=== PATIENT | male | born 1935 | race Caucasian/White ===

== ENCOUNTER → 2018-04-08 08:50 | Outpatient (CLI) | payer MEDICARE, BC, SELFPAY ==
--- NOTE | 2018-04-08 | DI.CT.S_ITS ---
PROCEDURE: CT SINUS SCREEN WO CON INDICATIONS: CHRONIC SINUSITIS TECHNIQUE: Noncontrast 3.0 mm axial images acquired from the frontal sinuses to the mid-sella, with coronal and sagittal reformats. For radiation dose reduction, the following was used: automated exposure control, adjustment of mA and/or kV according to patient size. COMPARISON: [facility], , C-SPINE WITHOUT CONTRAST, 07/10/2016, 20:12. FINDINGS: Image quality: Excellent. Maxillary Sinuses: No bony remodeling or destruction. Sinuses are clear. Within the floor of the right maxillary sinus, developmental bony irregularity can be seen. Ethmoid Air Cells: No bony remodeling or destruction. Moderate mucosal thickening is seen within the white air cells. Sphenoid Sinuses: No bony remodeling or destruction. Sinuses are clear. Frontal Sinuses: No bony remodeling or destruction. Moderate mucosal thickening is seen within the inferior frontal sinuses. Accessory septations can be seen within the frontal sinuses. Ostiomeatal Complexes: Ostiomeatal complexes are patent, yet they are constitutionally narrowed. Mild intraorbital septations can be seen. Miscellaneous: Visualized intra-orbital contents are normal. There is a small left-sided meena bullosa. Mild rightward nasal septal deviation is seen. IMPRESSION: Moderate mucosal thickening is seen within the inferior frontal sinuses and within the ethmoid air cells, which is consistent with the given history of chronic sinusitis. Narrowed ostiomeatal complexes, which remain patent. Mild left meena bullosa, with mild rightward nasal septal deviation. Dictated by: Ariel Perez M.D. on 04/08/2018 at 9:09 Approved by: Ariel Perez M.D. on 04/08/2018 at 9:13
== END ==
PROVIDERS: Family Provider Internal Medicine; PCP Internal Medicine; Visit Provider Internal Medicine
DX: J32.9 Chronic sinusitis, unspecified (principal); J34.2 Deviated nasal septum; J34.3 Hypertrophy of nasal turbinates
CPT/HCPCS: 70486

== ENCOUNTER → 2018-08-29 07:56 | Outpatient (CLI) | payer MEDICARE, BC, SELFPAY ==
[2018-08-29 08:32] LABS: Add Manual Diff / Slide Review NO; Basophils Percent Auto 1.2 % (0-2); Hematocrit 45.7 % (41-53); Hemoglobin 15.2 g/dL (13.5-17.5); Mean Corpuscular HGB Conc 33.3 % (30-36); Mean Corpuscular Hemoglobin 31.2 PG (26-34); Mean Corpuscular Volume 93.5 fL (80-100); Monocytes Percent Auto 6.8 % (3-14); Neutrophils Absolute Auto 5200 /uL (3000-5900); Platelet Count 279 X10^3/uL (150-400); Red Blood Cell Count 4.89 X10^6/uL (4.5-5.9); Red Cell Distribution Width 13.2 % (11.6-14.8); White Blood Cell Count 9.1 X10^3/uL (4.5-11.0)
[2018-08-29 08:52] LABS: Alanine Aminotransferase 30 IU/L (21-72); Albumin 4.4 g/dL (3.5-5.0); Albumin Globulin Ratio 1.8 (1.0-2.8); Alkaline Phosphatase 86 U/L (38-126); Aspartate Aminotransferase 21 IU/L (17-59); Bilirubin Total 0.9 mg/dL (0.2-1.3); Blood Urea Nitrogen 20 mg/dL (9-20); Calcium 9.2 mg/dL (8.4-10.2); Carbon Dioxide 29 mmol/L (22-32); Chloride 103 mmol/L (98-107); Cholesterol 148 mg/dL (140-199); Estimated Glomerular Filt Rate > 60.0 mL/min (>60); Globulin 2.5 g/dL (1.7-4.1); Glucose 101 mg/dL (80-110); HDL Cholesterol 63 mg/dL (40-60); HEMOLYSIS 22 (0-50); LDL Cholesterol Calculated 70 mg/dL (<100); Potassium 4.3 mmol/L (3.4-5.1); Sodium 144 mmol/L (137-145); Total Protein 6.9 g/dL (6.3-8.2); Triglycerides 75 mg/dL (35-150)
== END ==
PROVIDERS: Family Provider Internal Medicine; PCP Internal Medicine; Visit Provider Urology
DX: R97.20 Elevated prostate specific antigen [PSA] (principal); E78.2 Mixed hyperlipidemia; I10 Essential (primary) hypertension
CPT/HCPCS: 36415; 80053; 80061; 84153; 85025

== ENCOUNTER → 2018-09-26 09:34 | Outpatient (CLI) | payer MEDICARE, BC, SELFPAY ==
--- NOTE | 2018-09-26 11:05 | DIET.PN ---
met for initial nutrition consultation Pt reports about a year ago he collapsed while in [place]. Saw a lot of specialists; eventually determined the cause was jet lag from lack of adequate food and fluid. Also experienced a decrease in mental acuity during this time. Since then started working hard to eat better, exercise more and lose weight. Has lost 20# in 8 months, but has now been stuck for about 2 months. Wants to lose another 10#. Feels he lost muscle and now having difficulty gaining back. Exercise: walks/hikes 4-10mi daily wearing a 20# pack. Typical Diet: Three meals daily w/trimmer buffing wheel snack when can't sleep. Breakfast- 1 PO egg w/1/2 slice toast (dry), 2 cups coffee w/Coffeemate creamers and 1Tbsp sugar each Or, 1 egg omelet w/peppers and cheese; Lunch: Homemade soup- turkey noodle, chicken veg, split pea ~12oz; 1/2 slice bread Dinner: 4oz Hamburger, with bun, sometimes veg, 12 oz skim milk Or, vegetables w/melted Raclette cheese, 12 oz skim milk 4pm daily- Happy hour: 8oz red wine 1AM (wakes r/t needing to urinate and can't get back to sleep)- snack: banana bread or whatever around NOTE: Bread is homemade and big slices DX: Obesity Ht: 67 Weight Hx: 8mo ago- 214 BMI: 33 Today 194# BMI 30 Weight Goal: 180# Age: 83yo Assessment: This is a spry 85yo; determined to get back in good condition with goal of hiking 450mi trek in [place] w/friend. Has made very good changes in diet and exercise w/resulting wt loss, increase in mental acuity and improved energy (for my age). Is borderline obese at this wt and having difficulty continuing progress. Diet is very modest in portions; includes a variety of food groups; fairly well balanced considering low energy needs for age. Diet does have some empty calorie foods that could be trimmed and possibly more starchy foods (fresh bread) than an 85yo needs. Concerned that diet is not adequate in protein - current recs for elderly are 30g of protein 3 times/daily (spread through day) to avoid muscle loss/gain muscle. Intervention: Brainstormed ways to trim current diet of cals, while increasing protein. Plan: Less starchy foods, more protein DC sugar in coffee - drink black or substitute w/stevia Decrease Happy hour wine to every other day Try: Breakfast- 2 egg omelet w/vegs, no bread Lunch - More soup w/more meat, no bread or same serving soup + cottage cheese, no bread Dinner - More meals w/Meat (beef, poutry, fish) and non-starchy vegs Have mid-morning snack planned and available to help make better choice or try alternates for relaxing No f/u planned a this time
== END ==
PROVIDERS: PCP Internal Medicine; Visit Provider Internal Medicine
DX: E66.9 Obesity, unspecified (principal)
CPT/HCPCS: 97802

== ENCOUNTER → 2018-12-24 09:44 | Outpatient (CLI) | payer MEDICARE, BC, SELFPAY ==
[2018-12-24 09:54] LABS: Bacteria Urine None Seen; RBC Urine None Seen (0-5/HPF); WBC Urine None Seen (0-5/HPF)
[2018-12-24 10:43] LABS: Appearance Urine UA CLEAR; Bilirubin Urine UA NEGATIVE (NEGATIVE); Color Urine UA YELLOW; Glucose Urine UA NEGATIVE (Negative); Ketones Urine UA NEGATIVE (NEGATIVE); Leukocyte Esterase Urine UA NEGATIVE (NEGATIVE); Nitrite Urine UA NEGATIVE (Negative); Occult Blood Urine UA TRACE-INTACT (Negative); Protein Urine UA NEGATIVE (Negative); Specific Gravity Urine UA 1.015 (1.000-1.035); Urobilinogen Urine UA 0.2 E.U./dL (0.2)
[2018-12-24 11:35] LABS: Culture Indicated Urine Cult Not Indicated
== END ==
PROVIDERS: PCP Internal Medicine; Visit Provider Urology
DX: R30.0 Dysuria (principal)
CPT/HCPCS: 81001

== ENCOUNTER → 2019-01-03 10:30 | Outpatient (CLI) | payer MEDICARE, BC, SELFPAY ==
--- NOTE | 2019-01-03 | DI.CT.S_ITS ---
PROCEDURE: CT KIDNEY URETER BLADDER (KUB) INDICATIONS: ABDOMINAL PAIN TECHNIQUE: Noncontrast 5 mm thick sections acquired from the diaphragms to the symphysis. 5 mm thick coronal and sagittal reformats were then performed. For radiation dose reduction, the following was used: automated exposure control, adjustment of mA and/or kV according to patient size. COMPARISON: None. FINDINGS: Image quality: Excellent. Lung bases: Lung bases are clear. Heart size is normal. Urinary system: Both kidneys are normal in size. No kidney stones. No hydronephrosis or perinephric fat stranding. Both ureters appear non-dilated throughout their expected courses. Bladder wall thickness is normal; no calcified bladder stones. Other solid organs: Liver is normal in size. Gallbladder appears normal. Pancreas is normal in contours. Spleen is normal in size. No adrenal nodules. Peritoneum and bowel: Unenhanced bowel loops demonstrate normal wall thickness and caliber. No free fluid or air. Nodes and vessels: No retroperitoneal or mesenteric adenopathy by size criteria. Aorta and inferior vena cava are normal in caliber. Abdominal wall: No ventral hernias. Pelvis: No free pelvic fluid. No inguinal hernias or adenopathy. No bladder calculus or mass is found. The prostate is enlarged to a mild to moderate degree. The bladder itself shows no evidence of underlying neoplasm. Bones: No suspicious bony lesions. No vertebral body compression fractures. IMPRESSION: No hydronephrosis or nephrolithiasis is found. No inflammatory processes identified. A source of current abdominal pain is not seen. Note is made of mild concentric bladder wall thickening in this patient with mild to moderate prostatic enlargement, smoothly marginated, without a bladder calculus or mass. Dictated by: Bryce Woo M.D. on 01/03/2019 at 11:10 Approved by: Bryce Woo M.D. on 01/03/2019 at 11:13
== END ==
PROVIDERS: PCP Internal Medicine; Visit Provider Urology
DX: R10.9 Unspecified abdominal pain (principal); N40.0 Benign prostatic hyperplasia without lower urinary tract symptoms
CPT/HCPCS: 74176

== ENCOUNTER → 2019-03-26 08:17 | Outpatient (CLI) | payer MEDICARE, BC, SELFPAY ==
--- NOTE | 2019-03-26 08:18 | DI.RAD.S_ITS ---
PROCEDURE: XR CHEST 2V INDICATIONS: cough TECHNIQUE: 2 views of the chest were acquired. COMPARISON: [facility], , CHEST 2 VIEW, 12/21/2015, 10:48. FINDINGS: Surgical changes and devices: None. Lungs and pleura: Lungs are clear. No pleural effusions or pneumothorax. Mediastinum: Mediastinal contours are normal. Heart size is normal. Bones and chest wall: No suspicious bony abnormalities. Soft tissues appear unremarkable. IMPRESSION: Normal for age, source of current cough symptoms is not seen. Dictated by: Bryce Woo M.D. on 03/26/2019 at 8:42 Approved by: Bryce Woo M.D. on 03/26/2019 at 8:42
== END ==
PROVIDERS: PCP Internal Medicine; Visit Provider Physician Assistant
DX: R05 Cough (principal)
CPT/HCPCS: 71046

== ENCOUNTER → 2019-03-31 14:00 | Outpatient (CLI) | payer MEDICARE, BC, SELFPAY ==
--- NOTE | 2019-03-31 14:01 | DI.RAD.S_ITS ---
PROCEDURE: XR CHEST 2V INDICATIONS: cough persists after antibiotic TECHNIQUE: 2 views of the chest were acquired. COMPARISON: [facility], CR, XR CHEST 2V, 03/26/2019, 8:22. FINDINGS: Surgical changes and devices: None. Lungs and pleura: No acute consolidation. Scattered subsegmental atelectasis and/or scarring. No pleural effusions or pneumothorax. Mediastinum: Mediastinal contours are normal. Heart size is normal. Bones and chest wall: No suspicious bony abnormalities. Soft tissues appear unremarkable. IMPRESSION: No acute disease. Scattered scarring/atelectasis as before Dictated by: Navarro Talamantes M.D. on 03/31/2019 at 17:33 Approved by: Navarro Talamantes M.D. on 03/31/2019 at 17:34
== END ==
PROVIDERS: PCP Internal Medicine; Visit Provider Nurse Practitioner
DX: R05 Cough (principal)
CPT/HCPCS: 71046

== ENCOUNTER → 2019-04-10 10:35 | Outpatient (CLI) | payer MEDICARE, BC, SELFPAY | PROVIDERS: PCP Internal Medicine; Visit Provider Nurse Practitioner | DX: R05 Cough (principal); R06.2 Wheezing | CPT/HCPCS: 87070; 87186; 87205 ==

== ENCOUNTER → 2019-04-29 15:04 | Outpatient (CLI) | payer MEDICARE, BC, SELFPAY ==
[2019-04-29 15:37] LABS: BUN Creatinine Ratio 26.4 (6-22); Blood Urea Nitrogen 29 mg/dL (9-20); Calcium 9.4 mg/dL (8.4-10.2); Carbon Dioxide 29 mmol/L (22-32); Chloride 105 mmol/L (98-107); Estimated Glomerular Filt Rate > 60.0 mL/min (>60); Glucose 92 mg/dL (80-110); HEMOLYSIS < 15 (0-50); Potassium 4.2 mmol/L (3.4-5.1); Sodium 141 mmol/L (137-145)
[2019-04-29 15:42] LABS: Hematocrit 43.9 % (41-53); Hemoglobin 14.5 g/dL (13.5-17.5); Platelet Count 307 X10^3/uL (150-400); Red Blood Cell Count 4.67 X10^6/uL (4.5-5.9); Red Cell Distribution Width 13.8 % (11.6-14.8); White Blood Cell Count 8.2 X10^3/uL (4.5-11.0)
[2019-04-29 15:46] LABS: D Dimer < 200 ng/mL (<230)
[2019-04-29 16:34] LABS: Neutrophils Absolute Manual 4100 /uL (3000-5900); Total Cells Counted 100
[2019-04-29 16:35] LABS: RBC Morphology Normal Morphology
== END ==
PROVIDERS: PCP Internal Medicine; Visit Provider Nurse Practitioner
DX: R06.09 Other forms of dyspnea (principal); R07.9 Chest pain, unspecified; R06.00 Dyspnea, unspecified; R06.89 Other abnormalities of breathing; I10 Essential (primary) hypertension
CPT/HCPCS: 36415; 80048; 85025; 85379

== ENCOUNTER → 2019-05-06 06:44 | Outpatient (CLI) | payer MEDICARE, BC, SELFPAY ==
--- NOTE | 2019-05-06 06:45 | DI.ECHO.S_ITS ---
[facility] +---------+ : : [address] : [place] : : : : [id number] : : : : Phone: [phone]+ Echocardiogram Report + + :Name: ISSAC MATUTE Study Date: 05/06/2019 Height: 67 in : :[facility] Exam Location: [facility] Weight: 205 lb : : Gender: Male BSA: 2.0 m2 : :: 1935 Age: 84 yrs BP: 142/80 mmHg: :Reason For Study: CARTAGENA/ Chest Pain/ Weight Gain : : Performed By: Mary Page : :Referring: IVORY NOLEN : + + Interpretation Summary The left ventricle is normal in size. The left ventricle is hyperdynamic. The ejection fraction is estimated to be 70-75%. The echo findings are not consistent with significant dynamic left ventricular intracavitary or LV outflow tract obstruction. The right ventricle is normal in size and function. The aortic valve is mildly calcified. There is mildly reduced leaflet mobility. The peak aortic velocity is 2.2 m/sec. The aortic valve mean gradient is 10.4 mmHg. The peak aortic velocity on the previous exam was 1.8 m/sec. There is mild aortic stenosis. There is mild aortic regurgitation. Compared to the prior echo study, there has been a decrease in the severity of aortic regurgitation. The aortic root is mildly dilated. The ascending aorta is mildly enlarged. Procedure: A two-dimensional transthoracic echocardiogram with color flow and Doppler was performed. The study quality was technically adequate. Comparison is made with the echocardiogram of 09/28/2017. The patient was in normal sinus rhythm during the exam. Left Ventricle: Left ventricular wall thickness is mildly increased. The left ventricle is normal in size. Proximal septal thickening is noted. There is no thrombus. A false chord is noted (normal variant). The ejection fraction is estimated to be 70-75%. The left ventricle is hyperdynamic. There are no focal wall motion abnormalities. Diastolic parameters suggest a relaxation abnormality of the left ventricle, consistent with probable normal filling pressures. Right Ventricle: The right ventricle is normal in size and function. Atria: The left atrium is mildly dilated. The left atrium has mildly decreased in size since the prior echo exam. Right atrial size is normal. There is no Doppler evidence for an interatrial shunt. Mitral Valve: There is mild mitral annular calcification. There is trace mitral regurgitation. Aortic Valve: The aortic valve is trileaflet. The aortic valve is mildly calcified. There is mildly reduced leaflet mobility. The peak aortic velocity is 2.2 m/sec. The peak aortic velocity on the previous exam was 1.8 m/sec. The aortic valve mean gradient is 10.4 mmHg. The calculated aortic valve area is 2.2 cm2. There is mild aortic stenosis. There is mild aortic regurgitation. There is an eccentric jet of aortic insufficiency directed against the anterior mitral leaflet. Compared to the prior echo study, there has been a decrease in the severity of aortic regurgitation. Tricuspid Valve: The tricuspid valve is normal in structure and function. There is a trace or physiologic amount of tricuspid regurgitation. Pulmonary artery pressures cannot be estimated because of the lack of a measurable TR jet velocity. Pulmonic Valve: The pulmonic valve is not well seen, but is grossly normal. There is trace pulmonic regurgitation. Great Vessels: The aortic root is mildly dilated. The ascending aorta is mildly enlarged. The aortic arch could not be visualized. There has been no significant change since the previous study. The pulmonary artery is normal size. The IVC is of normal diameter and collapses greater than 50% with a sniff. This suggests a low right atrial pressure of 3 mm Hg. Pericardium/ Pleura There is no pericardial effusion. There is no pleural effusion. MMode/2D Measurements & Calculations LVIDd: 4.5 cm LVOT diam: 2.1 cm LVIDs: 2.5 cm Ao root diam: 4.2 cm FS: 44.8 % asc Aorta Diam: 3.8 cm EPSS: 0.28 cm IVSd: 1.2 cm LVPWd: 1.1 cm LV bridges. diameter/BSA (cm/m^2): 2.2 LV sys. diameter/BSA (cm/m^2): 1.2 LA A2 area: 24.1 cm2 RA long axis: 6.4 cm LA A4 area: 27.7 cm2 RA area: 23.5 cm2 LA length (vol): 7.2 cm RA vol: 73.4 ml LA vol: 78.7 ml RA : 35.9 ml/m2 LA vol index: 38.5 ml/m2 IVC diam: 1.9 cm RVD1 (basal): 4.2 cm RVD2 (mid): 2.6 cm TAPSE: 2.7 cm Doppler Measurements & Calculations Ao V2 max: 220.7 cm/sec LVOT Max Dean: 118.5 cm/sec Ao V2 mean: 152.7 cm/sec LV V1 max P.6 mmHg Ao max P.5 mmHg LV V1 VTI: 27.0 cm Ao mean P.4 mmHg AIXA(I,D): 2.2 cm2 Ao V2 VTI: 43.6 cm AIXA(V,D): 1.9 cm2 sev ratio: 0.62 AIXA indexed to BSA (cm^2/m^2): 1.1 AI P1/2t: 526.5 msec AI dec slope: 221.8 cm/sec2 MV E max dean: 60.8 cm/sec TR max dean: 233.3 cm/sec MV A max dean: 101.7 cm/sec TR max P.8 mmHg MV E/A: 0.60 PA V2 max: 88.8 cm/sec Med Peak E' Dean: 5.3 cm/sec PA V2 mean: 64.8 cm/sec E/E' med: 11.6 PA mean P.8 mmHg Lat Peak E' Dean: 6.4 cm/sec PA Accel Time: 0.10 sec E/E' lat: 9.5 E/e' average: 10.5 MV dec time: 0.22 sec MV P1/2t: 65.0 msec MV P1/2t max dean: 61.0 cm/sec SV(LVOT): 95.6 ml MVA(P1/2t): 3.4 cm2 Reading Physician:AM
== END ==
PROVIDERS: PCP Internal Medicine; Visit Provider Nurse Practitioner
DX: I35.2 Nonrheumatic aortic (valve) stenosis with insufficiency (principal); I77.89 Other specified disorders of arteries and arterioles; R06.09 Other forms of dyspnea; R07.9 Chest pain, unspecified; R63.5 Abnormal weight gain
CPT/HCPCS: 93306

== ENCOUNTER → 2019-06-26 15:07 | Outpatient (CLI) | payer MEDICARE, BC, SELFPAY ==
--- NOTE | 2019-06-26 | DI.MRI.S_ITS ---
PROCEDURE: MR KNEE RT WO CON INDICATIONS: Medial right knee pain TECHNIQUE: Noncontrast sagittal PD fast spin echo and T2 fast spin echo with fat saturation, sagittal 3-D FLASH with fat saturation; coronal T1 spin echo and PD fast spin echo with fat saturation, and axial PD fast spin echo with fat saturation through the knee. COMPARISON: None. FINDINGS: Image quality: Diagnostic. Bones and joint: There is no acute fracture or dislocation. No suspicious osseous lesions are evident. There is a small to moderate-sized knee joint effusion with an associated very large Silva's cyst. Moderate edema about the proximal and distal margins of the Silva's cyst are evident. Thinning of the hyaline articular cartilage is noted within all 3 compartments of the knee. Scattered small to moderate sized irregular full-thickness cartilaginous defects are best appreciated within the lateral and patellofemoral compartments. No definite large defects are appreciated. Cruciate ligaments: The anterior and posterior cruciate ligaments are intact. Menisci: There is complex tearing of the medial and lateral menisci. An irregular oblique tear involving the femoral articular surface is identified throughout the body and anterior horn of the lateral meniscus. There may be a small distal flap that extends into the adjacent lateral bladder. Grade 2 signal through the posterior horn of the lateral meniscus is present. There is a complex tear at the junction of the body and posterior horn of the medial meniscus with a small to moderate-sized meniscal flap extending into the adjacent medial gutter. Associated small parameniscal cysts are evident. Low-grade partial-thickness tearing of the posterior root of the medial meniscus appears to be present. Medial structures: The medial collateral ligament is intact. However, thickening of this ligament with overlying soft tissue edema is noted. There is prominent edema about the medial aspect of the knee. There may be a small medial patellar plica. The semimembranosus tendon insertion is intact. The imaged portions of the pes anserinus tendons are unremarkable. No significant fluid is contained within the pes anserinus bursa. Lateral structures: The popliteal tendon is moderately thickened and edematous.. The lateral collateral ligament proper (fibular collateral ligament) and the proximal tibiofibular ligaments are intact. Mild increased signal involving the femoral attachment of the lateral collateral ligament is present. The distal aspect of the biceps femoris tendon and the iliotibial band are intact. Anterior structures: The quadriceps and patellar tendons are intact. There is no significant edema in the infrapatellar fat pad. Other: Extensive subcutaneous edema about the knee is present. IMPRESSION: 1. Complex tearing of the medial and lateral menisci with small displaced meniscal flaps. 2. 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 3. Scar versus sprains of the medial and lateral collateral ligaments. No full-thickness tears. 4. Moderate proximal popliteal tendinopathy. 5. Small to moderate-sized knee joint effusion with an associated prominent Silva's cyst, which may be leaking. Dictated by: Delta Palomares M.D. on 06/27/2019 at 9:50 Approved by: Delta Palomares M.D. on 06/27/2019 at 9:57
== END ==
PROVIDERS: Family Provider Internal Medicine; PCP Internal Medicine; Visit Provider Orthopaedic Surgery
DX: S83.281A Other tear of lateral meniscus, current injury, right knee, initial encounter (principal); S83.241A Other tear of medial meniscus, current injury, right knee, initial encounter; M94.261 Chondromalacia, right knee; M71.21 Synovial cyst of popliteal space [Baker], right knee
CPT/HCPCS: 73721

== ENCOUNTER → 2019-09-02 08:01 | Outpatient (CLI) | payer MEDICARE, BC, SELFPAY ==
[2019-09-02 08:57] LABS: Add Manual Diff / Slide Review NO; Basophils Absolute Auto 0 /uL (0-100); Basophils Percent Auto 0.5 % (0-2); Eosinophils Absolute Auto 300 /uL (0-450); Eosinophils Percent Auto 3.8 % (2-4); Hematocrit 44.6 % (41-53); Hemoglobin 14.9 g/dL (13.5-17.5); Lymphocytes Absolute Auto 2800 /uL (1100-4500); Lymphocytes Percent Auto 32.5 % (25-40); Mean Corpuscular HGB Conc 33.3 % (30-36); Mean Corpuscular Hemoglobin 31.5 PG (26-34); Mean Corpuscular Volume 94.6 fL (80-100); Monocytes Absolute Auto 700 /uL (0-900); Monocytes Percent Auto 7.8 % (3-14); Neutrophils Absolute Auto 4800 /uL (1500-7000); Neutrophils Percent Auto 55.4 % (50-75); Platelet Count 300 X10^3/uL (150-400); Red Blood Cell Count 4.72 X10^6/uL (4.5-5.9); Red Cell Distribution Width 13.4 % (11.6-14.8); White Blood Cell Count 8.7 X10^3/uL (4.5-11.0)
[2019-09-02 09:10] LABS: Alanine Aminotransferase 22 IU/L (<50); Albumin 4.3 g/dL (3.5-5.0); Albumin Globulin Ratio 1.7 (1.0-2.8); Alkaline Phosphatase 86 U/L (38-126); Aspartate Aminotransferase 22 IU/L (17-59); BUN Creatinine Ratio 24.4 (6-22); Blood Urea Nitrogen 22 mg/dL (9-20); Calcium 9.9 mg/dL (8.4-10.2); Carbon Dioxide 28 mmol/L (22-32); Chloride 105 mmol/L (98-107); Cholesterol 207 mg/dL (140-199); Estimated Glomerular Filt Rate > 60.0 mL/min (>60); Globulin 2.5 g/dL (1.7-4.1); Glucose 113 mg/dL (80-110); HDL Cholesterol 72 mg/dL (40-60); HEMOLYSIS < 15 (0-50); LDL Cholesterol Calculated 112 mg/dL (<100); Potassium 4.6 mmol/L (3.4-5.1); Sodium 141 mmol/L (137-145); Total Protein 6.8 g/dL (6.3-8.2); Triglycerides 115 mg/dL (35-150)
[2019-09-02 09:16] LABS: C-Reactive Protein Quant < 0.5 mg/dL (<1.0)
[2019-09-02 09:41] LABS: Erythrocyte Sedimentation Rate 1 MM/HR (0-15)
== END ==
PROVIDERS: PCP Internal Medicine; Visit Provider Internal Medicine
DX: E78.2 Mixed hyperlipidemia (principal); I10 Essential (primary) hypertension; J44.9 Chronic obstructive pulmonary disease, unspecified
CPT/HCPCS: 36415; 80053; 80061; 85025; 85651; 86140

== ENCOUNTER → 2019-09-27 08:07 | Outpatient (CLI) | payer MEDICARE, BC, SELFPAY ==
[2019-09-27 08:19] LABS: RBC Urine None Seen (0-5/HPF)
[2019-09-27 09:26] LABS: Appearance Urine UA CLEAR; Bilirubin Urine UA NEGATIVE (NEGATIVE); Color Urine UA YELLOW; Glucose Urine UA NEGATIVE (Negative); Ketones Urine UA NEGATIVE (NEGATIVE); Leukocyte Esterase Urine UA TRACE (NEGATIVE); Nitrite Urine UA NEGATIVE (Negative); Occult Blood Urine UA NEGATIVE (Negative); Protein Urine UA TRACE (Negative); Urobilinogen Urine UA 0.2 E.U./dL (0.2)
[2019-09-27 09:32] LABS: Hemoglobin A1C% w Est Avg Glu 5.5 % (4.0-6.0)
[2019-09-27 09:35] LABS: Transferrin 244 mg/dL (206-381)
[2019-09-27 09:53] LABS: Bacteria Urine Occasional (0-1); Culture Indicated Urine Specimen Cultured; Hyaline Casts Urine 0-1/LPF; Mucus Urine 1+ (Negative); WBC Urine 10-30/HPF (0-5/HPF)
== END ==
PROVIDERS: PCP Internal Medicine; Visit Provider Orthopaedic Surgery
DX: Z01.818 Encounter for other preprocedural examination (principal); R73.9 Hyperglycemia, unspecified; N39.0 Urinary tract infection, site not specified; D64.9 Anemia, unspecified
CPT/HCPCS: 81001; 83036; 84466; 87086; 93005

== ENCOUNTER → 2019-11-18 10:08 | Outpatient (CLI) | payer MEDICARE, BC, SELFPAY ==
[2019-11-18 10:40] LABS: Add Manual Diff / Slide Review NO; Basophils Absolute Auto 100 /uL (0-100); Basophils Percent Auto 0.8 % (0-2); Eosinophils Absolute Auto 300 /uL (0-450); Eosinophils Percent Auto 3.6 % (2-4); Hematocrit 48.1 % (41-53); Hemoglobin 15.9 g/dL (13.5-17.5); Lymphocytes Absolute Auto 3300 /uL (1100-4500); Lymphocytes Percent Auto 35.6 % (25-40); Mean Corpuscular HGB Conc 33.1 % (30-36); Mean Corpuscular Hemoglobin 31.8 PG (26-34); Monocytes Absolute Auto 700 /uL (0-900); Neutrophils Absolute Auto 4800 /uL (1500-7000); Platelet Count 86 X10^3/uL (150-400); Red Blood Cell Count 5.01 X10^6/uL (4.5-5.9); Red Cell Distribution Width 13.3 % (11.6-14.8); White Blood Cell Count 9.2 X10^3/uL (4.5-11.0)
== END ==
PROVIDERS: PCP Internal Medicine; Visit Provider Orthopaedic Surgery
DX: Z01.812 Encounter for preprocedural laboratory examination (principal)
CPT/HCPCS: 36415; 85025

== ENCOUNTER → 2019-12-01 11:08 | Outpatient (CLI) | payer MEDICARE, BC, SELFPAY ==
[2019-12-01 12:02] LABS: Add Manual Diff / Slide Review NO; Basophils Absolute Auto 0 /uL (0-100); Basophils Percent Auto 0.5 % (0-2); Eosinophils Absolute Auto 300 /uL (0-450); Eosinophils Percent Auto 3.3 % (2-4); Hematocrit 43.5 % (41-53); Hemoglobin 14.5 g/dL (13.5-17.5); Lymphocytes Absolute Auto 2600 /uL (1100-4500); Lymphocytes Percent Auto 25.8 % (25-40); Mean Corpuscular HGB Conc 33.4 % (30-36); Mean Corpuscular Hemoglobin 31.6 PG (26-34); Mean Corpuscular Volume 94.6 fL (80-100); Monocytes Absolute Auto 800 /uL (0-900); Monocytes Percent Auto 8.4 % (3-14); Neutrophils Absolute Auto 6100 /uL (1500-7000); Platelet Count 300 X10^3/uL (150-400); Red Blood Cell Count 4.59 X10^6/uL (4.5-5.9); Red Cell Distribution Width 13.3 % (11.6-14.8); White Blood Cell Count 9.9 X10^3/uL (4.5-11.0)
[2019-12-01 12:13] LABS: Alanine Aminotransferase 20 IU/L (<50); Albumin 4.2 g/dL (3.5-5.0); Albumin Globulin Ratio 1.4 (1.0-2.8); Alkaline Phosphatase 97 U/L (38-126); Aspartate Aminotransferase 22 IU/L (17-59); BUN Creatinine Ratio 22.2 (6-22); Bilirubin Total 0.6 mg/dL (0.2-1.3); Blood Urea Nitrogen 20 mg/dL (9-20); Calcium 9.7 mg/dL (8.4-10.2); Carbon Dioxide 30 mmol/L (22-32); Chloride 103 mmol/L (98-107); Estimated Glomerular Filt Rate > 60.0 mL/min (>60); Glucose 103 mg/dL (80-110); HEMOLYSIS < 15 (0-50); Potassium 4.2 mmol/L (3.4-5.1); Sodium 140 mmol/L (137-145); Total Protein 7.2 g/dL (6.3-8.2)
[2019-12-01 13:34] LABS: Free T4, Direct Thyroxine 0.99 ng/dL (0.78-2.19); Thyroid Stimulating Hormone 1.18 uIU/mL (0.47-4.68)
== END ==
PROVIDERS: PCP Internal Medicine; Referring Provider Internal Medicine; Visit Provider Internal Medicine
DX: D69.6 Thrombocytopenia, unspecified (principal); I10 Essential (primary) hypertension; M17.11 Unilateral primary osteoarthritis, right knee
CPT/HCPCS: 36415; 80053; 84439; 84443; 85025

== ENCOUNTER 2019-12-08 08:27 | Day surgery (SDC) | payer MEDICARE, BC, SELFPAY ==
[2019-12-01 08:58] VITALS: BMI 33.3
[2019-12-08] VITALS (13 sets, daily range): BP systolic 125–169; BP diastolic 61–86; PULSE 50–69; RESP 15–18; TEMP 35.7–36.8; O2SAT 94–97; BMI 33.0
--- NOTE | 2019-12-08 06:00 | DI.RAD.S_ITS ---
PROCEDURE: XR KNEE RT 1TO2V INDICATIONS: post op TECHNIQUE: 2 view(s) of the knee acquired. COMPARISON: [facility]ed [facility], MR, MR KNEE RT WO CON, 06/26/2019, 15:19. [facility], CR, XR KNEE ARTHRITIC SERIES RT, 05/22/2019, 10:31. FINDINGS: Bones: Patient is status post knee joint arthroplasty. Hardware components are in expected positions. Visualized bony structures are intact. Soft tissues: Overlying postoperative changes are noted. IMPRESSION: Right knee arthroplasty. Dictated by: Elsa Wise M.D. on 12/08/2019 at 17:06 Approved by: Elsa Wise M.D. on 12/08/2019 at 17:06
[2019-12-08] MEDS: PREGABALIN 75 MG CAPSULE PO (09:20)
[2019-12-08] MEDS: ACETAMINOPHEN 325 MG TABLET 975 MG PO (09:21)
[2019-12-08] MEDS: LACTATED RINGERS 1,000 ML 42 ML IV (10:06)
--- NOTE | 2019-12-08 10:06 | PM.PREOP ---
Pre-operative Note Interval Note History & Physical reviewed/Exam performed by Physician: Yes Changes to H&P: No
--- NOTE | 2019-12-08 10:19 | PM.OP.1 ---
Operative Date/Time/Diagnoses Date of procedure: 12/08/19 Time of procedure: 12:10 Pre-op diagnosis: Right knee osteoarthritis Post-op diagnosis: same Procedure & Clinicians Procedure: Right total knee replacement Same procedure as scheduled: Yes Indications: The patient has had progressively worsening right knee pain with radiographic changes consistent with arthritis. Non-operative management has failed and the patient has requested total knee replacement. The risks, benefits and alternatives to surgery were discussed with the patient prior to proceeding. Risks discussed included, but were not limited to, failure to relieve pain, stiffness, infection, nerve damage, deep venous thrombosis, pulmonary embolism, stroke, coma, heart attack, permanent paralysis and , as well as the potential need for eventual revision of the prosthetic. Surgeon: Evelio Hollingsworth Procedural Nurse: Ciera Layne Click Yes if Unassisted: No Anesthesia Type: General, Spinal and Local Operative Notes Findings: Moderately severe tricompartmental osteoarthritis with large Silva's cyst decompression during surgery. Closure Type: primary Specimen(s): none sent Prosthetic devices, grafts, tissues, transplants, or devices: Implants used in this procedure were manufactured by the [employer] and included the BCS II Journey total knee replacement with a size 5 cobalt chromium right femur, a size 5 right non porous tibial base plate, a 9 mm cross-linked polyethylene insert and a 35 mm oval Connie II patellar component. Applied: implant(s) Estimated Blood Loss (mL): 50 Blood products transfused: none Tourniquet time (min): 48 Procedure in detail: The patient was seen in the pre-operative area, where the patient identified the right knee as the operative site and this was marked with my initials. The patient received pre-operative antibiotics, and was taken to the operating room and placed on the operative table in the supine position. After satisfactory anesthesia, a mathematics academic chair out was performed. The right leg was encircled with a tourniquet about the proximal thigh, and the leg was prepared from the toes to the tourniquet with ChloroPrep in the usual fashion and draped through sterile drapes. The leg was elevated and exsanguinated with Eschmark bandage and the tourniquet inflated to 250 mmHg pressure. The knee was approached through an approximately 18 cm incision centered over the patella and carried into the knee through a medial parapatellar arthrotomy. The anterior osteophytes and soft tissues were removed. The rotational landmarks of Greg's line and the transepicondylar axis were marked on the femur with electrocautery, and intramedullary guide holes for the femur and tibia were created. The distal femoral cut was made in 6 degrees of valgus using the intramedullary guide at the primary cut setting. The proximal tibial cut was then made using the intramedullary guide, taking 9 mm of bone off the less involved side. The extension gap was checked and the rotation of the femoral component confirmed with the gap balancing system. The anterior, posterior and chamfer cuts were then made. The posterior osteophytes and soft tissues were then removed. The posterior capsule was injected with part of a mixture of 60 ml 0.25% Marcaine mixed with 20 ml Exparel and 4 mg of morphine for post-operative pain control. The remainder of this mixture was injected into the capsule and subcutaneous tissues during cement curing. The tibia was prepared with the rotation set by an extra medullary guide. Trial tibial and femoral components were then placed and the intercondylar notch cut through the femoral trial. Range of motion was 0-135 degrees, with good stability throughout the range. The patella was then cut to accommodate the patellar prosthetic. There was no need for a lateral release. The trials were then removed, and the femoral hole plugged with a bone plug. The bone was prepared with pulsatile lavage, and dried with a sponge. Cement was applied and the final prosthetics placed. Excess cement was removed during and after cement curing. After confirming there was no extruded cement posteriorly, the final tibial insert was placed. The knee was copiously irrigated and the tourniquet deflated. Hemostasis was obtained. The capsule was closed with interrupted # 2 polyester suture. The subcutaneous layer was closed with 3-0 Vicryl, and the skin with a running 3-0 V-Lock suture and SteriStrips. An Aquacel Ag dressing was applied and the patient was taken to recovery having tolerated the procedure well. Complications: none Post-operative Condition: stable Disposition: PACU Plan for aftercare: The patient will be maintained on a standard total knee replacement protocol with weight bearing as tolerated. The patient will receive aspirin and sequential compression devices for DVT prophylaxis. The patient will be discharged home when safe for the home environment.
[2019-12-08] MEDS: CEFAZOLIN 2 GM/100 ML FROZ.PIGGY IV (11:01)
[2019-12-08] MEDS: TRANEXAMIC ACID 1,000 MG VIAL 1000 MG INJ ×2 (11:08→12:02)
--- NOTE | 2019-12-08 11:17 | SUR.OPER ---
Supine on padded OR bed. Pillow under head, arms secured on padded armboards <90 degree abduction. Safety belt across torso. Non-operative leg secured with tape over blanket over lower leg. Operative leg secured in DeMayo/Romulo positioner. Foam padded brace at thigh of operative leg.
[2019-12-08] MEDS: BUPIVACAINE LIPOSOME 266 MG/20 ML VIAL INJ (11:28)
[2019-12-08] MEDS: BUPIVACAINE 0.25% W/ EPI 30 ML VIAL 60 ML INJ (11:28)
[2019-12-08] MEDS: MORPHINE 4 MG/ML INJ INJ (11:29)
[2019-12-08] MEDS: LACTATED RINGERS 1,000 ML 125 ML IV (13:57)
--- NOTE | 2019-12-08 14:40 | PC.NURSE ---
Patient to room 1345, alert, oriented, denies pain, shortness of breath and nausea. Patient wiggling toes, PPP. dressing and emmett wrap to right knee CDI. Sats on RA 90% placed on 1L sats 95%. Patient oriented to room and call light, bed alarm on.
[2019-12-08] MEDS: ACETAMINOPHEN 325 MG TABLET 650 MG PO ×2 (15:59→20:28)
--- NOTE | 2019-12-08 16:31 | PT.IIE ---
Current Diagnoses Unilateral primary osteoarthritis, right knee (12/08/19) Surgery Performed Operation Date: 12/08/19 10:45 Actual Procedures p Total Knee Arthroplasty(Right) - Evelio Hollingsworth MD Surgical History (Last Updated 12/01/19 @ 09:06 by Yaneth Stoner, RN) Hx of arthroscopy of right knee (Acute) Hx of repair of right rotator cuff (Acute) Inguinal hernia (Inactive ~12/2009) S/P TURP (Inactive ~02/14/19) Status post appendectomy (Resolved) Medical History (Last Updated 12/01/19 @ 09:31 by Yaneth Stoner RN) Atrial fibrillation (Resolved) Back pain of thoracolumbar region (Chronic 01/08/14) Benign prostatic hyperplasia with lower urinary tract symptoms (Chronic 01/11/15) 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) Cardiac arrhythmia (Chronic) Chronic obstructive pulmonary disease (Chronic 01/16/18) Elevated prostate specific antigen (PSA) (Chronic) Essential hypertension (Chronic) Hearing loss (Chronic ~1989) Mixed hyperlipidemia (Chronic) 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 Mobility and Gait Pt was independent for all functional mobility without use of AD. He walked 1.5 miles daily for exercise. Activities of Daily Living and IADL's Independent, including driving . Social History Household Members spouse Living Arrangements House Number of Floors (Floors) One Floor Number of Stairs To Enter/Railing? Completely level floor plan, wheelchair accessible. Home Environment Standard Height Toilet,Tub/ Shower Home Equipment Front Wheel Walker,Raised Toilet Seat w/Armrests,Grab Bars In Shower Employment Status Retired Additional Social History Comment Pt lives with his , Neyda, who is available and able to assist as needed. M2 PT-IP Current Condition Start: 12/08/19 14:20 Freq: NEEDED Status: Active Protocol: Document 12/08/19 16:06 AW (Rec: 12/08/19 16:30 AW [id number]) Physical Therapy Current Condition Current Condition Evaluation Date 12/08/19 Treatment Diagnosis R TKA, impaired mobility Onset Date 12/08/19 Weight Bearing Status Weight Bearing Status Weight Bear as Tolerated M3 PT-IP Subjective Start: 12/08/19 14:20 Freq: NEEDED Status: Active Protocol: Document 12/08/19 16:06 AW (Rec: 12/08/19 16:30 AW [id number]) Subjective Physical Therapy Visit Type Type Initial Evaluation Visit Start Time 15:29 Visit Stop Time 15:55 Total Visit Minutes 26 Notes Pt's present throughout evaluation Number of EMBOSSING CALENDER OPERATOR Visits 0 Physical Therapy Visit Comments Patient Comments Pt is feeling no pain, willing to participate with PT Patient Goals To discharge home with his 's help Therapy Pain Assessment Pain When Pain Assessed During Mobility Pain Present Pain Present Denied Pain M4 PT-IP Mobility and Gait Start: 12/08/19 14:20 Freq: NEEDED Status: Active Protocol: Document 12/08/19 16:06 AW (Rec: 12/08/19 16:30 AW [id number]) PT-Bed Mobility Assessment Supine to Sit Supine to Sit Contact Guard Assistance Scooting Scooting to Edge of Bed Standby Assistance PT-Transfer Assessment Sit to and From Stand Sit to and from Stand Minimal Assistance,1 Person Assistance,Use of Upper Extremities Equipment Transfer Assistive Device Gait Belt,Front Wheeled Walker Orthotic/Prosthetic Devices or Brace: No Transfers Transfer Destination Chair Transfer Technique Stand Step Pivot Transfer Ability Level of Assist Minimal Assistance,1 Person Assistance,Use of Upper Extremities Comments Mobility Comments Pt was sitting up in the bed upon PT arrival. He had motor control of B LE, able to straight-leg raise and perform bed exercises though he stated he did not have much feeling in his legs. He was able to complete supine to sit with HOB elevated 30-degrees with CGA to support the operative leg in descent. As he moved toward EOB, he voided urine without being aware. Called nursing to change bedding. Pt then stood with FWW and min A x 1 and took several marching steps in place with heavy reliance on the FWW. He step pivot transferred to the chair min A x1 as he continued to report lack of sensation. Before activity: BP: 125/44 HR 61 After activity: BP 167/61 HR 71 Gait Assessment Gait Gait Assistance Required: Minimum Assistance,1 Person Assist Distance (Feet) 2 Able to Maintain Weight Bearing Status Yes During Gait Assistive Devices Assistive Device Gait Belt,Front Wheeled Walker Orthotic/Prosthetic Devices or Brace: No Gait Deviations General Gait Pattern Antalgic,Decreased Stride Length,Decreased Feet Clearance,Flexed Trunk,Step-to Gait Factors Limiting Gait Function Factors Limiting Gait Function Decreased Sensation,Decreased Strength,Poor Balance Comments Gait Comments See mobility comments Stair Climbing Assessment Comments Stair Climbing Comments Not assessed. No stairs at home. PT-Balance Assessment Sitting Balance and Reactions Static Sitting Balance Ability Good Dynamic Sitting Balance Ability Good Standing Balance and Reactions Static Standing Balance Ability Good Dynamic Standing Balance Ability Fair Device Used FWW M5 PT-IP Objective Assessments Start: 12/08/19 14:20 Freq: NEEDED Status: Active Protocol: Document 12/08/19 16:06 AW (Rec: 12/08/19 16:30 AW [id number]) Orientation Orientation/Cognition Level of Alertness Alert Orientation Name,Day of Week,Place, Situation Language Function Ability No Deficits Noted Safety Awareness Understands Safety Issues Memory Description No Deficits Noted Gross Range of Motion Upper Extremity ROM Assessment Within Functional Limits Lower Extremity ROM Assessment Within Functional Limits Strength Lower Extremity Strength Assessment Right Impaired Comments Strength Comments LLE grossly 4+/5 Sensation Assessment Sensation Gross Sensation Right LE Impaired,Left LE Impaired Light Touch Impaired Sensation Description Numbness Comments Sensation Comments Pt reports continued numbness B LE Muscle Tone Muscle Tone WNL Yes M6 PT-IP Treatment Start: 12/08/19 14:20 Freq: NEEDED Status: Active Protocol: Document 12/08/19 16:06 AW (Rec: 12/08/19 16:30 AW [id number]) Physical Therapy Treatment Exercises Exercises Ankle Pumps,Gluteal Sets, Passive Knee Extension Hang, Seated Knee Flexion/Extension Education Education Provided Precautions,Weight Bearing Status,Post-Op Packet,Safety Other Treatments Other Treatment Performed Provided education on role of PT, plan of care, weightbearing status, and safe use of FWW. M7 PT-IP Assessment and Plan Start: 12/08/19 14:20 Freq: NEEDED Status: Active Protocol: Document 12/08/19 16:06 AW (Rec: 12/08/19 16:30 AW [id number]) PT Summary Assessment and Plan Potential Rehabilitation Potential Good Status of Condition at Evaluation Evolving Summary Impairments ROM,Strength,Balance,Sensation ,Bed Mobility,Transfers,Gait, Activity Tolerance Assessment Summary Adrian is an 84yo man seen for PT evaluation on POD0 following R TKA. At baseline, he is fully independent without limit to ambulation distance. At time of evaluation, pt stated he did not have full sensation back to his legs - distal more affected than proximal. He required CGA to min assist for all mobility. Ambulation trial was not undertaken due to dull sensation. Pt will require at least one more session of acute PT in order to review bed mobility, post-op exercises, and to assess gait with FWW. PT anticipates he will achieve the goals of this plan of care and be safe to discharge home with spouse support and outpatient PT once medically cleared. Goals Bed Mobility Goal Independent Transfer Goal Independent,Front Wheeled Walker Gait Goal Independent,Front Wheel Walker Gait Distance 200 feet Days to Meet Goals 3 Frequency of Treatment Frequency Of Treatment Twice a Day Treatment Plan Physical Therapy Treatment Plan Bed Mobility Training,Transfer Training,Gait Training, Therapeutic Exercise,Balance Retraining,Post Op Education, Discharge Planning,Hot or Cold Pack,Neuromuscular Re-ed, Coordination Retraining,Manual Therapy Other Recommendations and Next Treatment assess gait, review ther ex, Focus assess need for caregiver training Recommendations To Nursing Amount of Assist Needed 1 Person Assist Discharge Recommendations PT Discharge Recommendations Home with Assistance, Outpatient PT Transportation Needs at Discharge Private Vehicle
[2019-12-08] MEDS: IBUPROFEN 400 MG TABLET PO ×2 (17:24→20:28)
[2019-12-08] MEDS: ASPIRIN EC 81 MG TABLET PO (20:29)
[2019-12-08] MEDS: DOXAZOSIN 4 MG TABLET 8 MG PO (20:29)
[2019-12-08] MEDS: SIMVASTATIN 40 MG TABLET PO (20:29)
[2019-12-08] MEDS: FINASTERIDE 5 MG TABLET PO (20:29)
[2019-12-08] MEDS: DOCUSATE 100 MG CAPSULE PO (20:29)
--- NOTE | 2019-12-08 22:43 | PC.NURSE ---
Patient is A/Ox4. Minimal pain, treated with scheduled tylenol and ibuprofen. Able to ambulate with walker and 1 p. assist to bathroom. Wheezing noted on exertion, patient says that is his baseline. Home CPAP is in the room, patient wishes to sleep in the chair and says he will call when he wants to put the CPAP on for the night.
[2019-12-09] MEDS: IBUPROFEN 400 MG TABLET PO ×3 (00:33→08:27)
[2019-12-09 05:36] LABS: Hematocrit 39.7 % (41-53); Hemoglobin 13.1 g/dL (13.5-17.5)
--- NOTE | 2019-12-09 07:31 | PM.DS.1 ---
History of Present Illness History of Present Illness Date Patient Seen: 12/09/19 Time Patient Seen: 07:31 Chief complaint: [id number] Right Total Kneee Arthroplasty Narrative: The history and physical are contained in the chart previously completed note. Please refer to that note for this information. Discharge Providers Provider Date of admission: 12/08/19 08:27 Discharge Date: 12/09/19 Primary care physician: Ulices Guardado MD Consults: 12/08/19 13:35 Consult to Discharge Planning Routine Comment: Consult to Physical Therapy Evaluate & Treat Comment: Physician Instructions: postop TKA protocol Discharge provider: Evelio Hollingsworth MD Summary Hospital Course Discharge Diagnosis: 1. Right knee osteoarthritis 2. Post hemorrhagic anemia Hospital Course: The patient was admitted to the hospital and taken directly to the operating room on December 08, 2019 for a right total knee replacement. He tolerated the procedure well. On postoperative day 1 pain control was reasonable and he was ready for discharge home. Status at Discharge Cognitive/behavioral status at discharge: oriented Functional status at discharge: uses cane/walker Overall status at discharge: patient is progressing back to baseline Time Spent with Patient Time spent: Less than 30 minutes Exam Vital Signs (past 8 hours): - 12/08/19 23:46 Temperature 97.8 F Pulse Rate 53 L Respiratory Rate 18 Blood Pressure 132/82 Pulse Oximetry 94 Oxygen Delivery Method Nasal Cannula Oxygen Flow Rate 0 Narrative Exam Narrative: Right knee wound is dressed with no drainage on the bandage. Calf is soft. Light touch and motion are intact in the right lower extremity. Objective Labs Result Diagrams: 12/09/19 05:08 Labs: Laboratory Results - last 24 hr 12/09/19 05:08 Hgb 13.1 L Hct 39.7 L Discharge Plan Discharge Plan Patient Disposition: Home Discharge orders & Medications Prescriptions: New acetaminophen 325 mg Tablet 650 mg PO TID 30 Days Qty: 180 RF: 0 aspirin 81 mg Tablet,Delayed Release (Dr/Ec) 81 mg PO BID 42 Days Qty: 84 RF: 0 oxycodone 5 mg Tablet 5 mg PO Q4H PRN (Reason: Pain, Moderate (4-6)) Qty: 40 RF: 0 Continued simvastatin 40 mg tablet 40 mg PO QDAY Qty: 90 RF: 3 doxazosin 8 mg tablet 8 mg PO DAILY Qty: 90 RF: 0 finasteride 5 mg tablet 5 mg PO DAILY Qty: 90 RF: 0 Follow up/Referrals: Ulices Guardado MD [Primary Care Provider] - Evelio Hollingsworth MD [Physician] - 2 Weeks Discharge Health Status Multidrug resistant organism: No MDRO Diet/Activity/Treatments Diet: Diet as Tolerated and Regular Activity: You may bear weight as tolerated on your right leg. Cold/Heat Therapy: Apply ice to the right knee for 15 minutes every hour as needed for pain control. Skin/Wound/Dressing Care Report to your healthcare provider any signs of infection, such as:: chills, fever, night sweats, increased pain, unusual drainage and unusual redness Dressing: You may remove the Stuart wrap 3 days after surgery and shower normally. Leave the deeper dressing in place until your follow-up. If the central strip of the deeper dressing becomes saturated with either water or blood, please call the office to have it evaluated. Visit Report/Discharge Packet Instructions: DI for Knee Replacement, How to Prevent Falls, DI for Prescription Opioid Use, Stool Softeners, Oxycodone Stand Alone Forms: Surgery Discharge Discharge Data Primary Care Provider: Ulices Guardado Quality VTE Deep Vein Thrombosis/Pulmonary Embolism Present on Admission: No
[2019-12-09 07:45] VITALS: BP 120/58; PULSE 59; RESP 16; TEMP 36.6; O2SAT 95
[2019-12-09] MEDS: ASPIRIN EC 81 MG TABLET PO (08:25)
[2019-12-09] MEDS: ACETAMINOPHEN 325 MG TABLET 650 MG PO (08:26)
[2019-12-09] MEDS: DOCUSATE 100 MG CAPSULE PO (08:26)
--- NOTE | 2019-12-09 09:06 | PT.IPTN ---
Current Diagnoses Unilateral primary osteoarthritis, right knee (12/08/19) Surgery Performed Operation Date: 12/08/19 10:45 Actual Procedures p Total Knee Arthroplasty(Right) - Evelio Hollingsworth MD Physical Therapy Treatment Note M2 PT-IP Current Condition Start: 12/08/19 14:20 Freq: NEEDED Status: Discharge Protocol: Document 12/08/19 16:06 AW (Rec: 12/08/19 16:30 AW [id number]) Physical Therapy Current Condition Current Condition Evaluation Date 12/08/19 Treatment Diagnosis R TKA, impaired mobility Onset Date 12/08/19 Weight Bearing Status Weight Bearing Status Weight Bear as Tolerated M3 PT-IP Subjective Start: 12/08/19 14:20 Freq: NEEDED Status: Discharge Protocol: Document 12/09/19 09:06 CLB (Rec: 12/09/19 10:36 CLB [id number]) Subjective Physical Therapy Visit Type Type Treatment Note Visit Start Time 09:06 Visit Stop Time 09:35 Total Visit Minutes 29 Number of VIDEO CLERK Visits 1 Physical Therapy Visit Comments Patient Comments Pt agreeable to do therapy. Patient Goals To discharge home with his 's help Therapy Pain Assessment Pain When Pain Assessed During Mobility Pain Present Pain Present Pain Reported Location Knee Intensity 2 Scale Used Numeric (1 - 10) Pain Management Techniques Modification of Treatment,Re- positioning,Timing of Activity with Medications M4 PT-IP Mobility and Gait Start: 12/08/19 14:20 Freq: NEEDED Status: Discharge Protocol: Document 12/09/19 09:06 CLB (Rec: 12/09/19 10:36 CLB [id number]) PT-Transfer Assessment Sit to and From Stand Sit to and from Stand Contact Guard Assistance,1 Person Assistance,Use of Upper Extremities Equipment Transfer Assistive Device Gait Belt,Front Wheeled Walker Orthotic/Prosthetic Devices or Brace: No Transfers Transfer Destination Chair Transfer Technique Stand Step Pivot Transfer Ability Level of Assist Contact Guard Assistance,1 Person Assistance,Use of Upper Extremities Comments Mobility Comments Pt in chair upon arrival. Pt stood CGA from chair and ambulated in moise ~250ft with CGA to start then able to ambulate SBA with good walker management and step-thru gait pattern putting equal amounts of wt on bilateral LE's with no increase in pain. Pt is steady and safe with gait. Pt performed seated ther ex. Pt stated he will sleep in his recliner and refused bed mobility training. present for CG training. Discussed WB status, stratagies for getting in and out of bed with hooking left foot under right leg or using a cane to assist leg out of bed. Also discussed safest way to get in and out of care. Left pt with call light and all other needs within reach, present. Informed RN of pt progress. Gait Assessment Gait Gait Assistance Required: Standby Assistance,Contact Guard Assist,1 Person Assist Distance (Feet) 250 Able to Maintain Weight Bearing Status Yes During Gait Assistive Devices Assistive Device Gait Belt,Front Wheeled Walker Gait Deviations General Gait Pattern Antalgic,Decreased Stride Length,Decreased Feet Clearance,Flexed Trunk,Step-to Gait Factors Limiting Gait Function Factors Limiting Gait Function Decreased Sensation,Decreased Strength,Poor Balance Comments Gait Comments See mobility comments Stair Climbing Assessment Comments Stair Climbing Comments Not assessed. No stairs at home. PT-Balance Assessment Sitting Balance and Reactions Static Sitting Balance Ability Good Dynamic Sitting Balance Ability Good Standing Balance and Reactions Static Standing Balance Ability Good Dynamic Standing Balance Ability Fair Device Used FWW M5 PT-IP Objective Assessments Start: 12/08/19 14:20 Freq: NEEDED Status: Discharge Protocol: Document 12/08/19 16:06 AW (Rec: 12/08/19 16:30 AW [id number]) Orientation Orientation/Cognition Level of Alertness Alert Orientation Name,Day of Week,Place, Situation Language Function Ability No Deficits Noted Safety Awareness Understands Safety Issues Memory Description No Deficits Noted Gross Range of Motion Upper Extremity ROM Assessment Within Functional Limits Lower Extremity ROM Assessment Within Functional Limits Strength Lower Extremity Strength Assessment Right Impaired Comments Strength Comments LLE grossly 4+/5 Sensation Assessment Sensation Gross Sensation Right LE Impaired,Left LE Impaired Light Touch Impaired Sensation Description Numbness Comments Sensation Comments Pt reports continued numbness B LE Muscle Tone Muscle Tone WNL Yes M6 PT-IP Treatment Start: 12/08/19 14:20 Freq: NEEDED Status: Discharge Protocol: Document 12/09/19 09:06 CLB (Rec: 12/09/19 10:36 CLB [id number]) Physical Therapy Treatment Exercises Exercises Ankle Pumps,Quad Sets,Heel Slides,Short Arc Quads,Passive Knee Extension Hang,Seated Knee Flexion/Extension Education Education Provided Precautions,Weight Bearing Status,Post-Op Packet,Safety M7 PT-IP Assessment and Plan Start: 12/08/19 14:20 Freq: NEEDED Status: Discharge Protocol: Document 12/09/19 09:06 CLB (Rec: 12/09/19 10:36 CLB [id number]) PT Summary Assessment and Plan Potential Rehabilitation Potential Good Status of Condition at Evaluation Evolving Summary Impairments ROM,Strength,Balance,Sensation ,Bed Mobility,Transfers,Gait, Activity Tolerance Assessment Summary Pt required SBA-CGA for all mobility and ambulated with good safety awareness, steady gait and walker management during gait. Pt has OP PT scheduled on 12/16/2019. Pt able to d/c home with assist when medically stable. Goals Bed Mobility Goal Independent Transfer Goal Independent,Front Wheeled Walker Gait Goal Independent,Front Wheel Walker Gait Distance 200 feet Days to Meet Goals 3 Frequency of Treatment Frequency Of Treatment Twice a Day Treatment Plan Physical Therapy Treatment Plan Bed Mobility Training,Transfer Training,Gait Training, Therapeutic Exercise,Balance Retraining,Post Op Education, Discharge Planning,Hot or Cold Pack,Neuromuscular Re-ed, Coordination Retraining,Manual Therapy Recommendations To Nursing Amount of Assist Needed 1 Person Assist Discharge Recommendations PT Discharge Recommendations Home with Assistance, Outpatient PT Transportation Needs at Discharge Private Vehicle
--- NOTE | 2019-12-09 10:12 | PC.NURSE ---
Day shift: Pt off unit at this time (1010). Taken in WC by RN lisseth Leong. Paperwork signed and all questions answered. Pt is [employer]. Pt has all personal belongings and has MD scripts already. VITO wrap is CDI. Pt's spouse is driving them home.
--- NOTE | 2019-12-09 12:27 | CM.DANOTE ---
DCP: Case receive, EMR reviewed and met with patient. Introduced self and role. Was able to meet with patient to obtain information regarding baseline activity and health information. DCP assessment completed with information currently available. Patient is an 84 year old male who admitted yesterday morning to the care of the orthopedic team. PCP: Dr. Guardado. Payer: confirmed: Medicare/[employer] [facility]. Patient came to the hospital for a surgical procedure. He had a right total knee arthroplasty. Patient has history of osteoarthritis of the right knee. Met with patient. He was sitting up in his chair in his room. He is pleasant, and alert and oriented. He resides here in [place] with his spouse, Eliza. Patient had been independent. He uses no DME supplies, drives, and walks a mile a day. P: Patient has discharge orders. Plan is for home with outpatient P.T. already set up, but will be working with P.T. Dotty Hand RN/Thermal Technician
== END 2019-12-09 10:17 | disposition home or self-care (01) ==
LOC: AC 12-09 07:31 → OR 12-09 15:36
PROVIDERS: PCP Internal Medicine; Referring Provider Orthopaedic Surgery; Visit Provider Orthopaedic Surgery
PROC: 0SRC0JZ Replacement of Right Knee Joint with Synthetic Substitute, Open Approach (ICD-10-PCS; CPT 27447; principal; 2019-12-08 10:45)
DX: M17.11 Unilateral primary osteoarthritis, right knee (principal); M71.21 Synovial cyst of popliteal space [Baker], right knee
CPT/HCPCS: 27447; 36415; 73560; 85014; 85018; 97110; 97116; 97161; C1776; C9290; J0690; J2250; J2270; J2274; J2704

== ENCOUNTER → 2019-12-16 09:55 | Outpatient (CLI) | payer MEDICARE, BC, SELFPAY ==
[2019-12-08 13:52] VITALS: BMI 33.0
--- NOTE | 2019-12-16 | DI.US.S_ITS ---
PROCEDURE: US PERIPH VENOUS LOW EXTREM RT INDICATIONS: PAIN AND SWELLING POST SURGERY TECHNIQUE: Real-time imaging, as well as color and pulse Doppler interrogation, were performed of the lower extremity deep veins from the inguinal ligament to the popliteal fossa. COMPARISON: None. FINDINGS: The common femoral, femoral and popliteal veins are normally compressible, and free of intraluminal thrombus. Color and pulse Doppler demonstrate normal phasic intraluminal flow. There is normal augmentation response to distal compression maneuver. IMPRESSION: No deep venous thrombosis. Dictated by: Elsa Wise M.D. on 12/16/2019 at 11:14 Approved by: Elsa Wise M.D. on 12/16/2019 at 11:14
== END ==
PROVIDERS: PCP Internal Medicine; Referring Provider Internal Medicine; Visit Provider Orthopaedic Surgery
DX: M79.604 Pain in right leg (principal); M79.89 Other specified soft tissue disorders
CPT/HCPCS: 93971

== ENCOUNTER → 2020-01-12 09:54 | Outpatient (CLI) | payer MEDICARE, BC, SELFPAY ==
[2019-12-08 13:52] VITALS: BMI 33.0
[2020-01-12 10:29] LABS: Add Manual Diff / Slide Review NO; Basophils Absolute Auto 0 /uL (0-100); Basophils Percent Auto 0.5 % (0-2); Eosinophils Absolute Auto 400 /uL (0-450); Eosinophils Percent Auto 3.9 % (2-4); Hematocrit 34.5 % (41-53); Hemoglobin 11.5 g/dL (13.5-17.5); Lymphocytes Absolute Auto 2500 /uL (1100-4500); Lymphocytes Percent Auto 24.3 % (25-40); Mean Corpuscular HGB Conc 33.3 % (30-36); Mean Corpuscular Hemoglobin 31.1 PG (26-34); Mean Corpuscular Volume 93.5 fL (80-100); Monocytes Absolute Auto 900 /uL (0-900); Monocytes Percent Auto 8.4 % (3-14); Neutrophils Absolute Auto 6500 /uL (1500-7000); Neutrophils Percent Auto 62.9 % (50-75); Platelet Count 345 X10^3/uL (150-400); Red Blood Cell Count 3.69 X10^6/uL (4.5-5.9); Red Cell Distribution Width 13.3 % (11.6-14.8); White Blood Cell Count 10.4 X10^3/uL (4.5-11.0)
[2020-01-12 10:33] LABS: BUN Creatinine Ratio 23.6 (6-22); Blood Urea Nitrogen 21 mg/dL (9-20); Calcium 9.7 mg/dL (8.4-10.2); Carbon Dioxide 32 mmol/L (22-32); Chloride 105 mmol/L (98-107); D Dimer 819 ng/mL (<230); Estimated Glomerular Filt Rate > 60.0 mL/min (>60); Glucose 105 mg/dL (80-110); HEMOLYSIS < 15 (0-50); Potassium 4.5 mmol/L (3.4-5.1); Sodium 139 mmol/L (137-145)
[2020-01-12 10:42] LABS: NT-proBNP (BNP-Adult 18+) 463 pg/mL (<450)
== END ==
PROVIDERS: PCP Internal Medicine; Referring Provider Internal Medicine; Visit Provider Internal Medicine
DX: R06.00 Dyspnea, unspecified (principal)
CPT/HCPCS: 36415; 80048; 83880; 85025; 85379

== ENCOUNTER → 2020-01-12 10:15 | Outpatient (CLI) | payer MEDICARE, BC, SELFPAY ==
[2019-12-08 13:52] VITALS: BMI 33.0
--- NOTE | 2020-01-12 10:17 | DI.RAD.S_ITS ---
PROCEDURE: XR CHEST 2V INDICATIONS: dsypnea TECHNIQUE: 2 views of the chest were acquired. COMPARISON: [facility], CR, XR CHEST 2V, 03/31/2019, 14:10. FINDINGS: Surgical changes and devices: None. Lungs and pleura: There is increased pulmonary vasularity. No pleural effusions or pneumothorax. Mediastinum: Mediastinal contours are normal. Heart size is enlarged. Bones and chest wall: No suspicious bony abnormalities. Soft tissues appear unremarkable. IMPRESSION: Increased vascularity consistent with edema. Dictated by: Elsa Wise M.D. on 01/12/2020 at 12:34 Approved by: Elsa Wise M.D. on 01/12/2020 at 12:39
== END ==
PROVIDERS: PCP Internal Medicine; Referring Provider Internal Medicine; Visit Provider Internal Medicine
DX: R06.00 Dyspnea, unspecified (principal)
CPT/HCPCS: 36415; 71046; 80048; 83880; 85025; 85379

== ENCOUNTER → 2020-01-12 13:34 | Outpatient (CLI) | payer MEDICARE, BC, SELFPAY ==
[2019-12-08 13:52] VITALS: BMI 33.0
--- NOTE | 2020-01-12 14:15 | DI.CT.S_ITS ---
PROCEDURE: CT ANGIO CHEST INDICATIONS: dyspnea TECHNIQUE: After the administration of intravenous contrast, 2 mm thick sections acquired from the pulmonary apices to the posterior costophrenic angles. 3-dimensional maximum intensity projection (MIP) coronal and sagittal reformats were then acquired through the thorax. For radiation dose reduction, the following was used: automated exposure control, adjustment of mA and/or kV according to patient size. COMPARISON: [facility], CR, XR CHEST 2V, 01/12/2020, 10:19. FINDINGS: Image quality: Excellent. Pulmonary arteries: Pulmonary arteries demonstrate no intraluminal filling defects to suggest central pulmonary embolism. There is enlargement of the pulmonary arteries, with the main pulmonary artery measuring up to 3.7 cm, suggestive of pulmonary arterial hypertension. Lungs and pleura: There is a small right pleural effusion and mild dependent atelectasis bilaterally. There is mild septal thickening in the lung bases with a few indistinct ground glass opacities. There is also mild bronchial wall thickening in the lung bases. The findings are compatible with mild pulmonary edema. The trachea and central airways are patent. Mediastinum: Heart size is normal, without pericardial effusion. Thoracic aorta is normal in caliber and enhancement. There are a few scattered mildly enlarged mediastinal and right hilar lymph nodes. These include an aortopulmonary window node measuring approximately 1.3 cm in short axis. A software sales representative right hilar node measures approximately 1.0 cm in short axis. Esophagus is normal in caliber, with a small hiatal hernia. Bones and chest wall: No suspicious bony lesions. Ribs and thoracic spine appear intact throughout. No axillary or supraclavicular adenopathy. Abdomen: Visualized upper abdominal solid organs appear normal in the early arterial phase of enhancement. IMPRESSION: 1. No evidence of central pulmonary embolism. Enlargement of the pulmonary arteries is demonstrated suggestive of pulmonary arterial hypertension. 2. Small right pleural effusion. 3. Mild pulmonary edema. 4. Mildly enlarged mediastinal and right hilar lymph nodes are nonspecific and may be reactive. Dictated by: Marcos Reyes M.D. on 01/12/2020 at 14:08 Approved by: Marcos Reyes M.D. on 01/12/2020 at 14:19
== END ==
PROVIDERS: PCP Internal Medicine; Referring Provider Internal Medicine; Visit Provider Student in an Organized Health Care Education/Training Program
DX: R06.00 Dyspnea, unspecified (principal); I77.89 Other specified disorders of arteries and arterioles; I28.9 Disease of pulmonary vessels, unspecified; J90 Pleural effusion, not elsewhere classified; J81.1 Chronic pulmonary edema; R59.0 Localized enlarged lymph nodes
CPT/HCPCS: 36415; 71046; 71275; 80048; 83880; 85025; 85379; Q9967

== ENCOUNTER → 2020-01-26 12:00 | Outpatient (CLI) | payer MEDICARE, BC, SELFPAY ==
[2019-12-08 13:52] VITALS: BMI 33.0
[2020-01-26 12:47] LABS: BUN Creatinine Ratio 25.5 (6-22); Blood Urea Nitrogen 24 mg/dL (9-20); Calcium 9.9 mg/dL (8.4-10.2); Carbon Dioxide 30 mmol/L (22-32); Chloride 104 mmol/L (98-107); Estimated Glomerular Filt Rate > 60.0 mL/min (>60); Glucose 105 mg/dL (80-110); HEMOLYSIS < 15 (0-50); Potassium 4.7 mmol/L (3.4-5.1); Sodium 139 mmol/L (137-145)
== END ==
PROVIDERS: PCP Internal Medicine; Referring Provider Internal Medicine; Visit Provider Internal Medicine
DX: I10 Essential (primary) hypertension (principal); I50.9 Heart failure, unspecified
CPT/HCPCS: 36415; 80048

== ENCOUNTER → 2020-03-05 11:44 | Outpatient (CLI) | payer MEDICARE, BC, SELFPAY ==
[2019-12-08 13:52] VITALS: BMI 33.0
[2020-03-05 12:18] LABS: Add Manual Diff / Slide Review NO; Basophils Absolute Auto 100 /uL (0-100); Basophils Percent Auto 0.6 % (0-2); Eosinophils Absolute Auto 300 /uL (0-450); Eosinophils Percent Auto 2.7 % (2-4); Hematocrit 38.1 % (41-53); Hemoglobin 12.8 g/dL (13.5-17.5); Lymphocytes Absolute Auto 3300 /uL (1100-4500); Lymphocytes Percent Auto 31.2 % (25-40); Mean Corpuscular HGB Conc 33.7 % (30-36); Mean Corpuscular Hemoglobin 30.8 PG (26-34); Mean Corpuscular Volume 91.5 fL (80-100); Monocytes Absolute Auto 700 /uL (0-900); Neutrophils Absolute Auto 6100 /uL (1500-7000); Neutrophils Percent Auto 58.5 % (50-75); Platelet Count 444 X10^3/uL (150-400); Red Blood Cell Count 4.16 X10^6/uL (4.5-5.9); Red Cell Distribution Width 13.4 % (11.6-14.8); White Blood Cell Count 10.5 X10^3/uL (4.5-11.0)
[2020-03-05 12:44] LABS: Erythrocyte Sedimentation Rate 42 MM/HR (0-15)
[2020-03-05 13:14] LABS: HEMOLYSIS < 15 (0-50); Iron 76 ug/dL (49-181)
[2020-03-05 13:26] LABS: Percent Iron Saturation 26 % (20-50); Total Iron Binding Capacity 291 ug/dL (261-462); Transferrin 255 mg/dL (206-381)
[2020-03-05 13:29] LABS: Alanine Aminotransferase 17 IU/L (<50); Albumin 4.3 g/dL (3.5-5.0); Albumin Globulin Ratio 1.3 (1.0-2.8); Alkaline Phosphatase 109 U/L (38-126); Aspartate Aminotransferase 19 IU/L (17-59); BUN Creatinine Ratio 26.9 (6-22); Bilirubin Total 0.5 mg/dL (0.2-1.3); Blood Urea Nitrogen 28 mg/dL (9-20); C-Reactive Protein Quant 1.4 mg/dL (<1.0); Calcium 9.9 mg/dL (8.4-10.2); Carbon Dioxide 30 mmol/L (22-32); Chloride 102 mmol/L (98-107); Estimated Glomerular Filt Rate > 60.0 mL/min (>60); Globulin 3.4 g/dL (1.7-4.1); Glucose 100 mg/dL (80-110); HEMOLYSIS < 15 (0-50); Potassium 4.6 mmol/L (3.4-5.1); Sodium 139 mmol/L (137-145); Total Protein 7.7 g/dL (6.3-8.2)
== END ==
PROVIDERS: PCP Internal Medicine; Referring Provider Internal Medicine; Visit Provider Internal Medicine
DX: D64.9 Anemia, unspecified (principal); E78.2 Mixed hyperlipidemia; I10 Essential (primary) hypertension; J44.9 Chronic obstructive pulmonary disease, unspecified; M17.11 Unilateral primary osteoarthritis, right knee
CPT/HCPCS: 36415; 80053; 83540; 83550; 85025; 85651; 86140

== ENCOUNTER → 2020-04-09 11:42 | Outpatient (CLI) | payer MEDICARE, BC, SELFPAY ==
[2019-12-08 13:52] VITALS: BMI 33.0
[2020-04-09 13:09] LABS: Blood Urea Nitrogen 37 mg/dL (9-20); Calcium 9.8 mg/dL (8.4-10.2); Carbon Dioxide 30 mmol/L (22-32); Chloride 100 mmol/L (98-107); Estimated Glomerular Filt Rate > 60.0 mL/min (>60); Glucose 107 mg/dL (80-110); HEMOLYSIS < 15 (0-50); Magnesium 2.2 mg/dL (1.6-2.3); Potassium 4.8 mmol/L (3.4-5.1); Sodium 137 mmol/L (137-145)
== END ==
PROVIDERS: PCP Internal Medicine; Referring Provider Internal Medicine; Visit Provider Internal Medicine
DX: I10 Essential (primary) hypertension (principal)
CPT/HCPCS: 36415; 80048; 83735

== ENCOUNTER → 2020-05-17 10:32 | Outpatient (CLI) | payer MEDICARE, BC, SELFPAY ==
[2019-12-08 13:52] VITALS: BMI 33.0
[2020-05-17 11:12] LABS: Add Manual Diff / Slide Review NO; Basophils Absolute Auto 100 /uL (0-100); Basophils Percent Auto 0.6 % (0-2); Eosinophils Absolute Auto 200 /uL (0-450); Eosinophils Percent Auto 2.6 % (2-4); Hematocrit 40.4 % (41-53); Hemoglobin 13.1 g/dL (13.5-17.5); Lymphocytes Absolute Auto 2700 /uL (1100-4500); Lymphocytes Percent Auto 28.2 % (25-40); Mean Corpuscular HGB Conc 32.4 % (30-36); Mean Corpuscular Hemoglobin 30.2 PG (26-34); Mean Corpuscular Volume 93.1 fL (80-100); Monocytes Absolute Auto 700 /uL (0-900); Monocytes Percent Auto 7.9 % (3-14); Neutrophils Absolute Auto 5800 /uL (1500-7000); Neutrophils Percent Auto 60.7 % (50-75); Platelet Count 331 X10^3/uL (150-400); Red Blood Cell Count 4.34 X10^6/uL (4.5-5.9); White Blood Cell Count 9.5 X10^3/uL (4.5-11.0)
[2020-05-17 11:27] LABS: Erythrocyte Sedimentation Rate 8 MM/HR (0-15)
[2020-05-17 11:39] LABS: C-Reactive Protein Quant < 0.5 mg/dL (<1.0)
== END ==
PROVIDERS: PCP Internal Medicine; Referring Provider Orthopaedic Surgery; Visit Provider Orthopaedic Surgery
DX: T84.53XS Infection and inflammatory reaction due to internal right knee prosthesis, sequela (principal)
CPT/HCPCS: 36415; 85025; 85651; 86140

== ENCOUNTER → 2020-08-09 07:48 | Outpatient (CLI) | payer MEDICARE, BC, SELFPAY ==
[2019-12-08 13:52] VITALS: BMI 33.0
[2020-08-09 08:38] LABS: Add Manual Diff / Slide Review NO; Basophils Absolute Auto 100 /uL (0-100); Basophils Percent Auto 0.6 % (0-2); Eosinophils Absolute Auto 300 /uL (0-450); Eosinophils Percent Auto 3.9 % (2-4); Hematocrit 39.3 % (41-53); Hemoglobin 13.1 g/dL (13.5-17.5); Lymphocytes Absolute Auto 3000 /uL (1100-4500); Lymphocytes Percent Auto 34.6 % (25-40); Mean Corpuscular HGB Conc 33.3 % (30-36); Mean Corpuscular Hemoglobin 31.7 PG (26-34); Mean Corpuscular Volume 95.2 fL (80-100); Monocytes Absolute Auto 700 /uL (0-900); Monocytes Percent Auto 7.5 % (3-14); Neutrophils Absolute Auto 4700 /uL (1500-7000); Neutrophils Percent Auto 53.4 % (50-75); Platelet Count 328 X10^3/uL (150-400); Red Blood Cell Count 4.13 X10^6/uL (4.5-5.9); White Blood Cell Count 8.8 X10^3/uL (4.5-11.0)
[2020-08-09 08:57] LABS: Erythrocyte Sedimentation Rate 6 MM/HR (0-15)
[2020-08-09 08:59] LABS: Alanine Aminotransferase 24 IU/L (<50); Albumin Globulin Ratio 1.4 (1.0-2.8); Alkaline Phosphatase 94 U/L (38-126); Aspartate Aminotransferase 23 IU/L (17-59); BUN Creatinine Ratio 29.3 (6-22); Bilirubin Total 0.7 mg/dL (0.2-1.3); Blood Urea Nitrogen 34 mg/dL (9-20); Calcium 9.7 mg/dL (8.4-10.2); Carbon Dioxide 34 mmol/L (22-32); Chloride 103 mmol/L (98-107); Cholesterol 174 mg/dL (140-199); Estimated Glomerular Filt Rate 59.8 mL/min (>60); Globulin 2.9 g/dL (1.7-4.1); Glucose 110 mg/dL (80-110); HDL Cholesterol 57 mg/dL (40-60); HEMOLYSIS < 15 (0-50); LDL Cholesterol Calculated 88 mg/dL (<100); Potassium 4.3 mmol/L (3.4-5.1); Sodium 140 mmol/L (137-145); Total Protein 6.9 g/dL (6.3-8.2); Triglycerides 145 mg/dL (35-150)
[2020-08-09 09:05] LABS: C-Reactive Protein Quant < 0.5 mg/dL (<1.0)
== END ==
PROVIDERS: PCP Internal Medicine; Referring Provider Internal Medicine; Visit Provider Internal Medicine
DX: E78.2 Mixed hyperlipidemia (principal); I10 Essential (primary) hypertension; M17.11 Unilateral primary osteoarthritis, right knee
CPT/HCPCS: 36415; 80053; 80061; 85025; 85651; 86140

== ENCOUNTER → 2020-08-10 12:19 | Outpatient (CLI) | payer MEDICARE, BC, SELFPAY ==
[2019-12-08 13:52] VITALS: BMI 33.0
--- NOTE | 2020-08-10 | DI.CT.S_ITS ---
PROCEDURE: CT LE RT WO CON INDICATIONS: Pain in right knee TECHNIQUE: Noncontrast 1-1.5 mm axial sections acquired from the mid-patella to the proximal tibia, with coronal and sagittal reformats. COMPARISON: None. FINDINGS: Image quality: Diagnostic. Beam hardening artifacts are noted. Bones: Patient is status post right total knee arthroplasty. Right knee alignment is anatomic. There is no acute fracture or dislocation. No evidence of hardware loosening or failure. No significant malrotation of the prosthesis is noted. There is no suspicious intraosseous lesion. Soft tissues: Small to moderate joint effusion is seen. No gross calcified intra-articular loose body is identified. Thickened distal quadriceps tendon is seen suggestive of tendinosis/partial-thickness tear. Patellar tendon is intact. Medial and lateral collateral ligaments are grossly intact. No gross muscle abnormality is seen. IMPRESSION: 1. Patient is status post right total knee arthroplasty with anatomic right knee alignment. No fracture or dislocation. No evidence of hardware loosening or failure. 2. Small to moderate amount of joint fluid, no calcified intra-articular loose body. 3. Thickened distal quadriceps tendon near its insertion of proximal patella, which may indicate tendinosis and low-grade partial-thickness tear. Clinical correlation is recommended. Patellar tendon is intact. Dictated by: Abdifatah Shell M.D. on 08/10/2020 at 13:50 Approved by: Abdifatah Shell M.D. on 08/10/2020 at 14:10
== END ==
PROVIDERS: PCP Internal Medicine; Referring Provider Orthopaedic Surgery; Visit Provider Orthopaedic Surgery
DX: M25.561 Pain in right knee (principal); Z96.651 Presence of right artificial knee joint
CPT/HCPCS: 73700

== ENCOUNTER → 2021-02-11 12:06 | Outpatient (CLI) | payer MEDICARE, BC, SELFPAY ==
[2019-12-08 13:52] VITALS: BMI 33.0
[2021-02-11 13:24] LABS: Alanine Aminotransferase 23 IU/L (<50); Albumin 4.1 g/dL (3.5-5.0); Albumin Globulin Ratio 1.4 (1.0-2.8); Alkaline Phosphatase 103 U/L (38-126); Aspartate Aminotransferase 23 IU/L (17-59); BUN Creatinine Ratio 21.4 (6-22); Bilirubin Total 0.5 mg/dL (0.2-1.3); Blood Urea Nitrogen 25 mg/dL (9-20); Calcium 9.8 mg/dL (8.4-10.2); Carbon Dioxide 33 mmol/L (22-32); Chloride 102 mmol/L (98-107); Estimated Glomerular Filt Rate 59.2 mL/min (>60); Glucose 99 mg/dL (80-110); HEMOLYSIS < 15 (0-50); Potassium 4.9 mmol/L (3.4-5.1); Sodium 139 mmol/L (137-145); Total Protein 7.1 g/dL (6.3-8.2)
[2021-02-11 13:53] LABS: TSH w/ Reflex to FT4 0.58 uIU/mL (0.47-4.68)
== END ==
PROVIDERS: PCP Internal Medicine; Referring Provider Internal Medicine; Visit Provider Internal Medicine
DX: G89.29 Other chronic pain (principal); I10 Essential (primary) hypertension; M25.561 Pain in right knee; R60.9 Edema, unspecified; R63.5 Abnormal weight gain
CPT/HCPCS: 36415; 80053; 84443

== ENCOUNTER → 2021-02-24 09:30 | Outpatient (CLI) | payer MEDICARE, BC, SELFPAY ==
[2019-12-08 13:52] VITALS: BMI 33.0
[2021-02-24 10:16] LABS: COVID19 -Nasal RAPID Negative (Negative)
== END ==
PROVIDERS: PCP Internal Medicine; Referring Provider Internal Medicine; Visit Provider Internal Medicine
DX: Z20.822 Contact with and (suspected) exposure to COVID-19 (principal)
CPT/HCPCS: 87635; C9803

== ENCOUNTER → 2021-02-25 08:41 | Outpatient (CLI) | payer MEDICARE, BC, SELFPAY ==
[2019-12-08 13:52] VITALS: BMI 33.0
--- NOTE | 2021-03-02 09:01 | P.PFT.S_ITS ---
Pulmonary Function Test Referral & Results Date Patient Seen: 02/25/21 Requesting provider: Ulices Guardado Indication: COPD Results: The spirometry demonstrates an FVC of 1.53 L which is 46% of predicted. The FEV1 was measured at 1.02 L which is 45% of predicted. The FEV1/FVC ratio was 67 which is 95% of predicted. Following the administration of bronchodilator there was no appreciable change. Lung volumes show an SVC of 2.05 L which is 53% of predicted. The diffusing capacity was measured at 20.84 which is 73% of predicted. The maximum voluntary ventilation was reduced Interpretation: This study demonstrates moderately severe obstructive lung disease without evidence of benefit following bronchodilator. There is also probable mild to m oderate restrictive lung disease based on reduction SVC. There is a minimal reduction in diffusing capacity as well, suggesting disease at the capillary alveolar level Compared to PFTs performed in January 2018, there has been reduction FEV1 from a previous value of 1.47 L to current value of 1.02 L. There is also been a slight reduction in SVC as well as diffusing capacity Correlation suggest
== END ==
PROVIDERS: PCP Internal Medicine; Referring Provider Internal Medicine; Visit Provider Internal Medicine
DX: J44.9 Chronic obstructive pulmonary disease, unspecified (principal); Z87.891 Personal history of nicotine dependence
CPT/HCPCS: 94060; 94726; 94729

== ENCOUNTER → 2021-11-07 08:16 | Outpatient (CLI) | payer MEDICARE, BC, SELFPAY ==
[2021-08-23 09:51] VITALS: BMI 33.0
[2021-11-07 09:35] LABS: Add Manual Diff / Slide Review NO; Basophils Absolute Auto 0 /uL (0-100); Basophils Percent Auto 0.4 % (0-2); Eosinophils Absolute Auto 200 /uL (0-450); Eosinophils Percent Auto 2.5 % (2-4); Hematocrit 39.7 % (41-53); Hemoglobin 13.2 g/dL (13.5-17.5); Lymphocytes Absolute Auto 2100 /uL (1100-4500); Lymphocytes Percent Auto 26.9 % (25-40); Mean Corpuscular HGB Conc 33.2 % (30-36); Mean Corpuscular Hemoglobin 31.3 PG (26-34); Mean Corpuscular Volume 94.2 fL (80-100); Monocytes Absolute Auto 500 /uL (0-900); Monocytes Percent Auto 7.1 % (3-14); Neutrophils Absolute Auto 4800 /uL (1500-7000); Neutrophils Percent Auto 63.1 % (50-75); Platelet Count 306 X10^3/uL (150-400); Red Blood Cell Count 4.22 X10^6/uL (4.5-5.9); Red Cell Distribution Width 13.4 % (11.6-14.8); White Blood Cell Count 7.7 X10^3/uL (4.5-11.0)
[2021-11-07 10:11] LABS: Alanine Aminotransferase 21 IU/L (<50); Albumin 3.9 g/dL (3.5-5.0); Albumin Globulin Ratio 1.6 (1.0-2.8); Alkaline Phosphatase 78 U/L (38-126); Aspartate Aminotransferase 21 IU/L (17-59); BUN Creatinine Ratio 21.4 (6-22); Bilirubin Total 0.7 mg/dL (0.2-1.3); Blood Urea Nitrogen 24 mg/dL (9-20); Calcium 9.8 mg/dL (8.4-10.2); Carbon Dioxide 32 mmol/L (22-32); Chloride 104 mmol/L (98-107); Cholesterol 187 mg/dL (140-199); Estimated Glomerular Filt Rate > 60.0 mL/min (>60); Globulin 2.5 g/dL (1.7-4.1); Glucose 117 mg/dL (80-110); HDL Cholesterol 62 mg/dL (40-60); HEMOLYSIS < 15 (0-50); LDL Cholesterol Calculated 92 mg/dL (<100); Potassium 4.8 mmol/L (3.4-5.1); Sodium 140 mmol/L (137-145); Total Protein 6.4 g/dL (6.3-8.2); Triglycerides 164 mg/dL (35-150)
== END ==
PROVIDERS: Family Medicine; PCP Internal Medicine; Referring Provider Internal Medicine; Visit Provider Internal Medicine
DX: D64.9 Anemia, unspecified (principal); I10 Essential (primary) hypertension; E78.2 Mixed hyperlipidemia; N40.1 Benign prostatic hyperplasia with lower urinary tract symptoms
CPT/HCPCS: 36415; 80053; 80061; 85025

== ENCOUNTER 2021-12-03 09:07 | Emergency (ER) | payer MEDICARE, BC, SELFPAY ==
[2021-08-23 09:51] VITALS: BMI 33.0
[2021-12-03] VITALS (22 sets, daily range): BP systolic 127–171; BP diastolic 58–74; PULSE 72–102; RESP 15–31; TEMP 36.6–36.7; O2SAT 88–96; BMI 37.5
--- NOTE | 2021-12-03 09:22 | DI.RAD.S_ITS ---
PROCEDURE: XR CHEST 1V INDICATIONS: Dyspnea TECHNIQUE: One view of the chest was acquired. COMPARISON: [facility], CT, CT ANGIO CHEST, 01/12/2020, 13:38. [facility], CR, XR CHEST 2V, 03/31/2019, 14:10. [facility], CR, XR CHEST 2V, 03/26/2019, 8:22. [facility], CR, XR CHEST 2V, 01/12/2020, 10:19. FINDINGS: Surgical changes and devices: None. Lungs and pleura: An incomplete inspiratory result is noted, causing a crowded appearance to the lung markings. No focal infiltrates are seen. No pneumothorax or significant pleural effusions are seen. Mediastinum: The cardiac contours are within normal limits. The aorta demonstrates calcification and tortuosity. Bones and chest wall: No suspicious bony lesions. Age-appropriate bony degenerative changes are seen. Overlying soft tissues appear unremarkable. IMPRESSION: Limited portable chest examination, without a significant cardiopulmonary abnormality identified. Dictated by: Ariel Perez M.D. on 12/03/2021 at 8:51 Approved by: Ariel Perez M.D. on 12/03/2021 at 8:53
[2021-12-03 09:38] LABS: Add Manual Diff / Slide Review NO; Basophils Absolute Auto 100 /uL (0-100); Basophils Percent Auto 0.7 % (0-2); Eosinophils Absolute Auto 300 /uL (0-450); Eosinophils Percent Auto 3.6 % (2-4); Hematocrit 38.6 % (41-53); Hemoglobin 13.1 g/dL (13.5-17.5); Lymphocytes Absolute Auto 2200 /uL (1100-4500); Lymphocytes Percent Auto 27.4 % (25-40); Mean Corpuscular Hemoglobin 31.6 PG (26-34); Monocytes Absolute Auto 800 /uL (0-900); Monocytes Percent Auto 10.5 % (3-14); Neutrophils Absolute Auto 4600 /uL (1500-7000); Neutrophils Percent Auto 57.8 % (50-75); Platelet Count 275 X10^3/uL (150-400); Red Blood Cell Count 4.15 X10^6/uL (4.5-5.9); Red Cell Distribution Width 13.2 % (11.6-14.8); White Blood Cell Count 7.9 X10^3/uL (4.5-11.0)
[2021-12-03 09:52] LABS: Lactate (Lactic Acid) 2.2 mmol/L (0.7-2.1)
[2021-12-03 09:54] LABS: Alanine Aminotransferase 20 IU/L (<50); Albumin Globulin Ratio 1.4 (1.0-2.8); Alkaline Phosphatase 71 U/L (38-126); Aspartate Aminotransferase 24 IU/L (17-59); BUN Creatinine Ratio 20.4 (6-22); Bilirubin Total 0.6 mg/dL (0.2-1.3); Blood Urea Nitrogen 23 mg/dL (9-20); Calcium 9.2 mg/dL (8.4-10.2); Carbon Dioxide 34 mmol/L (22-32); Chloride 101 mmol/L (98-107); Estimated Glomerular Filt Rate > 60.0 mL/min (>60); Globulin 2.8 g/dL (1.7-4.1); Glucose 152 mg/dL (80-110); HEMOLYSIS 25 (0-50); Potassium 4.3 mmol/L (3.4-5.1); Sodium 138 mmol/L (137-145); Total Protein 6.8 g/dL (6.3-8.2)
[2021-12-03 09:58] LABS: D Dimer 426 ng/mL (<230)
[2021-12-03 10:01] LABS: COVID19 -Nasal RAPID Negative (Negative)
[2021-12-03 10:02] LABS: NT-proBNP (BNP-Adult 18+) 196 pg/mL (<450)
--- NOTE | 2021-12-03 10:05 | ED.SOB ---
HPI - SOB/Dyspnea General Chief Complaint: Shortness of Breath/Dyspnea Stated Complaint: SOB, came from walk in clinic Time Seen by Provider: 12/03/21 09:16 Source: patient Mode of arrival: Wheelchair Limitations: no limitations History of Present Illness HPI Narrative: The patient presents with dyspnea, onset 2 days ago. He initially had a low-grade fever. He has a mild cough. He denies headache, sore throat, or changes in taste or smell. He has a history of COPD. Records indicate a history of peripheral edema, furosemide has been prescribed in the past. He does not have a diagnosis of CHF. Echo in 2019 revealed normal LV function with an EF of 70-75%. He has chest pain only with cough. He has no history of [place]. he has bilateral peripheral edema, he said this is chronic. There may have been increased left leg edema lately. He has longstanding edema to the right leg. He has previously undergone right TKA, about 2 years ago. He has had persistent edema in the right leg since then. More recently he has undergone a right lower extremity tibial band release, about 2 months ago. He has a persistent lump on the right lateral knee. There is edema to the right leg, no warmth or erythema. He has no calf tenderness. He has no hemoptysis. Related Data Home Medications Medication Instructions Recorded Confirmed acetaminophen 500 mg capsule 500 mg PO Q6H PRN 05/06/21 12/03/21 diclofenac sodium 1 % topical gel 2 g TOPICAL QID 05/06/21 12/03/21 Previous Rx's Medication Instructions Recorded simvastatin 40 mg tablet 40 mg PO QDAY #90 tab 03/23/21 lisinopril 20 mg tablet 20 mg PO DAILY #90 tab 04/27/21 doxazosin 8 mg tablet 8 mg PO DAILY #90 tab 05/06/21 finasteride 5 mg tablet 5 mg PO DAILY #90 tab 05/06/21 potassium chloride 8 mEq 8 meq PO DAILY #90 tab 06/16/21 tablet,extended release furosemide 20 mg tablet 40 mg PO DAILY #180 tab 11/14/21 prednisone 20 mg tablet 60 mg PO DAILY 5 Days tab 12/03/21 Allergies Allergy/AdvReac Type Severity Reaction Status Date / Time formaldehyde [FORMALDEHYDE] Allergy Severe Rash Verified 12/03/21 09:18 Gadolinium-Containing Allergy Severe HEART Verified 02/05/22 09:18 Contrast Medi STOPPED [GADOLINIUM-CONTAINING CONTRAST MEDI] Sulfa (Sulfonamide Allergy Mild Rash Verified 12/03/21 09:18 Antibiotics) [SULFA (SULFONAMIDE ANTIBIOTICS)] terbinafine [TERBINAFINE] Allergy Mild Pt unsure Verified 12/03/21 09:18 reaction Influenza Virus Vaccines AdvReac Intermediate whole body Verified 12/03/21 09:18 [INFLUENZA VIRUS VACCINES] rash 2016 QUANTERNUM Allergy Severe Rash Uncoded 12/03/21 08:43 Review of Systems Constitutional Constitutional: Denies body ache(s), Denies chills, Denies fatigue, Reports fever(s), Denies headache(s) and Denies poor appetite Eyes Eyes: Denies change in vision ENT Ears, Nose, Mouth, and Throat: Denies vertigo, Denies dizziness and Denies headache(s) Cardiovascular Cardiovascular: Denies chest pain, Denies diaphoresis, Denies syncope, Denies rapid heart rate, Reports pedal edema and Reports dyspnea Respiratory Respiratory: Reports cough, Denies pain on inspiration, Denies pain with cough and Reports dyspnea Gastrointestinal Gastrointestinal: Denies abdominal pain, Denies constipation and Denies nausea Genitourinary Comments: No urinary complaints Musculoskeletal Musculoskeletal: Denies arthralgias, Denies back pain, Denies myalgias and Denies myalgias Integumentary/Breasts Skin/Breast: Denies lesions and Denies rash Neurologic Neurologic: Denies vertigo, Denies dizziness, Denies syncope and Denies headache(s) Psychiatric Psychiatric: Reports anxiety Endocrine Endocrine: Denies fatigue Hematologic/Lymphatic On Anticoagulants: No Patient History Medical History Atrial fibrillation Back pain of thoracolumbar region (01/08/14) Benign prostatic hyperplasia with lower urinary tract symptoms (01/11/15) 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) Cardiac arrhythmia Chronic obstructive pulmonary disease (01/16/18) Chronic pain of right knee Elevated prostate specific antigen (PSA) Essential hypertension Hearing loss (~1989) Mixed hyperlipidemia 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 Mother No problems noted. 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: over 6 months ago leisure activities: art, fishing and other Smoking Status: Former smoker Tobacco: How many years used: 2 Smokeless tobacco user: other quit status: quit date established second hand exposure: Yes alcohol intake: current substance use type: does not use Smoking Status: Former smoker alcohol intake frequency: holidays/special occasions only Substance Use Type: does not use Exam Initial Vital Signs Initial Vital Signs: Vital Signs Temperature 98.1 F 12/03/21 09:11 Pulse Rate 87 12/03/21 09:11 Respiratory Rate 29 H 12/03/21 09:11 Blood Pressure 165/69 H 12/03/21 09:11 Pulse Oximetry 94 12/03/21 09:11 Const General: cooperative and acute distress (With dyspnea) HENNY Head: normocephalic and atraumatic Mouth: oral mucosae normal Throat: posterior oropharynx normal Eyes Conjunctivae: conjunctivae normal Sclera: sclerae normal Pupils: PERRL EOM: EOM intact bilaterally Neck Neck: No lymphadenopathy and No JVD Chest Chest: normal inspection of the chest Resp Other: Bibasilar rales. Decreased breath sounds throughout. Minimal wheezes. Cardio Rate: regular rate Rhythm: regular rhythm Heart Sounds: S1 normal, S2 normal, no click, no murmurs and no rubs GI Inspection: normal to inspection Palpation: soft, No mass and No tender Auscultation: normal bowel sounds Back/Spine/Pelvis Back: normal to inspection, No back tenderness and No CVA tenderness Skin General: no rashes or lesions noted Neuro General: patient alert, patient awake, patient oriented x3 and no focal motor deficits Sensory Exam: no sensory deficits noted Extrem Other: The right knee region is bandage due to postop management. There is palpable does to the right lateral knee, that is nontender. Bilateral calf edema, negative Homans sign. Dorsalis pedis pulses are normal. Psych Mental Status: mental status grossly normal Course Course Course Narrative: The patient was given Lasix upon arrival. Labs do not indicate sickness to CHF. Evaluation include consideration for acute coronary syndrome, CHF, pneumonia, COVID-19, and PE. He was managed for COPD exacerbation with reassuring clinical results. Although his urine output with the Lasix, his seems to be the neb treatments and IV steroids that obviously improved his dyspnea. He will be discharged home on prednisone along with his current medicines. Orders Ordered: ED Orders 12/03/21 09:10 COVID19 -Nasal swab/Pre-Proc Stat 12/03/21 09:14 EKG-12 Lead Stat Measure peak expiratory flow ONCE RT Consult Eval and Treat Now 12/03/21 09:22 Chest [XR chest 1V] Stat 12/03/21 09:30 BNP [NT-proBNP (BNP-Adult 18+)] Stat Complete Blood Count AUTO DIFF Stat Comprehensive Metabolic Panel Stat D Dimer Stat Lactate (Lactic Acid) Stat 12/03/21 10:07 CT angio chest PE protocol Stat 12/03/21 11:40 Blood Culture Stat 12/03/21 12:09 US periph venous low extrem rt Stat Discontinued Medications Albuterol (Albuterol 2.5 Mg/3 Ml Neb (Adult)) 2.5 mg INH NOW ONE Stop: 12/03/21 12:11 Last Admin: 12/03/21 12:44 Dose: 2.5 mg Documented by: EBONI Albuterol/Ipratropium (Albuterol/Ipratropium 3 Ml Ampul) 3 ml INH NOW ONE Stop: 12/03/21 10:57 Last Admin: 12/03/21 11:01 Dose: 3 ml Documented by: EBONI Furosemide (Furosemide 40 Mg/4 Ml Vial) 40 mg IV NOW ONE Stop: 12/03/21 10:05 Last Admin: 12/03/21 10:20 Dose: 40 mg Documented by: HOLLIS Methylprednisolone (Methylprednisolone 125 Mg/2 Ml Vial) 125 mg IV NOW ONE Stop: 12/03/21 12:10 Last Admin: 12/03/21 12:16 Dose: 125 mg Documented by: HOLLIS Vital Signs Vital signs: Vital Signs - 8 hr 12/03/21 09:11 12/03/21 09:14 12/03/21 09:15 Temperature 98.1 F Pulse Rate 87 90 Respiratory Rate 29 H 22 Blood Pressure 165/69 H 165/69 H Pulse Oximetry 94 96 95 12/03/21 09:30 12/03/21 09:32 12/03/21 10:00 Temperature Pulse Rate 81 80 78 Respiratory Rate 22 27 H 31 H Blood Pressure 130/64 Pulse Oximetry 93 92 92 12/03/21 10:30 12/03/21 10:33 12/03/21 11:00 Temperature Pulse Rate 102 H 89 74 Respiratory Rate 27 H 31 H 28 H Blood Pressure 171/74 H 171/74 H Pulse Oximetry 93 95 90 L 12/03/21 11:01 12/03/21 11:02 12/03/21 11:30 Temperature Pulse Rate 75 72 76 Respiratory Rate 27 H 20 22 Blood Pressure 127/62 130/58 L Pulse Oximetry 91 92 88 L 12/03/21 12:00 12/03/21 12:12 12/03/21 12:30 Temperature Pulse Rate 76 76 Respiratory Rate 15 25 H Blood Pressure 142/65 H Pulse Oximetry 92 93 12/03/21 12:31 12/03/21 12:44 12/03/21 13:00 Temperature 97.9 F Pulse Rate 79 80 80 Respiratory Rate 24 20 26 H Blood Pressure 132/72 Pulse Oximetry 93 95 94 12/03/21 13:01 12/03/21 13:30 12/03/21 13:31 Temperature Pulse Rate 83 79 83 Respiratory Rate 28 H 17 18 Blood Pressure 147/62 H 143/63 H Pulse Oximetry 94 94 94 MDM - SOB/Dyspnea Lab Data Result diagrams: 12/03/21 09:30 12/03/21 09:30 Labs: Lab Results 12/03/21 12/03/21 12/03/21 Range/Units 09:10 09:30 09:30 WBC 7.9 (4.5-11.0) X10^3/uL RBC 4.15 L (4.5-5.9) X10^6/uL Hgb 13.1 L (13.5-17.5) g/dL Hct 38.6 L (41-53) % MCV 93.0 (80-100) fL MCH 31.6 (26-34) PG MCHC 34.0 (30-36) % RDW 13.2 (11.6-14.8) % Plt Count 275 (150-400) X10^3/uL Neut % (Auto) 57.8 (50-75) % Lymph % (Auto) 27.4 (25-40) % Mccreary % (Auto) 10.5 (3-14) % Eos % (Auto) 3.6 (2-4) % Baso % (Auto) 0.7 (0-2) % Neut # (Auto) 4600 (7865-3841) /uL Lymph # (Auto) 2200 (0461-3771) /uL Mccreary # (Auto) 800 (0-900) /uL Eos # (Auto) 300 (0-450) /uL Baso # (Auto) 100 (0-100) /uL D-Dimer (<230) ng/mL Sodium 138 (137-145) mmol/L Potassium 4.3 (3.4-5.1) mmol/L Chloride 101 (98-107) mmol/L Carbon Dioxide 34 H (22-32) mmol/L BUN 23 H (9-20) mg/dL Creatinine 1.13 (0.66-1.25) mg/dL Estimated GFR > 60.0 (>60) mL/min BUN/Creatinine Ratio 20.4 (6-22) Glucose 152 H (80-110) mg/dL Lactate (0.7-2.1) mmol/L Calcium 9.2 (8.4-10.2) mg/dL Total Bilirubin 0.6 (0.2-1.3) mg/dL AST 24 (17-59) IU/L ALT 20 (<50) IU/L Alkaline Phosphatase 71 (38-126) U/L NT-Pro-B Natriuret Pep (<450) pg/mL Total Protein 6.8 (6.3-8.2) g/dL Albumin 4.0 (3.5-5.0) g/dL Globulin 2.8 (1.7-4.1) g/dL Albumin/Globulin Ratio 1.4 (1.0-2.8) SARS-CoV-2 (PCR) Negative (Negative) 12/03/21 12/03/21 12/03/21 Range/Units 09:30 09:30 09:30 WBC (4.5-11.0) X10^3/uL RBC (4.5-5.9) X10^6/uL Hgb (13.5-17.5) g/dL Hct (41-53) % MCV (80-100) fL MCH (26-34) PG MCHC (30-36) % RDW (11.6-14.8) % Plt Count (150-400) X10^3/uL Neut % (Auto) (50-75) % Lymph % (Auto) (25-40) % Mccreary % (Auto) (3-14) % Eos % (Auto) (2-4) % Baso % (Auto) (0-2) % Neut # (Auto) (6721-8688) /uL Lymph # (Auto) (2769-9134) /uL Mccreary # (Auto) (0-900) /uL Eos # (Auto) (0-450) /uL Baso # (Auto) (0-100) /uL D-Dimer 426 H (<230) ng/mL Sodium (137-145) mmol/L Potassium (3.4-5.1) mmol/L Chloride (98-107) mmol/L Carbon Dioxide (22-32) mmol/L BUN (9-20) mg/dL Creatinine (0.66-1.25) mg/dL Estimated GFR (>60) mL/min BUN/Creatinine Ratio (6-22) Glucose (80-110) mg/dL Lactate 2.2 H (0.7-2.1) mmol/L Calcium (8.4-10.2) mg/dL Total Bilirubin (0.2-1.3) mg/dL AST (17-59) IU/L ALT (<50) IU/L Alkaline Phosphatase (38-126) U/L NT-Pro-B Natriuret Pep 196 (<450) pg/mL Total Protein (6.3-8.2) g/dL Albumin (3.5-5.0) g/dL Globulin (1.7-4.1) g/dL Albumin/Globulin Ratio (1.0-2.8) SARS-CoV-2 (PCR) (Negative) 12/03/21 Range/Units 11:40 WBC (4.5-11.0) X10^3/uL RBC (4.5-5.9) X10^6/uL Hgb (13.5-17.5) g/dL Hct (41-53) % MCV (80-100) fL MCH (26-34) PG MCHC (30-36) % RDW (11.6-14.8) % Plt Count (150-400) X10^3/uL Neut % (Auto) (50-75) % Lymph % (Auto) (25-40) % Mccreary % (Auto) (3-14) % Eos % (Auto) (2-4) % Baso % (Auto) (0-2) % Neut # (Auto) (3950-2658) /uL Lymph # (Auto) (4624-5498) /uL Mccreary # (Auto) (0-900) /uL Eos # (Auto) (0-450) /uL Baso # (Auto) (0-100) /uL D-Dimer (<230) ng/mL Sodium (137-145) mmol/L Potassium (3.4-5.1) mmol/L Chloride (98-107) mmol/L Carbon Dioxide (22-32) mmol/L BUN (9-20) mg/dL Creatinine (0.66-1.25) mg/dL Estimated GFR (>60) mL/min BUN/Creatinine Ratio (6-22) Glucose (80-110) mg/dL Lactate 1.6 (0.7-2.1) mmol/L Calcium (8.4-10.2) mg/dL Total Bilirubin (0.2-1.3) mg/dL AST (17-59) IU/L ALT (<50) IU/L Alkaline Phosphatase (38-126) U/L NT-Pro-B Natriuret Pep (<450) pg/mL Total Protein (6.3-8.2) g/dL Albumin (3.5-5.0) g/dL Globulin (1.7-4.1) g/dL Albumin/Globulin Ratio (1.0-2.8) SARS-CoV-2 (PCR) (Negative) Urine Dip Bedside Urine Glucose Negative Bedside Urine Bilirubin - Negative Bedside Urine Ketone - Negative Urine Specific [place] 1.015 Bedside Urine Occult Blood - Negative Bedside Urine pH 6 Bedside Urine Protein - Negative Bedside Urine Urobilinogen - Negative Bedside Urine Nitrite - Negative Bedside Urine Leukocytes - Negative Esterase Imaging Data Chest x-ray: Radiologist's Impression: Suboptimal study. No acute cardiopulmonary disease. CTA chest: Radiologist's Impression: [address] [address] [address] Scan Report Signed Patient: Elan Lakhani MR#: [id number] : 1935 Acct:[id number] Age/Sex: 86 / M Date of Service: 12/03/21 Loc: ED Accession Number: [id number] ?? Procedure: CT angio chest PE protocol Ordering Provider: Connor Will MD PROCEDURE:? CT ANGIO CHEST PE PROTOCOL ? INDICATIONS:? Dyspnea.? Recent right leg surgery. ? TECHNIQUE:? After the administration of intravenous contrast, 2 mm thick sections acquired from the pulmonary apices to the posterior costophrenic angles.? 3-dimensional maximum intensity projection (MIP) coronal and sagittal reformats were then acquired through the thorax.? For radiation dose reduction, the following was used:? automated exposure control, adjustment of mA and/or kV according to patient size.? ? COMPARISON:? Located Within [facility], CT, CT KIDNEY URETER BLADDER (KUB), 01/03/2019, 10:29.? Located [facility], CR, XR CHEST 1V, 12/03/2021, 9:39.? Located Within [facility], CT, CT ANGIO CHEST, 01/12/2020, 13:38. ? FINDINGS:? Image quality:? This examination is limited by involuntary motion artifact.? ? Pulmonary arteries:? The pulmonary arteries are mildly enlarged, as before.? No filling defects are seen to suggest pulmonary embolism. ? Lungs and pleura:? Lungs are clear.? No pleural effusions or pneumothorax.? Central and peripheral airways are patent.? ? Mediastinum:? Heart size is normal, without pericardial effusion.? There are borderline prominent mediastinal lymph nodes, which are improved compared to the prior.? Thoracic aorta is normal in caliber and enhancement. Atherosclerotic calcification is noted.? There is mild coronary artery calcification.? Esophagus is normal in caliber.? There is a small hiatal hernia.? ? Bones and chest wall:? No suspicious bony lesions.? At least moderate thoracic spine degenerative change can be seen.? Accentuated thoracic kyphosis is seen. ? Ribs and thoracic spine appear intact throughout.? Thyroid gland demonstrates no significant abnormality.? No axillary or supraclavicular adenopathy.? ? Abdomen:? Generalized prominence can be seen of the adrenal glands, yet without focal adrenal nodules.? This is similar to 2019. ? The visualized portions of the upper abdominal structures are otherwise unremarkable for imaging technique. ? ? ? IMPRESSION:? ? Negative for pulmonary embolism. ? The pulmonary arteries are again noted to be enlarged.? Please correlate with pulmonary artery hypertension. ? Borderline prominent mediastinal lymph nodes are seen, which are improved compared to the prior. ? ? Incidental note is made of: Atherosclerotic calcification, including coronary artery calcification At least moderate thoracic spine degenerative change Small hiatal hernia Generalized prominence of the adrenal glands, without focal adrenal nodules. ? ? Dictated by: Ariel Perez M.D. on 12/03/2021 at 9:36? ?? ECG Data Attestation: I personally reviewed and interpreted this ECG as follows: (Normal sinus rhythm rate 76 beats per minute. Normal intervals. Occasional PVCs. No acute ST T wave changes.) Discharge Plan Departure Patient Disposition: Home Clinical Impression: Acute exacerbation of chronic obstructive pulmonary disease (COPD) Instructions: Chronic Obstructive Pulmonary Disease Activity Restrictions/Additional Instructions: Continue current medications. Prednisone 60 mg daily for 5 days. Follow-up with Dr. Guardado in about 1 week. Return here difficulty breathing increases. Prescriptions: New prednisone 20 mg tablet 60 mg PO DAILY 5 Days 0RF No Action simvastatin 40 mg tablet 40 mg PO QDAY Qty: 90 3RF lisinopril 20 mg tablet 20 mg PO DAILY Qty: 90 3RF potassium chloride 8 mEq tablet extended release 8 meq PO DAILY Qty: 90 3RF furosemide 20 mg tablet 40 mg PO DAILY Qty: 180 3RF Label Comments: 1-2 TABS ONCE DAILY acetaminophen 500 mg capsule 500 mg PO Q6H PRN0RF diclofenac sodium 1 % gel 2 g topical QID 0RF Rx Instructions: apply to single elbow, wrist or hand; for hand includes palm/fingers/back of hand doxazosin 8 mg tablet 8 mg PO DAILY Qty: 90 3RF finasteride 5 mg tablet 5 mg PO DAILY Qty: 90 3RF Referrals: Ulices Guardado MD [Primary Care Provider] -
--- NOTE | 2021-12-03 10:07 | DI.CT.S_ITS ---
PROCEDURE: CT ANGIO CHEST PE PROTOCOL INDICATIONS: Dyspnea. Recent right leg surgery. TECHNIQUE: After the administration of intravenous contrast, 2 mm thick sections acquired from the pulmonary apices to the posterior costophrenic angles. 3-dimensional maximum intensity projection (MIP) coronal and sagittal reformats were then acquired through the thorax. For radiation dose reduction, the following was used: automated exposure control, adjustment of mA and/or kV according to patient size. COMPARISON: Located Within [facility], CT, CT KIDNEY URETER BLADDER (KUB), 01/03/2019, 10:29. Located Within [facility], CR, XR CHEST 1V, 12/03/2021, 9:39. Located Within [facility], CT, CT ANGIO CHEST, 01/12/2020, 13:38. FINDINGS: Image quality: This examination is limited by involuntary motion artifact. Pulmonary arteries: The pulmonary arteries are mildly enlarged, as before. No filling defects are seen to suggest pulmonary embolism. Lungs and pleura: Lungs are clear. No pleural effusions or pneumothorax. Central and peripheral airways are patent. Mediastinum: Heart size is normal, without pericardial effusion. There are borderline prominent mediastinal lymph nodes, which are improved compared to the prior. Thoracic aorta is normal in caliber and enhancement. Atherosclerotic calcification is noted. There is mild coronary artery calcification. Esophagus is normal in caliber. There is a small hiatal hernia. Bones and chest wall: No suspicious bony lesions. At least moderate thoracic spine degenerative change can be seen. Accentuated thoracic kyphosis is seen. Ribs and thoracic spine appear intact throughout. Thyroid gland demonstrates no significant abnormality. No axillary or supraclavicular adenopathy. Abdomen: Generalized prominence can be seen of the adrenal glands, yet without focal adrenal nodules. This is similar to 2019. The visualized portions of the upper abdominal structures are otherwise unremarkable for imaging technique. IMPRESSION: Negative for pulmonary embolism. The pulmonary arteries are again noted to be enlarged. Please correlate with pulmonary artery hypertension. Borderline prominent mediastinal lymph nodes are seen, which are improved compared to the prior. Incidental note is made of: Atherosclerotic calcification, including coronary artery calcification At least moderate thoracic spine degenerative change Small hiatal hernia Generalized prominence of the adrenal glands, without focal adrenal nodules. Dictated by: Ariel Perez M.D. on 12/03/2021 at 9:36 Approved by: Ariel Perez M.D. on 12/03/2021 at 9:41
[2021-12-03] MEDS: FUROSEMIDE 40 MG/4 ML VIAL IV (10:20)
[2021-12-03] MEDS: ALBUTEROL/IPRATROPIUM 3 ML AMPUL INH (11:01)
--- NOTE | 2021-12-03 11:06 | RT ---
pt alma rosa neb tx well, sob with exersion and pt on room air. Pt states has Hx copd but takes no inhalers or neb txs at home
[2021-12-03 11:34] LABS: Reflexed Lactate in 2 Hours Y
[2021-12-03 12:11] LABS: Lactate 2HR (Lactic Acid Rflx) 1.6 mmol/L (0.7-2.1)
[2021-12-03] MEDS: methylPREDNISolone 125 MG/2 ML VIAL IV (12:16)
[2021-12-03] MEDS: ALBUTEROL 2.5 MG/3 ML NEB (ADULT) INH (12:44)
--- NOTE | 2021-12-03 12:46 | RT ---
Pt alma rosa neb tx well, on room air and no distress noted. Neb tx given by Air.
--- NOTE | 2021-12-03 14:58 | PC.NURSE ---
Pt d/c 91% on MD SARAY aware. Pt states he is not on O2 at home.
== END 2021-12-03 14:55 | disposition home or self-care (01) ==
PROVIDERS: Emergency Provider Emergency Medicine; PCP Internal Medicine
DX: J44.1 Chronic obstructive pulmonary disease with (acute) exacerbation (principal); Z87.891 Personal history of nicotine dependence; Z20.822 Contact with and (suspected) exposure to COVID-19
CPT/HCPCS: 36415; 71045; 71275; 80053; 81003; 83605; 83880; 85025; 85379; 87040; 87635; 93005; 93010; 94640; 96374; 96375; 99284; 99285; C9803; J1940; J2930; J7613; Q9967

== ENCOUNTER → 2022-01-02 07:44 | Outpatient (CLI) | payer MEDICARE, BC, SELFPAY ==
[2021-08-23 09:51] VITALS: BMI 33.0
--- NOTE | 2022-01-02 07:45 | DI.ECHO.S_ITS ---
[facility]---------+ [facility] +---------+ : : [address] : : : : [id number] : : : : Phone: [phone]+ Echocardiogram Report + + :Name: ISSAC MATUTE Study Date: 01/02/2022 Height: 67 in : :[facility] ReadingLocation: Weight: 232 lb : : Gender: Male BSA: 2.2 m2 : :: 1935 Age: 86 yrs BP: 158/80 mmHg: :Reason For Study: DYSPNEA, PULMONARY HYPERTENSION : :Ordering Physician: ALCIDES VEGA : :R Performed By: Maggy Fuentes : :Referring: SILVIA MCGRATH R : + + Interpretation Summary 1) Normal left ventricular thickness, size, wall motion, and systolic function (EF 60-65%). 2) Normal right ventricular size and function. 3) Aortic valve is sclerotic with mild regurgitation. Very minimal stenosis present (valve area 2.2cm2, mean gradient 9.6mm Hg). 4) Pulmonary artery pressures cannot be estimated because of the lack of a measurable TR jet velocity but the IVC suggests a CVP of around 3 mmHg. 5) The aortic root is borderline dilated at 4.1mc. 6) Compared to the Echo done 05/06/2019, no significant change. Procedure: A two-dimensional transthoracic echocardiogram with color flow and Doppler was performed. The study quality was technically adequate. Comparison is made with the echocardiogram of 05/06/2019. The patient was in sinus rhythm with heart rates between 64-68 bpm during the exam. Left Ventricle: The left ventricle is normal in size and wall thickness. The ejection fraction is estimated to be 60-65%. Left ventricular systolic function appears normal without focal wall motion abnormalities. Diastolic parameters suggest a relaxation abnormality of the left ventricle, consistent with probable normal filling pressures. Right Ventricle: The right ventricle is normal in size and function. Atria: The left atrial size is normal. Right atrial size is normal. There is no Doppler evidence for an interatrial shunt. Mitral Valve: The mitral valve leaflets appear borderline thickened, but open well. There is mild mitral annular calcification. There is trace mitral regurgitation. Aortic Valve: The aortic valve is mildly calcified. There is mild aortic valve sclerosis. The peak aortic velocity is 2.18 m/sec. The aortic valve mean gradient is 9.6 mmHg. There is mild aortic regurgitation. Tricuspid Valve: The tricuspid valve is normal in structure and function. There is trace tricuspid regurgitation. Pulmonary artery pressures cannot be estimated because of the lack of a measurable TR jet velocity but the IVC suggests a CVP of around 3 mmHg. Pulmonic Valve: The pulmonic valve leaflets are thin and pliable; valve motion is normal. There is trace pulmonic regurgitation. Great Vessels: The aortic root is borderline dilated. The ascending aorta is at the upper limits of normal in size. The IVC is of normal diameter and collapses greater than 50% with a sniff. This suggests a low right atrial pressure of 3 mm Hg. Pericardium/ Pleura There is no pericardial effusion. There is no pleural effusion. MMode/2D Measurements & Calculations LVIDd: 5.4 cm LVOT diam: 2.1 cm LVIDs: 3.1 cm Ao root diam: 4.1 cm FS: 43.6 % asc Aorta Diam: 3.7 cm LVPWd: 0.85 cm LV bridges. diameter/BSA (cm/m^2): 2.5 LV sys. diameter/BSA (cm/m^2): 1.4 LA A2 area: 21.5 cm2 RA long axis: 6.3 cm LA A4 area: 19.8 cm2 RA area: 22.0 cm2 LA length (vol): 6.4 cm RA vol: 64.8 ml LA vol: 56.0 ml RA : 30.1 ml/m2 LA vol index: 26.0 ml/m2 IVC diam: 2.0 cm RVD1 (basal): 3.4 cm TAPSE: 2.4 cm Doppler Measurements & Calculations Ao V2 max: 218.2 cm/sec LVOT Max Dean: 136.4 cm/sec Ao V2 mean: 140.0 cm/sec LV V1 max P.4 mmHg Ao max P.3 mmHg LV V1 VTI: 26.6 cm Ao mean P.6 mmHg AIXA(I,D): 2.2 cm2 Ao V2 VTI: 41.3 cm AIXA(V,D): 2.2 cm2 sev ratio: 0.64 AIXA indexed to BSA (cm^2/m^2): 1.0 MV E max dean: 78.0 cm/sec PA V2 max: 127.8 cm/sec MV A max dean: 89.1 cm/sec PA V2 mean: 87.1 cm/sec MV E/A: 0.88 PA mean P.3 mmHg Med Peak E' Dean: 6.6 cm/sec PA pr(Accel): 37.9 mmHg E/E' med: 11.9 Lat Peak E' Dean: 8.0 cm/sec E/E' lat: 9.7 E/e' average: 10.8 MV dec time: 0.26 sec SV(LVOT): 92.6 ml Reading Physician:05:09 PM
== END ==
PROVIDERS: PCP Internal Medicine; Referring Provider Internal Medicine; Visit Provider Internal Medicine
DX: I35.1 Nonrheumatic aortic (valve) insufficiency (principal); I27.20 Pulmonary hypertension, unspecified; R06.00 Dyspnea, unspecified
CPT/HCPCS: 93306

== ENCOUNTER → 2022-04-03 14:51 | Outpatient (CLI) | payer MEDICARE, BC, SELFPAY ==
[2021-08-23 09:51] VITALS: BMI 33.0
--- NOTE | 2022-04-03 15:09 | DIET.CONS ---
Dietary Consultation Note Assessment: 86y M attending RD visit with spouse for help with recent weight gain. Pt is +45# in 2.5y since knee surgery which has led to reduced mobility and energy expenditure. Prior to this, pt was training for long distance hiking, down to 190# at that time and felt great. Usual Day: wakes 6-7am, does not feel rested drinks two cups coffee c teaspoon sugar and non-dairy creamer each B (7:30am): 1/2 bagel c cream cheese or 2 slices banana bread, sometimes poached eggs c grits often naps or sits and reads L (noon): bowl soup, slice bread, glass water (pea soup, turkey noodle, lentil) 8oz red wine at 4pm D (5pm): steak and mixed veggies, fettucine pasta c tomato and olive oil, salmon c corn on cob goes to bed 11pm wakes 1230am- looks in fridge- whatever is available- saltines c pb, peanuts, slice bread c jam, cheese 2:30am wakes again then again snacking at night, waking 3-4x and eating each time Pt with sleep apnea, wears cpap machine intermittently, endorses increased sleep quality and quantity c machine use. Pt napping frequently during day secondary to reduced sleep at night cycling back to poor sleep at night. Ht: 67 Wt: 238# BMI: 37.0 UBW: 190-200# RD Impression: Pt weight gain began after knee surgery when mobility was decreased and pain increased. Pt started waking at night, started pairing waking with getting something to eat so pt eating 300-1200kcals over nighttime hours over 3-4 occasions, every night, whether hungry or not. Pts daytime eating routine appropriate for age and body. To lose weight, pt needs to cut night time eating off or limit to one calorie controlled serving per night of something with protein and fiber. Nutrition Diagnosis: abnormal weight gain r/t excessive night time snacking aeb pt +45# in 2.5y starting after knee surgery, pt reports waking 3-4x/night and eats high kcals snacks each time, BMI 37 c knee pain that would benefit from weight reduction. Interventions: 1. Provided behavior change counseling and motivational interviewing to assess habit of waking 3-4x/night to snack. Provided behavior change worksheet by Shaheen Cooper. Pt will try variety of alternate activities in place of eating to see what will work to stop night snacking. If pt to eat snack at night will be 1/4c peanuts or pistachios either in shell. 2. Discussed importance of cpap compliance for better sleep quality and quantity. Pt would benefit from better sleep hygiene to reduce night time waking and physically getting out of bed. 3. Encouraged pt to use exercise bands/hand weights/hand bicycle to increase physical output to support weight stability and weight loss. 4. Educated pt and spouse on [employer] as resource for healthy weight loss meal plans c recipes. Ultimately step one is stop night eating. EER: 1500kcals (to lose 1-2#/w), 100g PRO, 25g Fiber Monitoring/Evaluations: Pt will call to schedule f/u in 6w if not seeing improvement in nighttime snacking and weight. Electronically Signed by: Samira Husain 04/03/22 15:09 Clinical Dietitian [address] [id number]
[2022-04-03 15:36] VITALS: BMI 37.3
== END ==
PROVIDERS: PCP Internal Medicine; Referring Provider Internal Medicine; Visit Provider Internal Medicine
DX: R63.5 Abnormal weight gain (principal); M25.569 Pain in unspecified knee; G47.30 Sleep apnea, unspecified; Z71.3 Dietary counseling and surveillance; Z68.37 Body mass index [BMI] 37.0-37.9, adult
CPT/HCPCS: 97802

== ENCOUNTER → 2022-06-13 10:30 | Outpatient (CLI) | payer MEDICARE, BC, SELFPAY ==
[2021-08-23 09:51] VITALS: BMI 33.0
[2022-06-13 12:37] LABS: Hemoglobin A1C% w Est Avg Glu 6.1 % (4.0-6.0)
[2022-06-13 12:47] LABS: Alanine Aminotransferase 23 IU/L (<50); Albumin 4.1 g/dL (3.5-5.0); Albumin Globulin Ratio 1.6 (1.0-2.8); Alkaline Phosphatase 92 U/L (38-126); Aspartate Aminotransferase 21 IU/L (17-59); BUN Creatinine Ratio 24.3 (6-22); Bilirubin Total 0.6 mg/dL (0.2-1.3); Blood Urea Nitrogen 27 mg/dL (9-20); Calcium 9.4 mg/dL (8.4-10.2); Carbon Dioxide 33 mmol/L (22-32); Chloride 102 mmol/L (98-107); Estimated Glomerular Filt Rate > 60 mL/min (>60); Globulin 2.5 g/dL (1.7-4.1); Glucose 101 mg/dL (80-110); HEMOLYSIS < 15 (0-50); Potassium 5.3 mmol/L (3.4-5.1); Sodium 139 mmol/L (137-145); Total Protein 6.6 g/dL (6.3-8.2)
== END ==
PROVIDERS: PCP Internal Medicine; Referring Provider Internal Medicine; Visit Provider Internal Medicine
DX: R73.9 Hyperglycemia, unspecified (principal); E78.2 Mixed hyperlipidemia; I10 Essential (primary) hypertension
CPT/HCPCS: 36415; 80053; 83036

== ENCOUNTER → 2022-09-11 10:29 | Outpatient (CLI) | payer MEDICARE, BC, SELFPAY ==
[2021-08-23 09:51] VITALS: BMI 33.0
--- NOTE | 2022-09-11 10:31 | DI.CT.S_ITS ---
PROCEDURE: CT KNEE RIGHT WITHOUT CON INDICATIONS: Pain in right knee TECHNIQUE: Noncontrast 1-1.5 mm axial sections acquired from the mid-patella to the proximal tibia, with coronal and sagittal reformats. COMPARISON: None. FINDINGS: Image quality: Excellent. Bones: Patient is status post right total knee arthroplasty. Right knee alignment is anatomic. No acute fracture or dislocation. No evidence of hardware loosening or failure. No suspicious intraosseous lesion. Soft tissues: There is moderate amount of suprapatellar joint effusion. No calcified intra-articular loose bodies. Lobulated cystic structure is noted in lateral right knee soft tissue superficial to the distal vastus lateralis muscle and tendon and measures up to 3.6 x 4.7 x 6.3 cm in size. No abnormal soft tissue calcifications. No full-thickness tendon rupture. Cruciate ligaments are not well seen due to significant beam hardening artifacts. IMPRESSION: 1. Prior right total knee arthroplasty with anatomic right knee alignment. No fracture or dislocation. No evidence of hardware loosening or failure. No suspicious bony lesions. 2. Moderate joint effusion, no calcified loose bodies. 3.6 x 4.7 x 6.3 cm cystic structure in subcutaneous soft tissue along lateral aspect of right knee superficial to the vastus lateralis tendon and may represent a ganglion cyst in this area suggest clinical correlation. No abnormal soft tissue calcifications. No gross full-thickness tendon rupture. Dictated by: Abdifatah Shell M.D. on 09/11/2022 at 12:47 Approved by: Abdifatah Shell M.D. on 09/11/2022 at 13:01
== END ==
PROVIDERS: PCP Internal Medicine; Referring Provider Student in an Organized Health Care Education/Training Program; Visit Provider Student in an Organized Health Care Education/Training Program
DX: M25.461 Effusion, right knee (principal); M25.561 Pain in right knee; G89.29 Other chronic pain; Z96.651 Presence of right artificial knee joint
CPT/HCPCS: 73700

== ENCOUNTER → 2022-11-30 11:22 | Outpatient (CLI) | payer MEDICARE, BC, SELFPAY ==
[2021-08-23 09:51] VITALS: BMI 33.0
--- NOTE | 2022-11-30 11:24 | DI.RAD.S_ITS ---
PROCEDURE: XR CHEST 2V INDICATIONS: dyspnea TECHNIQUE: 2 views of the chest were acquired. COMPARISON: [facility], CT, CT ANGIO CHEST PE PROTOCOL, 12/03/2021, 10:15. [facility], CR, XR CHEST 1V, 12/03/2021, 9:39. FINDINGS: Surgical changes and devices: None. Lungs and pleura: Mild prominence of the central pulmonary vasculature is seen. No focal consolidation. No pleural effusions or pneumothorax. Mediastinum: Mediastinal contours are normal. Heart size is mildly enlarged and stable. Bones and chest wall: No suspicious bony abnormalities. Soft tissues appear unremarkable. IMPRESSION: Mild prominence of the central pulmonary vasculature. No focal consolidation. Stable mild cardiomegaly. Approved by: Andres Murrieta M.D. on 11/30/2022 at 12:52
[2022-11-30 13:45] LABS: Add Manual Diff / Slide Review NO; Basophils Absolute Auto 0 /uL (0-100); Basophils Percent Auto 0.5 % (0-2); Eosinophils Absolute Auto 100 /uL (0-450); Eosinophils Percent Auto 2.9 % (2-4); Hematocrit 39.2 % (41-53); Hemoglobin 13.1 g/dL (13.5-17.5); Lymphocytes Absolute Auto 1300 /uL (1100-4500); Lymphocytes Percent Auto 27.7 % (25-40); Mean Corpuscular HGB Conc 33.3 % (30-36); Mean Corpuscular Hemoglobin 31.1 PG (26-34); Mean Corpuscular Volume 93.5 fL (80-100); Monocytes Absolute Auto 400 /uL (0-900); Monocytes Percent Auto 7.7 % (3-14); Neutrophils Absolute Auto 2900 /uL (1500-7000); Neutrophils Percent Auto 61.2 % (50-75); Platelet Count 291 X10^3/uL (150-400); Red Blood Cell Count 4.19 X10^6/uL (4.5-5.9); Red Cell Distribution Width 13.5 % (11.6-14.8); White Blood Cell Count 4.8 X10^3/uL (4.5-11.0)
[2022-11-30 14:31] LABS: BUN Creatinine Ratio 20.5 (6-22); Blood Urea Nitrogen 24 mg/dL (9-20); Carbon Dioxide 32 mmol/L (22-32); Chloride 101 mmol/L (98-107); Estimated Glomerular Filt Rate > 60 mL/min (>60); Glucose 97 mg/dL (80-110); HEMOLYSIS < 15 (0-50); Sodium 141 mmol/L (137-145)
[2022-11-30 14:35] LABS: NT-proBNP (BNP-Adult 18+) 147 pg/mL (<450)
== END ==
PROVIDERS: PCP Internal Medicine; Referring Provider Internal Medicine; Visit Provider Internal Medicine
DX: I50.9 Heart failure, unspecified (principal); R06.00 Dyspnea, unspecified; I11.0 Hypertensive heart disease with heart failure; J44.9 Chronic obstructive pulmonary disease, unspecified; R60.9 Edema, unspecified
CPT/HCPCS: 36415; 71046; 80048; 83880; 85025

== ENCOUNTER → 2023-03-06 11:02 | Outpatient (CLI) | payer MEDICARE, BC, SELFPAY ==
[2021-08-23 09:51] VITALS: BMI 33.0
[2023-03-06 13:34] LABS: Alanine Aminotransferase 21 IU/L (<50); Albumin 3.8 g/dL (3.5-5.0); Albumin Globulin Ratio 1.5 (1.0-2.8); Alkaline Phosphatase 104 U/L (38-126); Aspartate Aminotransferase 21 IU/L (17-59); Bilirubin Total 0.5 mg/dL (0.2-1.3); Blood Urea Nitrogen 30 mg/dL (9-20); Calcium 9.2 mg/dL (8.4-10.2); Carbon Dioxide 33 mmol/L (22-32); Chloride 98 mmol/L (98-107); Estimated Glomerular Filt Rate > 60 mL/min (>60); Globulin 2.6 g/dL (1.7-4.1); Glucose 105 mg/dL (80-110); HEMOLYSIS < 15 (0-50); Potassium 4.8 mmol/L (3.4-5.1); Sodium 138 mmol/L (137-145); Total Protein 6.4 g/dL (6.3-8.2)
[2023-03-06 13:40] LABS: NT-proBNP (BNP-Adult 18+) 212 pg/mL (<450)
== END ==
PROVIDERS: PCP Internal Medicine; Referring Provider Internal Medicine; Visit Provider Internal Medicine
DX: R60.9 Edema, unspecified (principal); E78.2 Mixed hyperlipidemia; I10 Essential (primary) hypertension
CPT/HCPCS: 36415; 80053; 83880

== ENCOUNTER 2023-03-23 17:32 | Emergency (ER) | payer MEDICARE, BC, SELFPAY ==
[2021-08-23 09:51] VITALS: BMI 33.0
[2023-03-23] VITALS (11 sets, daily range): BP systolic 120–145; BP diastolic 57–72; PULSE 63–79; RESP 17–27; TEMP 36.5; O2SAT 91–95; BMI 37.3
--- NOTE | 2023-03-23 17:46 | DI.US.S_ITS ---
PROCEDURE: [facility] VENOUS LOW EXTREM RT INDICATIONS: PAIN SWELLING POST OP TECHNIQUE: Real-time imaging, as well as color and pulse Doppler interrogation, were performed of the lower extremity deep veins from the inguinal ligament to the popliteal fossa. COMPARISON: [facility], , [facility] VENOUS LOW EXTREM RT, 12/16/2019, 10:09. FINDINGS: The common femoral, femoral and popliteal veins are normally compressible, and free of intraluminal thrombus. Color and pulse Doppler demonstrate normal phasic intraluminal flow. There is normal augmentation response to distal compression maneuver. Note is made of an enlarged right groin lymph node measuring 2.2 x 1.1 x 1.7 cm. This study is limited by body habitus and lower extremity soft tissue swelling. IMPRESSION: Negative for deep venous thrombosis. Dictated by: Ariel Perez M.D. on 03/23/2023 at 17:57 Approved by: Ariel Perez M.D. on 03/23/2023 at 17:58
--- NOTE | 2023-03-23 17:46 | DI.RAD.S_ITS ---
PROCEDURE: XR KNEE RT 3V INDICATIONS: recent knee surgery, pain and swelling TECHNIQUE: 3 views of the knee were acquired. COMPARISON: [facility], CR, XR KNEE 1 OR 2 VIEWS RIGHT, 03/13/2023, 10:48. [facility], CR, XR KNEE RT 1TO2V, 12/08/2019, 12:50. FINDINGS: Bones: Postsurgical changes from right knee arthroplasty. Portions of the arthroplasty hardware incompletely imaged. Where visualized, hardware appears intact and no acute fracture is identified. Soft tissues: No definite joint effusion. IMPRESSION: No definite acute fracture identified. The most superior and inferior portions of the knee arthroplasty hardware are incompletely imaged. Dedicated radiographs of the femur and tibia/fibula could be obtained if clinically indicated. If symptoms persist, follow-up radiographs and/or CT may be helpful for further evaluation. Dictated by: Andres Coleman M.D. on 03/23/2023 at 18:55 Approved by: Andres Coleman M.D. on 03/23/2023 at 18:58
[2023-03-23] MEDS: ALBUTEROL/IPRATROPIUM 3 ML AMPUL INH (17:47)
[2023-03-23] MEDS: methylPREDNISolone 125 MG/2 ML VIAL IV (17:54)
[2023-03-23 17:58] LABS: INR 1.2 (0.9-1.3); Prothrombin Time 13.9 SECONDS (10.1-12.7)
[2023-03-23 18:01] LABS: Add Manual Diff / Slide Review NO; Basophils Absolute Auto 100 /uL (0-100); Basophils Percent Auto 0.6 % (0-2); Eosinophils Absolute Auto 500 /uL (0-450); Eosinophils Percent Auto 4.4 % (2-4); Hematocrit 30.8 % (41-53); Hemoglobin 10.2 g/dL (13.5-17.5); Lymphocytes Absolute Auto 4300 /uL (1100-4500); Lymphocytes Percent Auto 36.5 % (25-40); Mean Corpuscular Hemoglobin 30.6 PG (26-34); Mean Corpuscular Volume 92.9 fL (80-100); Monocytes Absolute Auto 700 /uL (0-900); Monocytes Percent Auto 5.5 % (3-14); Neutrophils Absolute Auto 6300 /uL (1500-7000); Red Blood Cell Count 3.32 X10^6/uL (4.5-5.9); White Blood Cell Count 11.8 X10^3/uL (4.5-11.0)
[2023-03-23 18:07] LABS: Lactate (Lactic Acid) 1.2 mmol/L (0.7-2.1)
[2023-03-23 18:09] LABS: Alanine Aminotransferase 18 IU/L (<50); Albumin Globulin Ratio 1.4 (1.0-2.8); Alkaline Phosphatase 104 U/L (38-126); Aspartate Aminotransferase 19 IU/L (17-59); BUN Creatinine Ratio 28.2 (6-22); Bilirubin Total 0.3 mg/dL (0.2-1.3); Blood Urea Nitrogen 29 mg/dL (9-20); Calcium 9.1 mg/dL (8.4-10.2); Carbon Dioxide 31 mmol/L (22-32); Chloride 101 mmol/L (98-107); Estimated Glomerular Filt Rate > 60 mL/min (>60); Globulin 2.9 g/dL (1.7-4.1); Glucose 123 mg/dL (80-110); HEMOLYSIS < 15 (0-50); Lipase 23 U/L (23-300); Magnesium 2.3 mg/dL (1.6-2.3); Potassium 4.6 mmol/L (3.4-5.1); Sodium 138 mmol/L (137-145); Total Protein 6.9 g/dL (6.3-8.2)
[2023-03-23 18:17] LABS: NT-proBNP (BNP-Adult 18+) 137 pg/mL (<450)
[2023-03-23 18:18] LABS: Platelet Estimate Increased on smear; RBC Morphology Normal Morphology
--- NOTE | 2023-03-23 19:26 | ED_ITS ---
HPI - General Adult General Chief complaint: Shortness of Breath/Dyspnea Stated complaint: Knee surgery, Poss blood clot Time Seen by Provider: 03/23/23 17:40 Source: patient Mode of arrival: Wheelchair History of Present Illness HPI narrative: 87-year-old male. History of COPD. Was sent in the emergency department for evaluation by his orthopedic surgeon for potentially having a blood clot in his right lower extremity. Sometime in the past 6-8 weeks he did a right total knee arthroplasty. He is had swelling in his right leg and knee since then. He is on anticoagulation. He states he has seen his orthopedic surgeon for this. He did have what sounds like a arthrocentesis of his right knee. His states that they were called and told that the samples that were taken did not show any signs of an infection. He also recently completed a course of antibiotics secondary to some redness that he was having when the anterior portion of his right shi and there was a concern for cellulitis. He continues to have swelling so he was instructed to come to the emergency department for evaluation of potential blood clot. Related Data Home Medications Medication Instructions Recorded Confirmed acetaminophen 500 mg capsule 500 mg PO Q6H PRN 05/06/21 03/06/23 apixaban 5 mg tablet (Eliquis) 5 mg PO BID 03/06/23 03/06/23 metoprolol succinate 25 mg 25 mg PO DAILY 03/06/23 03/06/23 tablet,extended release 24 hr Previous Rx's Medication Instructions Recorded furosemide 20 mg tablet 40 mg PO DAILY #180 tabs 11/14/21 simvastatin 40 mg tablet 40 mg PO QDAY #90 tabs 04/20/22 lisinopril 20 mg tablet 20 mg PO DAILY #90 tabs 04/26/22 doxazosin 8 mg tablet 8 mg PO DAILY #90 tabs 05/02/22 finasteride 5 mg tablet 5 mg PO DAILY #90 tabs 05/02/22 potassium chloride 8 mEq 8 meq PO DAILY #90 tabs 06/12/22 tablet,extended release Disabled Parking #1 ea 02/20/23 albuterol sulfate 90 mcg/actuation 2 puff inhalation Q4-6H PRN 03/08/23 aerosol inhaler shortness of breath or wheezing #8.5 grams ipratropium 0.5 mg-albuterol 3 mg 3 ml inhalation QID #180 mL 03/08/23 (2.5 mg base)/3 mL nebulization soln Allergies Allergy/AdvReac Type Severity Reaction Status Date / Time formaldehyde [FORMALDEHYDE] Allergy Severe Rash Verified 03/23/23 17:41 Gadolinium-Containing Allergy Severe HEART Verified 03/23/23 17:41 Contrast Medi STOPPED [GADOLINIUM-CONTAINING CONTRAST MEDI] Sulfa (Sulfonamide Allergy Mild Rash Verified 03/23/23 17:41 Antibiotics) [SULFA (SULFONAMIDE ANTIBIOTICS)] terbinafine [TERBINAFINE] Allergy Mild Pt unsure Verified 03/23/23 17:41 reaction Influenza Virus Vaccines AdvReac Intermediate whole body Verified 03/23/23 17:41 [INFLUENZA VIRUS VACCINES] rash 2016 QUANTERNUM Allergy Severe Rash Uncoded 03/06/23 10:22 Review of Systems Constitutional Constitutional: Reports system reviewed and no additional complaints, except as documented Cardiovascular Cardiovascular: Reports system reviewed and no additional complaints, except as documented Respiratory Respiratory: Reports system reviewed and no additional complaints, except as documented Gastrointestinal Gastrointestinal: Reports system reviewed and no additional complaints, except as documented Musculoskeletal Musculoskeletal: Reports system reviewed and no additional complaints, except as documented Integumentary/Breasts Skin/Breast: Reports system reviewed and no additional complaints, except as documented Hematologic/Lymphatic On Anticoagulants: Yes Patient History Medical History Back pain of thoracolumbar region (01/08/14) Benign prostatic hyperplasia with lower urinary tract symptoms (01/11/15) 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) Chronic obstructive pulmonary disease (01/16/18) Chronic pain of right knee Elevated prostate specific antigen (PSA) Essential hypertension Hearing loss (~1989) Mixed hyperlipidemia 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 Mother No problems noted. 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: over 6 months ago leisure activities: art, fishing and other Smoking Status: Former smoker Tobacco: How many years used: 2 Smokeless tobacco user: other quit status: quit date established second hand exposure: Yes alcohol intake: current substance use type: does not use Smoking Status: Former smoker alcohol intake frequency: holidays/special occasions only Substance Use Type: does not use Exam Initial Vital Signs Initial Vital Signs: Vital Signs Temperature 97.7 F 03/23/23 17:33 Pulse Rate 79 03/23/23 17:33 Respiratory Rate 24 03/23/23 17:33 Blood Pressure 145/72 H 03/23/23 17:33 Pulse Oximetry 93 03/23/23 17:33 Oxygen Delivery Method Room Air 03/23/23 17:33 HENMT Head: normal to inspection and normocephalic Resp Effort & Inspection: normal respiratory effort Cardio Rate: regular rate Skin Other: Patient does have redness anterior portion of his right shi that is consistent with venous stasis changes. Extrem Other: Patient does significant swelling to his right knee and right lower extremity. Is able to flex and extend the knee but is somewhat limited secondary to the swelling. Course Orders Ordered: ED Orders 03/23/23 17:45 Complete Blood Count AUTO DIFF Stat Comprehensive Metabolic Panel Stat Lactate (Lactic Acid) Stat Lipase Stat Magnesium Stat NT-proBNP (BNP-Adult 18+) Stat Prothrombin Time INR Stat 03/23/23 17:46 US periph venous low extrem rt Stat XR knee RT 3V Stat 03/23/23 18:13 RT Consult Eval and Treat NOW Discontinued Medications Albuterol/Ipratropium (Albuterol/Ipratropium 3 Ml Ampul) 3 ml INH NOW ONE Stop: 03/23/23 17:47 Last Admin: 03/23/23 17:47 Dose: 3 ml Documented By: OTONIEL Methylprednisolone (Methylprednisolone 125 Mg/2 Ml Vial) 125 mg IV NOW ONE Stop: 03/23/23 17:47 Last Admin: 03/23/23 17:54 Dose: 125 mg Documented By: RB Vital Signs Vital signs: Vital Signs - 8 hr 03/23/23 18:30 03/23/23 18:31 03/23/23 18:31 Pulse Rate 73 71 Respiratory Rate 26 H Blood Pressure 140/59 L Pulse Oximetry 95 94 03/23/23 18:45 03/23/23 19:00 03/23/23 19:00 Pulse Rate 66 63 Respiratory Rate 17 19 Blood Pressure 120/57 L Pulse Oximetry 91 92 Medical Decision Making Lab Data Lab results reviewed: Yes I reviewed the patient's lab results. 03/23/23 17:45 03/23/23 17:45 Labs: Lab Results 03/23/23 03/23/23 03/23/23 Range/Units 17:45 17:45 17:45 WBC 11.8 H (4.5-11.0) X10^3/uL RBC 3.32 L (4.5-5.9) X10^6/uL Hgb 10.2 L (13.5-17.5) g/dL Hct 30.8 L (41-53) % MCV 92.9 (80-100) fL MCH 30.6 (26-34) PG MCHC 33.0 (30-36) % RDW 14.0 (11.6-14.8) % Plt Count TNP Neut % (Auto) 53.0 (50-75) % Lymph % (Auto) 36.5 (25-40) % [place] % (Auto) 5.5 (3-14) % Eos % (Auto) 4.4 H (2-4) % Baso % (Auto) 0.6 (0-2) % Neut # (Auto) 6300 (1728-9636) /uL Lymph # (Auto) 4300 (0757-1581) /uL [place] # (Auto) 700 (0-900) /uL Eos # (Auto) 500 H (0-450) /uL Baso # (Auto) 100 (0-100) /uL Platelet Estimate Increased on smear RBC Morphology Normal morphology PT 13.9 H (10.1-12.7) SECONDS INR 1.2 (0.9-1.3) Sodium 138 (137-145) mmol/L Potassium 4.6 (3.4-5.1) mmol/L Chloride 101 (98-107) mmol/L Carbon Dioxide 31 (22-32) mmol/L BUN 29 H (9-20) mg/dL Creatinine 1.03 (0.66-1.25) mg/dL Estimated GFR > 60 (>60) mL/min BUN/Creatinine Ratio 28.2 H (6-22) Glucose 123 H (80-110) mg/dL Lactate (0.7-2.1) mmol/L Calcium 9.1 (8.4-10.2) mg/dL Magnesium 2.3 (1.6-2.3) mg/dL Total Bilirubin 0.3 (0.2-1.3) mg/dL AST 19 (17-59) IU/L ALT 18 (<50) IU/L Alkaline Phosphatase 104 (38-126) U/L NT-Pro-B Natriuret Pep 137 (<450) pg/mL Total Protein 6.9 (6.3-8.2) g/dL Albumin 4.0 (3.5-5.0) g/dL Globulin 2.9 (1.7-4.1) g/dL Albumin/Globulin Ratio 1.4 (1.0-2.8) Lipase 23 (23-300) U/L // Range/Units 17:45 WBC (4.5-11.0) X10^3/uL RBC (4.5-5.9) X10^6/uL Hgb (13.5-17.5) g/dL Hct (41-53) % MCV (80-100) fL MCH (26-34) PG MCHC (30-36) % RDW (11.6-14.8) % Plt Count Neut % (Auto) (50-75) % Lymph % (Auto) (25-40) % [place] % (Auto) (3-14) % Eos % (Auto) (2-4) % Baso % (Auto) (0-2) % Neut # (Auto) (8305-6567) /uL Lymph # (Auto) (9202-1447) /uL [place] # (Auto) (0-900) /uL Eos # (Auto) (0-450) /uL Baso # (Auto) (0-100) /uL Platelet Estimate RBC Morphology PT (10.1-12.7) SECONDS INR (0.9-1.3) Sodium (137-145) mmol/L Potassium (3.4-5.1) mmol/L Chloride (98-107) mmol/L Carbon Dioxide (22-32) mmol/L BUN (9-20) mg/dL Creatinine (0.66-1.25) mg/dL Estimated GFR (>60) mL/min BUN/Creatinine Ratio (6-22) Glucose (80-110) mg/dL Lactate 1.2 (0.7-2.1) mmol/L Calcium (8.4-10.2) mg/dL Magnesium (1.6-2.3) mg/dL Total Bilirubin (0.2-1.3) mg/dL AST (17-59) IU/L ALT (<50) IU/L Alkaline Phosphatase (38-126) U/L NT-Pro-B Natriuret Pep (<450) pg/mL Total Protein (6.3-8.2) g/dL Albumin (3.5-5.0) g/dL Globulin (1.7-4.1) g/dL Albumin/Globulin Ratio (1.0-2.8) Lipase (23-300) U/L Point of Care Testing Glucose POC 120 Point of care testing: Point of Care Testing Glucose POC 120 Imaging Data Extremity x-ray #1: Radiologist's Impression: PROCEDURE:? XR KNEE RT 3V ? INDICATIONS:? recent knee surgery, pain and swelling ? TECHNIQUE:? 3 views of the knee were acquired.? ? COMPARISON:? [facility], CR, XR KNEE 1 OR 2 VIEWS RIGHT, 03/13/2023, 10:48.? [facility], CR, XR KNEE RT 1TO2V, 12/08/2019, 12:50. ? FINDINGS:? ? Bones:? Postsurgical changes from right knee arthroplasty.? Portions of the arthroplasty hardware incompletely imaged.? Where visualized, hardware appears intact and no acute fracture is identified. ? Soft tissues:? No definite joint effusion.? ? ? IMPRESSION:? No definite acute fracture identified.? The most superior and inferior portions of the knee arthroplasty hardware are incompletely imaged.? Dedicated radiographs of the femur and tibia/fibula could be obtained if clinically indicated.? If symptoms persist, follow-up radiographs and/or CT may be helpful for further evaluation. US - DVT: Radiologist's Impression: PROCEDURE:? US PERIPH VENOUS LOW EXTREM RT ? INDICATIONS:? PAIN SWELLING POST OP ? TECHNIQUE:? Real-time imaging, as well as color and pulse Doppler interrogation, were performed of the lower extremity deep veins from the inguinal ligament to the popliteal fossa.? ? COMPARISON:? [facility], , PERIPH VENOUS LOW EXTREM RT, 12/16/2019, 10:09. ? FINDINGS:? The common femoral, femoral and popliteal veins are normally compressible, and free of intraluminal thrombus.? Color and pulse Doppler demonstrate normal phasic intraluminal flow.? There is normal augmentation response to distal compression maneuver. ? ? Note is made of an enlarged right groin lymph node measuring 2.2 x 1.1 x 1.7 cm. ? This study is limited by body habitus and lower extremity soft tissue swelling.? ? ? IMPRESSION:? ? Negative for deep venous thrombosis. [facility] Narrative Medical decision making narrative: He is at his baseline respiratory status. The effusion and swelling was right lower extremity is not new and it is negative for DVT. The redness in the anterior portion of the shi is consistent with venous stasis changes. Low suspicion for cellulitis. Will discharge patient home with return precautions. Discharge Plan Departure Patient Disposition: Home Clinical Impression: Edema of right lower extremity Instructions: DI for Peripheral Edema-Unilateral Activity Restrictions/Additional Instructions: Recommend that you continue to take all of your medications as directed. Keep all of your scheduled medical appointments. Return to the emergency department for new or worsening symptoms. Prescriptions: No Action furosemide 20 mg tablet 40 mg PO DAILY Qty: 180 3RF Hold Instructions: Home Medication placed on hold at Doctor's office Patient Comments: 1-2 TABS ONCE DAILY simvastatin 40 mg tablet 40 mg PO QDAY Qty: 90 3RF lisinopril 20 mg tablet 20 mg PO DAILY Qty: 90 3RF potassium chloride 8 mEq tablet extended release 8 meq PO DAILY Qty: 90 3RF Hold Instructions: Home Medication placed on hold at Doctor's office albuterol sulfate 90 mcg/actuation HFA aerosol inhaler 2 puff inhalation Q4-6H PRN (Reason: shortness of breath or wheezing) Qty: 8.5 3RF ipratropium-albuterol 0.5 mg-3 mg(2.5 mg base)/3 mL solution for nebulization 3 ml inhalation QID Qty: 180 3RF (DME) Disabled Parking See Rx Instructions .ROUTE .MEDSUPPLY Qty: 1 0RF Rx Instructions: Patient qualifies for disabled parking as per the attached form. Eliquis 5 mg tablet 5 mg PO BID metoprolol succinate 25 mg tablet extended release 24 hr 25 mg PO DAILY Patient Comments: take 1 tablet by mouth daily acetaminophen 500 mg capsule 500 mg PO Q6H PRN doxazosin 8 mg tablet 8 mg PO DAILY Qty: 90 3RF finasteride 5 mg tablet 5 mg PO DAILY Qty: 90 3RF Referrals: Ulices Guardado MD [Primary Care Provider] - Stand Alone Forms: Patient Portal/API
== END 2023-03-23 19:38 | disposition home or self-care (01) ==
PROVIDERS: Emergency Medicine; Emergency Provider Emergency Medicine; PCP Internal Medicine
DX: R60.0 Localized edema (principal); I10 Essential (primary) hypertension; Z96.651 Presence of right artificial knee joint; Z87.891 Personal history of nicotine dependence
CPT/HCPCS: 36415; 73562; 80053; 83605; 83690; 83735; 83880; 85025; 85610; 93005; 93010; 93971; 94640; 96374; 99284; J2930

== ENCOUNTER → 2023-04-26 14:45 | Outpatient (CLI) | payer MEDICARE, BC, SELFPAY ==
[2021-08-23 09:51] VITALS: BMI 33.0
--- NOTE | 2023-04-26 14:47 | DI.RAD.S_ITS ---
PROCEDURE: XR CHEST 2V INDICATIONS: cough TECHNIQUE: 2 views of the chest were acquired. COMPARISON: [facility], CR, XR CHEST 1 VIEW, 02/03/2023, 15:55. [facility], CR, XR CHEST 2V, 11/30/2022, 11:32. FINDINGS: Surgical changes and devices: None. Lungs and pleura: Mild left lower lobe scars. No focal consolidation. No pleural effusions or pneumothorax. Mediastinum: Mediastinal contours are normal. Heart size is normal. Bones and chest wall: No suspicious bony abnormalities. Soft tissues appear unremarkable. IMPRESSION: No acute cardiopulmonary disease. Dictated by: Zeke Alonso M.D. on 04/26/2023 at 16:10 Approved by: Zeke Alonso M.D. on 04/26/2023 at 16:12
== END ==
PROVIDERS: PCP Internal Medicine; Referring Provider Internal Medicine; Visit Provider Internal Medicine
DX: R05.9 Cough, unspecified (principal)
CPT/HCPCS: 71046

== ENCOUNTER → 2023-06-07 11:23 | Outpatient (CLI) | payer MEDICARE, BC, SELFPAY ==
[2021-08-23 09:51] VITALS: BMI 33.0
[2023-06-07 13:41] LABS: BUN Creatinine Ratio 30.3 (6-22); Blood Urea Nitrogen 37 mg/dL (9-20); Calcium 8.9 mg/dL (8.4-10.2); Carbon Dioxide 33 mmol/L (22-32); Chloride 98 mmol/L (98-107); Estimated Glomerular Filt Rate 57 mL/min (>60); Glucose 91 mg/dL (80-110); HEMOLYSIS < 15 (0-50); Magnesium 2.3 mg/dL (1.6-2.3); Potassium 4.3 mmol/L (3.4-5.1); Sodium 137 mmol/L (137-145)
== END ==
PROVIDERS: PCP Internal Medicine; Referring Provider Internal Medicine; Visit Provider Internal Medicine
DX: I10 Essential (primary) hypertension (principal); E78.2 Mixed hyperlipidemia; R60.9 Edema, unspecified
CPT/HCPCS: 36415; 80048; 83735

== ENCOUNTER 2023-06-13 14:14 | Emergency (ER) | payer MEDICARE, BC, SELFPAY ==
[2021-08-23 09:51] VITALS: BMI 33.0
[2023-06-13 14:22] VITALS: BP 131/62; PULSE 78; RESP 16; TEMP 36.6; O2SAT 93; BMI 38.7
--- NOTE | 2023-06-13 14:50 | DI.US.S_ITS ---
PROCEDURE: US PERIP VENOUS LOW EXTREM RT INDICATIONS: rule out dvt TECHNIQUE: Real-time imaging, as well as color and pulse Doppler interrogation, were performed of the lower extremity deep veins from the inguinal ligament to the popliteal fossa, with documentation of the visualized calf veins. COMPARISON: [facility], , [facility] VENOUS LOW EXTREM RT, 03/23/2023, 18:12. FINDINGS: The common femoral, femoral, popliteal, and the visualized calf veins are normally compressible, and free of intraluminal thrombus. Color and pulse Doppler demonstrate normal phasic intraluminal flow. There is normal augmentation response to distal compression maneuver. An enlarged right groin lymph node can be seen that measures 3.4 x 1.7 x 2.9 cm IMPRESSION: No findings of lower extremity deep venous thrombosis. There is an enlarged right groin lymph node seen. Dictated by: Ariel Perez M.D. on 06/13/2023 at 14:19 Approved by: Ariel Perez M.D. on 06/13/2023 at 14:19
[2023-06-13 17:55] VITALS: BP 147/65; PULSE 65; O2SAT 92
[2023-06-13 19:37] VITALS: BP 130/63; PULSE 65; RESP 16; TEMP 36.7; O2SAT 94
--- NOTE | 2023-06-13 19:49 | ED.EXTPRO ---
HPI - Extremity Problem General Chief complaint: Extremity Problem,Nontraumatic Stated complaint: knee replacement t-6mo, poss infection/pain Time Seen by Provider: 06/13/23 18:08 Source: patient Mode of arrival: Ambulatory Limitations: no limitations History of Present Illness HPI Narrative: Patient is an 88-year-old male. 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 He is had redness to the front of his right leg since that time. He has been seen by his primary doctor. He is currently on antibiotics. He states the redness is not worse. He is here because he is having pain on the outside of his right leg. It has been going on since last evening. He states that it comes on lasts a few seconds and then goes away. There has been no change in redness over the area. Swelling of his leg. Related Data Home Medications Medication Instructions Recorded Confirmed acetaminophen 500 mg capsule 500 mg PO Q6H PRN 05/06/21 06/07/23 triamcinolone acetonide 0.1 % 1 applic topical BID 05/10/23 06/07/23 topical ointment Previous Rx's Medication Instructions Recorded Disabled Parking #1 ea 02/20/23 albuterol sulfate 90 mcg/actuation 2 puff inhalation Q4-6H PRN 03/08/23 aerosol inhaler shortness of breath or wheezing #8.5 grams metoprolol succinate 25 mg 25 mg PO DAILY #90 tabs 03/29/23 tablet,extended release 24 hr furosemide 20 mg tablet 40 mg PO DAILY #180 tabs 04/09/23 simvastatin 40 mg tablet 40 mg PO QDAY #90 tabs 04/19/23 albuterol sulfate 2.5 mg/3 mL 2.5 mg (3 mL) inhalation Q2H PRN 04/26/23 (0.083 %) solution for nebulization shortness of breath or wheezing #180 mL prednisone 20 mg tablet See Rx Instructions PO DAILY #90 04/26/23 tabs doxazosin 8 mg tablet 8 mg PO DAILY #90 tabs 05/24/23 finasteride 5 mg tablet See Rx Instructions .Route 05/24/23 .COMPLEX #30 tabs potassium chloride 8 mEq 8 meq PO DAILY #90 tabs 05/31/23 tablet,extended release doxycycline hyclate 100 mg capsule 100 mg PO BID 10 days #20 caps 06/07/23 cyclobenzaprine 10 mg tablet 10 mg PO TID PRN muscle spasm #10 06/13/23 tabs Allergies Allergy/AdvReac Type Severity Reaction Status Date / Time formaldehyde [FORMALDEHYDE] Allergy Severe Rash Verified 06/13/23 14:22 Gadolinium-Containing Allergy Severe HEART Verified 06/13/23 14:22 Contrast Medi STOPPED [GADOLINIUM-CONTAINING CONTRAST MEDI] Sulfa (Sulfonamide Allergy Mild Rash Verified 06/13/23 14:22 Antibiotics) [SULFA (SULFONAMIDE ANTIBIOTICS)] terbinafine [TERBINAFINE] Allergy Mild Pt unsure Verified 06/13/23 14:22 reaction Influenza Virus Vaccines AdvReac Intermediate whole body Verified 06/13/23 14:22 [INFLUENZA VIRUS VACCINES] rash 2016 QUANTERNUM Allergy Severe Rash Uncoded 06/07/23 10:34 Review of Systems Constitutional Constitutional: Reports system reviewed and no additional complaints, except as documented Musculoskeletal Musculoskeletal: Reports system reviewed and no additional complaints, except as documented Integumentary/Breasts Skin/Breast: Reports system reviewed and no additional complaints, except as documented Neurologic Neurologic: Reports system reviewed and no additional complaints, except as documented Patient History Medical History Back pain of thoracolumbar region (01/08/14) Benign prostatic hyperplasia with lower urinary tract symptoms (01/11/15) 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) Chronic obstructive pulmonary disease (01/16/18) Chronic pain of right knee Elevated prostate specific antigen (PSA) Essential hypertension Hearing loss (~1989) Mixed hyperlipidemia 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 Mother No problems noted. 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 travel history: over 6 months ago leisure activities: art, fishing and other Smoking Status: Former smoker Tobacco: How many years used: 2 Smokeless tobacco user: other quit status: quit date established second hand exposure: Yes alcohol intake: current substance use type: does not use Smoking Status: Former smoker alcohol intake frequency: 0-2 drinks per day Substance Use Type: does not use Exam Initial Vital Signs Initial Vital Signs: Vital Signs Temperature 97.9 F 06/13/23 14:22 Pulse Rate 78 06/13/23 14:22 Respiratory Rate 16 06/13/23 14:22 Blood Pressure 131/62 06/13/23 14:22 Pulse Oximetry 93 06/13/23 14:22 Oxygen Delivery Method Room Air 06/13/23 14:22 Skin Other: [place] with erythema that is not warm without blisters in an irregular pattern mostly located on the anterior aspect of the right shi. Neuro Sensory Exam: no sensory deficits noted Extrem Other: Patient has tenderness to palpation on the anterior lateral aspect of the right lower extremity. It is somewhat tender to palpation although does seem to come and go on its own. Course Orders Ordered: ED Orders 06/13/23 14:50 [facility] venous low extrem rt Stat Vital Signs Vital signs: Vital Signs - 8 hr 06/13/23 17:55 06/13/23 19:37 Temperature 98.0 F Pulse Rate 65 65 Respiratory Rate 16 Blood Pressure 147/65 H 130/63 Pulse Oximetry 92 94 Oxygen Delivery Method Room Air Room Air MDM - Extremity (Nontraumatic) Imaging Data US - DVT: Radiologist's Impression: PROCEDURE:? US PERIP VENOUS LOW EXTREM RT ? INDICATIONS:? rule out dvt ? TECHNIQUE:? Real-time imaging, as well as color and pulse Doppler interrogation, were performed of the lower extremity deep veins from the inguinal ligament to the popliteal fossa, with documentation of the visualized calf veins.? ? COMPARISON:? [facility], PERIP VENOUS LOW EXTREM RT, 03/23/2023, 18:12. ? FINDINGS:? The common femoral, femoral, popliteal, and the visualized calf veins are normally compressible, and free of intraluminal thrombus.? Color and pulse Doppler demonstrate normal phasic intraluminal flow.? There is normal augmentation response to distal compression maneuver.? ? An enlarged right groin lymph node can be seen that measures 3.4 x 1.7 x 2.9 cm ? IMPRESSION:? No findings of lower extremity deep venous thrombosis. ? There is an enlarged right groin lymph node seen.? MDM Narrative Medical decision making narrative: His ultrasound today does not show any signs of DVT. He is redness in his right lower extremity but it has been there for the past 6 months. This is more consistent with a dermatitis rather than a cellulitis. Despite this he is on antibiotics that are prescribed by his primary doctor. He has a very focal area of tenderness that comes and goes on the right anterior lateral aspect of his leg that does not seem to be associated with this redness. Unsure the exact etiology although muscle spasms could potentially be the cause this given the location. Will provide him a prescription of Flexeril. We had a long discussion about how this potentially could make him somewhat drowsy and so needs to be careful with this. He expressed understanding of this. No further workup required in the emergency department. Patient is safe for discharge home and follow-up with primary provider. Discharge Plan Departure Patient Disposition: Home Clinical Impression: Leg pain, right Instructions: DI for Leg Pain Activity Restrictions/Additional Instructions: The ultrasound today did not show any signs of a blood clot. We are going to try some muscle relaxers. Remember these medications can make you drowsy. Contact your primary doctor for a follow-up. Prescriptions: New cyclobenzaprine 10 mg tablet 10 mg PO TID PRN (Reason: muscle spasm) Qty: 10 0RF No Action albuterol sulfate 90 mcg/actuation HFA aerosol inhaler 2 puff inhalation Q4-6H PRN (Reason: shortness of breath or wheezing) Qty: 8.5 3RF furosemide 20 mg tablet 40 mg PO DAILY Qty: 180 3RF Hold Instructions: Home Medication placed on hold at Doctor's office Patient Comments: 1-2 TABS ONCE DAILY simvastatin 40 mg tablet 40 mg PO QDAY Qty: 90 3RF doxazosin 8 mg tablet 8 mg PO DAILY Qty: 90 3RF finasteride 5 mg tablet See Rx Instructions .ROUTE .COMPLEX Qty: 30 0RF Dose Instruction: take 1 tablet by mouth once daily Rx Instructions: take 1 tablet by mouth once daily potassium chloride 8 mEq tablet extended release 8 meq PO DAILY Qty: 90 3RF Hold Instructions: Home Medication placed on hold at Doctor's office doxycycline hyclate 100 mg capsule 100 mg PO BID 10 Days Qty: 20 0RF (DME) Disabled Parking See Rx Instructions .ROUTE .MEDSUPPLY Qty: 1 0RF Rx Instructions: Patient qualifies for disabled parking as per the attached form. metoprolol succinate 25 mg tablet extended release 24 hr 25 mg PO DAILY Qty: 90 3RF triamcinolone acetonide 0.1 % ointment 1 applic topical BID Patient Comments: MIX 50/50 WITH MUPIROCIN AND APPLY THIN LAYER TWICE A DAY TO AFFE... (REFER TO PRESCRIPTION NOTES). Rx Instructions: For 2 weeks. prednisone 20 mg tablet See Rx Instructions PO DAILY Qty: 90 0RF Rx Instructions: take 3 daily for one week, then 2 daily or as directed by physician albuterol sulfate 2.5 mg /3 mL (0.083 %) solution for nebulization 2.5 mg inhalation Q2H PRN (Reason: shortness of breath or wheezing) Qty: 180 3RF acetaminophen 500 mg capsule 500 mg PO Q6H PRN Referrals: Ulices Guardado MD [Primary Care Provider] - Stand Alone Forms: Patient Portal/API
== END 2023-06-13 20:00 | disposition home or self-care (01) ==
PROVIDERS: Emergency Provider Emergency Medicine; PCP Internal Medicine
DX: M79.604 Pain in right leg (principal)
CPT/HCPCS: 93971; 99281; 99283

== ENCOUNTER → 2023-07-17 12:48 | Outpatient (CLI) | payer MEDICARE, BC, SELFPAY ==
[2021-08-23 09:51] VITALS: BMI 33.0
== END ==
PROVIDERS: PCP Internal Medicine; Visit Provider Surgery
DX: L08.9 Local infection of the skin and subcutaneous tissue, unspecified (principal); I87.2 Venous insufficiency (chronic) (peripheral); L97.919 Non-pressure chronic ulcer of unspecified part of right lower leg with unspecified severity; I89.0 Lymphedema, not elsewhere classified; L53.9 Erythematous condition, unspecified; I10 Essential (primary) hypertension; J44.9 Chronic obstructive pulmonary disease, unspecified; E66.9 Obesity, unspecified; Z68.38 Body mass index [BMI] 38.0-38.9, adult
CPT/HCPCS: 36415; 85025; 85651; 86140; 87070; 87075; 87077; 87147; 87186; 87205; 99204; 99214

== ENCOUNTER → 2023-07-17 14:32 | Outpatient (CLI) | payer MEDICARE, BC, SELFPAY ==
[2021-08-23 09:51] VITALS: BMI 33.0
[2023-07-17 14:58] LABS: Add Manual Diff / Slide Review NO; Basophils Absolute Auto 100 /uL (0-100); Basophils Percent Auto 0.6 % (0-2); Eosinophils Absolute Auto 300 /uL (0-450); Eosinophils Percent Auto 3.3 % (2-4); Hematocrit 37.7 % (41-53); Hemoglobin 12.3 g/dL (13.5-17.5); Lymphocytes Absolute Auto 2200 /uL (1100-4500); Lymphocytes Percent Auto 23.9 % (25-40); Mean Corpuscular HGB Conc 32.5 % (30-36); Mean Corpuscular Hemoglobin 29.9 PG (26-34); Mean Corpuscular Volume 92.2 fL (80-100); Monocytes Absolute Auto 700 /uL (0-900); Monocytes Percent Auto 7.5 % (3-14); Neutrophils Absolute Auto 6100 /uL (1500-7000); Neutrophils Percent Auto 64.7 % (50-75); Platelet Count 352 X10^3/uL (150-400); Red Blood Cell Count 4.09 X10^6/uL (4.5-5.9); Red Cell Distribution Width 14.2 % (11.6-14.8); White Blood Cell Count 9.4 X10^3/uL (4.5-11.0)
[2023-07-17 15:12] LABS: C-Reactive Protein Quant 2.9 mg/dL (<1.0)
[2023-07-17 15:15] LABS: Erythrocyte Sedimentation Rate 29 MM/HR (0-15)
== END ==
PROVIDERS: PCP Internal Medicine; Referring Provider Surgery; Visit Provider Surgery
DX: L08.9 Local infection of the skin and subcutaneous tissue, unspecified (principal)
CPT/HCPCS: 36415; 85025; 85651; 86140

== ENCOUNTER → 2023-07-23 14:28 | Outpatient (CLI) | payer MEDICARE, BC, SELFPAY ==
[2021-08-23 09:51] VITALS: BMI 33.0
--- NOTE | 2023-07-23 14:30 | DI.US.S_ITS ---
PROCEDURE: US ARTERIAL DUPLEX LE RT INDICATIONS: OPEN FOOT WOUND TECHNIQUE: Color and pulse Doppler interrogation was performed of the right lower extremity arterial system, with image documentation. COMPARISON: None. FINDINGS: Common femoral artery: 81 cm/sec, with triphasic flow. Deep femoral artery: 46 cm/sec, with triphasic flow. Proximal superficial femoral artery: 84 cm/sec, with triphasic flow. Mid superficial femoral artery: 86 cm/sec, with triphasic flow. Distal superficial femoral artery: 56 cm/sec, with triphasic flow. Popliteal artery: 60 cm/sec, with triphasic flow. Posterior tibial artery: 66 cm/sec, with triphasic flow. Anterior tibial artery/dorsalis pedis: 55 cm/sec, with triphasic flow. Obrien-scale imaging description: Mild diffuse plaque IMPRESSION: No evidence of arterial insufficiency to the right lower extremity. Dictated by: Watson Good M.D. on 07/23/2023 at 16:15 Approved by: Watson Good M.D. on 07/23/2023 at 16:15
== END ==
PROVIDERS: PCP Internal Medicine; Referring Provider Surgery; Visit Provider Surgery
DX: I87.2 Venous insufficiency (chronic) (peripheral) (principal); L97.919 Non-pressure chronic ulcer of unspecified part of right lower leg with unspecified severity
CPT/HCPCS: 93926

== ENCOUNTER → 2023-07-24 10:39 | Outpatient (CLI) | payer MEDICARE, BC, SELFPAY ==
[2021-08-23 09:51] VITALS: BMI 33.0
== END ==
PROVIDERS: PCP Internal Medicine; Visit Provider Surgery
DX: I89.0 Lymphedema, not elsewhere classified (principal); L97.811 Non-pressure chronic ulcer of other part of right lower leg limited to breakdown of skin; L03.115 Cellulitis of right lower limb; B95.7 Other staphylococcus as the cause of diseases classified elsewhere; I10 Essential (primary) hypertension; J44.9 Chronic obstructive pulmonary disease, unspecified; E66.9 Obesity, unspecified; Z68.38 Body mass index [BMI] 38.0-38.9, adult; Z86.718 Personal history of other venous thrombosis and embolism
CPT/HCPCS: 99213

== ENCOUNTER → 2023-07-31 09:45 | Outpatient (CLI) | payer MEDICARE, BC, SELFPAY ==
[2021-08-23 09:51] VITALS: BMI 33.0
== END ==
PROVIDERS: PCP Internal Medicine; Visit Provider Surgery
DX: I89.0 Lymphedema, not elsewhere classified (principal); L97.811 Non-pressure chronic ulcer of other part of right lower leg limited to breakdown of skin; R60.0 Localized edema; I10 Essential (primary) hypertension
CPT/HCPCS: 29581; 99213

== ENCOUNTER → 2023-08-03 08:36 | Outpatient (CLI) | payer MEDICARE, BC, SELFPAY ==
[2021-08-23 09:51] VITALS: BMI 33.0
== END ==
PROVIDERS: PCP Internal Medicine; Visit Provider Surgery
DX: I89.0 Lymphedema, not elsewhere classified (principal); L97.811 Non-pressure chronic ulcer of other part of right lower leg limited to breakdown of skin; R60.0 Localized edema; L53.9 Erythematous condition, unspecified
CPT/HCPCS: 29581

== ENCOUNTER → 2023-08-07 10:45 | Outpatient (CLI) | payer MEDICARE, BC, SELFPAY ==
[2021-08-23 09:51] VITALS: BMI 33.0
== END ==
PROVIDERS: PCP Internal Medicine; Visit Provider Surgery
DX: I89.0 Lymphedema, not elsewhere classified (principal); R60.0 Localized edema; L53.9 Erythematous condition, unspecified
CPT/HCPCS: 29581; 99213

== ENCOUNTER → 2023-08-14 09:26 | Outpatient (CLI) | payer MEDICARE, BC, SELFPAY ==
[2021-08-23 09:51] VITALS: BMI 33.0
== END ==
PROVIDERS: PCP Internal Medicine; Visit Provider Surgery
DX: I89.0 Lymphedema, not elsewhere classified (principal)
CPT/HCPCS: 99212; 99213

== ENCOUNTER → 2023-08-19 12:00 | Outpatient (CLI) | payer MEDICARE, BC, SELFPAY ==
[2021-08-23 09:51] VITALS: BMI 33.0
--- NOTE | 2023-08-19 12:02 | DI.RAD.S_ITS ---
PROCEDURE: XR CHEST 2V INDICATIONS: Cough TECHNIQUE: 2 views of the chest were acquired. COMPARISON: [facility], CR, XR CHEST 2V, 04/26/2023, 14:55. FINDINGS: Surgical changes and devices: None. Lungs and pleura: Mild increased pulmonary vascularity. Mediastinum: Mediastinal contours are normal. Heart size is mildly prominent. Bones and chest wall: No suspicious bony abnormalities. Soft tissues appear unremarkable. IMPRESSION: Mild increased vascularity suggestive of edema. Dictated by: Elsa Wise M.D. on 08/19/2023 at 12:48 Approved by: Elsa Wise M.D. on 08/19/2023 at 12:48
== END ==
PROVIDERS: Family Provider Internal Medicine; PCP Internal Medicine; Referring Provider Nurse Practitioner Family; Visit Provider Nurse Practitioner Family
DX: R05.9 Cough, unspecified (principal)
CPT/HCPCS: 71046

== ENCOUNTER → 2023-08-31 11:23 | Outpatient (CLI) | payer MEDICARE, BC, SELFPAY ==
[2021-08-23 09:51] VITALS: BMI 33.0
[2023-08-31 12:23] LABS: Alanine Aminotransferase 19 IU/L (<50); Albumin Globulin Ratio 1.5 (1.0-2.8); Alkaline Phosphatase 120 U/L (38-126); Aspartate Aminotransferase 21 IU/L (17-59); BUN Creatinine Ratio 25.7 (6-22); Bilirubin Total 0.5 mg/dL (0.2-1.3); Blood Urea Nitrogen 27 mg/dL (9-20); Calcium 9.6 mg/dL (8.4-10.2); Carbon Dioxide 37 mmol/L (22-32); Chloride 96 mmol/L (98-107); Estimated Glomerular Filt Rate > 60 mL/min (>60); Globulin 2.6 g/dL (1.7-4.1); Glucose 103 mg/dL (80-110); HEMOLYSIS < 15 (0-50); Magnesium 2.1 mg/dL (1.6-2.3); Sodium 138 mmol/L (137-145); Total Protein 6.6 g/dL (6.3-8.2)
[2023-08-31 12:30] LABS: NT-proBNP (BNP-Adult 18+) 72 pg/mL (<450)
== END ==
PROVIDERS: Family Provider Internal Medicine; PCP Internal Medicine; Referring Provider Internal Medicine; Visit Provider Internal Medicine
DX: I50.9 Heart failure, unspecified (principal); I87.2 Venous insufficiency (chronic) (peripheral)
CPT/HCPCS: 36415; 80053; 83735; 83880

== ENCOUNTER → 2023-10-10 13:13 | Outpatient (CLI) | payer MEDICARE, BC, SELFPAY ==
[2021-08-23 09:51] VITALS: BMI 33.0
== END ==
PROVIDERS: Family Provider Internal Medicine; PCP Internal Medicine; Referring Provider Internal Medicine; Visit Provider Internal Medicine
DX: J44.9 Chronic obstructive pulmonary disease, unspecified (principal); Z87.891 Personal history of nicotine dependence
CPT/HCPCS: 94060; 94726; 94729

== ENCOUNTER 2023-10-16 09:27 | Emergency (ER) | payer MEDICARE, BC, SELFPAY ==
[2021-08-23 09:51] VITALS: BMI 33.0
[2023-10-16] VITALS (13 sets, daily range): BP systolic 125–149; BP diastolic 61–77; PULSE 73–80; RESP 18–32; TEMP 36.5; O2SAT 87–97; BMI 38.3
--- NOTE | 2023-10-16 09:35 | DI.RAD.S_ITS ---
PROCEDURE: XR CHEST 1V INDICATIONS: Shortness of breath TECHNIQUE: One view of the chest was acquired. COMPARISON: [facility], CR, XR CHEST 2V, 08/19/2023, 12:03. [facility], CR, XR CHEST 2V, 04/26/2023, 14:55. FINDINGS: Surgical changes and devices: None. Lungs and pleura: Lungs are clear. No pleural effusions or pneumothorax. Mediastinum: Mediastinal contours appear normal. Heart size is normal. Bones and chest wall: No suspicious bony lesions. Overlying soft tissues appear unremarkable. IMPRESSION: No acute cardiopulmonary abnormality is seen. Dictated by: Freddy Bonilla M.D. on 10/16/2023 at 9:59 Approved by: Freddy Bonilla M.D. on 10/16/2023 at 9:59
--- NOTE | 2023-10-16 09:42 | ED.GENADULT ---
HPI - General Adult General Chief complaint: Shortness of Breath/Dyspnea Stated complaint: copd, sob Time Seen by Provider: 10/16/23 09:32 Source: patient and family Mode of arrival: Ambulatory History of Present Illness HPI narrative: Patient is an 88-year-old male. History of COPD. Has an albuterol inhaler and nebulizer at home. Also has lower extremity edema that is chronic. Has had worsening lung function over the past several weeks/months. Had pulmonary function tests recently but they do not know the results of these. Has a follow-up with pulmonology next month and with his primary doctor next month. Proximally 1 week ago he finished a prolonged taper of steroids. At the beginning of that taper he was on antibiotics and has since finished those. About the time that he tapered off the steroids he started to become short of breath again. No chest pain. No worsening lower extremity swelling. No cough. No fevers. He has been doing his inhalers and nebulizers at home with minimal improvement. Related Data Home Medications Medication Instructions Recorded Confirmed acetaminophen 500 mg capsule 500 mg PO Q6H PRN 05/06/21 09/14/23 Previous Rx's Medication Instructions Recorded Disabled Parking #1 ea 02/20/23 metoprolol succinate 25 mg 25 mg PO DAILY #90 tabs 03/29/23 tablet,extended release 24 hr simvastatin 40 mg tablet 40 mg PO QDAY #90 tabs 04/19/23 albuterol sulfate 2.5 mg/3 mL 2.5 mg (3 mL) inhalation Q2H PRN 04/26/23 (0.083 %) solution for nebulization shortness of breath or wheezing #180 mL doxazosin 8 mg tablet 8 mg PO DAILY #90 tabs 05/24/23 potassium chloride 8 mEq 8 meq PO DAILY #90 tabs 05/31/23 tablet,extended release torsemide 40 mg tablet 40 mg PO DAILY #180 tabs 07/06/23 finasteride 5 mg tablet See Rx Instructions .Route 07/11/23 .COMPLEX #30 tabs prednisone 20 mg tablet See Rx Instructions PO DAILY #90 08/31/23 tabs albuterol sulfate 90 mcg/actuation 2 puff inhalation Q4-6H PRN 09/18/23 aerosol inhaler shortness of breath or wheezing #17 grams Allergies Allergy/AdvReac Type Severity Reaction Status Date / Time formaldehyde [FORMALDEHYDE] Allergy Severe Rash Verified 10/16/23 09:37 Gadolinium-Containing Allergy Severe HEART Verified 10/16/23 09:37 Contrast Medi STOPPED [GADOLINIUM-CONTAINING CONTRAST MEDI] Sulfa (Sulfonamide Allergy Mild Rash Verified 10/16/23 09:37 Antibiotics) [SULFA (SULFONAMIDE ANTIBIOTICS)] terbinafine [TERBINAFINE] Allergy Mild Pt unsure Verified 10/16/23 09:37 reaction Influenza Virus Vaccines AdvReac Intermediate whole body Verified 10/16/23 09:37 [INFLUENZA VIRUS VACCINES] rash 2016 QUANTERNUM Allergy Severe Rash Uncoded 09/14/23 11:16 Review of Systems Constitutional Constitutional: Reports system reviewed and no additional complaints, except as documented Cardiovascular Cardiovascular: Reports system reviewed and no additional complaints, except as documented Respiratory Respiratory: Reports system reviewed and no additional complaints, except as documented Integumentary/Breasts Skin/Breast: Reports system reviewed and no additional complaints, except as documented Neurologic Neurologic: Reports system reviewed and no additional complaints, except as documented Hematologic/Lymphatic On Anticoagulants: No Patient History Medical History Venous stasis dermatitis Paroxysmal atrial fibrillation (~2011) Chronic pain of right knee Peripheral edema Sinus bradycardia Squamous acanthoma of face (~10/2019) Skin cancer Tinnitus (~1989) Hearing loss (~1989) Chronic obstructive pulmonary disease (01/16/18) 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 Mother No problems noted. 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: over 6 months ago leisure activities: art, fishing and other Smoking Status: Former smoker Tobacco: How many years used: 2 Smokeless tobacco user: other quit status: quit date established second hand exposure: Yes alcohol intake: current substance use type: does not use Smoking Status: Former smoker alcohol intake frequency: 0-2 drinks per day Substance Use Type: does not use Exam Initial Vital Signs Initial Vital Signs: Vital Signs Temperature 97.7 F 10/16/23 09:30 Pulse Rate 74 10/16/23 09:30 Respiratory Rate 32 H 10/16/23 09:30 Blood Pressure 131/77 10/16/23 09:30 Pulse Oximetry 95 10/16/23 09:30 Oxygen Delivery Method Room Air 10/16/23 09:30 Const General: cooperative HENMT Head: normal to inspection and normocephalic Resp Effort & Inspection: labored and tachypneic Auscultation: diminished lung sounds, rhonchi and wheezes Cardio Rate: regular rate Rhythm: regular rhythm GI Inspection: normal to inspection Skin General: no rashes or lesions noted Extrem General: edema Course Orders Ordered: ED Orders 10/16/23 09:35 XR chest 1V Stat EKG-12 Lead Stat RT Consult Eval and Treat Now 10/16/23 09:43 Respiratory Panel (Film Array) Stat 10/16/23 10:10 Complete Blood Count AUTO DIFF Stat Comprehensive Metabolic Panel Stat Lactate (Lactic Acid) Stat Lipase Stat Magnesium Stat NT-proBNP (BNP-Adult 18+) Stat Procalcitonin Stat Troponin & CK Cardiac Panel Stat Discontinued Medications Albuterol (Albuterol 2.5 Mg/3 Ml Neb (Adult)) 2.5 mg INH NOW ONE Stop: 10/16/23 11:38 Last Admin: 10/16/23 11:39 Dose: 2.5 mg Documented By: NETTIE Albuterol/Ipratropium (Albuterol/Ipratropium 3 Ml Ampul) 3 ml INH Q20M JANY Stop: 10/16/23 10:26 Last Admin: 10/16/23 10:21 Dose: 3 ml Documented By: Admin: 10/16/23 10:03 Dose: 3 ml Documented By: Admin: 10/16/23 09:50 Dose: 3 ml Documented By: OTONIEL Albuterol/Ipratropium (Albuterol/Ipratropium 3 Ml Ampul) 3 ml INH NOW ONE Stop: 10/16/23 11:35 Methylprednisolone (Methylprednisolone 125 Mg/2 Ml Vial) 125 mg IV NOW ONE Stop: 10/16/23 09:41 Last Admin: 10/16/23 10:34 Dose: 125 mg Documented By: YEHUDA Vital Signs Vital signs: Vital Signs - 8 hr 10/16/23 09:30 10/16/23 09:50 10/16/23 09:56 Temperature 97.7 F Pulse Rate 74 77 Respiratory Rate 32 H 24 Blood Pressure 131/77 131/77 Pulse Oximetry 95 97 Oxygen Delivery Method Room Air Room Air Oxygen Flow Rate 0 Fraction of Inspired Oxygen 10/16/23 09:56 10/16/23 10:00 10/16/23 10:00 Temperature Pulse Rate 74 76 Respiratory Rate 24 30 H Blood Pressure 149/73 H Pulse Oximetry 94 93 Oxygen Delivery Method Oxygen Flow Rate Fraction of Inspired Oxygen 10/16/23 10:04 10/16/23 10:21 10/16/23 10:30 Temperature Pulse Rate 74 74 Respiratory Rate 26 H Blood Pressure 140/63 Pulse Oximetry 97 94 Oxygen Delivery Method Room Air Room Air Oxygen Flow Rate 0 0 Fraction of Inspired Oxygen 21 21 10/16/23 10:30 10/16/23 11:00 10/16/23 11:00 Temperature Pulse Rate 74 74 Respiratory Rate 21 22 Blood Pressure 137/63 Pulse Oximetry 92 92 Oxygen Delivery Method Oxygen Flow Rate Fraction of Inspired Oxygen 10/16/23 11:30 10/16/23 11:30 10/16/23 11:40 Temperature Pulse Rate 73 76 Respiratory Rate 21 20 Blood Pressure 136/63 Pulse Oximetry 92 91 Oxygen Delivery Method Room Air Oxygen Flow Rate 0 Fraction of Inspired Oxygen 10/16/23 12:00 10/16/23 12:00 Temperature Pulse Rate 78 Respiratory Rate 18 Blood Pressure 125/61 Pulse Oximetry 92 Oxygen Delivery Method Oxygen Flow Rate Fraction of Inspired Oxygen Medical Decision Making Lab Data Lab results reviewed: Yes I reviewed the patient's lab results. 10/16/23 10:10 10/16/23 10:10 Labs: Lab Results 10/16/23 10/16/23 Range/Units 09:43 10:10 WBC 10.2 (4.5-11.0) X10^3/uL RBC 4.28 L (4.5-5.9) X10^6/uL Hgb 13.1 L (13.5-17.5) g/dL Hct 39.8 L (41-53) % MCV 93.1 (80-100) fL MCH 30.6 (26-34) PG MCHC 32.9 (30-36) % RDW 14.6 (11.6-14.8) % Plt Count 306 (150-400) X10^3/uL Neut % (Auto) 60.0 (50-75) % Lymph % (Auto) 28.2 (25-40) % [place] % (Auto) 7.3 (3-14) % Eos % (Auto) 3.6 (2-4) % Baso % (Auto) 0.9 (0-2) % Neut # (Auto) 6100 (6305-3004) /uL Lymph # (Auto) 2900 (3633-7858) /uL [place] # (Auto) 700 (0-900) /uL Eos # (Auto) 400 (0-450) /uL Baso # (Auto) 100 (0-100) /uL Sodium 137 (137-145) mmol/L Potassium 3.9 (3.4-5.1) mmol/L Chloride 94 L (98-107) mmol/L Carbon Dioxide 37 H (22-32) mmol/L BUN 24 H (9-20) mg/dL Creatinine 1.21 (0.66-1.25) mg/dL Estimated GFR 58 L (>60) mL/min BUN/Creatinine Ratio 19.8 (6-22) Glucose 108 (80-110) mg/dL Lactate 1.8 (0.7-2.1) mmol/L Calcium 9.5 (8.4-10.2) mg/dL Magnesium 2.1 (1.6-2.3) mg/dL Total Bilirubin 0.7 (0.2-1.3) mg/dL AST 21 (17-59) IU/L ALT 22 (<50) IU/L Alkaline Phosphatase 76 (38-126) U/L Total Creatine Kinase 104 (55-170) U/L Troponin I 0.019 (0.01-0.034) ng/mL NT-Pro-B Natriuret Pep 59 (<450) pg/mL Total Protein 7.0 (6.3-8.2) g/dL Albumin 4.0 (3.5-5.0) g/dL Globulin 3.0 (1.7-4.1) g/dL Albumin/Globulin Ratio 1.3 (1.0-2.8) Lipase 75 (23-300) U/L Procalcitonin 0.08 (<0.5) ng/mL Chlamy pneumoniae PCR Not detected (Not Detect) Adenovirus (PCR) Not detected (Not Detect) B.parapertussis DNA PCR Not detected (Not Detecte) Coronavirus OC43 (PCR) Not detected (Not Detect) Coronavirus HKU1 (PCR) Not detected (Not Detect) Coronavirus 229E (PCR) Not detected (Not Detect) SARS-CoV-2 (PCR) Not detected (Not Detecte) Coronavirus NL63 (PCR) Not detected (Not Detect) Human Metapneumovir PCR Not detected (Not Detect) Influenza Type A (PCR) Not detected (Not Detect) Influenza Type B (PCR) Not detected (Not Detect) M. pneumoniae (PCR) Not detected (Not Detect) Parainfluenza 1 (PCR) Not detected (Not Detect) Parainfluenza 2 (PCR) Not detected (Not Detect) Parainfluenza 3 (PCR) Not detected (Not Detect) Parainfluenza 4 (PCR) Not detected (Not Detect) RSV (PCR) Not detected (Not Detect) Entero/Rhino (PCR) Not detected (Not Detect) Imaging Data Chest x-ray: Radiologist's Impression: PROCEDURE: XR CHEST 1V INDICATIONS: Shortness of breath TECHNIQUE: One view of the chest was acquired. COMPARISON: [facility], , XR CHEST 2V, 08/19/2023, 12:03. [facility], , XR CHEST 2V, 04/26/2023, 14:55. FINDINGS: Surgical changes and devices: None. Lungs and pleura: Lungs are clear. No pleural effusions or pneumothorax. Mediastinum: Mediastinal contours appear normal. Heart size is normal. Bones and chest wall: No suspicious bony lesions. Overlying soft tissues appear unremarkable. IMPRESSION: No acute cardiopulmonary abnormality is seen. ECG Data Attestation: I personally reviewed and interpreted this ECG as follows: Interpretation: Sinus rhythm Ventricular rate is 73 Normal axis Normal QRS Normal QTC No ST T wave changes MDM Narrative Medical decision making narrative: After nebulizer treatments and steroids here in the emergency department patient states he feels much better. He has had some oxygen saturations dropped down into the upper 80s but I suspect that this is not uncommon for him. I did review medical records which show that his pulmonary function tests done approximately 1 week ago is much worse than prior. He did have good response to bronchodilators. He has albuterol nebulizer and an inhaler at home but he does not use these on a regular basis. The plan for him will be is to schedule an albuterol nebulizer at least twice a day and potentially 3 times a day and then as needed after that. It also seems that after he stopped the prednisone 1 week ago is when his symptoms started to worsen again. He has a follow-up with pulmonology on the 01 of November which is approximately 2 weeks from now. Will put him back on prednisone once a day 20 mg until he sees the freelance makeup artist. He has all the medications that he needs for this. Will discharge patient home with return precautions. He was comfortable going home. He expressed understanding and agreement. Discharge Plan Departure Patient Disposition: Home Clinical Impression: COPD (chronic obstructive pulmonary disease) Instructions: Chronic Obstructive Pulmonary Disease Activity Restrictions/Additional Instructions: Recommend that you start taking the prednisone at 20 mg a day until you follow-up with a freelance makeup artist. I also recommend that you schedule the albuterol nebulizer twice a day and potentially 3 times a day like we discussed. If your symptoms worsen despite this please return to the emergency department for new symptoms. Prescriptions: No Action simvastatin 40 mg tablet 40 mg PO QDAY Qty: 90 3RF doxazosin 8 mg tablet 8 mg PO DAILY Qty: 90 3RF potassium chloride 8 mEq tablet extended release 8 meq PO DAILY Qty: 90 3RF Hold Instructions: Home Medication placed on hold at Doctor's office finasteride 5 mg tablet See Rx Instructions .ROUTE .COMPLEX Qty: 30 11RF Dose Instruction: take 1 tablet by mouth once daily Rx Instructions: take 1 tablet by mouth once daily albuterol sulfate 90 mcg/actuation HFA aerosol inhaler 2 puff inhalation Q4-6H PRN (Reason: shortness of breath or wheezing) Qty: 17 3RF torsemide 40 mg tablet 40 mg PO DAILY Qty: 180 2RF (DME) Disabled Parking See Rx Instructions .ROUTE .MEDSUPPLY Qty: 1 0RF Rx Instructions: Patient qualifies for disabled parking as per the attached form. metoprolol succinate 25 mg tablet extended release 24 hr 25 mg PO DAILY Qty: 90 3RF albuterol sulfate 2.5 mg /3 mL (0.083 %) solution for nebulization 2.5 mg inhalation Q2H PRN (Reason: shortness of breath or wheezing) Qty: 180 3RF prednisone 20 mg tablet See Rx Instructions PO DAILY Qty: 90 0RF Rx Instructions: take 2 tabs daily for 10 days, then 1 1/2 tabs daily for 7 days, then 1 tab daily for 7 days, then 1/2 tab daily for 7 days, then 1/2 tab every other day for 8 days, then stop acetaminophen 500 mg capsule 500 mg PO Q6H PRN Referrals: Ulices Guardado MD [Primary Care Provider] - Stand Alone Forms: Patient Portal/API
[2023-10-16] MEDS: ALBUTEROL/IPRATROPIUM 3 ML AMPUL INH ×3 (09:50→10:21)
--- NOTE | 2023-10-16 10:28 | RT ---
RT administered 3 duonebs per provider order to pt. The pt tolerated well. Noted improved aeration and improvement in WOB and dyspnea. No adverse effects. RN aware.
[2023-10-16 10:29] LABS: Add Manual Diff / Slide Review NO; Basophils Absolute Auto 100 /uL (0-100); Basophils Percent Auto 0.9 % (0-2); Eosinophils Absolute Auto 400 /uL (0-450); Eosinophils Percent Auto 3.6 % (2-4); Hematocrit 39.8 % (41-53); Hemoglobin 13.1 g/dL (13.5-17.5); Lymphocytes Absolute Auto 2900 /uL (1100-4500); Lymphocytes Percent Auto 28.2 % (25-40); Mean Corpuscular HGB Conc 32.9 % (30-36); Mean Corpuscular Hemoglobin 30.6 PG (26-34); Mean Corpuscular Volume 93.1 fL (80-100); Monocytes Absolute Auto 700 /uL (0-900); Monocytes Percent Auto 7.3 % (3-14); Neutrophils Absolute Auto 6100 /uL (1500-7000); Platelet Count 306 X10^3/uL (150-400); Red Blood Cell Count 4.28 X10^6/uL (4.5-5.9); Red Cell Distribution Width 14.6 % (11.6-14.8); White Blood Cell Count 10.2 X10^3/uL (4.5-11.0)
[2023-10-16] MEDS: methylPREDNISolone 125 MG/2 ML VIAL IV (10:34)
[2023-10-16 10:35] LABS: Alanine Aminotransferase 22 IU/L (<50); Albumin Globulin Ratio 1.3 (1.0-2.8); Alkaline Phosphatase 76 U/L (38-126); Aspartate Aminotransferase 21 IU/L (17-59); BUN Creatinine Ratio 19.8 (6-22); Bilirubin Total 0.7 mg/dL (0.2-1.3); Blood Urea Nitrogen 24 mg/dL (9-20); Calcium 9.5 mg/dL (8.4-10.2); Carbon Dioxide 37 mmol/L (22-32); Chloride 94 mmol/L (98-107); Creatine Kinase 104 U/L (55-170); Estimated Glomerular Filt Rate 58 mL/min (>60); Glucose 108 mg/dL (80-110); HEMOLYSIS < 15 (0-50); Lactate (Lactic Acid) 1.8 mmol/L (0.7-2.1); Lipase 75 U/L (23-300); Magnesium 2.1 mg/dL (1.6-2.3); Potassium 3.9 mmol/L (3.4-5.1); Sodium 137 mmol/L (137-145)
[2023-10-16 10:41] LABS: Adenovirus Not Detected (Not Detect); B. parapertussis Not Detected (Not Detecte); Bordetella pertussis Not Detected (Not Detect); Chlamydophila pneumoniae Not Detected (Not Detect); Coronavirus 229E Not Detected (Not Detect); Coronavirus HKU1 Not Detected (Not Detect); Coronavirus NL 63 Not Detected (Not Detect); Coronavirus OC43 Not Detected (Not Detect); Human Metapneumovirus Not Detected (Not Detect); Human Rhinovirus/Enterovirus Not Detected (Not Detect); Influenza A Not Detected (Not Detect); Influenza B Not Detected (Not Detect); Mycoplasma pneumoniae Not Detected (Not Detect); Parainfluenza Virus 1 Not Detected (Not Detect); Parainfluenza Virus 2 Not Detected (Not Detect); Parainfluenza Virus 3 Not Detected (Not Detect); Parainfluenza Virus 4 Not Detected (Not Detect); Respiratory Syncytial Virus Not Detected (Not Detect); SARS- CoV-2 Not Detected (Not Detecte)
[2023-10-16 10:47] LABS: NT-proBNP (BNP-Adult 18+) 59 pg/mL (<450); Troponin I 0.019 ng/mL (0.01-0.034)
[2023-10-16 10:51] LABS: Procalcitonin 0.08 ng/mL (<0.5)
[2023-10-16] MEDS: ALBUTEROL 2.5 MG/3 ML NEB (ADULT) INH (11:39)
== END 2023-10-16 13:32 | disposition home or self-care (01) ==
PROVIDERS: Emergency Provider Emergency Medicine; Family Provider Internal Medicine; PCP Internal Medicine
DX: J44.9 Chronic obstructive pulmonary disease, unspecified (principal); R07.9 Chest pain, unspecified; Z79.899 Other long term (current) drug therapy
CPT/HCPCS: 36415; 71045; 80053; 82550; 83605; 83690; 83735; 83880; 84145; 84484; 85025; 87633; 93005; 93010; 94640; 96374; 99284; J2930; J7613

== ENCOUNTER 2023-12-08 02:46 | Emergency (ER) | payer MEDICARE, BC, SELFPAY ==
[2021-08-23 09:51] VITALS: BMI 33.0
[2023-12-08] VITALS (9 sets, daily range): BP systolic 120–148; BP diastolic 59–73; PULSE 71–75; RESP 21–32; TEMP 36.4–36.7; O2SAT 89–96; BMI 39.4
--- NOTE | 2023-12-08 02:59 | DI.RAD.S_ITS ---
PROCEDURE: XR CHEST 1V INDICATIONS: SOB TECHNIQUE: One view of the chest was acquired. COMPARISON: [facility], CR, XR CHEST 1V, 11/25/2023, 13:40. [facility], CR, XR CHEST 1V, 10/16/2023, 9:48. FINDINGS: Surgical changes and devices: None. Lungs and pleura: Mild bronchial wall thickening and perihilar streaky opacities.. No pleural effusions or pneumothorax. Mediastinum: Mediastinal contours appear normal. Heart size is mildly enlarged. Bones and chest wall: No suspicious bony lesions. Overlying soft tissues appear unremarkable. IMPRESSION: Mild cardiomegaly. Mild bronchial wall thickening and perihilar streaky opacities either pneumonic or cardiogenic. No pleural effusion or focal pulmonary consolidation. Findings are concordant with preliminary interpretation provided by [facility]. Dictated by: Michael Izaguirre M.D. on 12/08/2023 at 7:40 Approved by: Michael Izaguirre M.D. on 12/08/2023 at 7:41
--- NOTE | 2023-12-08 03:10 | ED_ITS ---
HPI - General Adult General Chief complaint: Shortness of Breath/Dyspnea Stated complaint: Difficulty breathing Time Seen by Provider: 12/08/23 02:57 Source: patient and family Mode of arrival: Ambulatory Limitations: no limitations History of Present Illness HPI narrative: Patient is an 80-year-old male. History of CHF and COPD. Also has a history of paroxysmal atrial fibrillation. I evaluated him here in the emergency department approximately 2 weeks ago. Was subsequently discharged home. Since that time has followed up with his measurement superintendent. Was placed on a 5 day course of steroids and also antibiotics. He was completed that course. He is doing DuoNebs 3 times a day with albuterol in between as needed. He states that several hours prior to arrival here in the emergency department he had a fairly sudden onset of shortness of breath. No chest pain. No palpitations. He does have swelling in his lower extremities but this is not new. He is redness to his right lower leg but this is not new as well. He does report a productive cough over the past couple days. No fevers. He states he does not necessarily feel like he is fluid overloaded but does feel like he is wheezing. Related Data Home Medications Medication Instructions Recorded Confirmed acetaminophen 500 mg capsule 500 mg PO Q6H PRN 05/06/21 11/29/23 Previous Rx's Medication Instructions Recorded Disabled Parking #1 ea 02/20/23 metoprolol succinate 25 mg 25 mg PO DAILY #90 tabs 03/29/23 tablet,extended release 24 hr simvastatin 40 mg tablet 40 mg PO QDAY #90 tabs 04/19/23 albuterol sulfate 2.5 mg/3 mL 2.5 mg (3 mL) inhalation Q2H PRN 04/26/23 (0.083 %) solution for nebulization shortness of breath or wheezing #180 mL doxazosin 8 mg tablet 8 mg PO DAILY #90 tabs 05/24/23 potassium chloride 8 mEq 8 meq PO DAILY #90 tabs 05/31/23 tablet,extended release torsemide 40 mg tablet 40 mg PO DAILY #180 tabs 07/06/23 finasteride 5 mg tablet See Rx Instructions .Route 07/11/23 .COMPLEX #30 tabs albuterol sulfate 90 mcg/actuation 2 puff inhalation Q4-6H PRN 09/18/23 aerosol inhaler shortness of breath or wheezing #17 grams ipratropium 0.5 mg-albuterol 3 mg 3 ml inhalation BID #180 mL 11/01/23 (2.5 mg base)/3 mL nebulization soln prednisone 5 mg tablet 5 mg PO DIRECTED #30 tabs 11/01/23 tiotropium 2.5 mcg-olodaterol 2.5 2 puff inhalation DAILY #4 grams 11/01/23 mcg/actuation mist for inhalation (Stiolto Respimat) Bilateral compression garmets #1 ea 11/08/23 prednisone 20 mg tablet 40 mg (2 x 20 mg) PO DAILY 5 days 11/29/23 #10 tabs torsemide 20 mg tablet 80 mg (4 x 20 mg) PO DAILY #30 tabs 11/30/23 Allergies Allergy/AdvReac Type Severity Reaction Status Date / Time formaldehyde [FORMALDEHYDE] Allergy Severe Rash Verified 11/25/23 13:33 Gadolinium-Containing Allergy Severe HEART Verified 11/25/23 13:33 Contrast Medi STOPPED [GADOLINIUM-CONTAINING CONTRAST MEDI] Sulfa (Sulfonamide Allergy Mild Rash Verified 11/25/23 13:33 Antibiotics) [SULFA (SULFONAMIDE ANTIBIOTICS)] terbinafine [TERBINAFINE] Allergy Mild Pt unsure Verified 11/25/23 13:33 reaction Influenza Virus Vaccines AdvReac Intermediate whole body Verified 11/25/23 13:33 [INFLUENZA VIRUS VACCINES] rash 2016 QUANTERNUM Allergy Severe Rash Uncoded 11/01/23 12:53 Review of Systems Review of Systems ROS Unobtainable: All systems reviewed & are unremarkable except as noted in HPI and below Patient History Medical History Venous stasis dermatitis Paroxysmal atrial fibrillation (~2011) Chronic pain of right knee Peripheral edema Sinus bradycardia Squamous acanthoma of face (~10/2019) Skin cancer Tinnitus (~1989) Hearing loss (~1989) Chronic obstructive pulmonary disease (01/16/18) 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 Mother No problems noted. 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: over 6 months ago leisure activities: art, fishing and other Smoking Status: Former smoker Tobacco: How many years used: 2 Smokeless tobacco user: other quit status: quit date established second hand exposure: Yes alcohol intake: current substance use type: does not use Smoking Status: Former smoker alcohol intake frequency: 0-2 drinks per day Substance Use Type: does not use Exam Initial Vital Signs Initial Vital Signs: Vital Signs Temperature 97.6 F 12/08/23 02:50 Pulse Rate 72 12/08/23 02:50 Respiratory Rate 32 H 12/08/23 02:50 Blood Pressure 147/73 H 12/08/23 02:50 Pulse Oximetry 92 12/08/23 02:50 Oxygen Delivery Method Room Air 12/08/23 02:50 HENMT Head: normal to inspection and normocephalic Resp Effort & Inspection: no cough, not labored, no respiratory distress and tachypneic Auscultation: diminished lung sounds and wheezes Cardio Rate: regular rate Rhythm: regular rhythm GI Inspection: non-distended Skin Other: Redness to the right leg but is not warm. Extrem General: edema Course Orders Ordered: ED Orders 12/08/23 02:59 XR chest 1V Stat EKG-12 Lead Stat RT Consult Eval and Treat Now 12/08/23 04:13 Complete Blood Count AUTO DIFF Stat Comprehensive Metabolic Panel Stat Lipase Stat NT-proBNP (BNP-Adult 18+) Stat Troponin & CK Cardiac Panel Stat Discontinued Medications Albuterol (Albuterol 2.5 Mg/3 Ml Neb (Adult)) 2.5 mg INH NOW ONE Stop: 12/08/23 03:11 Last Admin: 12/08/23 03:17 Dose: 2.5 mg Documented By: OTONIEL Albuterol (Albuterol 2.5 Mg/3 Ml Neb (Adult)) 2.5 mg INH NOW ONE Stop: 12/08/23 04:25 Last Admin: 12/08/23 04:39 Dose: 2.5 mg Documented By: OTONIEL Vital Signs Vital signs: Vital Signs - 8 hr 12/08/23 02:50 12/08/23 03:17 12/08/23 04:39 Temperature 97.6 F Pulse Rate 72 74 73 Respiratory Rate 32 H 30 H 26 H Blood Pressure 147/73 H Pulse Oximetry 92 96 91 Oxygen Delivery Method Room Air Room Air Room Air Oxygen Flow Rate 0 0 Fraction of Inspired Oxygen 21 21 Medical Decision Making Medical Records Medical records reviewed: Yes I reviewed the patient's medical records. Lab Data Lab results reviewed: Yes I reviewed the patient's lab results. 12/08/23 04:13 12/08/23 04:13 Labs: Lab Results 12/08/23 Range/Units 04:13 WBC 10.9 (4.5-11.0) X10^3/uL RBC 4.25 L (4.5-5.9) X10^6/uL Hgb 13.4 L (13.5-17.5) g/dL Hct 40.2 L (41-53) % MCV 94.7 (80-100) fL MCH 31.6 (26-34) PG MCHC 33.4 (30-36) % RDW 14.2 (11.6-14.8) % Plt Count 317 (150-400) X10^3/uL Neut % (Auto) 57.2 (50-75) % Lymph % (Auto) 30.1 (25-40) % [place] % (Auto) 6.2 (3-14) % Eos % (Auto) 5.3 H (2-4) % Baso % (Auto) 1.2 (0-2) % Neut # (Auto) 6200 (1459-0898) /uL Lymph # (Auto) 3300 (5894-4752) /uL [place] # (Auto) 700 (0-900) /uL Eos # (Auto) 600 H (0-450) /uL Baso # (Auto) 100 (0-100) /uL Sodium 138 (137-145) mmol/L Potassium 3.4 (3.4-5.1) mmol/L Chloride 96 L (98-107) mmol/L Carbon Dioxide 36 H (22-32) mmol/L BUN 34 H (9-20) mg/dL Creatinine 1.18 (0.66-1.25) mg/dL Estimated GFR 59 L (>60) mL/min BUN/Creatinine Ratio 28.8 H (6-22) Glucose 121 H (80-110) mg/dL Calcium 9.1 (8.4-10.2) mg/dL Total Bilirubin 0.7 (0.2-1.3) mg/dL AST 23 (17-59) IU/L ALT 25 (<50) IU/L Alkaline Phosphatase 72 (38-126) U/L Total Creatine Kinase 95 (55-170) U/L Troponin I 0.014 (0.01-0.034) ng/mL NT-Pro-B Natriuret Pep 48 (<450) pg/mL Total Protein 6.5 (6.3-8.2) g/dL Albumin 3.8 (3.5-5.0) g/dL Globulin 2.7 (1.7-4.1) g/dL Albumin/Globulin Ratio 1.4 (1.0-2.8) Lipase 23 (23-300) U/L Imaging Data Chest x-ray: Radiologist's Impression: Mild cardiomegaly. Mild bronchial wall thickening and perihilar streaky opacities either pneumonic or cardiogenic. No airspace disease or pleural effusions ECG Data Attestation: I personally reviewed and interpreted this ECG as follows: Interpretation: Sinus rhythm Ventricular rate is 73 Normal axis Normal QRS Normal QTC No ST T wave changes MDM Narrative Medical decision making narrative: Patient does have lower extremity swelling but this is baseline for him. He was redness to his right lower extremity but this is also baseline that he states has been there for years. After 2 nebulizer treatments patient states that his breathing has returned to normal. Patient is not clinically fluid overloaded. His BNP is unremarkable. Minimal if any pulmonary edema. No indication to change any of his diuretics. No indication for antibiotics. He just recently completed a course of azithromycin and steroids for COPD exacerbation provided by his measurement superintendent. Given the resolution of his presenting symptoms with 2 nebulizers will discharge patient home. No indication for admission to the hospital. He was given return precautions. Both he and his expressed understanding and agreement with plan. Discharge Plan Departure Patient Disposition: Home Clinical Impression: Chronic obstructive pulmonary disease Instructions: Chronic Obstructive Pulmonary Disease Activity Restrictions/Additional Instructions: I am glad that you were feeling better. There is no indication based on your workup here today to change any of the medications that you are currently taking. It appears that she just needed a couple extra doses of your nebulizer. Contact your primary doctor and your measurement superintendent for a follow-up. Return to the emergency department for new symptoms. Prescriptions: No Action simvastatin 40 mg tablet 40 mg PO QDAY Qty: 90 3RF doxazosin 8 mg tablet 8 mg PO DAILY Qty: 90 3RF potassium chloride 8 mEq tablet extended release 8 meq PO DAILY Qty: 90 3RF Hold Instructions: Home Medication placed on hold at Doctor's office finasteride 5 mg tablet See Rx Instructions .ROUTE .COMPLEX Qty: 30 11RF Dose Instruction: take 1 tablet by mouth once daily Rx Instructions: take 1 tablet by mouth once daily albuterol sulfate 90 mcg/actuation HFA aerosol inhaler 2 puff inhalation Q4-6H PRN (Reason: shortness of breath or wheezing) Qty: 17 3RF (DME) Bilateral compression garmets See Rx Instructions .Route .MEDSUPPLY Qty: 1 0RF Rx Instructions: As directed torsemide 20 mg tablet 80 mg PO DAILY Qty: 30 0RF Rx Instructions: For 3 days take 4 tabs every morning in place of prior prescription, then resume your usual prescription torsemide 40 mg tablet 40 mg PO DAILY Qty: 180 2RF (DME) Disabled Parking See Rx Instructions .ROUTE .MEDSUPPLY Qty: 1 0RF Rx Instructions: Patient qualifies for disabled parking as per the attached form. metoprolol succinate 25 mg tablet extended release 24 hr 25 mg PO DAILY Qty: 90 3RF albuterol sulfate 2.5 mg /3 mL (0.083 %) solution for nebulization 2.5 mg inhalation Q2H PRN (Reason: shortness of breath or wheezing) Qty: 180 3RF Stiolto Respimat 2.5-2.5 mcg/actuation mist 2 puff inhalation DAILY Qty: 4 5RF ipratropium-albuterol 0.5 mg-3 mg(2.5 mg base)/3 mL solution for nebulization 3 ml inhalation BID Qty: 180 5RF prednisone 5 mg tablet 5 mg PO DIRECTED Qty: 30 0RF Rx Instructions: Take 3 tabs daily x5 days, then 2 tabs daily x5 days then 1 tab daily x5 days prednisone 20 mg tablet 40 mg PO DAILY 5 Days Qty: 10 1RF acetaminophen 500 mg capsule 500 mg PO Q6H PRN Referrals: Ulices Guardado MD [Primary Care Provider] - Stand Alone Forms: Patient Portal/API
[2023-12-08] MEDS: ALBUTEROL 2.5 MG/3 ML NEB (ADULT) INH ×2 (03:17→04:39)
[2023-12-08 04:21] LABS: Add Manual Diff / Slide Review NO; Basophils Absolute Auto 100 /uL (0-100); Basophils Percent Auto 1.2 % (0-2); Eosinophils Absolute Auto 600 /uL (0-450); Eosinophils Percent Auto 5.3 % (2-4); Hematocrit 40.2 % (41-53); Hemoglobin 13.4 g/dL (13.5-17.5); Lymphocytes Absolute Auto 3300 /uL (1100-4500); Lymphocytes Percent Auto 30.1 % (25-40); Mean Corpuscular HGB Conc 33.4 % (30-36); Mean Corpuscular Hemoglobin 31.6 PG (26-34); Mean Corpuscular Volume 94.7 fL (80-100); Monocytes Absolute Auto 700 /uL (0-900); Monocytes Percent Auto 6.2 % (3-14); Neutrophils Absolute Auto 6200 /uL (1500-7000); Neutrophils Percent Auto 57.2 % (50-75); Platelet Count 317 X10^3/uL (150-400); Red Blood Cell Count 4.25 X10^6/uL (4.5-5.9); Red Cell Distribution Width 14.2 % (11.6-14.8); White Blood Cell Count 10.9 X10^3/uL (4.5-11.0)
[2023-12-08 04:34] LABS: Creatine Kinase 95 U/L (55-170)
[2023-12-08 04:36] LABS: Alanine Aminotransferase 25 IU/L (<50); Albumin 3.8 g/dL (3.5-5.0); Albumin Globulin Ratio 1.4 (1.0-2.8); Alkaline Phosphatase 72 U/L (38-126); Aspartate Aminotransferase 23 IU/L (17-59); BUN Creatinine Ratio 28.8 (6-22); Bilirubin Total 0.7 mg/dL (0.2-1.3); Blood Urea Nitrogen 34 mg/dL (9-20); Calcium 9.1 mg/dL (8.4-10.2); Carbon Dioxide 36 mmol/L (22-32); Chloride 96 mmol/L (98-107); Estimated Glomerular Filt Rate 59 mL/min (>60); Globulin 2.7 g/dL (1.7-4.1); Glucose 121 mg/dL (80-110); HEMOLYSIS 15 (0-50); Lipase 23 U/L (23-300); Potassium 3.4 mmol/L (3.4-5.1); Sodium 138 mmol/L (137-145); Total Protein 6.5 g/dL (6.3-8.2)
[2023-12-08 04:47] LABS: NT-proBNP (BNP-Adult 18+) 48 pg/mL (<450); Troponin I 0.014 ng/mL (0.01-0.034)
--- NOTE | 2023-12-08 04:49 | RT ---
Noting improved breath sounds bilaterally post treament, also noting decreased RR and WOB. Pt tolerated well.
== END 2023-12-08 06:00 | disposition home or self-care (01) ==
PROVIDERS: Emergency Provider Emergency Medicine; Family Provider Internal Medicine; PCP Internal Medicine
DX: J44.1 Chronic obstructive pulmonary disease with (acute) exacerbation (principal)
CPT/HCPCS: 36415; 71045; 80053; 82550; 83690; 83880; 84484; 85025; 93005; 93010; 99283; 99284; J7613

== ENCOUNTER 2023-12-10 10:30 | Outpatient (RCR) | payer MEDICARE, BC, SELFPAY ==
[2021-08-23 09:51] VITALS: BMI 33.0
--- NOTE | 2023-09-03 10:12 | PT.OIE ---
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) Obstructive sleep apnea syndrome Paroxysmal atrial fibrillation (~2011) Peripheral edema Sinus bradycardia Skin cancer Squamous acanthoma of face (~10/2019) Tinnitus (~1989) Venous stasis dermatitis Past Surgical History (Last Reviewed 08/31/22 @ 16:20 by Ulices Guardado MD) Hx of arthroscopy of right knee Hx of repair of right rotator cuff Inguinal hernia (~12/2009) S/P TURP (~02/14/19) Status post appendectomy Visit Care Team Role Provider Type Ulices Guardado MD Family Provider Physician Primary Care Provider Specialty: Internal Medicine Address: [address] [place] [address], [address], [address] Email: [email or web address] John Paul Thomas MD Attending Provider Physician Referring Provider Specialty: Wound Care Address: [address] [place] [address], [facility] Email: [email or web address] Physical Therapy Initial Evaluation PT-OP-A Visit Information Start: 08/30/23 16:43 Freq: Status: Active Protocol: Document 09/03/23 07:57 [facility] (Rec: 09/03/23 09:27 [facility] [id number]) Out-Patient Physical Therapy Visit Information Visit Information Visit Type Initial Evaluation Visit Start Time 08:00 Visit Stop Time 09:25 Total Visit Minutes 85 Visit Number 1 Evaluation Information Evaluation Date 09/03/23 PT-OP-B Current Condition Start: 08/30/23 16:43 Freq: Status: Active Protocol: Document 09/03/23 07:57 [facility] (Rec: 09/03/23 09:27 [facility] [id number]) Current Condition History of Current Condition Onset Date 2018 Current Complaints right LE swelling History of Current Condition 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 Got open wound right shi-, went to wound care, was on 2 rounds of antibiotics. Was hoping to be able to use a cane, but uses 4WW due to unsteadiness, a couple falls weight of leg affects gait. Wearing Tubigrip on left and Circ aid compression wrap and sock on right. Reports still enough swelling that it affects how he walks and I don't know what to do about it. Also reports right foot swelling. On Prednisone due to bronchitis. Has COPD. Had bloodwork done. PMH: a-fib. Patient reports he sits and reads most of the day at the table, legs down. Difficulty walking due to the swelling. Has to wear diabetic shoes due to the swelling. Future Testing and Treatments Planned Returns to Dr. Guardado 08/14/23 Treatment Goals Patient/Caregiver Goals Decrease edema and be able to self-manage Current Functional Impairments (Reported) Functional Limitations- ADL's takes more time, 4ww Personal Factors Other Personal Factors That May Effect low activity level. Therapy/Recovery PT-OP-C Subjective Start: 08/30/23 16:43 Freq: Status: Active Protocol: Document 09/03/23 07:57 [facility] (Rec: 09/03/23 09:27 [facility] [id number]) Patient Questionnaires Lymphedema Life Impact Score Lymphedema Score 62 OP-PT Pain Assessment Pain Assessment Grid Paper Pain Assessment Grid Completed Yes Location Knee Intensity 0 PT-OP-G Mobility & Gait Start: 08/30/23 16:43 Freq: Status: Active Protocol: Document 09/03/23 07:57 [facility] (Rec: 09/06/23 10:07 [facility] [id number]) OP Gait Assessment Gait Gait Assistance Required: Independent Distance (Feet) 50 Assistive Devices Assistive Device 4 Wheeled Walker Gait Deviations General Gait Pattern Decreased Stride Length, Decreased Feet Clearance,Wide Based Gait Factors Limiting Gait Function Factors Limiting Gait Function Decreased Strength,Limited Range of Motion Comments Gait Comments swelling right LE PT-OP-J Posture/Palpation/Skin Start: 08/30/23 16:43 Freq: Status: Active Protocol: Document 09/03/23 07:57 [facility] (Rec: 09/06/23 10:07 [facility] [id number]) Palpation Assessment Location right LE Palpation Location tissue fibrosis, inc warmth, no redness Palpation Findings Edema,Soft Tissue Tightness PT-OP-K Range of Motion Start: 08/30/23 16:43 Freq: Status: Active Protocol: Document 09/03/23 07:57 [facility] (Rec: 09/06/23 10:07 [facility] [id number]) Hip Goniometric Range of Motion Hip trudi Hip ROM WFL Yes Knee Goniometric Range of Motion Knee Right Flexion Active (degrees) 99 Extension Active (degrees) 7 Left Knee ROM WFL Yes Knee ROM Limitations Knee ROM Limitations Soft Tissue Tightness,Swelling Ankle and Foot Goniometric Range of Motion Ankle and Foot Right Dorsiflexion with Knee Flexed 0 Dorsiflexion with Knee Extended 5 Left Ankle/Foot ROM WFL Yes Ankle and Foot ROM Limitations ROM Limitations Soft Tissue Tightness,Swelling PT-OP-M Strength Start: 08/30/23 16:43 Freq: Status: Active Protocol: Document 09/03/23 07:57 [facility] (Rec: 09/06/23 10:07 [facility] [id number]) Hip Strength Hip Manual Muscle Testing Right Flexion (L2) 4- Good- Extension (S1) 3+ Fair+ Abduction 3+ Fair+ External Rotation 3+ Fair+ Internal Rotation 4- Good- L Flexion (L2) 4 Good Extension (S1) 4- Good- Abduction 4- Good- External Rotation 4- Good- Internal Rotation 4 Good Knee Strength Knee Manual Muscle Testing Right Flexion (S2) 4 Good Extension (L3) 4 Good Left Flexion (S2) 4+ Good+ Extension (L3) 4+ Good+ Ankle/Foot Strength Ankle and Foot Manual Muscle Testing Right Dorsiflexion (L4) 4 Good Plantarflexion (S1) 4 Good Left Dorsiflexion (L4) 4+ Good+ Plantarflexion (S1) 4+ Good+ PT-OP-N Lymphedema Start: 09/03/23 07:56 Freq: Status: Active Protocol: Document 09/03/23 07:57 [facility] (Rec: 09/03/23 09:27 [facility] [id number]) Lymphedema Measurements Lower Extremity Circumference Measurements Right Affected MT Heads 26.5 cm Mid-foot 28 cm Medial Malleolus 33.5 cm 10 cm From Medial Malleolus 37.5 cm 20 cm From Medial Malleolus 46.4 cm 30 cm From Medial Malleolus 47 cm 40 cm From Medial Malleolus 46.9 cm 50 cm From Medial Malleolus 53 cm 60 cm From Medial Malleolus 62.3 cm Knee Joint 46.9 cm Left Affected MT Heads 27.8 cm Mid-foot 27.4 cm Medial Malleolus 32.8 cm 10 cm From Medial Malleolus 34.5 cm 20 cm From Medial Malleolus 42.3 cm 30 cm From Medial Malleolus 42.2 cm 40 cm From Medial Malleolus 42 cm 50 cm From Medial Malleolus 49 cm 60 cm From Medial Malleolus 55.8 cm 70 cm From Medial Malleolus 63 cm Knee Joint 42 cm PT-OP-Q Treatments Start: 08/30/23 16:43 Freq: Status: Active Protocol: Document 09/03/23 07:57 [facility] (Rec: 09/06/23 10:07 [facility] [id number]) Self-Care/Home Management Treatment Education Other Education see lymphedema treatment Lymphedema Treatment Manual Lymphatic Drainage Location for trudi LE's Comments initiated Lymphedema Wrapping Materials Assisted patient in donning his sock and compression alternative right LE ankle to knee, Tubigrip on left. Advised he will need better compression on left as well Other discussed benefit, need for larger shoe if will do in PT, come prepared next session Compression Garment Assessment Compression Garment Assessment Details good fit compressioin wrap right ankle to knee; shown options for foot, knee, and upper leg as needed. Will need compression for left LE as well. Will discuss further Patient Education Lymphedema Pathology educated using websphere portal architect Lymphedema Prevention educated Lymphedema Precautions educated Compression Garments discussed as above Self Manual Lymphatic Drainage issued handout and initiated instruction Sequential Lymphedema Exercises instructed and issued handout, encouraged increased activity level. PT-OP-T Assessment and Plan Start: 08/30/23 16:43 Freq: Status: Active Protocol: Document 09/03/23 07:57 [facility] (Rec: 09/03/23 09:27 [facility] [id number]) Physical Therapy Assessment Rehab Potential Rehabilitation Potential Good Evaluation Complexity Number of Personal Factors/Comorbidities 3 or More Number of Body Systems Impaired 3 Clinical Presentation at Evaluation Evolving Impairments Impairments Activity Tolerance,Edema,Gait Goals Three Impairment gait dysfunction Impairment requires the use of a 4WW for gait due to weight of leg and for safety Short Term Goal (STG) Patient will be able to safely ambulate in his home with the use of a cane STG Duration 10/17/23 Prison Goal (LTG) Patient will be able to safely ambulate in the community with the use of a cane LTG Duration 12/04/23 Two Impairment activity tolerance Impairment Lymphedema life impact scale 62% Short Term Goal (STG) Decrease Lymphedema life impact scale to no more than 50% as measure of improved activity tolerance, function, and quality of life STG Duration 10/17/23 Business Employment Specialist Goal (LTG) Decrease Lymphedema life impact scale to no more than 35% as measure of improved activity tolerance, function, and quality of life LTG Duration 12/04/23 One Impairment lymphedema trudi LE's Short Term Goal (STG) Patient will be instructed in all aspects of lymphedema self -care to include skin care, self-massage, self-bandaging/ compression, elevation, and lymphedema exercises. STG Duration 10/17/23 Business Employment Specialist Goal (LTG) Decrease patient?s lymphedema to a stable level (no increase or decrease greater than 1 cm over the course of 1 week), patient to be independent with all aspects of self care for lymphedema, and will obtain appropriate compression garment(s) for lymphedema management in the home and possibly a pneumatic compression pump. LTG Duration 12/04/23 Assessment Summary Assessment Patient presents to PT with lymphedema trudi LE's right greater than left, initial onset 2018 s/p TKA and has had 2 procedures right knee since then and recently was seen in wound care due to wound on shi. His lymphedema has worsened and he has developed in the right as well. Complicating his lymphedema is low activity level due to COPD, doesn't tolerate sleeping in bed and tends to sit with his LE's dependent. PT was initiated with evaluation, patient and initial education in all aspets of lymphedema care and they were issued written information. Patient currently wearing Circ-Aid compression alternative on right lower leg, Tetragrip on left but has ordered second Circ-Aid for left LE. His is supportive and demonstrated good understaning of manual lymphatic drainage. She assists patient with ADL 's. Patient will benefit from PT for lymphedema mangement to include skin care, elevation, manual lymphatic drainage, compression, and lymphedema exercises. POC was discussed and patient and were in agreement. Physical Therapy Plan Frequency and Duration Frequency of Treatment 20 visits Duration of treatment (weeks) 12 Plan of Care Start Date 09/03/23 Plan of Care End Date 12/04/22 Therapeutic Interventions Therapeutic Interventions Gait Training,Home Exercise Program,Lymphedema Management, Manual Therapy,Patient/ Caregiver Education,Self-Care/ Home Management,Soft Tissue Mobilization,Therapeutic Activities,Therapeutic Exercises Modalities Vasopneumatic Devices Next Visit Focus/Plan Next Note Type Treatment Note Next Visit Plan ASsess response to last session and self care. Provide MLD and compression bandaging with patient/ education.
--- NOTE | 2023-09-03 10:13 | PT.OPPOC ---
Physical, Occupational & Speech Therapy At [facility] Current Diagnoses Lymphedema, not elsewhere classified (09/03/23) Difficulty in walking, not elsewhere classified (09/03/23) Other malaise (09/03/23) Visit Care Team Role Provider Type Ulices Guardado MD Family Provider Physician Primary Care Provider Specialty: Internal Medicine Address: [address] [place] [address], [address], [address] Email: [email or web address] John Paul Thomas MD Attending Provider Physician Referring Provider Specialty: Wound Care Address: [address] [place] [address], [id number] Email: [email or web address] Plan Of Care PT-OP-T Assessment and Plan Start: 08/30/23 16:43 Freq: Status: Active Protocol: Document 09/03/23 07:57 SAK (Rec: 09/03/23 09:27 SAK [id number]) Physical Therapy Assessment Rehab Potential Rehabilitation Potential Good Evaluation Complexity Number of Personal Factors/Comorbidities 3 or More Number of Body Systems Impaired 3 Clinical Presentation at Evaluation Evolving Impairments Impairments Activity Tolerance,Edema,Gait Goals Three Impairment gait dysfunction Impairment requires the use of a 4WW for gait due to weight of leg and for safety Short Term Goal (STG) Patient will be able to safely ambulate in his home with the use of a cane STG Duration 10/17/23 Concrete Bucket Unloader Goal (LTG) Patient will be able to safely ambulate in the community with the use of a cane LTG Duration 12/04/23 Two Impairment activity tolerance Impairment Lymphedema life impact scale 62% Short Term Goal (STG) Decrease Lymphedema life impact scale to no more than 50% as measure of improved activity tolerance, function, and quality of life STG Duration 10/17/23 Jail Goal (LTG) Decrease Lymphedema life impact scale to no more than 35% as measure of improved activity tolerance, function, and quality of life LTG Duration 12/04/23 One Impairment lymphedema trudi LE's Short Term Goal (STG) Patient will be instructed in all aspects of lymphedema self -care to include skin care, self-massage, self-bandaging/ compression, elevation, and lymphedema exercises. STG Duration 10/17/23 Concrete Bucket Unloader Goal (LTG) Decrease patient?s lymphedema to a stable level (no increase or decrease greater than 1 cm over the course of 1 week), patient to be independent with all aspects of self care for lymphedema, and will obtain appropriate compression garment(s) for lymphedema management in the home and possibly a pneumatic compression pump. 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 His lymphedema has worsened and he has developed in the right as well. Complicating his lymphedema is low activity level due to COPD, doesn't tolerate sleeping in bed and tends to sit with his LE's dependent. PT was initiated with evaluation, patient and initial education in all aspets of lymphedema care and they were issued written information. Patient currently wearing Circ-Aid compression alternative on right lower leg, Tetragrip on left but has ordered second Circ-Aid for left LE. His is supportive and demonstrated good understaning of manual lymphatic drainage. She assists patient with ADL 's. Patient will benefit from PT for lymphedema mangement to include skin care, elevation, manual lymphatic drainage, compression, and lymphedema exercises. POC was discussed and patient and were in agreement. Physical Therapy Plan Frequency and Duration Frequency of Treatment 20 visits Duration of treatment (weeks) 12 Plan of Care Start Date 09/03/23 Plan of Care End Date 12/04/22 Therapeutic Interventions Therapeutic Interventions Gait Training,Home Exercise Program,Lymphedema Management, Manual Therapy,Patient/ Caregiver Education,Self-Care/ Home Management,Soft Tissue Mobilization,Therapeutic Activities,Therapeutic Exercises Modalities Vasopneumatic Devices Next Visit Focus/Plan Next Note Type Treatment Note Next Visit Plan ASsess response to last session and self care. Provide MLD and compression bandaging with patient/ education. Plan of Care Dates Plan of Care Start Date 09/03/23 Plan of Care End Date 12/04/22 Electronically Signed by: Malaika Alvarado, PT 09/06/23 1013 If you are in agreement with this Plan of Care, please return a signed and dated copy. I have reviewed this Plan of Care and certify that the skilled therapy services above are required to meet the patient?s needs. Physician Signature Date Printed Name and Credentials Clinical Instructor Signature Printed Name and Credentials
--- NOTE | 2023-09-10 15:08 | PT.OTN ---
Current Diagnoses Lymphedema, not elsewhere classified (09/10/23) Difficulty in walking, not elsewhere classified (09/10/23) Other malaise (09/10/23) Physical Therapy Treatment Note PT-OP-A Visit Information Start: 08/30/23 16:43 Freq: Status: Active Protocol: Document 09/10/23 07:55 SAK (Rec: 09/10/23 08:08 [facility] [id number]) Out-Patient Physical Therapy Visit Information Visit Information Visit Type Treatment Note Visit Start Time 08:00 Visit Stop Time 09:25 Total Visit Minutes 55 Visit Number 2 Evaluation Information Evaluation Date 09/03/23 PT-OP-B Current Condition Start: 08/30/23 16:43 Freq: Status: Active Protocol: Document 09/10/23 07:55 SAK (Rec: 09/10/23 08:08 [facility] [id number]) Current Condition History of Current Condition Onset Date 2018 Current Complaints right LE swelling History of Current Condition 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 Got open wound right shi-, went to wound care, was on 2 rounds of antibiotics. Was hoping to be able to use a cane, but uses 4WW due to unsteadiness, a couple falls weight of leg affects gait. Wearing Tubigrip on left and Circ aid compression wrap and sock on right. Reports still enough swelling that it affects how he walks and I don't know what to do about it. Also reports right foot swelling. On Prednisone due to bronchitis. Has COPD. Had bloodwork done. PMH: a-fib. Patient reports he sits and reads most of the day at the table, legs down. Difficulty walking due to the swelling. Has to wear diabetic shoes due to the swelling. Future Testing and Treatments Planned Returns to Dr. Guardado 08/14/23 Treatment Goals Patient/Caregiver Goals Decrease edema and be able to self-manage PT-OP-C Subjective Start: 08/30/23 16:43 Freq: Status: Active Protocol: Document 09/10/23 07:55 SAK (Rec: 09/10/23 08:46 SAK [id number]) OP-PT Subjective Patient Comments Patient Comments no new c/o, doing ex, elevation, massage, skin care, wearing compression alternative, received second one. REceptive to trial bandaging today. PT-OP-G Mobility & Gait Start: 08/30/23 16:43 Freq: Status: Active Protocol: Document 09/03/23 07:57 [facility] (Rec: 09/06/23 10:07 [facility] [id number]) OP Gait Assessment Gait Gait Assistance Required: Independent Distance (Feet) 50 Assistive Devices Assistive Device 4 Wheeled Walker Gait Deviations General Gait Pattern Decreased Stride Length, Decreased Feet Clearance,Wide Based Gait Factors Limiting Gait Function Factors Limiting Gait Function Decreased Strength,Limited Range of Motion Comments Gait Comments swelling right LE PT-OP-J Posture/Palpation/Skin Start: 08/30/23 16:43 Freq: Status: Active Protocol: Document 09/03/23 07:57 LYNN (Rec: 09/06/23 10:07 [facility] [id number]) Palpation Assessment Location right LE Palpation Location tissue fibrosis, inc warmth, no redness Palpation Findings Edema,Soft Tissue Tightness PT-OP-K Range of Motion Start: 08/30/23 16:43 Freq: Status: Active Protocol: Document 09/03/23 07:57 LYNN (Rec: 09/06/23 10:07 [facility] [id number]) Hip Goniometric Range of Motion Hip trudi Hip ROM WFL Yes Knee Goniometric Range of Motion Knee Right Flexion Active (degrees) 99 Extension Active (degrees) 7 Left Knee ROM WFL Yes Knee ROM Limitations Knee ROM Limitations Soft Tissue Tightness,Swelling Ankle and Foot Goniometric Range of Motion Ankle and Foot Right Dorsiflexion with Knee Flexed 0 Dorsiflexion with Knee Extended 5 Left Ankle/Foot ROM WFL Yes Ankle and Foot ROM Limitations ROM Limitations Soft Tissue Tightness,Swelling PT-OP-M Strength Start: 08/30/23 16:43 Freq: Status: Active Protocol: Document 09/03/23 07:57 [facility] (Rec: 09/06/23 10:07 [facility] [id number]) Hip Strength Hip Manual Muscle Testing Right Flexion (L2) 4- Good- Extension (S1) 3+ Fair+ Abduction 3+ Fair+ External Rotation 3+ Fair+ Internal Rotation 4- Good- L Flexion (L2) 4 Good Extension (S1) 4- Good- Abduction 4- Good- External Rotation 4- Good- Internal Rotation 4 Good Knee Strength Knee Manual Muscle Testing Right Flexion (S2) 4 Good Extension (L3) 4 Good Left Flexion (S2) 4+ Good+ Extension (L3) 4+ Good+ Ankle/Foot Strength Ankle and Foot Manual Muscle Testing Right Dorsiflexion (L4) 4 Good Plantarflexion (S1) 4 Good Left Dorsiflexion (L4) 4+ Good+ Plantarflexion (S1) 4+ Good+ PT-OP-N Lymphedema Start: 09/03/23 07:56 Freq: Status: Active Protocol: Document 09/10/23 07:55 [facility] (Rec: 09/10/23 08:46 [facility] [id number]) Lymphedema Measurements Lower Extremity Circumference Measurements Right Affected MT Heads 25.8 cm Mid-foot 27.1 cm Medial Malleolus 32 cm 10 cm From Medial Malleolus 36.5 cm 20 cm From Medial Malleolus 43 cm 30 cm From Medial Malleolus 43.5 cm 40 cm From Medial Malleolus 46.2 cm 50 cm From Medial Malleolus 52 cm 60 cm From Medial Malleolus 57.7 cm 70 cm From Medial Malleolus 65 cm Knee Joint 48 cm PT-OP-Q Treatments Start: 08/30/23 16:43 Freq: Status: Active Protocol: Document 09/10/23 07:55 [facility] (Rec: 09/10/23 09:27 [facility] [id number]) Lymphedema Treatment Manual Lymphatic Drainage Location trudi LE's Duration 45 Comments Airos 6 sequential lymphatic pump right LE during MLD left LE Lymphedema Wrapping Body Location right LE Materials Tricofix size G, toe wraps, Artiflex (8,8,10 )and Comprilan (6,8,10,10) toes to groin Other instructed Left LE liner sock and Circ- Aid compression alternative ankle to knee Sequential Lymphedema Exercises Location verbal reviw Compression Garment Assessment Compression Garment Assessment Details good fit on left, mild compression in foot and ankle from liner sock. Discussed option of toe cap as well. Patient Education Self Manual Lymphatic Drainage reviewed with Sequential Lymphedema Exercises reviewed Other Other Sequential pneumatic pump to right LE during review of MLD to left Cetaphil lotion applied trudi LE 's PT-OP-T Assessment and Plan Start: 08/30/23 16:43 Freq: Status: Active Protocol: Document 09/10/23 07:55 [facility] (Rec: 09/10/23 08:08 [facility] [id number]) Physical Therapy Assessment Goals Three Impairment gait dysfunction Impairment requires the use of a 4WW for gait due to weight of leg and for safety Short Term Goal (STG) Patient will be able to safely ambulate in his home with the use of a cane STG Duration 10/17/23 Psychiatry Physician Goal (LTG) Patient will be able to safely ambulate in the community with the use of a cane LTG Duration 12/04/23 Two Impairment activity tolerance Impairment Lymphedema life impact scale 62% Short Term Goal (STG) Decrease Lymphedema life impact scale to no more than 50% as measure of improved activity tolerance, function, and quality of life STG Duration 10/17/23 Psychiatry Physician Goal (LTG) Decrease Lymphedema life impact scale to no more than 35% as measure of improved activity tolerance, function, and quality of life LTG Duration 12/04/23 One Impairment lymphedema trudi LE's Short Term Goal (STG) Patient will be instructed in all aspects of lymphedema self -care to include skin care, self-massage, self-bandaging/ compression, elevation, and lymphedema exercises. STG Duration 10/17/23 Half-Way Goal (LTG) Decrease patient?s lymphedema to a stable level (no increase or decrease greater than 1 cm over the course of 1 week), patient to be independent with all aspects of self care for lymphedema, and will obtain appropriate compression garment(s) for lymphedema management in the home and possibly a pneumatic compression pump. LTG Duration 12/04/23 Assessment Summary Assessment Good compliance to self-care with assistance of . Decrease in circumferential measurements noted right LE today, will measure left next session. Trial compression bandaging as above to right LE . demonstrated improved understanding of MLD, patient able to do proximal/trunk massage. Physical Therapy Plan Frequency and Duration Frequency of Treatment 20 visits Duration of treatment (weeks) 12 Plan of Care Start Date 09/03/23 Plan of Care End Date 12/04/22 Therapeutic Interventions Therapeutic Interventions Gait Training,Home Exercise Program,Lymphedema Management, Manual Therapy,Patient/ Caregiver Education,Self-Care/ Home Management,Soft Tissue Mobilization,Therapeutic Activities,Therapeutic Exercises Modalities Vasopneumatic Devices Next Visit Focus/Plan Next Note Type Treatment Note Next Visit Plan Evaluate response to compression bandaging. Continue CDT
--- NOTE | 2023-09-12 10:32 | PT.OTN ---
Current Diagnoses Lymphedema, not elsewhere classified (09/12/23) Difficulty in walking, not elsewhere classified (09/12/23) Other malaise (09/12/23) Physical Therapy Treatment Note PT-OP-A Visit Information Start: 08/30/23 16:43 Freq: Status: Active Protocol: Document 09/12/23 09:01 SAK (Rec: 09/12/23 09:23 SAK [id number]) Out-Patient Physical Therapy Visit Information Visit Information Visit Type Treatment Note Visit Start Time 09:01 Visit Stop Time 10:30 Total Visit Minutes 89 Visit Number 3 Evaluation Information Evaluation Date 09/03/23 PT-OP-B Current Condition Start: 08/30/23 16:43 Freq: Status: Active Protocol: Document 09/12/23 09:01 SAK (Rec: 09/12/23 09:23 SAK [id number]) Current Condition History of Current Condition Onset Date 2018 Current Complaints right LE swelling History of Current Condition 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 Got open wound right shi-, went to wound care, was on 2 rounds of antibiotics. Was hoping to be able to use a cane, but uses 4WW due to unsteadiness, a couple falls weight of leg affects gait. Wearing Tubigrip on left and Circ aid compression wrap and sock on right. Reports still enough swelling that it affects how he walks and I don't know what to do about it. Also reports right foot swelling. On Prednisone due to bronchitis. Has COPD. Had bloodwork done. PMH: a-fib. Patient reports he sits and reads most of the day at the table, legs down. Difficulty walking due to the swelling. Has to wear diabetic shoes due to the swelling. Future Testing and Treatments Planned Returns to Dr. Guardado 08/14/23 Treatment Goals Patient/Caregiver Goals Decrease edema and be able to self-manage PT-OP-C Subjective Start: 08/30/23 16:43 Freq: Status: Active Protocol: Document 09/10/23 07:55 SAK (Rec: 09/10/23 08:46 SAK [id number]) OP-PT Subjective Patient Comments Patient Comments no new c/o, doing ex, elevation, massage, skin care, wearing compression alternative, received second one. REceptive to trial bandaging today. PT-OP-G Mobility & Gait Start: 08/30/23 16:43 Freq: Status: Active Protocol: Document 09/03/23 07:57 [facility] (Rec: 09/06/23 10:07 [facility] [id number]) OP Gait Assessment Gait Gait Assistance Required: Independent Distance (Feet) 50 Assistive Devices Assistive Device 4 Wheeled Walker Gait Deviations General Gait Pattern Decreased Stride Length, Decreased Feet Clearance,Wide Based Gait Factors Limiting Gait Function Factors Limiting Gait Function Decreased Strength,Limited Range of Motion Comments Gait Comments swelling right LE PT-OP-J Posture/Palpation/Skin Start: 08/30/23 16:43 Freq: Status: Active Protocol: Document 09/03/23 07:57 LYNN (Rec: 09/06/23 10:07 [facility] [id number]) Palpation Assessment Location right LE Palpation Location tissue fibrosis, inc warmth, no redness Palpation Findings Edema,Soft Tissue Tightness PT-OP-K Range of Motion Start: 08/30/23 16:43 Freq: Status: Active Protocol: Document 09/03/23 07:57 LYNN (Rec: 09/06/23 10:07 [facility] [id number]) Hip Goniometric Range of Motion Hip trudi Hip ROM WFL Yes Knee Goniometric Range of Motion Knee Right Flexion Active (degrees) 99 Extension Active (degrees) 7 Left Knee ROM WFL Yes Knee ROM Limitations Knee ROM Limitations Soft Tissue Tightness,Swelling Ankle and Foot Goniometric Range of Motion Ankle and Foot Right Dorsiflexion with Knee Flexed 0 Dorsiflexion with Knee Extended 5 Left Ankle/Foot ROM WFL Yes Ankle and Foot ROM Limitations ROM Limitations Soft Tissue Tightness,Swelling PT-OP-M Strength Start: 08/30/23 16:43 Freq: Status: Active Protocol: Document 09/03/23 07:57 [facility] (Rec: 09/06/23 10:07 [facility] [id number]) Hip Strength Hip Manual Muscle Testing Right Flexion (L2) 4- Good- Extension (S1) 3+ Fair+ Abduction 3+ Fair+ External Rotation 3+ Fair+ Internal Rotation 4- Good- L Flexion (L2) 4 Good Extension (S1) 4- Good- Abduction 4- Good- External Rotation 4- Good- Internal Rotation 4 Good Knee Strength Knee Manual Muscle Testing Right Flexion (S2) 4 Good Extension (L3) 4 Good Left Flexion (S2) 4+ Good+ Extension (L3) 4+ Good+ Ankle/Foot Strength Ankle and Foot Manual Muscle Testing Right Dorsiflexion (L4) 4 Good Plantarflexion (S1) 4 Good Left Dorsiflexion (L4) 4+ Good+ Plantarflexion (S1) 4+ Good+ PT-OP-N Lymphedema Start: 09/03/23 07:56 Freq: Status: Active Protocol: Document 09/12/23 09:01 [facility] (Rec: 09/12/23 09:23 [facility] [id number]) Lymphedema Measurements Lower Extremity Circumference Measurements Right Affected MT Heads 25.7 cm Mid-foot 24.8 cm Medial Malleolus 30.2 cm 10 cm From Medial Malleolus 33.5 cm 20 cm From Medial Malleolus 41.7 cm 30 cm From Medial Malleolus 45.6 cm 40 cm From Medial Malleolus 44.7 cm 50 cm From Medial Malleolus 50.4 cm 60 cm From Medial Malleolus 57.9 cm 70 cm From Medial Malleolus 65.8 cm Knee Joint 46.7 cm Left Affected MT Heads 26.4 cm Mid-foot 26.7 cm Medial Malleolus 30.8 cm 10 cm From Medial Malleolus 31 cm 20 cm From Medial Malleolus 39.5 cm 30 cm From Medial Malleolus 41 cm 40 cm From Medial Malleolus 40.8 cm 50 cm From Medial Malleolus 48.5 cm 60 cm From Medial Malleolus 55 cm 70 cm From Medial Malleolus 62 cm Knee Joint 42 cm PT-OP-Q Treatments Start: 08/30/23 16:43 Freq: Status: Active Protocol: Document 09/12/23 09:01 [facility] (Rec: 09/12/23 09:23 [facility] [id number]) Lymphedema Treatment Manual Lymphatic Drainage Location trudi LE's Duration 45 Comments Airos 6 sequential lymphatic pump right LE during MLD left LE Lymphedema Wrapping Body Location right LE Materials Tricofix size G, toe wraps, Artiflex (8,8,10 )and Comprilan (6,8,10,10) toes to groin Other reviewed with Left LE liner sock and Circ- Aid compression alternative ankle to knee Sequential Lymphedema Exercises Location verbal reviw Patient Education Self Manual Lymphatic Drainage reviewed with Sequential Lymphedema Exercises HEP Other Other Sequential pneumatic pump to right LE during review of MLD to left Cetaphil lotion applied trudi LE 's PT-OP-T Assessment and Plan Start: 08/30/23 16:43 Freq: Status: Active Protocol: Document 09/12/23 09:01 LYNN (Rec: 09/12/23 09:23 [facility] [id number]) Physical Therapy Assessment Goals Three Impairment gait dysfunction Impairment requires the use of a 4WW for gait due to weight of leg and for safety Short Term Goal (STG) Patient will be able to safely ambulate in his home with the use of a cane STG Duration 10/17/23 Deputy Treasurer Goal (LTG) Patient will be able to safely ambulate in the community with the use of a cane LTG Duration 12/04/23 Two Impairment activity tolerance Impairment Lymphedema life impact scale 62% Short Term Goal (STG) Decrease Lymphedema life impact scale to no more than 50% as measure of improved activity tolerance, function, and quality of life STG Duration 10/17/23 Deputy Treasurer Goal (LTG) Decrease Lymphedema life impact scale to no more than 35% as measure of improved activity tolerance, function, and quality of life LTG Duration 12/04/23 One Impairment lymphedema trudi LE's Short Term Goal (STG) Patient will be instructed in all aspects of lymphedema self -care to include skin care, self-massage, self-bandaging/ compression, elevation, and lymphedema exercises. STG Duration 10/17/23 Deputy Treasurer Goal (LTG) Decrease patient?s lymphedema to a stable level (no increase or decrease greater than 1 cm over the course of 1 week), patient to be independent with all aspects of self care for lymphedema, and will obtain appropriate compression garment(s) for lymphedema management in the home and possibly a pneumatic compression pump. LTG Duration 12/04/23 Progress Towards Goals Progress Towards Goals Progressing Toward Goals Assessment Summary Assessment Overall good response to compression bandaging though big toe wrap came off and upper thigh component slid down causing a bit of tourniquet just below knee. All measurements decreased in trudi LE's except upper calf just below tourniquet effect. Patient willing to be bandaged again today, though expressing concern she doesn't think she can do. Instructed to leave on only 1 day this time and then put compression wrap on if doesn't feel she can bandage. Physical Therapy Plan Frequency and Duration Frequency of Treatment 20 visits Duration of treatment (weeks) 12 Plan of Care Start Date 09/03/23 Plan of Care End Date 12/04/22 Therapeutic Interventions Therapeutic Interventions Gait Training,Home Exercise Program,Lymphedema Management, Manual Therapy,Patient/ Caregiver Education,Self-Care/ Home Management,Soft Tissue Mobilization,Therapeutic Activities,Therapeutic Exercises Modalities Vasopneumatic Devices Next Visit Focus/Plan Next Note Type Treatment Note
--- NOTE | 2023-09-17 11:55 | PT.OTN ---
Current Diagnoses Lymphedema, not elsewhere classified (09/17/23) Difficulty in walking, not elsewhere classified (09/17/23) Other malaise (09/17/23) Physical Therapy Treatment Note PT-OP-A Visit Information Start: 08/30/23 16:43 Freq: Status: Active Protocol: Document 09/17/23 10:17 SAK (Rec: 09/17/23 10:46 [facility] [id number]) Out-Patient Physical Therapy Visit Information Visit Information Visit Type Treatment Note Visit Start Time 10:20 Visit Stop Time 11:45 Total Visit Minutes 85 Visit Number 4 Evaluation Information Evaluation Date 09/03/23 PT-OP-B Current Condition Start: 08/30/23 16:43 Freq: Status: Active Protocol: Document 09/17/23 10:17 SAK (Rec: 09/17/23 10:46 [facility] [id number]) Current Condition History of Current Condition Onset Date 2018 Current Complaints right LE swelling History of Current Condition 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 Got open wound right shi-, went to wound care, was on 2 rounds of antibiotics. Was hoping to be able to use a cane, but uses 4WW due to unsteadiness, a couple falls weight of leg affects gait. Wearing Tubigrip on left and Circ aid compression wrap and sock on right. Reports still enough swelling that it affects how he walks and I don't know what to do about it. Also reports right foot swelling. On Prednisone due to bronchitis. Has COPD. Had bloodwork done. PMH: a-fib. Patient reports he sits and reads most of the day at the table, legs down. Difficulty walking due to the swelling. Has to wear diabetic shoes due to the swelling. Future Testing and Treatments Planned Returns to Dr. Guardado 08/14/23 Treatment Goals Patient/Caregiver Goals Decrease edema and be able to self-manage PT-OP-C Subjective Start: 08/30/23 16:43 Freq: Status: Active Protocol: Document 09/17/23 10:17 SAK (Rec: 09/17/23 10:46 [facility] [id number]) OP-PT Subjective Patient Comments Patient Comments Saw Dr. Guardado on Sunday, wants to have lung function test. Seeing sliver handler Sasha 4. Denies increased SOB with lymphedema treatment. PT-OP-G Mobility & Gait Start: 08/30/23 16:43 Freq: Status: Active Protocol: Document 09/03/23 07:57 LYNN (Rec: 09/06/23 10:07 [facility] [id number]) OP Gait Assessment Gait Gait Assistance Required: Independent Distance (Feet) 50 Assistive Devices Assistive Device 4 Wheeled Walker Gait Deviations General Gait Pattern Decreased Stride Length, Decreased Feet Clearance,Wide Based Gait Factors Limiting Gait Function Factors Limiting Gait Function Decreased Strength,Limited Range of Motion Comments Gait Comments swelling right LE PT-OP-J Posture/Palpation/Skin Start: 08/30/23 16:43 Freq: Status: Active Protocol: Document 09/03/23 07:57 LYNN (Rec: 09/06/23 10:07 [facility] [id number]) Palpation Assessment Location right LE Palpation Location tissue fibrosis, inc warmth, no redness Palpation Findings Edema,Soft Tissue Tightness PT-OP-K Range of Motion Start: 08/30/23 16:43 Freq: Status: Active Protocol: Document 09/03/23 07:57 LYNN (Rec: 09/06/23 10:07 [facility] [id number]) Hip Goniometric Range of Motion Hip trudi Hip ROM WFL Yes Knee Goniometric Range of Motion Knee Right Flexion Active (degrees) 99 Extension Active (degrees) 7 Left Knee ROM WFL Yes Knee ROM Limitations Knee ROM Limitations Soft Tissue Tightness,Swelling Ankle and Foot Goniometric Range of Motion Ankle and Foot Right Dorsiflexion with Knee Flexed 0 Dorsiflexion with Knee Extended 5 Left Ankle/Foot ROM WFL Yes Ankle and Foot ROM Limitations ROM Limitations Soft Tissue Tightness,Swelling PT-OP-M Strength Start: 08/30/23 16:43 Freq: Status: Active Protocol: Document 09/03/23 07:57 LYNN (Rec: 09/06/23 10:07 [facility] [id number]) Hip Strength Hip Manual Muscle Testing Right Flexion (L2) 4- Good- Extension (S1) 3+ Fair+ Abduction 3+ Fair+ External Rotation 3+ Fair+ Internal Rotation 4- Good- L Flexion (L2) 4 Good Extension (S1) 4- Good- Abduction 4- Good- External Rotation 4- Good- Internal Rotation 4 Good Knee Strength Knee Manual Muscle Testing Right Flexion (S2) 4 Good Extension (L3) 4 Good Left Flexion (S2) 4+ Good+ Extension (L3) 4+ Good+ Ankle/Foot Strength Ankle and Foot Manual Muscle Testing Right Dorsiflexion (L4) 4 Good Plantarflexion (S1) 4 Good Left Dorsiflexion (L4) 4+ Good+ Plantarflexion (S1) 4+ Good+ PT-OP-N Lymphedema Start: 09/03/23 07:56 Freq: Status: Active Protocol: Document 09/17/23 10:17 [facility] (Rec: 09/17/23 10:46 [facility] [id number]) Lymphedema Measurements Lower Extremity Circumference Measurements Right Affected MT Heads 26.6 cm Mid-foot 26.6 cm Medial Malleolus 30 cm 10 cm From Medial Malleolus 32.9 cm 20 cm From Medial Malleolus 40.4 cm 30 cm From Medial Malleolus 44.7 cm 40 cm From Medial Malleolus 43.9 cm 50 cm From Medial Malleolus 51.2 cm 60 cm From Medial Malleolus 53.5 cm 70 cm From Medial Malleolus 64.1 cm Knee Joint 48.9 cm Left Affected MT Heads 26.4 cm Mid-foot 25.6 cm Medial Malleolus 28.4 cm 10 cm From Medial Malleolus 29.2 cm 20 cm From Medial Malleolus 37.3 cm 30 cm From Medial Malleolus 42.3 cm 40 cm From Medial Malleolus 40.6 cm 50 cm From Medial Malleolus 47.7 cm 60 cm From Medial Malleolus 54.3 cm 70 cm From Medial Malleolus 61 cm Knee Joint 4 cm PT-OP-Q Treatments Start: 08/30/23 16:43 Freq: Status: Active Protocol: Document 09/17/23 10:17 [facility] (Rec: 09/17/23 10:46 [facility] [id number]) Lymphedema Treatment Manual Lymphatic Drainage Location trudi LE's Duration 45 Comments Airos 6 sequential lymphatic pump right LE during MLD left LE Lymphedema Wrapping Body Location right LE Materials Tricofix size G, no toe wraps (per patient request) , Artiflex (8,8,10 )and Comprilan (6,8,10,10) toes to groin Other reviewed with Left LE liner sock and Circ- Aid compression alternative ankle to knee Sequential Lymphedema Exercises Location verbal reviw Compression Garment Assessment Compression Garment Assessment Details shown options for foot and toe compression PT-OP-T Assessment and Plan Start: 08/30/23 16:43 Freq: Status: Active Protocol: Document 09/17/23 10:17 LYNN (Rec: 09/17/23 10:46 [facility] [id number]) Physical Therapy Assessment Goals Three Impairment gait dysfunction Impairment requires the use of a 4WW for gait due to weight of leg and for safety Short Term Goal (STG) Patient will be able to safely ambulate in his home with the use of a cane STG Duration 10/17/23 Chemical Recovery Operator Goal (LTG) Patient will be able to safely ambulate in the community with the use of a cane LTG Duration 12/04/23 Two Impairment activity tolerance Impairment Lymphedema life impact scale 62% Short Term Goal (STG) Decrease Lymphedema life impact scale to no more than 50% as measure of improved activity tolerance, function, and quality of life STG Duration 10/17/23 Chemical Recovery Operator Goal (LTG) Decrease Lymphedema life impact scale to no more than 35% as measure of improved activity tolerance, function, and quality of life LTG Duration 12/04/23 One Impairment lymphedema trudi LE's Short Term Goal (STG) Patient will be instructed in all aspects of lymphedema self -care to include skin care, self-massage, self-bandaging/ compression, elevation, and lymphedema exercises. STG Duration 10/17/23 Group Home Goal (LTG) Decrease patient?s lymphedema to a stable level (no increase or decrease greater than 1 cm over the course of 1 week), patient to be independent with all aspects of self care for lymphedema, and will obtain appropriate compression garment(s) for lymphedema management in the home and possibly a pneumatic compression pump. LTG Duration 12/04/23 Progress Towards Goals Progress Towards Goals Progressing Toward Goals Assessment Summary Assessment Decrease in circumferential measurements, appears to be good follow-through with self care in the home. Wearing compression alternatives ankle to knee when not bandaged but feel he needs compression wraps for his feet and toe caps for the toes trudi. Patient and to consider, though financially challenging . Physical Therapy Plan Frequency and Duration Frequency of Treatment 20 visits Duration of treatment (weeks) 12 Plan of Care Start Date 09/03/23 Plan of Care End Date 12/04/22 Therapeutic Interventions Therapeutic Interventions Gait Training,Home Exercise Program,Lymphedema Management, Manual Therapy,Patient/ Caregiver Education,Self-Care/ Home Management,Soft Tissue Mobilization,Therapeutic Activities,Therapeutic Exercises Modalities Vasopneumatic Devices Next Visit Focus/Plan Next Note Type Treatment Note Next Visit Plan Circumferential measurements, Continue CDT. Consider requesting sequential pneumatiac pump for home use.
--- NOTE | 2023-09-24 14:29 | PT.OTN ---
Current Diagnoses Lymphedema, not elsewhere classified (09/24/23) Difficulty in walking, not elsewhere classified (09/24/23) Other malaise (09/24/23) Physical Therapy Treatment Note PT-OP-A Visit Information Start: 08/30/23 16:43 Freq: Status: Active Protocol: Document 09/24/23 12:59 SAK (Rec: 09/24/23 13:38 [facility] [id number]) Out-Patient Physical Therapy Visit Information Visit Information Visit Type Treatment Note Visit Start Time 12:59 Total Visit Minutes 85 Visit Number 5 Evaluation Information Evaluation Date 09/03/23 PT-OP-B Current Condition Start: 08/30/23 16:43 Freq: Status: Active Protocol: Document 09/24/23 12:59 SAK (Rec: 09/24/23 13:38 [facility] [id number]) Current Condition History of Current Condition Onset Date 2018 Current Complaints right LE swelling History of Current Condition 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 Got open wound right shi-, went to wound care, was on 2 rounds of antibiotics. Was hoping to be able to use a cane, but uses 4WW due to unsteadiness, a couple falls weight of leg affects gait. Wearing Tubigrip on left and Circ aid compression wrap and sock on right. Reports still enough swelling that it affects how he walks and I don't know what to do about it. Also reports right foot swelling. On Prednisone due to bronchitis. Has COPD. Had bloodwork done. PMH: a-fib. Patient reports he sits and reads most of the day at the table, legs down. Difficulty walking due to the swelling. Has to wear diabetic shoes due to the swelling. Future Testing and Treatments Planned Returns to Dr. Guardado 08/14/23 Treatment Goals Patient/Caregiver Goals Decrease edema and be able to self-manage PT-OP-C Subjective Start: 08/30/23 16:43 Freq: Status: Active Protocol: Document 09/17/23 10:17 SAK (Rec: 09/17/23 10:46 [facility] [id number]) OP-PT Subjective Patient Comments Patient Comments Saw Dr. Guardado on Sunday, wants to have lung function test. Seeing fabrication and layout craftsman November 01. Denies increased SOB with lymphedema treatment. PT-OP-G Mobility & Gait Start: 08/30/23 16:43 Freq: Status: Active Protocol: Document 09/03/23 07:57 LYNN (Rec: 09/06/23 10:07 [facility] [id number]) OP Gait Assessment Gait Gait Assistance Required: Independent Distance (Feet) 50 Assistive Devices Assistive Device 4 Wheeled Walker Gait Deviations General Gait Pattern Decreased Stride Length, Decreased Feet Clearance,Wide Based Gait Factors Limiting Gait Function Factors Limiting Gait Function Decreased Strength,Limited Range of Motion Comments Gait Comments swelling right LE PT-OP-J Posture/Palpation/Skin Start: 08/30/23 16:43 Freq: Status: Active Protocol: Document 09/03/23 07:57 LYNN (Rec: 09/06/23 10:07 [facility] [id number]) Palpation Assessment Location right LE Palpation Location tissue fibrosis, inc warmth, no redness Palpation Findings Edema,Soft Tissue Tightness PT-OP-K Range of Motion Start: 08/30/23 16:43 Freq: Status: Active Protocol: Document 09/03/23 07:57 LYNN (Rec: 09/06/23 10:07 [facility] [id number]) Hip Goniometric Range of Motion Hip trudi Hip ROM WFL Yes Knee Goniometric Range of Motion Knee Right Flexion Active (degrees) 99 Extension Active (degrees) 7 Left Knee ROM WFL Yes Knee ROM Limitations Knee ROM Limitations Soft Tissue Tightness,Swelling Ankle and Foot Goniometric Range of Motion Ankle and Foot Right Dorsiflexion with Knee Flexed 0 Dorsiflexion with Knee Extended 5 Left Ankle/Foot ROM WFL Yes Ankle and Foot ROM Limitations ROM Limitations Soft Tissue Tightness,Swelling PT-OP-M Strength Start: 08/30/23 16:43 Freq: Status: Active Protocol: Document 09/03/23 07:57 LYNN (Rec: 09/06/23 10:07 [facility] [id number]) Hip Strength Hip Manual Muscle Testing Right Flexion (L2) 4- Good- Extension (S1) 3+ Fair+ Abduction 3+ Fair+ External Rotation 3+ Fair+ Internal Rotation 4- Good- L Flexion (L2) 4 Good Extension (S1) 4- Good- Abduction 4- Good- External Rotation 4- Good- Internal Rotation 4 Good Knee Strength Knee Manual Muscle Testing Right Flexion (S2) 4 Good Extension (L3) 4 Good Left Flexion (S2) 4+ Good+ Extension (L3) 4+ Good+ Ankle/Foot Strength Ankle and Foot Manual Muscle Testing Right Dorsiflexion (L4) 4 Good Plantarflexion (S1) 4 Good Left Dorsiflexion (L4) 4+ Good+ Plantarflexion (S1) 4+ Good+ PT-OP-N Lymphedema Start: 09/03/23 07:56 Freq: Status: Active Protocol: Document 09/24/23 12:59 [facility] (Rec: 09/24/23 13:38 [facility] [id number]) Lymphedema Measurements Lower Extremity Circumference Measurements Right Affected MT Heads 26 cm Mid-foot 26.2 cm Medial Malleolus 30.6 cm 10 cm From Medial Malleolus 31.4 cm 20 cm From Medial Malleolus 38.2 cm 30 cm From Medial Malleolus 41.8 cm 40 cm From Medial Malleolus 44.7 cm 50 cm From Medial Malleolus 49.8 cm 60 cm From Medial Malleolus 53.8 cm 70 cm From Medial Malleolus 60.9 cm Knee Joint 49.8 cm Left Affected MT Heads 24.6 cm Mid-foot 25.3 cm Medial Malleolus 29 cm 10 cm From Medial Malleolus 27.9 cm 20 cm From Medial Malleolus 37.4 cm 30 cm From Medial Malleolus 39.5 cm 40 cm From Medial Malleolus 42.8 cm 50 cm From Medial Malleolus 47.9 cm 60 cm From Medial Malleolus 54.8 cm 70 cm From Medial Malleolus 61.3 cm Knee Joint 42.8 cm PT-OP-Q Treatments Start: 08/30/23 16:43 Freq: Status: Active Protocol: Document 09/24/23 12:59 [facility] (Rec: 09/24/23 14:28 [facility] [id number]) Lymphedema Treatment Manual Lymphatic Drainage Location trudi LE's Duration 45 Comments Airos 6 sequential lymphatic pump right LE during MLD left LE Lymphedema Wrapping Body Location right LE Materials liner sock, circ-aid compression alternative ankle to knee Other reviewed with Left LE liner sock and Circ- Aid compression alternative ankle to knee Sequential Lymphedema Exercises Location HEP Compression Garment Assessment Compression Garment Assessment Details given HO with options for foot and toe compression Patient Education Other call with any questions PT-OP-T Assessment and Plan Start: 08/30/23 16:43 Freq: Status: Active Protocol: Document 09/24/23 12:59 [facility] (Rec: 09/24/23 13:38 [facility] [id number]) Physical Therapy Assessment Goals Three Impairment gait dysfunction Impairment requires the use of a 4WW for gait due to weight of leg and for safety Short Term Goal (STG) Patient will be able to safely ambulate in his home with the use of a cane STG Duration 10/17/23 [facility] Goal (LTG) Patient will be able to safely ambulate in the community with the use of a cane LTG Duration 12/04/23 Two Impairment activity tolerance Impairment Lymphedema life impact scale 62% Short Term Goal (STG) Decrease Lymphedema life impact scale to no more than 50% as measure of improved activity tolerance, function, and quality of life STG Duration 10/17/23 [facility] Goal (LTG) Decrease Lymphedema life impact scale to no more than 35% as measure of improved activity tolerance, function, and quality of life LTG Duration 12/04/23 One Impairment lymphedema trudi LE's Short Term Goal (STG) Patient will be instructed in all aspects of lymphedema self -care to include skin care, self-massage, self-bandaging/ compression, elevation, and lymphedema exercises. STG Duration 10/17/23 Jail Officer Goal (LTG) Decrease patient?s lymphedema to a stable level (no increase or decrease greater than 1 cm over the course of 1 week), patient to be independent with all aspects of self care for lymphedema, and will obtain appropriate compression garment(s) for lymphedema management in the home and possibly a pneumatic compression pump. LTG Duration 12/04/23 Progress Towards Goals Progress Towards Goals Progressing Toward Goals Assessment Summary Assessment Continues to improve, good compliance with home management of lymphedema with assistance of . Discussed benefit of wearing compression on feet; given options to consider. Patient does not want a pneumatic pump at this time for use at home. Requests no bandaging due to discomfort. Physical Therapy Plan Frequency and Duration Frequency of Treatment 20 visits Duration of treatment (weeks) 12 Plan of Care Start Date 09/03/23 Plan of Care End Date 12/04/22 Therapeutic Interventions Therapeutic Interventions Gait Training,Home Exercise Program,Lymphedema Management, Manual Therapy,Patient/ Caregiver Education,Self-Care/ Home Management,Soft Tissue Mobilization,Therapeutic Activities,Therapeutic Exercises Modalities Vasopneumatic Devices Next Visit Focus/Plan Next Note Type Treatment Note Next Visit Plan Circumferential measurements, make decision regarding best compression garments, request prescription from physician.
--- NOTE | 2023-10-31 16:05 | PT.OTN ---
Current Diagnoses Lymphedema, not elsewhere classified (10/31/23) Difficulty in walking, not elsewhere classified (10/31/23) Other malaise (10/31/23) Physical Therapy Treatment Note PT-OP-A Visit Information Start: 08/30/23 16:43 Freq: Status: Active Protocol: Document 10/31/23 13:00 SAK (Rec: 10/31/23 13:54 [facility] [id number]) Out-Patient Physical Therapy Visit Information Visit Information Visit Type Treatment Note Visit Start Time 13:01 Visit Stop Time 14:27 Total Visit Minutes 86 Visit Number 6 Evaluation Information Evaluation Date 09/03/23 Precautions Precautions COPD PT-OP-B Current Condition Start: 08/30/23 16:43 Freq: Status: Active Protocol: Document 10/31/23 13:00 SAK (Rec: 10/31/23 13:54 [facility] [id number]) Current Condition History of Current Condition Onset Date 2018 Current Complaints right LE swelling History of Current Condition 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 Got open wound right shi-, went to wound care, was on 2 rounds of antibiotics. Was hoping to be able to use a cane, but uses 4WW due to unsteadiness, a couple falls weight of leg affects gait. Wearing Tubigrip on left and Circ aid compression wrap and sock on right. Reports still enough swelling that it affects how he walks and I don't know what to do about it. Also reports right foot swelling. On Prednisone due to bronchitis. Has COPD. Had bloodwork done. PMH: a-fib. Patient reports he sits and reads most of the day at the table, legs down. Difficulty walking due to the swelling. Has to wear diabetic shoes due to the swelling. Future Testing and Treatments Planned Returns to Dr. Guardado 08/14/23 Treatment Goals Patient/Caregiver Goals Decrease edema and be able to self-manage PT-OP-C Subjective Start: 08/30/23 16:43 Freq: Status: Active Protocol: Document 10/31/23 13:00 SAK (Rec: 10/31/23 13:54 [facility] [id number]) OP-PT Subjective Patient Comments Patient Comments Doing lymphatic massage at home with assist. Wearing compression wrap on both legs ankle to knee, hasn' t looked at options for compression of feet further after information given by PT last session. Noticed a pocket of swelling right lateral thigh recently (3 weeks). In ER 2x for COPD since last seen in PT. Negative chest x-ray, put on Prednisone. Changed schedule of nebulizer. Negative for cardiac issues. PT-OP-G Mobility & Gait Start: 08/30/23 16:43 Freq: Status: Active Protocol: Document 09/03/23 07:57 [facility] (Rec: 09/06/23 10:07 [facility] [id number]) OP Gait Assessment Gait Gait Assistance Required: Independent Distance (Feet) 50 Assistive Devices Assistive Device 4 Wheeled Walker Gait Deviations General Gait Pattern Decreased Stride Length, Decreased Feet Clearance,Wide Based Gait Factors Limiting Gait Function Factors Limiting Gait Function Decreased Strength,Limited Range of Motion Comments Gait Comments swelling right LE PT-OP-J Posture/Palpation/Skin Start: 08/30/23 16:43 Freq: Status: Active Protocol: Document 09/03/23 07:57 LYNN (Rec: 09/06/23 10:07 [facility] [id number]) Palpation Assessment Location right LE Palpation Location tissue fibrosis, inc warmth, no redness Palpation Findings Edema,Soft Tissue Tightness PT-OP-K Range of Motion Start: 08/30/23 16:43 Freq: Status: Active Protocol: Document 09/03/23 07:57 LYNN (Rec: 09/06/23 10:07 [facility] [id number]) Hip Goniometric Range of Motion Hip trudi Hip ROM WFL Yes Knee Goniometric Range of Motion Knee Right Flexion Active (degrees) 99 Extension Active (degrees) 7 Left Knee ROM WFL Yes Knee ROM Limitations Knee ROM Limitations Soft Tissue Tightness,Swelling Ankle and Foot Goniometric Range of Motion Ankle and Foot Right Dorsiflexion with Knee Flexed 0 Dorsiflexion with Knee Extended 5 Left Ankle/Foot ROM WFL Yes Ankle and Foot ROM Limitations ROM Limitations Soft Tissue Tightness,Swelling PT-OP-M Strength Start: 08/30/23 16:43 Freq: Status: Active Protocol: Document 09/03/23 07:57 SAK (Rec: 09/06/23 10:07 [facility] [id number]) Hip Strength Hip Manual Muscle Testing Right Flexion (L2) 4- Good- Extension (S1) 3+ Fair+ Abduction 3+ Fair+ External Rotation 3+ Fair+ Internal Rotation 4- Good- L Flexion (L2) 4 Good Extension (S1) 4- Good- Abduction 4- Good- External Rotation 4- Good- Internal Rotation 4 Good Knee Strength Knee Manual Muscle Testing Right Flexion (S2) 4 Good Extension (L3) 4 Good Left Flexion (S2) 4+ Good+ Extension (L3) 4+ Good+ Ankle/Foot Strength Ankle and Foot Manual Muscle Testing Right Dorsiflexion (L4) 4 Good Plantarflexion (S1) 4 Good Left Dorsiflexion (L4) 4+ Good+ Plantarflexion (S1) 4+ Good+ PT-OP-N Lymphedema Start: 09/03/23 07:56 Freq: Status: Active Protocol: Document 10/31/23 13:00 [facility] (Rec: 10/31/23 13:54 [facility] [id number]) Lymphedema Measurements Lower Extremity Circumference Measurements Right Affected MT Heads 25.5 cm Mid-foot 25.5 cm Medial Malleolus 30.7 cm 10 cm From Medial Malleolus 34 cm 20 cm From Medial Malleolus 40.8 cm 30 cm From Medial Malleolus 43.4 cm 40 cm From Medial Malleolus 45.9 cm 50 cm From Medial Malleolus 49.3 cm 60 cm From Medial Malleolus 55.4 cm 70 cm From Medial Malleolus 63.4 cm Knee Joint 52.6 cm Left Affected MT Heads 26.9 cm Mid-foot 25.7 cm Medial Malleolus 29.8 cm 10 cm From Medial Malleolus 31.5 cm 20 cm From Medial Malleolus 38 cm 30 cm From Medial Malleolus 42.1 cm 40 cm From Medial Malleolus 39 cm 50 cm From Medial Malleolus 47.2 cm 60 cm From Medial Malleolus 54 cm 70 cm From Medial Malleolus 60.8 cm Knee Joint 41.8 cm PT-OP-Q Treatments Start: 08/30/23 16:43 Freq: Status: Active Protocol: Document 10/31/23 13:00 [facility] (Rec: 10/31/23 16:02 [facility] [id number]) Lymphedema Treatment Manual Lymphatic Drainage Location trudi LE's Duration 45 Comments Airos 6 sequential lymphatic pump right LE during MLD left LE Lymphedema Wrapping Body Location trudi LE's Materials liner sock, circ-aid compression alternative ankle to knee Other reviewed with Left LE liner sock and Circ- Aid compression alternative ankle to knee Sequential Lymphedema Exercises Location trudi LE's Comments ROM ex supine Compression Garment Assessment Compression Garment Assessment Details reviewed and stressed importance of wearing compression daily as well as benefits of using night garments due to patient sleeping in his chair without overnight compression Patient Education Sequential Lymphedema Exercises importance of compliance, increased activity Other Other Instructed to call [employer] for consult regarding compression garments . PT to request order to be sent by Dr. Guardado. PT-OP-T Assessment and Plan Start: 08/30/23 16:43 Freq: Status: Active Protocol: Document 10/31/23 13:00 [facility] (Rec: 10/31/23 13:54 [facility] [id number]) Physical Therapy Assessment Goals Three Impairment gait dysfunction Impairment requires the use of a 4WW for gait due to weight of leg and for safety Short Term Goal (STG) Patient will be able to safely ambulate in his home with the use of a cane 10/31/23: continues to use walker due to feeling unsteady wearing orthopedic shoes. STG Duration 10/17/23 Halfway Goal (LTG) Patient will be able to safely ambulate in the community with the use of a cane LTG Duration 12/04/23 Two Impairment activity tolerance Impairment Lymphedema life impact scale 62% Short Term Goal (STG) Decrease Lymphedema life impact scale to no more than 50% as measure of improved activity tolerance, function, and quality of life 10/31/23: goal progress, dec to 54% STG Duration 10/17/23 Health Care Marketing Manager Goal (LTG) Decrease Lymphedema life impact scale to no more than 35% as measure of improved activity tolerance, function, and quality of life LTG Duration 12/04/23 One Impairment lymphedema trudi LE's Short Term Goal (STG) Patient will be instructed in all aspects of lymphedema self -care to include skin care, self-massage, self-bandaging/ compression, elevation, and lymphedema exercises. 10/31/23: goal met STG Duration goal met Halfway Goal (LTG) Decrease patient?s lymphedema to a stable level (no increase or decrease greater than 1 cm over the course of 1 week), patient to be independent with all aspects of self care for lymphedema, and will obtain appropriate compression garment(s) for lymphedema management in the home and possibly a pneumatic compression pump. LTG Duration 12/04/23 Assessment Summary Assessment Patient circumferential measurements mostly increased today, did not put compression on left leg due to feeling it looked good this am. PT emphasized importance of consistent compression. Patient and haven't looked further at compression for foot as recommended by PT; to request order from Dr. Guardado and have recommended consult at [facility] with certified fitter; information given to patient and . Also recommended they try Tubigrip on feet overlapping compression wrap by several inches due to current lack of compression on foot and desire to not bandage. Will benefit from compression wraps on feet and ankles as recommended. PT to request order be sent to [facility]. Physical Therapy Plan Frequency and Duration Frequency of Treatment 20 visits Duration of treatment (weeks) 12 Plan of Care Start Date 09/03/23 Plan of Care End Date 12/04/22 Therapeutic Interventions Therapeutic Interventions Gait Training,Home Exercise Program,Lymphedema Management, Manual Therapy,Patient/ Caregiver Education,Self-Care/ Home Management,Soft Tissue Mobilization,Therapeutic Activities,Therapeutic Exercises Modalities Vasopneumatic Devices Next Visit Focus/Plan Next Note Type Treatment Note Next Visit Plan PT to fax Dr. Guardado to request prescription sent to [facility] for bilateral compression garments daytime and nightime toes to knee including toe caps. Circumferential measurements. Continue CLT.
--- NOTE | 2023-11-07 14:29 | PT.OTN ---
Current Diagnoses Lymphedema, not elsewhere classified (11/07/23) Difficulty in walking, not elsewhere classified (11/07/23) Other malaise (11/07/23) Physical Therapy Treatment Note PT-OP-A Visit Information Start: 08/30/23 16:43 Freq: Status: Active Protocol: Document 11/07/23 12:57 SAK (Rec: 11/07/23 12:58 [facility] [id number]) Out-Patient Physical Therapy Visit Information Visit Information Visit Type Treatment Note Visit Start Time 13:00 Visit Stop Time 14:26 Total Visit Minutes 86 Visit Number 7 Evaluation Information Evaluation Date 09/03/23 Precautions Precautions COPD PT-OP-B Current Condition Start: 08/30/23 16:43 Freq: Status: Active Protocol: Document 11/07/23 12:57 SAK (Rec: 11/07/23 12:58 [facility] [id number]) Current Condition History of Current Condition Onset Date 2018 Current Complaints right LE swelling History of Current Condition 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 Got open wound right shi-, went to wound care, was on 2 rounds of antibiotics. Was hoping to be able to use a cane, but uses 4WW due to unsteadiness, a couple falls weight of leg affects gait. Wearing Tubigrip on left and Circ aid compression wrap and sock on right. Reports still enough swelling that it affects how he walks and I don't know what to do about it. Also reports right foot swelling. On Prednisone due to bronchitis. Has COPD. Had bloodwork done. PMH: a-fib. Patient reports he sits and reads most of the day at the table, legs down. Difficulty walking due to the swelling. Has to wear diabetic shoes due to the swelling. Future Testing and Treatments Planned Returns to Dr. Guardado 08/14/23 Treatment Goals Patient/Caregiver Goals Decrease edema and be able to self-manage PT-OP-C Subjective Start: 08/30/23 16:43 Freq: Status: Active Protocol: Document 11/07/23 12:57 SAK (Rec: 11/07/23 13:01 [facility] [id number]) OP-PT Subjective Patient Comments Patient Comments Went to pulmonary doctor, changed the nebulizer medication, no change in breathing. Sees account executive key accounts end of treatment. Sees Dr. Guardado 11/15/27. Their office reports not receiving a fax. PT-OP-G Mobility & Gait Start: 08/30/23 16:43 Freq: Status: Active Protocol: Document 09/03/23 07:57 SAK (Rec: 09/06/23 10:07 [facility] [id number]) OP Gait Assessment Gait Gait Assistance Required: Independent Distance (Feet) 50 Assistive Devices Assistive Device 4 Wheeled Walker Gait Deviations General Gait Pattern Decreased Stride Length, Decreased Feet Clearance,Wide Based Gait Factors Limiting Gait Function Factors Limiting Gait Function Decreased Strength,Limited Range of Motion Comments Gait Comments swelling right LE PT-OP-J Posture/Palpation/Skin Start: 08/30/23 16:43 Freq: Status: Active Protocol: Document 09/03/23 07:57 [facility] (Rec: 09/06/23 10:07 [facility] [id number]) Palpation Assessment Location right LE Palpation Location tissue fibrosis, inc warmth, no redness Palpation Findings Edema,Soft Tissue Tightness PT-OP-K Range of Motion Start: 08/30/23 16:43 Freq: Status: Active Protocol: Document 09/03/23 07:57 [facility] (Rec: 09/06/23 10:07 [facility] [id number]) Hip Goniometric Range of Motion Hip trudi Hip ROM WFL Yes Knee Goniometric Range of Motion Knee Right Flexion Active (degrees) 99 Extension Active (degrees) 7 Left Knee ROM WFL Yes Knee ROM Limitations Knee ROM Limitations Soft Tissue Tightness,Swelling Ankle and Foot Goniometric Range of Motion Ankle and Foot Right Dorsiflexion with Knee Flexed 0 Dorsiflexion with Knee Extended 5 Left Ankle/Foot ROM WFL Yes Ankle and Foot ROM Limitations ROM Limitations Soft Tissue Tightness,Swelling PT-OP-M Strength Start: 08/30/23 16:43 Freq: Status: Active Protocol: Document 09/03/23 07:57 [facility] (Rec: 09/06/23 10:07 [facility] [id number]) Hip Strength Hip Manual Muscle Testing Right Flexion (L2) 4- Good- Extension (S1) 3+ Fair+ Abduction 3+ Fair+ External Rotation 3+ Fair+ Internal Rotation 4- Good- L Flexion (L2) 4 Good Extension (S1) 4- Good- Abduction 4- Good- External Rotation 4- Good- Internal Rotation 4 Good Knee Strength Knee Manual Muscle Testing Right Flexion (S2) 4 Good Extension (L3) 4 Good Left Flexion (S2) 4+ Good+ Extension (L3) 4+ Good+ Ankle/Foot Strength Ankle and Foot Manual Muscle Testing Right Dorsiflexion (L4) 4 Good Plantarflexion (S1) 4 Good Left Dorsiflexion (L4) 4+ Good+ Plantarflexion (S1) 4+ Good+ PT-OP-N Lymphedema Start: 09/03/23 07:56 Freq: Status: Active Protocol: Document 11/07/23 12:57 [facility] (Rec: 11/07/23 13:01 [facility] [id number]) Lymphedema Measurements Lower Extremity Circumference Measurements Right Affected MT Heads 26.3 cm Mid-foot 26.1 cm Medial Malleolus 30.3 cm 10 cm From Medial Malleolus 32.3 cm 20 cm From Medial Malleolus 38.7 cm 30 cm From Medial Malleolus 42.9 cm 40 cm From Medial Malleolus 45.8 cm 50 cm From Medial Malleolus 50.5 cm 60 cm From Medial Malleolus 54.3 cm 70 cm From Medial Malleolus 62 cm Knee Joint 48.5 cm Left Affected MT Heads 24.2 cm Mid-foot 25.2 cm Medial Malleolus 29.1 cm 10 cm From Medial Malleolus 28.8 cm 20 cm From Medial Malleolus 36.6 cm 30 cm From Medial Malleolus 40.2 cm 40 cm From Medial Malleolus 41.2 cm 50 cm From Medial Malleolus 47.4 cm 60 cm From Medial Malleolus 54.7 cm 70 cm From Medial Malleolus 61.8 cm Knee Joint 42.1 cm Comments Lymphedema Comments Decreased measurements distally, some inc left proximally. PT-OP-Q Treatments Start: 08/30/23 16:43 Freq: Status: Active Protocol: Document 11/07/23 12:57 [facility] (Rec: 11/07/23 13:01 [facility] [id number]) Lymphedema Treatment Manual Lymphatic Drainage Location trudi LE's Duration 45 Comments Airos 6 sequential lymphatic pump right LE during MLD left LE Lymphedema Wrapping Body Location trudi LE's Materials liner sock, circ-aid Circ Aid compression alternative ankle to knee, size F Tubigrip toes to lower calf Sequential Lymphedema Exercises Location trudi LE's Comments ROM ex supine reviewed Other Other Continue stress importance inc activity level; large reason for improved circumferential measurements PT-OP-T Assessment and Plan Start: 08/30/23 16:43 Freq: Status: Active Protocol: Document 11/07/23 12:57 LYNN (Rec: 11/07/23 12:58 [facility] [id number]) Physical Therapy Assessment Goals Three Impairment gait dysfunction Impairment requires the use of a 4WW for gait due to weight of leg and for safety Short Term Goal (STG) Patient will be able to safely ambulate in his home with the use of a cane 10/31/23: continues to use walker due to feeling unsteady wearing orthopedic shoes. STG Duration 10/17/23 Software Development Manager Goal (LTG) Patient will be able to safely ambulate in the community with the use of a cane LTG Duration 12/04/23 Two Impairment activity tolerance Impairment Lymphedema life impact scale 62% Short Term Goal (STG) Decrease Lymphedema life impact scale to no more than 50% as measure of improved activity tolerance, function, and quality of life 10/31/23: goal progress, dec to 54% STG Duration 10/17/23 Senior Living Goal (LTG) Decrease Lymphedema life impact scale to no more than 35% as measure of improved activity tolerance, function, and quality of life LTG Duration 12/04/23 One Impairment lymphedema trudi LE's Short Term Goal (STG) Patient will be instructed in all aspects of lymphedema self -care to include skin care, self-massage, self-bandaging/ compression, elevation, and lymphedema exercises. 10/31/23: goal met STG Duration goal met Senior Living Goal (LTG) Decrease patient?s lymphedema to a stable level (no increase or decrease greater than 1 cm over the course of 1 week), patient to be independent with all aspects of self care for lymphedema, and will obtain appropriate compression garment(s) for lymphedema management in the home and possibly a pneumatic compression pump. LTG Duration 12/04/23 Assessment Summary Assessment Improved circumferential measurements trudi lower legs and feet/ankles. Inc measurements proximal left. Added Tubigrip toes to lower calf; previously instructed , she tried on right side. Physical Therapy Plan Frequency and Duration Frequency of Treatment 20 visits Duration of treatment (weeks) 12 Plan of Care Start Date 09/03/23 Plan of Care End Date 12/04/22 Therapeutic Interventions Therapeutic Interventions Gait Training,Home Exercise Program,Lymphedema Management, Manual Therapy,Patient/ Caregiver Education,Self-Care/ Home Management,Soft Tissue Mobilization,Therapeutic Activities,Therapeutic Exercises Modalities Vasopneumatic Devices Next Visit Focus/Plan Next Note Type Treatment Note Next Visit Plan Continue CLT. Help patient obtain approprate compression garments.
--- NOTE | 2023-11-13 13:42 | PT.OTN ---
Current Diagnoses Lymphedema, not elsewhere classified (11/12/23) Difficulty in walking, not elsewhere classified (11/12/23) Other malaise (11/12/23) Physical Therapy Treatment Note PT-OP-A Visit Information Start: 08/30/23 16:43 Freq: Status: Active Protocol: Document 11/12/23 13:52 [facility] (Rec: 11/12/23 14:20 [facility] [id number]) Out-Patient Physical Therapy Visit Information Visit Information Visit Type Treatment Note Visit Start Time 13:50 Visit Stop Time 15:15 Total Visit Minutes 85 Visit Number 8 Evaluation Information Evaluation Date 09/03/23 Precautions Precautions COPD PT-OP-B Current Condition Start: 08/30/23 16:43 Freq: Status: Active Protocol: Document 11/12/23 13:52 [facility]AK (Rec: 11/12/23 14:20 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 Got open wound right shi-, went to wound care, was on 2 rounds of antibiotics. Was hoping to be able to use a cane, but uses 4WW due to unsteadiness, a couple falls weight of leg affects gait. Wearing Tubigrip on left and Circ aid compression wrap and sock on right. Reports still enough swelling that it affects how he walks and I don't know what to do about it. Also reports right foot swelling. On Prednisone due to bronchitis. Has COPD. Had bloodwork done. PMH: a-fib. Patient reports he sits and reads most of the day at the table, legs down. Difficulty walking due to the swelling. Has to wear diabetic shoes due to the swelling. Future Testing and Treatments Planned Returns to Dr. Guardado 08/14/23 Treatment Goals Patient/Caregiver Goals Decrease edema and be able to self-manage PT-OP-C Subjective Start: 08/30/23 16:43 Freq: Status: Active Protocol: Document 11/12/23 13:52 SAK (Rec: 11/12/23 14:20 [facility] [id number]) OP-PT Subjective Patient Comments Patient Comments Sees Dr. Guardado on . THey still haven't gotten fax, asks PT to re-fax to Dr. Guardado. Continue with bandaging, lymphatic massage, exercise, lotion application with assist of . Patient Reported Progress Improving PT-OP-G Mobility & Gait Start: 08/30/23 16:43 Freq: Status: Active Protocol: Document 09/03/23 07:57 [facility] (Rec: 09/06/23 10:07 [facility] [id number]) OP Gait Assessment Gait Gait Assistance Required: Independent Distance (Feet) 50 Assistive Devices Assistive Device 4 Wheeled Walker Gait Deviations General Gait Pattern Decreased Stride Length, Decreased Feet Clearance,Wide Based Gait Factors Limiting Gait Function Factors Limiting Gait Function Decreased Strength,Limited Range of Motion Comments Gait Comments swelling right LE PT-OP-J Posture/Palpation/Skin Start: 08/30/23 16:43 Freq: Status: Active Protocol: Document 09/03/23 07:57 [facility] (Rec: 09/06/23 10:07 [facility] [id number]) Palpation Assessment Location right LE Palpation Location tissue fibrosis, inc warmth, no redness Palpation Findings Edema,Soft Tissue Tightness PT-OP-K Range of Motion Start: 08/30/23 16:43 Freq: Status: Active Protocol: Document 09/03/23 07:57 [facility] (Rec: 09/06/23 10:07 [facility] [id number]) Hip Goniometric Range of Motion Hip trudi Hip ROM WFL Yes Knee Goniometric Range of Motion Knee Right Flexion Active (degrees) 99 Extension Active (degrees) 7 Left Knee ROM WFL Yes Knee ROM Limitations Knee ROM Limitations Soft Tissue Tightness,Swelling Ankle and Foot Goniometric Range of Motion Ankle and Foot Right Dorsiflexion with Knee Flexed 0 Dorsiflexion with Knee Extended 5 Left Ankle/Foot ROM WFL Yes Ankle and Foot ROM Limitations ROM Limitations Soft Tissue Tightness,Swelling PT-OP-M Strength Start: 08/30/23 16:43 Freq: Status: Active Protocol: Document 09/03/23 07:57 [facility] (Rec: 09/06/23 10:07 [facility] [id number]) Hip Strength Hip Manual Muscle Testing Right Flexion (L2) 4- Good- Extension (S1) 3+ Fair+ Abduction 3+ Fair+ External Rotation 3+ Fair+ Internal Rotation 4- Good- L Flexion (L2) 4 Good Extension (S1) 4- Good- Abduction 4- Good- External Rotation 4- Good- Internal Rotation 4 Good Knee Strength Knee Manual Muscle Testing Right Flexion (S2) 4 Good Extension (L3) 4 Good Left Flexion (S2) 4+ Good+ Extension (L3) 4+ Good+ Ankle/Foot Strength Ankle and Foot Manual Muscle Testing Right Dorsiflexion (L4) 4 Good Plantarflexion (S1) 4 Good Left Dorsiflexion (L4) 4+ Good+ Plantarflexion (S1) 4+ Good+ PT-OP-N Lymphedema Start: 09/03/23 07:56 Freq: Status: Active Protocol: Document 11/12/23 13:52 [facility] (Rec: 11/12/23 14:20 [facility] [id number]) Lymphedema Measurements Lower Extremity Circumference Measurements Right Affected MT Heads 25.8 cm Mid-foot 25.5 cm Medial Malleolus 31 cm 10 cm From Medial Malleolus 32.7 cm 20 cm From Medial Malleolus 39.2 cm 30 cm From Medial Malleolus 44.1 cm 40 cm From Medial Malleolus 45.5 cm 50 cm From Medial Malleolus 50.5 cm 60 cm From Medial Malleolus 54.5 cm 70 cm From Medial Malleolus 61 cm Knee Joint 48.3 cm Left Affected MT Heads 25.8 cm Mid-foot 24.8 cm Medial Malleolus 30.1 cm 10 cm From Medial Malleolus 27.8 cm 20 cm From Medial Malleolus 35.1 cm 30 cm From Medial Malleolus 40.6 cm 40 cm From Medial Malleolus 40.7 cm 50 cm From Medial Malleolus 47.3 cm 60 cm From Medial Malleolus 53.7 cm 70 cm From Medial Malleolus 60 cm Knee Joint 43.2 cm Comments Lymphedema Comments Decreased measurements distally, some inc left proximally. PT-OP-Q Treatments Start: 08/30/23 16:43 Freq: Status: Active Protocol: Document 11/12/23 13:52 [facility] (Rec: 11/12/23 14:20 [facility] [id number]) Lymphedema Treatment Manual Lymphatic Drainage Location trudi LE's Duration 45 Comments Airos 6 sequential lymphatic pump right LE during MLD left LE Lymphedema Wrapping Body Location trudi LE's Materials liner sock, circ-aid Circ Aid compression alternative ankle to knee, size F Tubigrip toes to lower calf Sequential Lymphedema Exercises Location trudi LE's Comments ROM ex supine reviewed Compression Garment Assessment Compression Garment Assessment Details Advised patient and feel their next garment will likely be a long and feel he needs compression on knees as well. REcommend day and nighttime garments. PT-OP-T Assessment and Plan Start: 08/30/23 16:43 Freq: Status: Active Protocol: Document 11/12/23 13:52 [facility] (Rec: 11/12/23 14:20 [facility] [id number]) Physical Therapy Assessment Goals Three Impairment gait dysfunction Impairment requires the use of a 4WW for gait due to weight of leg and for safety Short Term Goal (STG) Patient will be able to safely ambulate in his home with the use of a cane 10/31/23: continues to use walker due to feeling unsteady wearing orthopedic shoes. STG Duration 10/17/23 Residential Goal (LTG) Patient will be able to safely ambulate in the community with the use of a cane LTG Duration 12/04/23 Two Impairment activity tolerance Impairment Lymphedema life impact scale 62% Short Term Goal (STG) Decrease Lymphedema life impact scale to no more than 50% as measure of improved activity tolerance, function, and quality of life 10/31/23: goal progress, dec to 54% STG Duration 10/17/23 Residential Goal (LTG) Decrease Lymphedema life impact scale to no more than 35% as measure of improved activity tolerance, function, and quality of life LTG Duration 12/04/23 One Impairment lymphedema trudi LE's Short Term Goal (STG) Patient will be instructed in all aspects of lymphedema self -care to include skin care, self-massage, self-bandaging/ compression, elevation, and lymphedema exercises. 10/31/23: goal met STG Duration goal met Residential Goal (LTG) Decrease patient?s lymphedema to a stable level (no increase or decrease greater than 1 cm over the course of 1 week), patient to be independent with all aspects of self care for lymphedema, and will obtain appropriate compression garment(s) for lymphedema management in the home and possibly a pneumatic compression pump. LTG Duration 12/04/23 Assessment Summary Assessment Further improvement noted in most measurements trudi LEs. Redness persists right LE, since TKA. Patient and compliant to self-care for lymphedema. Consulting with Dr. Guardado on , will ask for prescription for compression garments and PT refaxed recommendations today. Physical Therapy Plan Frequency and Duration Frequency of Treatment 20 visits Duration of treatment (weeks) 12 Plan of Care Start Date 09/03/23 Plan of Care End Date 12/04/22 Therapeutic Interventions Therapeutic Interventions Gait Training,Home Exercise Program,Lymphedema Management, Manual Therapy,Patient/ Caregiver Education,Self-Care/ Home Management,Soft Tissue Mobilization,Therapeutic Activities,Therapeutic Exercises Modalities Vasopneumatic Devices Next Visit Focus/Plan Next Note Type Treatment Note Next Visit Plan Continue CLT. Help patient obtain approprate compression garments.
--- NOTE | 2023-11-21 10:02 | PT.OTN ---
Current Diagnoses Lymphedema, not elsewhere classified (11/21/23) Difficulty in walking, not elsewhere classified (11/21/23) Other malaise (11/21/23) Physical Therapy Treatment Note PT-OP-A Visit Information Start: 08/30/23 16:43 Freq: Status: Active Protocol: Document 11/21/23 09:15 [facility]AK (Rec: 11/21/23 09:41 [facility] [id number]) Out-Patient Physical Therapy Visit Information Visit Information Visit Type Treatment Note Visit Start Time 13:50 Visit Stop Time 15:15 Visit Number 8 Evaluation Information Evaluation Date 09/03/23 Precautions Precautions COPD PT-OP-B Current Condition Start: 08/30/23 16:43 Freq: Status: Active Protocol: Document 11/21/23 09:15 SAK (Rec: 11/21/23 09:41 [facility] [id number]) Current Condition History of Current Condition Onset Date 2018 Current Complaints right LE swelling History of Current Condition 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 Got open wound right shi-, went to wound care, was on 2 rounds of antibiotics. Was hoping to be able to use a cane, but uses 4WW due to unsteadiness, a couple falls weight of leg affects gait. Wearing Tubigrip on left and Circ aid compression wrap and sock on right. Reports still enough swelling that it affects how he walks and I don't know what to do about it. Also reports right foot swelling. On Prednisone due to bronchitis. Has COPD. Had bloodwork done. PMH: a-fib. Patient reports he sits and reads most of the day at the table, legs down. Difficulty walking due to the swelling. Has to wear diabetic shoes due to the swelling. Future Testing and Treatments Planned Returns to Dr. Guardado 08/14/23 Treatment Goals Patient/Caregiver Goals Decrease edema and be able to self-manage PT-OP-C Subjective Start: 08/30/23 16:43 Freq: Status: Active Protocol: Document 11/21/23 09:15 [facility]AK (Rec: 11/21/23 09:41 [facility]AK [id number]) OP-PT Subjective Patient Comments Patient Comments Had to cancel with Dr. Guardado due to weather. Doesn't see nbow for 1 month. 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 Past week right LE has been more swollen, no infection. PT-OP-G Mobility & Gait Start: 08/30/23 16:43 Freq: Status: Active Protocol: Document 09/03/23 07:57 [facility] (Rec: 09/06/23 10:07 [facility] [id number]) OP Gait Assessment Gait Gait Assistance Required: Independent Distance (Feet) 50 Assistive Devices Assistive Device 4 Wheeled Walker Gait Deviations General Gait Pattern Decreased Stride Length, Decreased Feet Clearance,Wide Based Gait Factors Limiting Gait Function Factors Limiting Gait Function Decreased Strength,Limited Range of Motion Comments Gait Comments swelling right LE PT-OP-J Posture/Palpation/Skin Start: 08/30/23 16:43 Freq: Status: Active Protocol: Document 09/03/23 07:57 [facility] (Rec: 09/06/23 10:07 [facility] [id number]) Palpation Assessment Location right LE Palpation Location tissue fibrosis, inc warmth, no redness Palpation Findings Edema,Soft Tissue Tightness PT-OP-K Range of Motion Start: 08/30/23 16:43 Freq: Status: Active Protocol: Document 09/03/23 07:57 [facility] (Rec: 09/06/23 10:07 [facility] [id number]) Hip Goniometric Range of Motion Hip trudi Hip ROM WFL Yes Knee Goniometric Range of Motion Knee Right Flexion Active (degrees) 99 Extension Active (degrees) 7 Left Knee ROM WFL Yes Knee ROM Limitations Knee ROM Limitations Soft Tissue Tightness,Swelling Ankle and Foot Goniometric Range of Motion Ankle and Foot Right Dorsiflexion with Knee Flexed 0 Dorsiflexion with Knee Extended 5 Left Ankle/Foot ROM WFL Yes Ankle and Foot ROM Limitations ROM Limitations Soft Tissue Tightness,Swelling PT-OP-M Strength Start: 08/30/23 16:43 Freq: Status: Active Protocol: Document 09/03/23 07:57 [facility] (Rec: 09/06/23 10:07 [facility] [id number]) Hip Strength Hip Manual Muscle Testing Right Flexion (L2) 4- Good- Extension (S1) 3+ Fair+ Abduction 3+ Fair+ External Rotation 3+ Fair+ Internal Rotation 4- Good- L Flexion (L2) 4 Good Extension (S1) 4- Good- Abduction 4- Good- External Rotation 4- Good- Internal Rotation 4 Good Knee Strength Knee Manual Muscle Testing Right Flexion (S2) 4 Good Extension (L3) 4 Good Left Flexion (S2) 4+ Good+ Extension (L3) 4+ Good+ Ankle/Foot Strength Ankle and Foot Manual Muscle Testing Right Dorsiflexion (L4) 4 Good Plantarflexion (S1) 4 Good Left Dorsiflexion (L4) 4+ Good+ Plantarflexion (S1) 4+ Good+ PT-OP-N Lymphedema Start: 09/03/23 07:56 Freq: Status: Active Protocol: Document 11/21/23 09:15 [facility] (Rec: 11/21/23 09:41 [facility] [id number]) Lymphedema Measurements Lower Extremity Circumference Measurements Right Affected MT Heads 27 cm Mid-foot 26.2 cm Medial Malleolus 30.7 cm 10 cm From Medial Malleolus 36.8 cm 20 cm From Medial Malleolus 44.6 cm 30 cm From Medial Malleolus 45.3 cm 40 cm From Medial Malleolus 43.4 cm 50 cm From Medial Malleolus 52.5 cm 60 cm From Medial Malleolus 55.3 cm 70 cm From Medial Malleolus 62 cm Knee Joint 48.5 cm Left Affected MT Heads 24.6 cm Mid-foot 25.2 cm Medial Malleolus 29.6 cm 10 cm From Medial Malleolus 30.5 cm 20 cm From Medial Malleolus 38.6 cm 30 cm From Medial Malleolus 41.8 cm 40 cm From Medial Malleolus 40.4 cm 50 cm From Medial Malleolus 48.7 cm 60 cm From Medial Malleolus 54.6 cm 70 cm From Medial Malleolus 61 cm Knee Joint 41.6 cm Comments Lymphedema Comments Right LE measurements increased with inc redness, some inc and some dec left. PT-OP-Q Treatments Start: 08/30/23 16:43 Freq: Status: Active Protocol: Document 11/21/23 09:15 [facility] (Rec: 11/21/23 09:41 [facility] [id number]) Lymphedema Treatment Manual Lymphatic Drainage Location trudi LE's Duration 45 Comments Airos 6 sequential lymphatic pump right LE during MLD left LE Lymphedema Wrapping Body Location trudi LE's Materials liner sock, circ-aid Circ Aid compression alternative ankle to knee, size F Tubigrip toes to lower calf Sequential Lymphedema Exercises Location trudi LE's Comments ROM ex supine reviewed Compression Garment Assessment Compression Garment Assessment Details Advised patient and feel their next garment will likely be a long and feel he needs compression on knees as well. REcommend day and nighttime garments. Patient Education Sequential Lymphedema Exercises importance of compliance, increased activity Other Other Continue stress importance inc activity level; large reason for improved circumferential measurements PT-OP-T Assessment and Plan Start: 08/30/23 16:43 Freq: Status: Active Protocol: Document 11/21/23 09:15 [facility] (Rec: 11/21/23 09:41 [facility] [id number]) Physical Therapy Assessment Goals Three Impairment gait dysfunction Impairment requires the use of a 4WW for gait due to weight of leg and for safety Short Term Goal (STG) Patient will be able to safely ambulate in his home with the use of a cane 10/31/23: continues to use walker due to feeling unsteady wearing orthopedic shoes. STG Duration 10/17/23 [facility] Goal (LTG) Patient will be able to safely ambulate in the community with the use of a cane LTG Duration 12/04/23 Two Impairment activity tolerance Impairment Lymphedema life impact scale 62% Short Term Goal (STG) Decrease Lymphedema life impact scale to no more than 50% as measure of improved activity tolerance, function, and quality of life 10/31/23: goal progress, dec to 54% STG Duration 10/17/23 Educational Sign Language Interpreter Goal (LTG) Decrease Lymphedema life impact scale to no more than 35% as measure of improved activity tolerance, function, and quality of life LTG Duration 12/04/23 One Impairment lymphedema trudi LE's Short Term Goal (STG) Patient will be instructed in all aspects of lymphedema self -care to include skin care, self-massage, self-bandaging/ compression, elevation, and lymphedema exercises. 10/31/23: goal met STG Duration goal met Educational Sign Language Interpreter Goal (LTG) Decrease patient?s lymphedema to a stable level (no increase or decrease greater than 1 cm over the course of 1 week), patient to be independent with all aspects of self care for lymphedema, and will obtain appropriate compression garment(s) for lymphedema management in the home and possibly a pneumatic compression pump. LTG Duration 12/04/23 Assessment Summary Assessment Right lower leg with incresed edema, tenderness. No increased warmth. Temperature 98.4. Consulted with Dr. Martha; he is ordering course of antibiotics in case infection brewing. Decreased compression level on right leg with compression pump and MLD for comfort. Physical Therapy Plan Frequency and Duration Frequency of Treatment 20 visits Duration of treatment (weeks) 12 Plan of Care Start Date 09/03/23 Plan of Care End Date 12/04/22 Therapeutic Interventions Therapeutic Interventions Gait Training,Home Exercise Program,Lymphedema Management, Manual Therapy,Patient/ Caregiver Education,Self-Care/ Home Management,Soft Tissue Mobilization,Therapeutic Activities,Therapeutic Exercises Modalities Vasopneumatic Devices Next Visit Focus/Plan Next Note Type Treatment Note Next Visit Plan Continue CLT. Help patient obtain approprate compression garments. Transition to self care with asstance of .
--- NOTE | 2023-12-10 12:02 | PT.OTN ---
Current Diagnoses Lymphedema, not elsewhere classified (12/10/23) Difficulty in walking, not elsewhere classified (12/10/23) Other malaise (12/10/23) Physical Therapy Treatment Note PT-OP-A Visit Information Start: 08/30/23 16:43 Freq: Status: Active Protocol: Document 12/10/23 10:33 SAK (Rec: 12/10/23 12:02 SAK [id number]) Out-Patient Physical Therapy Visit Information Visit Information Visit Type Treatment Note Visit Start Time 10:34 Visit Stop Time 11:58 Visit Number 10 Evaluation Information Evaluation Date 09/03/23 Precautions Precautions COPD PT-OP-B Current Condition Start: 08/30/23 16:43 Freq: Status: Active Protocol: Document 12/10/23 10:33 SAK (Rec: 12/10/23 12:02 SAK [id number]) Current Condition History of Current Condition Onset Date 2018 Current Complaints right LE swelling History of Current Condition 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 Got open wound right shi-, went to wound care, was on 2 rounds of antibiotics. Was hoping to be able to use a cane, but uses 4WW due to unsteadiness, a couple falls weight of leg affects gait. Wearing Tubigrip on left and Circ aid compression wrap and sock on right. Reports still enough swelling that it affects how he walks and I don't know what to do about it. Also reports right foot swelling. On Prednisone due to bronchitis. Has COPD. Had bloodwork done. PMH: a-fib. Patient reports he sits and reads most of the day at the table, legs down. Difficulty walking due to the swelling. Has to wear diabetic shoes due to the swelling. Future Testing and Treatments Planned Returns to Dr. Guardado 08/14/23 Treatment Goals Patient/Caregiver Goals Decrease edema and be able to self-manage PT-OP-C Subjective Start: 08/30/23 16:43 Freq: Status: Active Protocol: Document 12/10/23 10:33 SAK (Rec: 12/10/23 12:02 SAK [id number]) OP-PT Subjective Patient Comments Patient Comments Patient was in ER again due to SOB, sees bar catcher tooday. Was sitting longer than usual yesterday, ate a lot of salty food, feels swelling might be up a little . PT-OP-G Mobility & Gait Start: 08/30/23 16:43 Freq: Status: Active Protocol: Document 09/03/23 07:57 LYNN (Rec: 09/06/23 10:07 [facility] [id number]) OP Gait Assessment Gait Gait Assistance Required: Independent Distance (Feet) 50 Assistive Devices Assistive Device 4 Wheeled Walker Gait Deviations General Gait Pattern Decreased Stride Length, Decreased Feet Clearance,Wide Based Gait Factors Limiting Gait Function Factors Limiting Gait Function Decreased Strength,Limited Range of Motion Comments Gait Comments swelling right LE PT-OP-J Posture/Palpation/Skin Start: 08/30/23 16:43 Freq: Status: Active Protocol: Document 09/03/23 07:57 LYNN (Rec: 09/06/23 10:07 [facility] [id number]) Palpation Assessment Location right LE Palpation Location tissue fibrosis, inc warmth, no redness Palpation Findings Edema,Soft Tissue Tightness PT-OP-K Range of Motion Start: 08/30/23 16:43 Freq: Status: Active Protocol: Document 09/03/23 07:57 [facility] (Rec: 09/06/23 10:07 [facility] [id number]) Hip Goniometric Range of Motion Hip trudi Hip ROM WFL Yes Knee Goniometric Range of Motion Knee Right Flexion Active (degrees) 99 Extension Active (degrees) 7 Left Knee ROM WFL Yes Knee ROM Limitations Knee ROM Limitations Soft Tissue Tightness,Swelling Ankle and Foot Goniometric Range of Motion Ankle and Foot Right Dorsiflexion with Knee Flexed 0 Dorsiflexion with Knee Extended 5 Left Ankle/Foot ROM WFL Yes Ankle and Foot ROM Limitations ROM Limitations Soft Tissue Tightness,Swelling PT-OP-M Strength Start: 08/30/23 16:43 Freq: Status: Active Protocol: Document 09/03/23 07:57 LYNN (Rec: 09/06/23 10:07 [facility] [id number]) Hip Strength Hip Manual Muscle Testing Right Flexion (L2) 4- Good- Extension (S1) 3+ Fair+ Abduction 3+ Fair+ External Rotation 3+ Fair+ Internal Rotation 4- Good- L Flexion (L2) 4 Good Extension (S1) 4- Good- Abduction 4- Good- External Rotation 4- Good- Internal Rotation 4 Good Knee Strength Knee Manual Muscle Testing Right Flexion (S2) 4 Good Extension (L3) 4 Good Left Flexion (S2) 4+ Good+ Extension (L3) 4+ Good+ Ankle/Foot Strength Ankle and Foot Manual Muscle Testing Right Dorsiflexion (L4) 4 Good Plantarflexion (S1) 4 Good Left Dorsiflexion (L4) 4+ Good+ Plantarflexion (S1) 4+ Good+ PT-OP-N Lymphedema Start: 09/03/23 07:56 Freq: Status: Active Protocol: Document 12/10/23 10:33 [facility] (Rec: 12/10/23 12:02 [facility] [id number]) Lymphedema Measurements Lower Extremity Circumference Measurements Right Affected MT Heads 27 cm Mid-foot 27 cm Medial Malleolus 31.8 cm 10 cm From Medial Malleolus 37.8 cm 20 cm From Medial Malleolus 44.2 cm 30 cm From Medial Malleolus 44.9 cm 40 cm From Medial Malleolus 48 cm 50 cm From Medial Malleolus 57 cm 60 cm From Medial Malleolus 55.3 cm 70 cm From Medial Malleolus 57.9 cm Knee Joint 48.5 cm Left Affected MT Heads 26.8 cm Mid-foot 26 cm Medial Malleolus 31.4 cm 10 cm From Medial Malleolus 32.8 cm 20 cm From Medial Malleolus 39.3 cm 30 cm From Medial Malleolus 38.3 cm 40 cm From Medial Malleolus 43 cm 50 cm From Medial Malleolus 48.3 cm 60 cm From Medial Malleolus 62.5 cm 70 cm From Medial Malleolus 61.9 cm Knee Joint 42.2 cm PT-OP-Q Treatments Start: 08/30/23 16:43 Freq: Status: Active Protocol: Document 12/10/23 10:33 [facility] (Rec: 12/10/23 12:02 [facility] [id number]) Lymphedema Treatment Manual Lymphatic Drainage Location trudi LE's Duration 45 Lymphedema Wrapping Body Location trudi LE's Materials liner sock, circ-aid Circ Aid compression alternative ankle to knee, size F Tubigrip toes to lower calf Other Did trial donning compression stocking right LE; reports too difficult for her to don, requests continued use of wraps Sequential Lymphedema Exercises Location trudi LE's Comments ROM ex supine reviewed Other Other stressed importance of continued activity, exercise as tolerated for lymphatic flow. PT-OP-T Assessment and Plan Start: 08/30/23 16:43 Freq: Status: Active Protocol: Document 12/10/23 10:33 [facility] (Rec: 12/10/23 12:02 [facility] [id number]) Physical Therapy Assessment Goals Three Impairment gait dysfunction Impairment requires the use of a 4WW for gait due to weight of leg and for safety Short Term Goal (STG) Patient will be able to safely ambulate in his home with the use of a cane 10/31/23: continues to use walker due to feeling unsteady wearing orthopedic shoes. STG Duration 10/17/23 Tour Escort Goal (LTG) Patient will be able to safely ambulate in the community with the use of a cane LTG Duration 12/04/23 Two Impairment activity tolerance Impairment Lymphedema life impact scale 62% Short Term Goal (STG) Decrease Lymphedema life impact scale to no more than 50% as measure of improved activity tolerance, function, and quality of life 10/31/23: goal progress, dec to 54% STG Duration 10/17/23 Fpc Goal (LTG) Decrease Lymphedema life impact scale to no more than 35% as measure of improved activity tolerance, function, and quality of life LTG Duration 12/04/23 One Impairment lymphedema trudi LE's Short Term Goal (STG) Patient will be instructed in all aspects of lymphedema self -care to include skin care, self-massage, self-bandaging/ compression, elevation, and lymphedema exercises. 10/31/23: goal met STG Duration goal met Fpc Goal (LTG) Decrease patient?s lymphedema to a stable level (no increase or decrease greater than 1 cm over the course of 1 week), patient to be independent with all aspects of self care for lymphedema, and will obtain appropriate compression garment(s) for lymphedema management in the home and possibly a pneumatic compression pump. LTG Duration 12/04/23 Assessment Summary Assessment Patient presents today with increase in most circumferential measurements trudi LE's, has been doing more sitting due to difficulty with breathing. SEes bar catcher today. PT treatment modified to seated position on treatment table, gentle MLD and exercise and patient/ education. Due to variability of lymphedema trudi LE's feel patient will continue to benefit most from velcro compression wraps including wraps for feet and knees which he currently doesn 't have. Will need 2 sets so one can be laundered while wearing the other. Donned thigh high compression stocking on patient today but very challenging to don, and patient doesn't feel she can do even with various donning aids, so agree compression wrap alternatives are best option for patient. Due to medical issues at this time we will cancel next PT visit, and see for one more appt once receives compression garments to assure good fit and review self care. Physical Therapy Plan Frequency and Duration Frequency of Treatment 20 visits Duration of treatment (weeks) 12 Plan of Care Start Date 09/03/23 Plan of Care End Date 12/04/22 Therapeutic Interventions Therapeutic Interventions Gait Training,Home Exercise Program,Lymphedema Management, Manual Therapy,Patient/ Caregiver Education,Self-Care/ Home Management,Soft Tissue Mobilization,Therapeutic Activities,Therapeutic Exercises Modalities Vasopneumatic Devices Next Visit Focus/Plan Next Note Type Treatment Note Next Visit Plan Patient on hold until receives new compression wraps; will do follow-up appointment to assess fit and review self- care prior to discharge from PT
--- NOTE | 2023-12-26 17:02 | PT.OPDS ---
Current Diagnoses Lymphedema, not elsewhere classified (12/10/23) Difficulty in walking, not elsewhere classified (12/10/23) Other malaise (12/10/23) Visit Care Team Role Provider Type Ulices Guardado MD Family Provider Physician Primary Care Provider Specialty: Internal Medicine Address: [address] [place] [address], [address], [place], [address] Email: [email or web address] John Paul Thomas MD Attending Provider Physician Referring Provider Specialty: Wound Care Address: [address] [place] [address], [id number] Email: [email or web address] Visit Number Visit Number 10 Discharge Summary PT-OP-B Current Condition Start: 08/30/23 16:43 Freq: Status: Active Protocol: Document 12/10/23 10:33 SAK (Rec: 12/10/23 12:02 SAK [id number]) Current Condition History of Current Condition Onset Date 2018 Current Complaints right LE swelling History of Current Condition 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 Got open wound right shi-, went to wound care, was on 2 rounds of antibiotics. Was hoping to be able to use a cane, but uses 4WW due to unsteadiness, a couple falls weight of leg affects gait. Wearing Tubigrip on left and Circ aid compression wrap and sock on right. Reports still enough swelling that it affects how he walks and I don't know what to do about it. Also reports right foot swelling. On Prednisone due to bronchitis. Has COPD. Had bloodwork done. PMH: a-fib. Patient reports he sits and reads most of the day at the table, legs down. Difficulty walking due to the swelling. Has to wear diabetic shoes due to the swelling. Future Testing and Treatments Planned Returns to Dr. 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 Was sitting longer than usual yesterday, ate a lot of salty food, feels swelling might be up a little . PT-OP-G Mobility & Gait Start: 08/30/23 16:43 Freq: Status: Active Protocol: Document 09/03/23 07:57 SAK (Rec: 09/06/23 10:07 [facility] [id number]) OP Gait Assessment Gait Gait Assistance Required: Independent Distance (Feet) 50 Assistive Devices Assistive Device 4 Wheeled Walker Gait Deviations General Gait Pattern Decreased Stride Length, Decreased Feet Clearance,Wide Based Gait Factors Limiting Gait Function Factors Limiting Gait Function Decreased Strength,Limited Range of Motion Comments Gait Comments swelling right LE PT-OP-J Posture/Palpation/Skin Start: 08/30/23 16:43 Freq: Status: Active Protocol: Document 09/03/23 07:57 SAK (Rec: 09/06/23 10:07 [facility] [id number]) Palpation Assessment Location right LE Palpation Location tissue fibrosis, inc warmth, no redness Palpation Findings Edema,Soft Tissue Tightness PT-OP-K Range of Motion Start: 08/30/23 16:43 Freq: Status: Active Protocol: Document 09/03/23 07:57 SAK (Rec: 09/06/23 10:07 [facility] [id number]) Hip Goniometric Range of Motion Hip trudi Hip ROM WFL Yes Knee Goniometric Range of Motion Knee Right Flexion Active (degrees) 99 Extension Active (degrees) 7 Left Knee ROM WFL Yes Knee ROM Limitations Knee ROM Limitations Soft Tissue Tightness,Swelling Ankle and Foot Goniometric Range of Motion Ankle and Foot Right Dorsiflexion with Knee Flexed 0 Dorsiflexion with Knee Extended 5 Left Ankle/Foot ROM WFL Yes Ankle and Foot ROM Limitations ROM Limitations Soft Tissue Tightness,Swelling PT-OP-M Strength Start: 08/30/23 16:43 Freq: Status: Active Protocol: Document 09/03/23 07:57 SAK (Rec: 09/06/23 10:07 [facility] [id number]) Hip Strength Hip Manual Muscle Testing Right Flexion (L2) 4- Good- Extension (S1) 3+ Fair+ Abduction 3+ Fair+ External Rotation 3+ Fair+ Internal Rotation 4- Good- L Flexion (L2) 4 Good Extension (S1) 4- Good- Abduction 4- Good- External Rotation 4- Good- Internal Rotation 4 Good Knee Strength Knee Manual Muscle Testing Right Flexion (S2) 4 Good Extension (L3) 4 Good Left Flexion (S2) 4+ Good+ Extension (L3) 4+ Good+ Ankle/Foot Strength Ankle and Foot Manual Muscle Testing Right Dorsiflexion (L4) 4 Good Plantarflexion (S1) 4 Good Left Dorsiflexion (L4) 4+ Good+ Plantarflexion (S1) 4+ Good+ PT-OP-N Lymphedema Start: 09/03/23 07:56 Freq: Status: Active Protocol: Document 12/10/23 10:33 LYNN (Rec: 12/10/23 12:02 [facility] [id number]) Lymphedema Measurements Lower Extremity Circumference Measurements Right Affected MT Heads 27 cm Mid-foot 27 cm Medial Malleolus 31.8 cm 10 cm From Medial Malleolus 37.8 cm 20 cm From Medial Malleolus 44.2 cm 30 cm From Medial Malleolus 44.9 cm 40 cm From Medial Malleolus 48 cm 50 cm From Medial Malleolus 57 cm 60 cm From Medial Malleolus 55.3 cm 70 cm From Medial Malleolus 57.9 cm Knee Joint 48.5 cm Left Affected MT Heads 26.8 cm Mid-foot 26 cm Medial Malleolus 31.4 cm 10 cm From Medial Malleolus 32.8 cm 20 cm From Medial Malleolus 39.3 cm 30 cm From Medial Malleolus 38.3 cm 40 cm From Medial Malleolus 43 cm 50 cm From Medial Malleolus 48.3 cm 60 cm From Medial Malleolus 62.5 cm 70 cm From Medial Malleolus 61.9 cm Knee Joint 42.2 cm PT-OP-T Assessment and Plan Start: 08/30/23 16:43 Freq: Status: Active Protocol: Document 12/26/23 17:01 LYNN (Rec: 12/26/23 17:02 [facility] [id number]) Physical Therapy Plan Discharge Physical Therapy Discharge Reasons Change in Medical Status
== END 2023-12-31 10:32 | disposition home or self-care (01) ==
LOC: PHYS 10:30
PROVIDERS: Family Provider Internal Medicine; PCP Internal Medicine; Referring Provider Surgery; Visit Provider Surgery
DX: I89.0 Lymphedema, not elsewhere classified (principal); R26.2 Difficulty in walking, not elsewhere classified; R53.81 Other malaise
CPT/HCPCS: 29581; 97110; 97140; 97162; 97535

== ENCOUNTER → 2023-12-12 10:17 | Outpatient (CLI) | payer MEDICARE, BC, SELFPAY ==
[2023-12-11 12:31] VITALS: BMI 33.0
== END ==
LOC: LAB 10:19
PROVIDERS: Family Provider Internal Medicine; PCP Internal Medicine; Referring Provider Internal Medicine Critical Care Medicine; Visit Provider Internal Medicine Critical Care Medicine
DX: R05.9 Cough, unspecified (principal)
CPT/HCPCS: 87070; 87205

== ENCOUNTER 2023-12-12 20:51 | Inpatient (IN) | payer MEDICARE, BC, SELFPAY ==
[2023-12-11 12:31] VITALS: BMI 33.0
[2023-12-12] VITALS (10 sets, daily range): BP systolic 115–162; BP diastolic 64–74; PULSE 85–132; RESP 15–36; TEMP 36.7; O2SAT 81–96; BMI 39.9
[2023-12-12] MEDS: ALBUTEROL/IPRATROPIUM 3 ML AMPUL 6 ML INH (21:07)
--- NOTE | 2023-12-12 21:19 | ED_ITS ---
HPI - General Adult General Chief complaint: Shortness of Breath/Dyspnea Stated complaint: congestion, difficulth breathing Time Seen by Provider: 12/12/23 21:00 Source: patient and family Mode of arrival: Family Vehicle History of Present Illness HPI narrative: 88-year-old gentleman with a history of COPD, followed by pulmonology, mild aortic regurgitation, hypertension, hyperlipidemia, paroxysmal AFib with no episodes documented in the last 10 years not currently anticoagulated, BPH, depression right knee replacement with chronic erythema and edema of the right calf presents complaining of wheezing and inability to breathe tonight. He has been having increasing difficulties with his COPD management. Currently is using albuterol and ipratropium both MDI and nebulizers at home. This evening became acutely short of breath and requested that he come to the hospital. He was seen on November 11 with a diagnosis of COPD exacerbation and placed on prednisone 5 mg for 5 days. He was seen in the ER on November 25 diagnosed with continued COPD issues prescribed 40 mg of prednisone for 5 days. His states that he was given a Z-Ayan somewhere during that timeframe however I do not find documentation to that effect. Patient was started on oxygen 2 L per concentrate or at home on November 30. They did see a baseball umpire for [employer] a couple of days ago who requested a sputum sample which the brought in earlier this afternoon. Patient states that he has never had a heart attack and has no documented evidence of congestive heart failure. He has not had a fever, he has not complaining of chest pain beyond that created by cough, no nausea, vomiting, diarrhea. No headaches. Related Data Home Medications Medication Instructions Recorded Confirmed acetaminophen 500 mg capsule 500 mg PO Q6H PRN 05/06/21 12/11/23 azithromycin 250 mg tablet 250 mg PO DIRECTED 12/11/23 12/11/23 Previous Rx's Medication Instructions Recorded Disabled Parking #1 ea 02/20/23 metoprolol succinate 25 mg 25 mg PO DAILY #90 tabs 03/29/23 tablet,extended release 24 hr simvastatin 40 mg tablet 40 mg PO QDAY #90 tabs 04/19/23 albuterol sulfate 2.5 mg/3 mL 2.5 mg (3 mL) inhalation Q2H PRN 04/26/23 (0.083 %) solution for nebulization shortness of breath or wheezing #180 mL doxazosin 8 mg tablet 8 mg PO DAILY #90 tabs 05/24/23 potassium chloride 8 mEq 8 meq PO DAILY #90 tabs 05/31/23 tablet,extended release torsemide 40 mg tablet 40 mg PO DAILY #180 tabs 07/06/23 finasteride 5 mg tablet See Rx Instructions .Route 07/11/23 .COMPLEX #30 tabs albuterol sulfate 90 mcg/actuation 2 puff inhalation Q4-6H PRN 09/18/23 aerosol inhaler shortness of breath or wheezing #17 grams ipratropium 0.5 mg-albuterol 3 mg 3 ml inhalation BID #180 mL 11/01/23 (2.5 mg base)/3 mL nebulization soln tiotropium 2.5 mcg-olodaterol 2.5 2 puff inhalation DAILY #4 grams 11/01/23 mcg/actuation mist for inhalation (Stiolto Respimat) Bilateral compression garmets #1 ea 11/08/23 Allergies Allergy/AdvReac Type Severity Reaction Status Date / Time formaldehyde [FORMALDEHYDE] Allergy Severe Rash Verified 12/11/23 11:41 Gadolinium-Containing Allergy Severe HEART Verified 12/11/23 11:41 Contrast Medi STOPPED [GADOLINIUM-CONTAINING CONTRAST MEDI] Sulfa (Sulfonamide Allergy Mild Rash Verified 12/11/23 11:41 Antibiotics) [SULFA (SULFONAMIDE ANTIBIOTICS)] terbinafine [TERBINAFINE] Allergy Mild Pt unsure Verified 12/11/23 11:41 reaction Influenza Virus Vaccines AdvReac Intermediate whole body Verified 12/11/23 11:41 [INFLUENZA VIRUS VACCINES] rash 2016 QUANTERNUM Allergy Severe Rash Uncoded 12/11/23 11:41 Review of Systems Review of Systems Narrative: Pertinent positive and negative findings as per HPI Patient History Medical History Venous stasis dermatitis Paroxysmal atrial fibrillation (~2011) Chronic pain of right knee Peripheral edema Sinus bradycardia Squamous acanthoma of face (~10/2019) Skin cancer Tinnitus (~1989) Hearing loss (~1989) Chronic obstructive pulmonary disease (01/16/18) 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 Mother No problems noted. Social History marital status: number of children: 2 household members: spouse lives independently: Yes caregiver/support person: No housing: house pets and animals: No education level: master's degree occupational status: other Previous occupational history: [employer] travel history: over 6 months ago leisure activities: art, fishing and other Smoking Status: Former smoker Tobacco: How many years used: 2 Smokeless tobacco user: other quit status: quit date established second hand exposure: Yes alcohol intake: current substance use type: does not use Smoking Status: Former smoker alcohol intake frequency: 0-2 drinks per day Alcohol type: wine Substance Use Type: does not use Exam Initial Vital Signs Initial Vital Signs: Vital Signs Temperature 98.0 F 12/12/23 20:54 Respiratory Rate 36 H 12/12/23 20:54 Blood Pressure 162/74 H 12/12/23 20:54 Pulse Oximetry 81 L 12/12/23 20:54 Oxygen Delivery Method Room Air 12/12/23 20:54 General: Chronically ill-appearing gentleman in moderate respiratory distress unable to speak in full sentence with significant anxiety due to significant hypoxia HEENT: Moist mucous membranes, normal sclera with reactive pupils, Neck: No JVD, supple Respiratory: Patient is sitting upright almost tripoding to breathe, diffuse wheeze with very poor air movement. No accessory muscle use. 3-4 word sentences Cardiac: Regular rate and rhythm Cardiac noises are over written by pulmonary noise is in murmurs are not able to be assessed Abdomen: Soft, obese, nontender, no flank pain Skin: No areas of concern for cellulitis. He has multiple areas of actinic keratosis and chronic venous stasis changes of the right lower extremity. The skin coloration in the right lower extremity is unchanged and is not warm to the touch or weeping. Neurologic: Globally weak but Grossly neurologically intact with no obvious asymmetries or abnormalities Extremities: Right greater than left lower extremity edema secondary to right knee replacement with chronic venous stasis changes is noted Psych: Cooperative, appropriate insight and affect Course Orders Ordered: ED Orders 12/12/23 21:12 Complete Blood Count AUTO DIFF Stat Comprehensive Metabolic Panel Stat D Dimer Stat Lactate (Lactic Acid) Stat Lipase Stat Magnesium Stat NT-proBNP (BNP-Adult 18+) Stat Procalcitonin Stat Sputum Culture Stat Troponin I Stat 12/12/23 21:15 EKG-12 Lead Stat 12/12/23 21:18 Urinalysis and Microscopic Stat 12/12/23 21:48 Blood Culture Stat 12/12/23 21:56 Respiratory Panel (Film Array) Stat 12/13/23 00:17 XR chest 1V Stat Albuterol (Albuterol 2.5 Mg/3 Ml Neb (Adult)) 2.5 mg INH [id number] JANY Albuterol (Albuterol 2.5 Mg/3 Ml Neb (Adult)) 2.5 mg INH [id number] PRN PRN Reason: Shortness Of Breath Last Admin: 12/13/23 01:00 Dose: 2.5 mg Documented By: OTONIEL Albuterol/Ipratropium (Albuterol/Ipratropium 3 Ml Ampul) 3 ml INH [id number] JANY Albuterol/Ipratropium (Albuterol/Ipratropium 3 Ml Ampul) 3 ml INH Q1H PRN PRN Reason: Shortness Of Breath Morphine Sulfate (Morphine 2 Mg/Ml Inj) 2 mg IV Q2HR PRN PRN Reason: Pain, Moderate (4-6) Last Admin: 12/13/23 01:08 Dose: 2 mg Documented By: GC Discontinued Medications Albuterol (Albuterol 2.5 Mg/3 Ml Neb (Adult)) 5 mg INH NOW ONE Stop: 12/12/23 21:38 Last Admin: 12/12/23 21:42 Dose: 5 mg Documented By: OTONIEL Albuterol/Ipratropium (Albuterol/Ipratropium 3 Ml Ampul) 6 ml INH NOW ONE Stop: 12/12/23 21:06 Last Admin: 12/12/23 21:07 Dose: 6 ml Documented By: OTONIEL Furosemide 80 mg/ Sodium (Chloride) 58 mls @ 116 mls/hr IV NOW ONE Stop: 12/12/23 22:04 Last Infusion: 12/12/23 22:43 Dose: Infused Documented By: Admin: 12/12/23 22:11 Dose: 116 mls/hr Documented By: TU Ceftriaxone Sodium 2,000 mg/ (Sodium Chloride) 100 mls @ 200 mls/hr IV NOW ONE Stop: 12/13/23 00:40 Last Infusion: 12/13/23 01:20 Dose: Infused Documented By: Admin: 12/13/23 00:50 Dose: 200 mls/hr Documented By: TU Azithromycin 500 mg/ Dextrose 250 mls @ 250 mls/hr IV NOW ONE Stop: 12/13/23 00:40 Last Admin: 12/13/23 01:22 Dose: 250 mls/hr Documented By: ROBERTO Methylprednisolone (Methylprednisolone 125 Mg/2 Ml Vial) 125 mg IV NOW ONE Stop: 12/12/23 21:16 Last Admin: 12/12/23 21:26 Dose: 125 mg Documented By: TU Morphine Sulfate (Morphine 2 Mg/Ml Inj) 2 mg IV NOW ONE Stop: 12/12/23 22:21 Last Admin: 12/12/23 22:22 Dose: 2 mg Documented By: TU Vital Signs Vital signs: Vital Signs - 8 hr 12/12/23 20:54 12/12/23 21:05 12/12/23 21:06 Temperature 98.0 F Pulse Rate 132 H 94 H Respiratory Rate 36 H 35 H 31 H Blood Pressure 162/74 H Pulse Oximetry 81 L 94 94 Oxygen Delivery Method Room Air Nasal Cannula Oxygen Flow Rate Fraction of Inspired Oxygen 12/12/23 21:06 12/12/23 21:07 12/12/23 21:30 Temperature Pulse Rate 93 H 90 Respiratory Rate 32 H 25 H Blood Pressure 162/74 H Pulse Oximetry 95 96 Oxygen Delivery Method Nasal Cannula Oxygen Flow Rate 6 Fraction of Inspired Oxygen 44 12/12/23 21:30 12/12/23 21:42 12/12/23 22:00 Temperature Pulse Rate 90 91 H Respiratory Rate 26 H 31 H Blood Pressure 115/68 Pulse Oximetry 96 95 Oxygen Delivery Method Nasal Cannula Oxygen Flow Rate 6 Fraction of Inspired Oxygen 44 12/12/23 22:00 12/12/23 22:30 12/12/23 22:30 Temperature Pulse Rate 86 Respiratory Rate 25 H Blood Pressure 151/69 H 147/65 H Pulse Oximetry 94 Oxygen Delivery Method Nasal Cannula Oxygen Flow Rate 5 Fraction of Inspired Oxygen 12/12/23 23:00 12/12/23 23:00 12/12/23 23:30 Temperature Pulse Rate 85 85 Respiratory Rate 18 15 Blood Pressure 146/65 H Pulse Oximetry 95 95 Oxygen Delivery Method Nasal Cannula Oxygen Flow Rate 5 Fraction of Inspired Oxygen 12/12/23 23:30 12/13/23 00:00 12/13/23 00:00 Temperature Pulse Rate 87 Respiratory Rate 22 Blood Pressure 146/64 H 143/66 H Pulse Oximetry 96 Oxygen Delivery Method Oxygen Flow Rate Fraction of Inspired Oxygen 12/13/23 00:30 12/13/23 00:30 12/13/23 01:00 Temperature Pulse Rate 87 83 Respiratory Rate 23 20 Blood Pressure 147/67 H Pulse Oximetry 95 94 Oxygen Delivery Method Nasal Cannula Oxygen Flow Rate 6 Fraction of Inspired Oxygen 44 12/13/23 01:00 12/13/23 01:00 Temperature Pulse Rate 84 Respiratory Rate 21 Blood Pressure 141/61 H Pulse Oximetry 94 Oxygen Delivery Method Oxygen Flow Rate Fraction of Inspired Oxygen Medical Decision Making Lab Data 12/12/23 21:12 12/12/23 21:12 Labs: Lab Results 12/12/23 12/12/23 Range/Units 21:12 21:56 WBC 13.7 H (4.5-11.0) X10^3/uL RBC 4.36 L (4.5-5.9) X10^6/uL Hgb 13.5 (13.5-17.5) g/dL Hct 41.2 (41-53) % MCV 94.3 (80-100) fL MCH 31.0 (26-34) PG MCHC 32.8 (30-36) % RDW 13.9 (11.6-14.8) % Plt Count 332 (150-400) X10^3/uL Neut % (Auto) 63.5 (50-75) % Lymph % (Auto) 22.6 L (25-40) % Ogle % (Auto) 7.7 (3-14) % Eos % (Auto) 4.7 H (2-4) % Baso % (Auto) 1.5 (0-2) % Neut # (Auto) 8700 H (8022-0464) /uL Lymph # (Auto) 3100 (3926-8206) /uL Ogle # (Auto) 1100 H (0-900) /uL Eos # (Auto) 600 H (0-450) /uL Baso # (Auto) 200 H (0-100) /uL D-Dimer 705 H (<500) ng/ml Sodium 140 (137-145) mmol/L Potassium 4.1 (3.4-5.1) mmol/L Chloride 96 L (98-107) mmol/L Carbon Dioxide 37 H (22-32) mmol/L BUN 23 H (9-20) mg/dL Creatinine 1.34 H (0.66-1.25) mg/dL Estimated GFR 51 L (>60) mL/min BUN/Creatinine Ratio 17.2 (6-22) Glucose 114 H (80-110) mg/dL Lactate 1.8 (0.7-2.1) mmol/L Calcium 9.4 (8.4-10.2) mg/dL Magnesium 2.1 (1.6-2.3) mg/dL Total Bilirubin 0.7 (0.2-1.3) mg/dL AST 24 (17-59) IU/L ALT 24 (<50) IU/L Alkaline Phosphatase 80 (38-126) U/L Troponin I 0.013 (0.01-0.034) ng/mL NT-Pro-B Natriuret Pep 75 (<450) pg/mL Total Protein 7.1 (6.3-8.2) g/dL Albumin 4.1 (3.5-5.0) g/dL Globulin 3.0 (1.7-4.1) g/dL Albumin/Globulin Ratio 1.4 (1.0-2.8) Lipase 23 (23-300) U/L Procalcitonin 0.09 (<0.5) ng/mL Chlamy pneumoniae PCR Not detected (Not Detect) Adenovirus (PCR) Not detected (Not Detect) B.parapertussis DNA PCR Not detected (Not Detecte) Coronavirus OC43 (PCR) Not detected (Not Detect) Coronavirus HKU1 (PCR) Not detected (Not Detect) Coronavirus 229E (PCR) Not detected (Not Detect) SARS-CoV-2 (PCR) Not detected (Not Detecte) Coronavirus NL63 (PCR) Not detected (Not Detect) Human Metapneumovir PCR Not detected (Not Detect) Influenza Type A (PCR) Not detected (Not Detect) Influenza Type B (PCR) Not detected (Not Detect) M. pneumoniae (PCR) Not detected (Not Detect) Parainfluenza 1 (PCR) Not detected (Not Detect) Parainfluenza 2 (PCR) Not detected (Not Detect) Parainfluenza 3 (PCR) Not detected (Not Detect) Parainfluenza 4 (PCR) Not detected (Not Detect) RSV (PCR) Not detected (Not Detect) Entero/Rhino (PCR) Not detected (Not Detect) MDM Narrative Medical decision making narrative: CC: Worsening dyspnea and hypoxia in the setting of chronic COPD Complicating co-morbidities: COPD, paroxysmal atrial fibrillation, BPH, aortic regurgitation, echocardiogram from 2 years ago questioned pulmonary artery pressures Data collected from: patient, Medical records reviewed: Recent ER visits, cardiology notes, primary care notes are all reviewed. Recent imaging studies back to 2019 are reviewed Differential considered: Acute COPD exacerbation, pulmonary embolism, pulmonary hypertension, acute coronary syndrome, bacterial pneumonia, viral pneumonia, congestive heart failure Exam documented above, pertinent findings include: Diffuse wheeze with poor air movement through all lung wharton Lab Test results independently reviewed as above. Pertinent findings: CBC shows mild leukocytosis at 13.7, no significant anemia Metabolic panel shows slight bump in creatinine from an average of 1-1.3. Other chronic stable changes are appreciated. No liver abnormalities Troponin is undetectable Lipase is reassuring -no pancreatitis ProBNP is not elevated -no congestive heart failure Procalcitonin is not elevated -no acute infection Viral panel has no detected viruses D-dimer is age-appropriate, do not suspect pulmonary embolism Sputum has been obtained Independently reviewed EKG: EKG shows sinus rhythm. Normal intervals, normal axis. PVC is appreciated no acute ischemia Imaging studies independently reviewed: Chest x-ray suggests perhaps consolidation starting in the either right middle lobe or right base. CODE discussion: Discussion with patient and his . They both are very clear on indicating that he is DNR DNI. We went beyond that to discuss end of life management of his chronic lung disease. At this point he is miserable. They were both interested in at least considering a hospice consult and I think that might be nice adjunct with this inpatient stay. Treatments: 2 DuoNebs and 2 albuterol nebulizers. He is given IV Solu-Medrol, 80 mg of Lasix and 2 mg of morphine for air hunger. He is also started on ceftriaxone and azithromycin for the possibility of a developing right-sided pneumonia. Certainly no evidence of sepsis at this time Re-evaluations: After the morphine patient has air hunger and anxiety has dramatically improved. Still has significant wheeze in all lung wharton. On further questioning he and his note that he has been having some pain in the right chest area. That as well as the chest x-ray with subtle findings in the right [place] [address] (which may also be contributed to recent steroids) we will have me start ceftriaxone and azithromycin. We can re-evaluate antibiotics after sputum culture is resulted. Discussion: 88-year-old gentleman with end-stage COPD. Pulmonary hypertension may be a component of this and I believe does need further evaluation with an echocardiogram. In the meantime I am going to recommend hospitalization for an acute COPD exacerbation with continued steroids, nebulized treatments, antibiotics as described above until we have more diagnostic studies available. The patient is so dyspneic that he has not able to lay flat so additional imaging such as a chest CT is not going to be possible at least this evening. It maybe as his symptoms do improve. His D-dimer is age corrected appropriate and my concern for pulmonary embolism is low. I do not see any evidence for anemia. He has not in atrial fibrillation and not showing signs of acute coronary syndrome. His primary care physician is Dr. Guardado, Dr. Goss is on- call this evening we will contact her for admission. Patient and are informed findings plans and are in agreement. Discharge Plan Departure Patient Disposition: Admitted As Inpatient Clinical Impression: Acute exacerbation of chronic obstructive pulmonary disease, Infiltrate of lower lobe of right lung present on imaging study Admit Date/Time: 12/13/23 01:07 Admit Provider: Yamel Winn
[2023-12-12] MEDS: methylPREDNISolone 125 MG/2 ML VIAL IV (21:26)
[2023-12-12 21:28] LABS: Add Manual Diff / Slide Review NO; Basophils Absolute Auto 200 /uL (0-100); Basophils Percent Auto 1.5 % (0-2); Eosinophils Absolute Auto 600 /uL (0-450); Eosinophils Percent Auto 4.7 % (2-4); Hematocrit 41.2 % (41-53); Hemoglobin 13.5 g/dL (13.5-17.5); Lymphocytes Absolute Auto 3100 /uL (1100-4500); Lymphocytes Percent Auto 22.6 % (25-40); Mean Corpuscular HGB Conc 32.8 % (30-36); Mean Corpuscular Volume 94.3 fL (80-100); Monocytes Absolute Auto 1100 /uL (0-900); Monocytes Percent Auto 7.7 % (3-14); Neutrophils Absolute Auto 8700 /uL (1500-7000); Neutrophils Percent Auto 63.5 % (50-75); Platelet Count 332 X10^3/uL (150-400); Red Blood Cell Count 4.36 X10^6/uL (4.5-5.9); Red Cell Distribution Width 13.9 % (11.6-14.8); White Blood Cell Count 13.7 X10^3/uL (4.5-11.0)
[2023-12-12 21:42] LABS: D Dimer 705 ng/ml (<500)
[2023-12-12] MEDS: ALBUTEROL 2.5 MG/3 ML NEB (ADULT) 5 MG INH (21:42)
[2023-12-12 21:47] LABS: Lactate (Lactic Acid) 1.8 mmol/L (0.7-2.1)
[2023-12-12 21:48] LABS: Alanine Aminotransferase 24 IU/L (<50); Albumin 4.1 g/dL (3.5-5.0); Albumin Globulin Ratio 1.4 (1.0-2.8); Alkaline Phosphatase 80 U/L (38-126); Aspartate Aminotransferase 24 IU/L (17-59); BUN Creatinine Ratio 17.2 (6-22); Bilirubin Total 0.7 mg/dL (0.2-1.3); Blood Urea Nitrogen 23 mg/dL (9-20); Calcium 9.4 mg/dL (8.4-10.2); Carbon Dioxide 37 mmol/L (22-32); Chloride 96 mmol/L (98-107); Estimated Glomerular Filt Rate 51 mL/min (>60); Glucose 114 mg/dL (80-110); HEMOLYSIS 18 (0-50); Lipase 23 U/L (23-300); Magnesium 2.1 mg/dL (1.6-2.3); Potassium 4.1 mmol/L (3.4-5.1); Sodium 140 mmol/L (137-145); Total Protein 7.1 g/dL (6.3-8.2)
[2023-12-12 22:00] LABS: NT-proBNP (BNP-Adult 18+) 75 pg/mL (<450); Troponin I 0.013 ng/mL (0.01-0.034)
[2023-12-12 22:04] LABS: Procalcitonin 0.09 ng/mL (<0.5)
[2023-12-12] MEDS: FUROSEMIDE 80 MG in SODIUM CHLORIDE 0.9% 50 ML 116 MG IV (22:11)
[2023-12-12] MEDS: MORPHINE 2 MG/ML INJ IV (22:22)
[2023-12-12 22:52] LABS: Adenovirus Not Detected (Not Detect); B. parapertussis Not Detected (Not Detecte); Bordetella pertussis Not Detected (Not Detect); Chlamydophila pneumoniae Not Detected (Not Detect); Coronavirus 229E Not Detected (Not Detect); Coronavirus HKU1 Not Detected (Not Detect); Coronavirus NL 63 Not Detected (Not Detect); Coronavirus OC43 Not Detected (Not Detect); Human Metapneumovirus Not Detected (Not Detect); Human Rhinovirus/Enterovirus Not Detected (Not Detect); Influenza A Not Detected (Not Detect); Influenza B Not Detected (Not Detect); Mycoplasma pneumoniae Not Detected (Not Detect); Parainfluenza Virus 1 Not Detected (Not Detect); Parainfluenza Virus 2 Not Detected (Not Detect); Parainfluenza Virus 3 Not Detected (Not Detect); Parainfluenza Virus 4 Not Detected (Not Detect); Respiratory Syncytial Virus Not Detected (Not Detect); SARS- CoV-2 Not Detected (Not Detecte)
[2023-12-13] VITALS (62 sets, daily range): BP systolic 115–154; BP diastolic 59–79; PULSE 79–94; RESP 14–50; TEMP 36.1–37; O2SAT 88–99; BMI 39.9
--- NOTE | 2023-12-13 00:17 | DI.RAD.S_ITS ---
PROCEDURE: XR CHEST 1V INDICATIONS: dyspnea TECHNIQUE: One view of the chest was acquired. COMPARISON: [facility], CR, XR CHEST 1V, 12/08/2023, 3:08. FINDINGS: Surgical changes and devices: None. Lungs and pleura: Lungs are clear. No pleural effusions or pneumothorax. Mediastinum: Mediastinal contours appear normal. Heart size is normal. Bones and chest wall: No suspicious bony lesions. Overlying soft tissues appear unremarkable. IMPRESSION: No acute cardiopulmonary abnormality is seen. Dictated by: Alida Quiroz M.D. on 12/13/2023 at 1:08 Approved by: Alida Quiroz M.D. on 12/13/2023 at 1:09
[2023-12-13] MEDS: cefTRIAXone 2,000 MG in SODIUM CHLORIDE 0.9% 100 ML 200 MG IV (00:50)
[2023-12-13] MEDS: ALBUTEROL 2.5 MG/3 ML NEB (ADULT) INH (01:00)
[2023-12-13] MEDS: MORPHINE 2 MG/ML INJ IV ×4 (01:08→12:00)
--- NOTE | 2023-12-13 01:10 | RT ---
Post treatment, liter flow titrated to 4LPM; pt tolerating well; SpO2 sustaining WNLs, will cont. to monitor.
[2023-12-13] MEDS: AZITHROMYCIN 500 MG in DEXTROSE 5% IN WATER 250 ML 250 MG IV (01:22)
[2023-12-13] MEDS: ALBUTEROL/IPRATROPIUM 3 ML AMPUL INH ×8 (02:08→22:26)
--- NOTE | 2023-12-13 02:40 | DI.ECHO.S_ITS ---
[facility] +---------+ [facility] +---------+ : : [address] : [place] : : : : [id number] : : : : Phone: [phone]+ Echocardiogram Report + + :Name: ISSAC MATUTE Study Date: 12/13/2023 Height: 67 in : :[facility] ReadingLocation: Weight: 255 lb : : Gender: Male BSA: 2.2 m2 : :: 1935 Age: 88 yrs BP: 135/76 mmHg: :Reason For Study: ACUTE RESPIRATORY FAILURE : :Ordering Physician: DONNA, : :TAYLOR Performed By: Maggy Fuentes : :Referring: TAYLOR THOMPSON : + + Interpretation Summary 1) Normal left ventricular size, wall motion, and systolic function (EF 65- 70%). 2) Normal right ventricular size and function. 3) No significant valvular abnormalities. 4) Compard to the echo 02/04/2023, no significant change. Procedure: A two-dimensional transthoracic echocardiogram with color flow and Doppler was performed. The study quality was technically adequate. Comparison is made with the echocardiogram of 02/04/2023. The patient was in sinus rhythm with heart rates between 86-91 bpm during the exam. Left Ventricle: The left ventricular cavity is small. There is mild concentric left ventricular hypertrophy. The ejection fraction is estimated to be 65-70%. Left ventricular systolic function is probably normal. Right Ventricle: The right ventricle is normal in size and function. Atria: The left atrial size is normal. Right atrial size is normal. There is no Doppler evidence for an interatrial shunt. Mitral Valve: There is mild mitral annular calcification. The mitral valve is normal in structure and function. There is trace mitral regurgitation. Aortic Valve: The aortic valve is mildly calcified. There is mild aortic valve sclerosis. No aortic regurgitation is present. Tricuspid Valve: The tricuspid valve is normal in structure and function. There is trace tricuspid regurgitation. Pulmonary artery pressures cannot be estimated because of the lack of a measurable TR jet velocity. Pulmonic Valve: The pulmonic valve is not well seen, but is grossly normal. There is no pulmonic valvular regurgitation. Great Vessels: The aortic root is normal size. The ascending aorta could not be visualized. The IVC is of normal diameter and collapses greater than 50% with a sniff. This suggests a low right atrial pressure of 3 mm Hg. Pericardium/ Pleura There is no pericardial effusion. There is an anterior echo-free space consistent with a fat pad. There is no pleural effusion. MMode/2D Measurements & Calculations LVIDd: 3.3 cm LVOT diam: 2.1 cm LVIDs: 2.1 cm Ao root diam: 4.0 cm FS: 36.7 % IVSd: 1.4 cm LVPWd: 1.4 cm LV brigdes. diameter/BSA (cm/m^2): 1.5 LV sys. diameter/BSA (cm/m^2): 0.94 LA A2 area: 17.3 cm2 RA long axis: 5.5 cm LA A4 area: 22.4 cm2 RA area: 13.7 cm2 LA length (vol): 7.2 cm RA vol: 29.2 ml LA vol: 45.6 ml RA : 13.0 ml/m2 LA vol index: 20.4 ml/m2 IVC diam: 1.8 cm RVD1 (basal): 3.1 cm TAPSE: 1.8 cm Doppler Measurements & Calculations Ao V2 max: 190.0 cm/sec LVOT Max Dean: 150.9 cm/sec Ao V2 mean: 141.4 cm/sec LV V1 max P.1 mmHg Ao max P.4 mmHg LV V1 VTI: 31.2 cm Ao mean P.7 mmHg AIXA(I,D): 3.0 cm2 Ao V2 VTI: 36.9 cm AIXA(V,D): 2.8 cm2 sev ratio: 0.85 AIXA indexed to BSA (cm^2/m^2): 1.3 MV E max dean: 61.2 cm/sec MV V2 mean: 78.2 cm/sec MV A max dean: 100.4 cm/sec MV mean P.8 mmHg MV E/A: 0.61 MV V2 VTI: 25.0 cm Med Peak E' Dean: 4.8 cm/sec E/E' med: 12.8 Lat Peak E' Dean: 5.6 cm/sec E/E' lat: 10.9 E/e' average: 11.9 MV dec time: 0.22 sec MVA(VTI): 4.4 cm2 SV(LVOT): 109.6 ml Reading Physician:09:44 AM
--- NOTE | 2023-12-13 07:33 | P.HP_ITS ---
History of Present Illness History of Present Illness Date Patient Seen: 12/13/23 Time Patient Seen: 07:34 Chief complaint: congestion, difficulth breathing Narrative: 88-year-old male well known to me with severe COPD recently started on oxygen replacement therapy by Pulmonary Medicine who presented to the emergency department with increasing shortness of breath. He was seen less than 48 hours prior by Pulmonary Medicine and started on continuous oxygen therapy. He was also continued on his oral steroid inhaler as well as his combo inhaler with ipratropium albuterol Apparently he had increasing shortness of breath presented to the ER where he was found to be modestly hypoxic. He had a mild leukocytosis (although recently on steroid therapy). Had negative chest x-ray lab work unremarkable including procalcitonin. 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 Mother No problems noted. Social History marital status: number of children: 2 household members: spouse lives independently: Yes caregiver/support person: No housing: house pets and animals: No education level: master's degree occupational status: other Previous occupational history: [employer] travel history: over 6 months ago leisure activities: art, fishing and other Smoking Status: Former smoker Tobacco: How many years used: 2 Smokeless tobacco user: other quit status: quit date established second hand exposure: Yes alcohol intake: current substance use type: does not use Meds Home Medications and Allergies Home Medications Medication Instructions Recorded Confirmed Type acetaminophen 500 mg capsule 500 mg PO Q6H PRN 05/06/21 12/11/23 History Disabled Parking #1 ea 02/20/23 12/11/23 Rx metoprolol succinate 25 mg 25 mg PO DAILY #90 tabs 03/29/23 12/11/23 Rx tablet,extended release 24 hr simvastatin 40 mg tablet 40 mg PO QDAY #90 tabs 04/19/23 12/11/23 Rx albuterol sulfate 2.5 mg/3 mL 2.5 mg (3 mL) inhalation Q2H PRN 04/26/23 12/11/23 Rx (0.083 %) solution for nebulization shortness of breath or wheezing #180 mL doxazosin 8 mg tablet 8 mg PO DAILY #90 tabs 05/24/23 12/11/23 Rx potassium chloride 8 mEq 8 meq PO DAILY #90 tabs 05/31/23 12/11/23 Rx tablet,extended release torsemide 40 mg tablet 40 mg PO DAILY #180 tabs 07/06/23 12/11/23 Rx finasteride 5 mg tablet See Rx Instructions .Route 07/11/23 12/11/23 Rx .COMPLEX #30 tabs albuterol sulfate 90 mcg/actuation 2 puff inhalation Q4-6H PRN 09/18/23 12/11/23 Rx aerosol inhaler shortness of breath or wheezing #17 grams ipratropium 0.5 mg-albuterol 3 mg 3 ml inhalation BID #180 mL 11/01/23 12/11/23 Rx (2.5 mg base)/3 mL nebulization soln tiotropium 2.5 mcg-olodaterol 2.5 2 puff inhalation DAILY #4 grams 11/01/23 12/11/23 Rx mcg/actuation mist for inhalation (Stiolto Respimat) Bilateral compression garmets #1 ea 11/08/23 12/11/23 Rx azithromycin 250 mg tablet 250 mg PO DIRECTED 12/11/23 12/11/23 History Allergies Allergy/AdvReac Type Severity Reaction Status Date / Time formaldehyde [FORMALDEHYDE] Allergy Severe Rash Verified 12/11/23 11:41 Gadolinium-Containing Allergy Severe HEART Verified 12/11/23 11:41 Contrast Medi STOPPED [GADOLINIUM-CONTAINING CONTRAST MEDI] Sulfa (Sulfonamide Allergy Mild Rash Verified 12/11/23 11:41 Antibiotics) [SULFA (SULFONAMIDE ANTIBIOTICS)] terbinafine [TERBINAFINE] Allergy Mild Pt unsure Verified 12/11/23 11:41 reaction Influenza Virus Vaccines AdvReac Intermediate whole body Verified 12/11/23 11:41 [INFLUENZA VIRUS VACCINES] rash 2016 QUANTERNUM Allergy Severe Rash Uncoded 12/11/23 11:41 Review of Systems Review of Systems ROS: Yes All systems reviewed with the patient and are negative except as otherwise documented Exam Vital Signs (past 8 hours): - 12/13/23 00:00 12/13/23 00:00 12/13/23 00:30 Temperature Pulse Rate 87 87 Respiratory Rate 22 23 Blood Pressure 143/66 H Pulse Oximetry 96 95 Oxygen Delivery Method Oxygen Flow Rate Fraction of Inspired Oxygen 12/13/23 00:30 12/13/23 01:00 12/13/23 01:00 Temperature Pulse Rate 83 84 Respiratory Rate 20 21 Blood Pressure 147/67 H Pulse Oximetry 94 94 Oxygen Delivery Method Nasal Cannula Oxygen Flow Rate 6 Fraction of Inspired Oxygen 44 12/13/23 01:00 12/13/23 01:30 12/13/23 01:31 Temperature Pulse Rate 89 87 Respiratory Rate 35 H 37 H Blood Pressure 141/61 H Pulse Oximetry 94 94 Oxygen Delivery Method Oxygen Flow Rate Fraction of Inspired Oxygen 12/13/23 01:31 12/13/23 02:00 12/13/23 02:00 Temperature Pulse Rate 86 Respiratory Rate 29 H Blood Pressure 142/72 H 128/73 Pulse Oximetry 94 Oxygen Delivery Method Oxygen Flow Rate Fraction of Inspired Oxygen 12/13/23 02:08 12/13/23 02:37 12/13/23 02:39 Temperature Pulse Rate 90 93 H Respiratory Rate 20 50 H Blood Pressure 140/71 Pulse Oximetry 93 91 Oxygen Delivery Method Nasal Cannula Oxygen Flow Rate 3.5 Fraction of Inspired Oxygen 34 12/13/23 02:39 12/13/23 03:00 12/13/23 03:05 Temperature 98.4 F Pulse Rate 90 89 87 Respiratory Rate 23 21 18 Blood Pressure 134/69 Pulse Oximetry 92 93 93 Oxygen Delivery Method Nasal Cannula Oxygen Flow Rate 2 3 Fraction of Inspired Oxygen 32 12/13/23 03:50 12/13/23 06:09 Temperature Pulse Rate 85 Respiratory Rate 20 Blood Pressure Pulse Oximetry 96 Oxygen Delivery Method Nasal Cannula Nasal Cannula Oxygen Flow Rate 2 Fraction of Inspired Oxygen 28 Fraction of Inspired Oxygen 28 SaO2/FiO2 Ratio 342 Oxygen Delivery Method Nasal Cannula Oxygen Flow Rate 2 Narrative Exam Narrative: Elderly male lying in his hospital bed does not look to be in any acute distress HEENT-unremarkable Lungs-very diminished breath sounds no wheezes no crackles Heart-regular rate and rhythm no murmur Abdomen-minimally obese no organomegaly noted positive bowel tones soft nontender Extremities-2+ chronic appearing edema bilateral lower extremities with minimal pitting Objective Labs 12/12/23 21:12 12/12/23 21:12 Labs: Laboratory Results - last 24 hr 12/12/23 12/12/23 21:12 21:56 WBC 13.7 H RBC 4.36 L Hgb 13.5 Hct 41.2 MCV 94.3 MCH 31.0 MCHC 32.8 RDW 13.9 Plt Count 332 Neut % (Auto) 63.5 Lymph % (Auto) 22.6 L [place] % (Auto) 7.7 Eos % (Auto) 4.7 H Baso % (Auto) 1.5 Neut # (Auto) 8700 H Lymph # (Auto) 3100 [place] # (Auto) 1100 H Eos # (Auto) 600 H Baso # (Auto) 200 H D-Dimer 705 H Sodium 140 Potassium 4.1 Chloride 96 L Carbon Dioxide 37 H BUN 23 H Creatinine 1.34 H Estimated GFR 51 L BUN/Creatinine Ratio 17.2 Glucose 114 H Lactate 1.8 Calcium 9.4 Magnesium 2.1 Total Bilirubin 0.7 AST 24 ALT 24 Alkaline Phosphatase 80 Troponin I 0.013 NT-Pro-B Natriuret Pep 75 Total Protein 7.1 Albumin 4.1 Globulin 3.0 Albumin/Globulin Ratio 1.4 Lipase 23 Procalcitonin 0.09 Chlamy pneumoniae PCR Not detected Adenovirus (PCR) Not detected B.parapertussis DNA PCR Not detected Coronavirus OC43 (PCR) Not detected Coronavirus HKU1 (PCR) Not detected Coronavirus 229E (PCR) Not detected SARS-CoV-2 (PCR) Not detected Coronavirus NL63 (PCR) Not detected Human Metapneumovir PCR Not detected Influenza Type A (PCR) Not detected Influenza Type B (PCR) Not detected M. pneumoniae (PCR) Not detected Parainfluenza 1 (PCR) Not detected Parainfluenza 2 (PCR) Not detected Parainfluenza 3 (PCR) Not detected Parainfluenza 4 (PCR) Not detected RSV (PCR) Not detected Entero/Rhino (PCR) Not detected Assessment & Plan Assessment & Plan narrative: 1. COPD exacerbation with acute on chronic respiratory failure-patient with end-stage COPD that has not really been responsive to oral steroid therapy. Will see if he responds to parental steroids or not. Continue with frequent nebulizers of albuterol and ipratropium. Oxygen therapy carefully to maintain an oxygen saturation of about 90+% (over concerns regarding possible CO2 retention, although this is not been documented in this patient) Apparently does have a distant history of a Pseudomonas pulmonary infection and while there has no evidence of infiltrate on current chest x-ray will go ahead and continue with the IV antibiotics. IV azithromycin makes sense but something aimed at possible Pseudomonas as well will be initiated. Patient has never demonstrated any evidence of a cardiac source of his symptoms he had a normal echo done just about 2 years ago now. Seems reasonable to repeat that at this time, looking for some cardiac component to his ongoing symptoms especially given his lower extremity edema (which is more likely than not secondary to some degree of cor pulmonale based on his end-stage lung disease, if at all cardiac related). 2. Chronic right knee pain with lower extremity edema-patient with chronic right knee pain and stiffness since replacement several years ago. Continue to monitor for now but this is also generate some significant lower extremity edema. Continue to monitor for now, and continue with his oral torsemide 3. Hypertension-continue to monitor numbers while on the steroids especially. Continue with his metoprolol 4. Hyperlipidemia-continue simvastatin 5. BPH with lower urinary tract symptoms-continue patient's finasteride and doxazosin 6. VTE prophylaxis-patient did have a DVT following his knee replacement surgery. Lovenox as well as SCDs are entirely appropriate 7. Code status-per patient he had not want to be resuscitated returned to his previous health state in the event of a sudden cardiac or respiratory arrest in so he is appropriate for him to be a do not resuscitate which has been ordered
[2023-12-13] MEDS: CEFEPIME 1 GM in SODIUM CHLORIDE 0.9% 100 ML IV ×2 (08:35→20:38)
[2023-12-13] MEDS: ENOXAPARIN 40 MG/0.4 ML SYRINGE SUBCUT (08:35)
[2023-12-13] MEDS: methylPREDNISolone 125 MG/2 ML VIAL 60 MG IV ×3 (08:35→20:38)
[2023-12-13] MEDS: METOPROLOL ER 25 MG TABLET PO (08:36)
[2023-12-13] MEDS: FINASTERIDE 5 MG TABLET PO (08:37)
[2023-12-13] MEDS: TORSEMIDE 10 MG TABLET 40 MG PO (08:37)
[2023-12-13] MEDS: POTASSIUM CHLORIDE 10 MEQ TAB PO (08:38)
[2023-12-13] MEDS: DOXAZOSIN 2 MG TABLET 8 MG PO (08:42)
[2023-12-13] MEDS: LORazepam 2 MG/ML INJ 0.5 MG IV ×2 (13:56→20:38)
--- NOTE | 2023-12-13 14:29 | CM.DANOTE ---
Initial DCP Assessment Note Pt is an 88 yo male, resident of [place], arrives with persistent difficulty breathing, SOB, PMH includes severe COPD PCP: Shaheen Arriola Payer: Luis [place] Met w/patient, his Neyda Navarro [phone] (land line), daughter Anu Kang P [phone] cell and son in law Jem Kang P [phone] cell. Patient appears to be struggling this visit, SOB, trying to pee for urine sample and overall frustrated and anxious appearing- RN notified. According to family report, patient had a orthopedic surgery a year ago, January, and since that time has been declining significantly. Spouse provides assist with most ADLs, patient walks with walker and can feed himself. Patient sleeps in a recliner and can self transfer w/walker indp. After patient's surgery a year ago, he had discharged to [facility] and then had [facility] when he went home w/spouse. Spouse reports not needing additional assistance from hired caregivers. Daughter and MYLENE are available occasionally to assist patient physically. Reviewed DCP options; SNF vs home w/HH, in home care. Spouse asks about hospice, says she discussed hospice and DNR status with ER provider. Reviewed the basics of hospice services and spouse/family request referral to [facility] for information visit. Spouse and family state concern that patient does not have a good quality of life currently and seems to be uncomfortable all the time at home. KEY Flores, kindly agreed to fax [facility] this referral. Placed call to Edgar at [facility] to confirm receipt and update that spouse would like her daughter Anu's cell phone to be used as point of contact for info visit (spouse does not have a cell phone) Plan: TBD CM team following clinical course closely and will remain available for coordination of DCP NILTON Tee Discharge Planning/Care Management CM Discharge Assessment Start: 12/13/23 14:27 Freq: Status: Active Protocol: Document 12/13/23 14:27 FELIPE (Rec: 12/13/23 14:29 FELIPE [id number]) Discharge Planning Assessment Assigned Wrecking Mechanic NILTON Dominguez DPOA/Assigned Designee Name Neyda Lakhani, spouse Contact Information [phone] Advance Directives? Yes Advance Directives on File No History Provided By Family Member,Significant Other,Medical Record Prior Living Arrangements House Household Members spouse Type of transporation used prior to Relies on Others admit Independent with ADL's No Is patient alert and oriented? Yes Needs Assistance With Bathing,Grooming,Meal Prep, Managing Medications,Home Chores / Shopping Comment Home w/Hospice Barriers to Discharge No Comment Has supportive at home, family on [facility] Discharge Plan Hospice Transportation Arrangement Spouse Referrals Initiated Other Additional Comment [facility]ice [facility] Whiteboard Updated in Patient Room with Yes name and ext. # of Wrecking Mechanic
[2023-12-13 19:14] LABS: Appearance Urine UA CLEAR; Bilirubin Urine UA NEGATIVE (NEGATIVE); Color Urine UA YELLOW; Glucose Urine UA NEGATIVE (Negative); Ketones Urine UA NEGATIVE (NEGATIVE); Leukocyte Esterase Urine UA NEGATIVE (NEGATIVE); Nitrite Urine UA NEGATIVE (Negative); Occult Blood Urine UA NEGATIVE (Negative); Protein Urine UA NEGATIVE (Negative); Specific Gravity Urine UA 1.015 (1.000-1.035); Urobilinogen Urine UA 0.2 E.U./dL (0.2); pH Urine UA 5.5 (4.5-8.0)
[2023-12-13 19:27] LABS: Bacteria Urine None Seen; Culture Indicated Urine Cult Not Indicated; RBC Urine None Seen (0-5/HPF); Squamous Epithelial Cell Urine None Seen (0-5/HPF); Transitional Epi Cells Urine None Seen (0-5/HPF); Urine Volume 10mL (spun); WBC Urine None Seen (0-5/HPF)
[2023-12-14] VITALS (50 sets, daily range): BP systolic 54–149; BP diastolic 35–82; PULSE 66–93; RESP 17–46; TEMP 36.5–36.9; O2SAT 88–95
[2023-12-14] MEDS: methylPREDNISolone 125 MG/2 ML VIAL 60 MG IV ×4 (02:23→19:48)
[2023-12-14] MEDS: AZITHROMYCIN 500 MG in DEXTROSE 5% IN WATER 250 ML 250 MG IV (02:23)
[2023-12-14] MEDS: LORazepam 2 MG/ML INJ 0.5 MG IV (03:49)
[2023-12-14] MEDS: ALBUTEROL/IPRATROPIUM 3 ML AMPUL INH ×6 (03:49→23:44)
[2023-12-14 05:01] LABS: Add Manual Diff / Slide Review NO; Basophils Absolute Auto 100 /uL (0-100); Basophils Percent Auto 0.6 % (0-2); Eosinophils Absolute Auto 0 /uL (0-450); Hematocrit 38.1 % (41-53); Hemoglobin 12.5 g/dL (13.5-17.5); Lymphocytes Absolute Auto 1600 /uL (1100-4500); Lymphocytes Percent Auto 8.3 % (25-40); Mean Corpuscular HGB Conc 32.7 % (30-36); Mean Corpuscular Hemoglobin 30.8 PG (26-34); Mean Corpuscular Volume 94.1 fL (80-100); Monocytes Absolute Auto 500 /uL (0-900); Monocytes Percent Auto 2.6 % (3-14); Neutrophils Absolute Auto 16700 /uL (1500-7000); Neutrophils Percent Auto 88.5 % (50-75); Platelet Count 343 X10^3/uL (150-400); Red Blood Cell Count 4.05 X10^6/uL (4.5-5.9); Red Cell Distribution Width 13.9 % (11.6-14.8); White Blood Cell Count 18.9 X10^3/uL (4.5-11.0)
[2023-12-14 05:16] LABS: BUN Creatinine Ratio 27.3 (6-22); Blood Urea Nitrogen 35 mg/dL (9-20); Calcium 9.1 mg/dL (8.4-10.2); Carbon Dioxide 34 mmol/L (22-32); Chloride 98 mmol/L (98-107); Estimated Glomerular Filt Rate 54 mL/min (>60); Glucose 173 mg/dL (80-110); HEMOLYSIS < 15 (0-50); Potassium 4.1 mmol/L (3.4-5.1); Sodium 140 mmol/L (137-145)
[2023-12-14] MEDS: MORPHINE 2 MG/ML INJ IV ×3 (06:00→11:02)
--- NOTE | 2023-12-14 07:22 | PM.PN.1 ---
Subjective Subjective Date Patient Seen: 12/14/23 Time Patient Seen: 07:23 Interval history: Patient essentially unchanged. Still intermittently quite anxious about his inability to breathe, despite fact that his vitals including his oxygenation seem to be relatively unchanged during these times. Lorazepam was given with no benefit. Morphine does seem to work quite well to help with his air hunger sensation. Spouse is concerned lorazepam cause more hallucinations than anything else Echocardiogram done yesterday is essentially normal including no evidence of right heart strain to suggest pulmonary emboli or any other alternative diagnosis Did have a discussion with social media sr strategy manager staff regarding possible hospice referral. Spouse would very much like to take patient home but his quality of life has been very poor and clearly he is going downhill and they had that discussion with the ER physician as well Exam Vital Signs (past 8 hours): - 12/14/23 00:00 12/14/23 00:00 12/14/23 00:30 Temperature 97.8 F Pulse Rate 84 80 Respiratory Rate 28 H 39 H Blood Pressure 108/56 L Pulse Oximetry Oxygen Delivery Method Oxygen Flow Rate Fraction of Inspired Oxygen 12/14/23 01:00 12/14/23 01:00 12/14/23 01:30 Temperature Pulse Rate 76 80 Respiratory Rate 18 25 H Blood Pressure 111/59 L Pulse Oximetry Oxygen Delivery Method Oxygen Flow Rate Fraction of Inspired Oxygen 12/14/23 02:00 12/14/23 02:00 12/14/23 02:30 Temperature Pulse Rate 66 81 Respiratory Rate 20 31 H Blood Pressure 131/58 L Pulse Oximetry 91 91 Oxygen Delivery Method Oxygen Flow Rate Fraction of Inspired Oxygen 12/14/23 03:00 12/14/23 03:00 12/14/23 03:30 Temperature Pulse Rate 84 83 Respiratory Rate 41 H 32 H Blood Pressure 138/69 Pulse Oximetry 90 L 93 Oxygen Delivery Method Oxygen Flow Rate Fraction of Inspired Oxygen 12/14/23 04:00 12/14/23 04:00 12/14/23 05:00 Temperature Pulse Rate 86 82 Respiratory Rate 29 H 20 Blood Pressure 127/66 117/69 Pulse Oximetry 90 L 92 Oxygen Delivery Method Oxygen Flow Rate 2 Fraction of Inspired Oxygen 12/14/23 06:14 Temperature Pulse Rate 81 Respiratory Rate 26 H Blood Pressure Pulse Oximetry 88 L Oxygen Delivery Method Nasal Cannula Oxygen Flow Rate 2 Fraction of Inspired Oxygen 28 Fraction of Inspired Oxygen 28 SaO2/FiO2 Ratio 314 Oxygen Delivery Method Nasal Cannula Oxygen Flow Rate 2 Objective Labs 12/14/23 04:20 12/14/23 04:20 Labs: Laboratory Results - last 24 hr 12/13/23 12/14/23 18:00 04:20 WBC 18.9 H RBC 4.05 L Hgb 12.5 L Hct 38.1 L MCV 94.1 MCH 30.8 MCHC 32.7 RDW 13.9 Plt Count 343 Neut % (Auto) 88.5 H D Lymph % (Auto) 8.3 L [place] % (Auto) 2.6 L Eos % (Auto) 0.0 L Baso % (Auto) 0.6 Neut # (Auto) 67174 H Lymph # (Auto) 1600 [place] # (Auto) 500 Eos # (Auto) 0 Baso # (Auto) 100 Sodium 140 Potassium 4.1 Chloride 98 Carbon Dioxide 34 H BUN 35 H Creatinine 1.28 H Estimated GFR 54 L BUN/Creatinine Ratio 27.3 H Glucose 173 H Calcium 9.1 Urine Color Yellow Urine Appearance Clear Urine pH 5.5 Ur Specific [place] 1.015 Urine Protein Negative Urine Glucose (UA) Negative Urine Ketones Negative Urine Occult Blood Negative Urine Nitrate Negative Urine Bilirubin Negative Urine Urobilinogen 0.2 Ur Leukocyte Esterase Negative Urine RBC None seen Urine WBC None seen Ur Squamous Epith Cells None seen Ur Transition Epith Cell None seen Urine Bacteria None seen Ur Culture Indicated? 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 Mother No problems noted. Social History marital status: number of children: 2 household members: spouse lives independently: Yes caregiver/support person: No housing: house pets and animals: No education level: master's degree occupational status: other Previous occupational history: [employer] travel history: over 6 months ago leisure activities: art, fishing and other Smoking Status: Former smoker Tobacco: How many years used: 2 Smokeless tobacco user: other quit status: quit date established second hand exposure: Yes alcohol intake: current substance use type: does not use Assessment & Plan Assessment & Plan narrative: 1. COPD exacerbation-continue with the parental steroids frequent nebulizers limited oxygen replacement therapy etcetera. Also continue with antibiotic therapy for the time being. Sputum done as an outpatient did not grow anything, but that would be unusual if it did frankly. Okay to use morphine for air hunger especially in this probable end-stage situation 2. Hypertension-not an active issue at this time. Last blood pressure extremely good. No change in meds 3. Peripheral edema-continue with the usual dosing of his diuretics (torsemide). Renal function electrolytes okay as of this morning. Overall patient likely to require several days of parental steroids to begin to see any improvement, which is the typical nature severe end-stage COPD. Therefore not overly surprising he has not tremendously better as of this morning. Continue with the above therapies. I think going home with hospice makes sense. I do believe his life expectancy meets criteria and I do believe he has end-stage lung disease and neither Pulmonary Medicine nor myself have really been able to come up with anything more to offer him than he has been receiving already with the possible exception being the parental steroids and antibiotic therapies currently receiving. If he does not improve with this over the next several days then likely discharging home with hospice is the best answer.
[2023-12-14] MEDS: CEFEPIME 1 GM in SODIUM CHLORIDE 0.9% 100 ML IV ×2 (08:45→19:47)
[2023-12-14] MEDS: TORSEMIDE 10 MG TABLET 40 MG PO (08:45)
[2023-12-14] MEDS: FINASTERIDE 5 MG TABLET PO (08:46)
[2023-12-14] MEDS: POTASSIUM CHLORIDE 10 MEQ TAB PO (08:46)
[2023-12-14] MEDS: METOPROLOL ER 25 MG TABLET PO (08:46)
[2023-12-14] MEDS: ENOXAPARIN 40 MG/0.4 ML SYRINGE SUBCUT (08:47)
[2023-12-14] MEDS: DOXAZOSIN 2 MG TABLET 8 MG PO (09:06)
--- NOTE | 2023-12-14 14:06 | CM.DPNOTE ---
DCP Cont [facility] has completed info visit w/spouse and family; family agreeable and patient is now scheduled for Hospice to start services Sunday afternoon between [id number]. Transport TBD, will plan to discuss with patient's family. Plan: Discharge home with family is anticipated Sunday, transport (?) May benefit from BLS with O2 available for comfort CM team following closely for coordination. FELIPE
[2023-12-15] VITALS (39 sets, daily range): BP systolic 137–152; BP diastolic 70–90; PULSE 57–92; RESP 18–22; TEMP 36.6–37; O2SAT 90–100
[2023-12-15] MEDS: AZITHROMYCIN 500 MG in DEXTROSE 5% IN WATER 250 ML 250 MG IV (02:07)
[2023-12-15] MEDS: methylPREDNISolone 125 MG/2 ML VIAL 60 MG IV ×4 (02:08→20:22)
[2023-12-15] MEDS: MORPHINE 2 MG/ML INJ IV ×6 (04:29→16:16)
[2023-12-15] MEDS: ALBUTEROL/IPRATROPIUM 3 ML AMPUL INH ×4 (06:11→19:22)
--- NOTE | 2023-12-15 06:18 | PC.NURSE ---
Patient rested intermittently throughout the night. Anxious and often air-hungry but AOx4, VSS, tolerating 2L NC, afebrile. No tele. BLE +1 edema, venous stasis to RLE. Remained on 2L NC throughout the night, with occasional rescue breathing with nonrebreather for comfort, PRN IV Morphine and PRN duo-neb given for dyspnea. B expiratory wheezes. Tolerating heart healthy diet. Voids per urinal, no BM noted this shift. PIV x2, saline locked, ABX administered per order. Patient reports having no pain. Jem (patients son-in-law) at bedside throughout the night. Around 0545 patient sat on bedside and stood with assistx2, gait belt and walker. Patient shuffled while standing and was able to maintain oxygen saturation while standing. Plan of care on-going.
[2023-12-15] MEDS: POTASSIUM CHLORIDE 10 MEQ TAB PO (08:32)
[2023-12-15] MEDS: FINASTERIDE 5 MG TABLET PO (08:32)
[2023-12-15] MEDS: CEFEPIME 1 GM in SODIUM CHLORIDE 0.9% 100 ML IV ×2 (08:32→20:37)
[2023-12-15] MEDS: METOPROLOL ER 25 MG TABLET PO (08:32)
[2023-12-15] MEDS: ENOXAPARIN 40 MG/0.4 ML SYRINGE SUBCUT (08:33)
[2023-12-15] MEDS: TORSEMIDE 10 MG TABLET 40 MG PO (08:33)
--- NOTE | 2023-12-15 10:30 | PM.PN.1 ---
Subjective Subjective Date Patient Seen: 12/15/23 Time Patient Seen: 11:40 Interval history: Mr. Lakhani is resting in bed with his and daughter at bedside. He remains unchanged from apparent baseline with intermittent anxiousness about difficulty breathing. He does note benefit with morphine for air hunger, though it does make him feel a bit hazy/not clear in his head. Patient and family planning for discharge hospice, scheduled to meet them at home on Sunday afternoon. Exam Vital Signs (past 8 hours): - 12/15/23 02:51 12/15/23 02:51 12/15/23 07:00 Temperature 98.6 F Pulse Rate 69 Blood Pressure 142/74 H Pulse Oximetry 92 Oxygen Delivery Method Nasal Cannula Oxygen Flow Rate 2 Fraction of Inspired Oxygen 28 SaO2/FiO2 Ratio 328 Oxygen Delivery Method Nasal Cannula Oxygen Flow Rate 2 Narrative Exam Narrative: General: Well nourished, mildly distressed/anxious HEENT: Normocephalic, atraumatic, EOMI, moist mucous membranes CV: Regular rate and rhythm, normal S1-S2, no murmur auscultated Resp: Tachypneic with mild increased work breathing, diffuse expiratory wheezing bilaterally Abdomen: Soft nontender, nondistended, bowel sounds present Neuro: A&O x3, moves all extremities Objective Labs 12/14/23 04:20 12/14/23 04:20 [facility] Medical History Venous stasis dermatitis Paroxysmal atrial fibrillation (~2011) Chronic pain of right knee Peripheral edema Sinus bradycardia Squamous acanthoma of face (~10/2019) Skin cancer Tinnitus (~1989) Hearing loss (~1989) Chronic obstructive pulmonary disease (01/16/18) 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 Mother No problems noted. 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: over 6 months ago leisure activities: art, fishing and other Smoking Status: Former smoker Tobacco: How many years used: 2 Smokeless tobacco user: other quit status: quit date established second hand exposure: Yes alcohol intake: current substance use type: does not use Assessment & Plan Assessment and plan (1) Acute exacerbation of chronic obstructive pulmonary disease: Status: Acute (2) Chronic respiratory failure: Qualifiers: Respiratory failure complication: hypoxia Qualified Code(s): J96.11 - Chronic respiratory failure with hypoxia Status: Acute (3) Essential hypertension: Status: Chronic (4) Peripheral edema: Status: Acute (5) Mixed hyperlipidemia: Status: Chronic (6) Benign prostatic hyperplasia with lower urinary tract symptoms: Qualifiers: Lower urinary tract symptom detail: urinary frequency Qualified Code(s): N40.1 - Benign prostatic hyperplasia with lower urinary tract symptoms; R35.0 - Frequency of micturition Status: Chronic Assessment & Plan narrative: 88-year-old male with end-stage COPD, hypertension, peripheral edema admitted for COPD exacerbation. 1) COPD exacerbation, chronic respiratory failure -continue IV steroids, frequent nebs, O2 supplementation, morphine q.1h for air hunger -sputum cx growing staph aureus x2 with sensitivities pending, continue cefepime q.12h and azithromycin q.day 2) Hypertension -metoprolol daily 3) Peripheral edema -torsemide daily 4) hyperlipidemia -simvastatin daily 5) BPH -finasteride and doxazosin daily Dispo: Patient and family planning to discharge home and meet with hospice this Sunday. POLST form reviewed with patient and (HC POA) and completed to have on hand for BLS transport when discharged. Time Spent With Patient Time with patient: 30 to 49 minutes with 50% spent counseling/coordinating care
[2023-12-15] MEDS: DOXAZOSIN 2 MG TABLET 8 MG PO (11:52)
--- NOTE | 2023-12-15 11:53 | CM.DPC ---
Addendum entered by Dotty Hand R.N. 12/15/23 13:06: Met with spouse, Neyda, at bedside, and daughter, who is here from [place]. She will be here until Sunday. Asked Dr. Ku to complete POLST form, there was not one scanned in or on file, since patient is to be discharging home on Sunday. Did discuss with spouse that the most appropriate way of home transportation, may be BLS, since patient is on oxygen, and not ambulatory. She is aware that insurance most likely will not cover transportation. Asked Dr. Ku to sign BLS form. Did have a conversation further with spouse about equipement. He has been sleeping in his recliner, but now understands that a hospital bed will be more comfortable for her . Called Rola back at [facility] and asked if they can also order hospital bed, which she will do. Brought in a Senior Resource book, since daughter is concerned about her mother getting some sleep at night, may need a caregiver for the night. Went over some caregiving agencies in the book, and they can start looking into them. They are aware that [facility] will open between 2:0-3:00 tomorrow. Gave patient's family a copy of the POLST form. Original Note: DCP Cont: Called [facility] and spoke to Rola, asked her about equipment delivery, since shipping supervisor is supposed to open on Sunday between 2:00-3:00, and will need oxygen. Rola indicated that oxygen, nebulizer, has been ordered, she will try for am delivery. Notes indicate that spouse did not want a hospital bed, but can confirm with her. Patient most likely will need BLS transport, as well, will need to discuss with spouse as well. P: DCP to continue to follow. At this time, plan is home with [facility] services to open on Sunday. Will coordinate transport as well. Dotty Hand RN/Presidential Helicopter Crew Chief
[2023-12-15 13:26] LABS: Appearance Urine UA CLEAR; Bilirubin Urine UA NEGATIVE (NEGATIVE); Color Urine UA YELLOW; Glucose Urine UA NEGATIVE (Negative); Ketones Urine UA NEGATIVE (NEGATIVE); Leukocyte Esterase Urine UA NEGATIVE (NEGATIVE); Nitrite Urine UA NEGATIVE (Negative); Occult Blood Urine UA NEGATIVE (Negative); Protein Urine UA NEGATIVE (Negative); Specific Gravity Urine UA 1.015 (1.000-1.035); Urobilinogen Urine UA 0.2 E.U./dL (0.2)
[2023-12-15 13:36] LABS: Bacteria Urine None Seen; Culture Indicated Urine Cult Not Indicated; RBC Urine None Seen (0-5/HPF); Squamous Epithelial Cell Urine None Seen (0-5/HPF); Urine Volume 10mL (spun); WBC Urine 0-1/HPF (0-5/HPF)
[2023-12-15] MEDS: MORPHINE 4 MG/ML INJ IV ×2 (17:08→20:18)
[2023-12-15] MEDS: CALCIUM CARBONATE 500 MG TAB PO ×2 (20:51→20:52)
[2023-12-16] VITALS (29 sets, daily range): BP systolic 132–151; BP diastolic 70–71; PULSE 55–97; RESP 20; TEMP 36.3–36.6; O2SAT 86–97
[2023-12-16] MEDS: ALBUTEROL/IPRATROPIUM 3 ML AMPUL INH ×3 (01:03→12:17)
[2023-12-16] MEDS: AZITHROMYCIN 500 MG in DEXTROSE 5% IN WATER 250 ML 250 MG IV (01:17)
[2023-12-16] MEDS: methylPREDNISolone 125 MG/2 ML VIAL 60 MG IV ×2 (01:17→08:33)
[2023-12-16] MEDS: MORPHINE 4 MG/ML INJ IV ×4 (01:47→11:15)
--- NOTE | 2023-12-16 02:09 | PC.NURSE ---
Addendum entered by Yaneth Chino R.N. 12/16/23 05:56: Patient is alert & oriented, oriented to call light & calls appropriately. Family at the bedside. O2 saturation 95% on 2L NC. IV Morphine given for air hunger & pain. Repositioned patient minimally throughout the night per patient request for comfort, states he will let us know if he would like to be repositioned. Will continue to monitor. Original Note: shift supervisor rn: Patient had complaints of IV site pain during Azithromycin infusion, patient stated he could not tolerate the pain, infusion paused. IV site does not appear to be compromised, no phlebitis or redness noted. IV Morphine given for pain. Patient declined IV insertion at different site for now. Will continue to monitor.
[2023-12-16] MEDS: POTASSIUM CHLORIDE 10 MEQ TAB PO (08:34)
[2023-12-16] MEDS: METOPROLOL ER 25 MG TABLET PO (08:34)
[2023-12-16] MEDS: FINASTERIDE 5 MG TABLET PO (08:34)
[2023-12-16] MEDS: TORSEMIDE 10 MG TABLET 40 MG PO (08:34)
[2023-12-16] MEDS: DOXAZOSIN 2 MG TABLET 8 MG PO (08:34)
--- NOTE | 2023-12-16 10:21 | PM.PN.1 ---
Subjective Subjective Date Patient Seen: 12/16/23 Time Patient Seen: 11:35 Interval history: Mr. Lakhani is resting in bed with his at bedside. He remains stable with intermittent shortness of breath. Was feeling more air hunger but improved after morphine dose increased to 4 mg. IV line is not functional causing pain with medication administration. He does not want any further IV antibiotics and would like IV removed. Sputum culture finalized with MSSA and Serratia species, he is ambivalent about whether or not to continue with oral antibiotic therapy and would like time to think about this. Exam Vital Signs (past 8 hours): - 12/16/23 07:00 12/16/23 08:04 Pulse Rate 66 Respiratory Rate 20 Pulse Oximetry 94 Oxygen Delivery Method Nasal Cannula Nasal Cannula Oxygen Flow Rate 2 Fraction of Inspired Oxygen 28 SaO2/FiO2 Ratio 328 Oxygen Delivery Method Nasal Cannula Oxygen Flow Rate 2 Narrative Exam Narrative: General: Well nourished, mildly distressed/anxious HEENT: NC/AT, EOMI, moist mucous membranes CV: RRR, normal S1-S2, no m/g/r Resp: Tachypneic with mild increased work breathing, diffuse expiratory wheezing bilaterally Abdomen: Soft, NTND, BS+ Neuro: A&O x3, moves all extremities Objective Labs 12/14/23 04:20 12/14/23 04:20 Labs: Laboratory Results - last 24 hr 12/15/23 13:00 Urine Color Yellow Urine Appearance Clear Urine pH 5.0 Ur Specific Manly 1.015 Urine Protein Negative Urine Glucose (UA) Negative Urine Ketones Negative Urine Occult Blood Negative Urine Nitrate Negative Urine Bilirubin Negative Urine Urobilinogen 0.2 Ur Leukocyte Esterase Negative Urine RBC None seen Urine WBC 0-1/hpf Ur Squamous Epith Cells None seen Urine Bacteria None seen Ur Culture Indicated? 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 Mother No problems noted. 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: over 6 months ago leisure activities: art, fishing and other Smoking Status: Former smoker Tobacco: How many years used: 2 Smokeless tobacco user: other quit status: quit date established second hand exposure: Yes alcohol intake: current substance use type: does not use Assessment & Plan Assessment and plan (1) Acute exacerbation of chronic obstructive pulmonary disease: Status: Acute (2) Chronic respiratory failure: Qualifiers: Respiratory failure complication: hypoxia Qualified Code(s): J96.11 - Chronic respiratory failure with hypoxia Status: Acute (3) PALMIRA (acute kidney injury): Status: Acute (4) Leukocytosis: Qualifiers: Leukocytosis type: bandemia Qualified Code(s): D72.825 - Bandemia Status: Acute (5) Essential hypertension: Status: Chronic (6) Peripheral edema: Status: Acute (7) Mixed hyperlipidemia: Status: Chronic (8) Benign prostatic hyperplasia with lower urinary tract symptoms: Qualifiers: Lower urinary tract symptom detail: urinary frequency Qualified Code(s): N40.1 - Benign prostatic hyperplasia with lower urinary tract symptoms; R35.0 - Frequency of micturition Status: Chronic Assessment & Plan narrative: 88-year-old male with end-stage COPD, hypertension, peripheral edema admitted for COPD exacerbation. #COPD exacerbation, chronic respiratory failure We did discuss that is stopping IV medications may put him at risk for developing a pneumonia given positive sputum cultures. However, it is a reasonable option given plan to enter hospice tomorrow. Patient to consider whether he would like to continue with oral antibiotic therapy and advise of his decision. -stopped all IV meds at patient request -frequent nebs, O2 supplementation, morphine 4 mg q.1h for air hunger -12/12 sputum cx with MSSA and serratia marcescens x2 sensitive to 3rd generation cephalosporin or TMP-[id number] if oral treatment desired #PALMIRA Mild, may be due to cefepime nephrotoxicity -potentially offending med dc'd as above #Leukocytosis Likely reactive due to steroid administration. Less concern for pneumonia or systemic infection given negative CXR on admission 12/13. Positive sputum cultures obtained and submitted the day prior. -trend CBC #Hypertension -metoprolol daily #Peripheral edema -torsemide daily #Hyperlipidemia -simvastatin daily #BPH -finasteride and doxazosin daily Diet: Regular DVT ppx: Lovenox Dispo: Home with hospice tomorrow. POLST completed to have on hand for BLS transport. Time Spent With Patient Time with patient: 30 to 49 minutes with 50% spent counseling/coordinating care
[2023-12-16] MEDS: MORPHINE 10 MG/0.5 ML ORAL SYRINGE PO ×3 (13:25→17:33)
--- NOTE | 2023-12-16 14:10 | CM.DPNOTE ---
DCP Note TRANSFER MAN reviewed EMR TRANSFER MAN spoke with Rola at [facility]. Confirmed 2pm open Sunday and equip is scheduled to be delivered in the home tomorrow. TRANSFER MAN entered room and introduced self and role. Pt resting in bed. Accompanied by spouse at bedside. Spouse confirms plan for [facility] to open in the home at 2pm tomorrow. Reports verbal understanding their may be a bill associated with BLS transport. Reports someone will be home tomorrow for BLS. Reports no stairs and no other questions at this time. TRANSFER MAN spoke with Gladis at [facility]. Arranged for 12:30 transport to home tomorrow. Family notified and agreeable to plan. Plan: transport home with [facility] tomorrow at 12:30. Equip to be delivered in the morning. [facility] to open at 2pm in the home. CM team will follow closely. NILTON Rea
[2023-12-16] MEDS: ACETAMINOPHEN 325 MG TABLET PO (17:33)
[2023-12-17] VITALS (13 sets, daily range): BP systolic 138–158; BP diastolic 61–72; PULSE 58–71; TEMP 36.6; O2SAT 92–96
--- NOTE | 2023-12-17 06:22 | PC.NURSE ---
pt has rested well this shift and has not required prn pain medication, nor has he called for prn breathing treatments; his daughter has stayed overnight with him; plan for discharge home on hospice today at 1230
--- NOTE | 2023-12-17 08:23 | P.DS_ITS ---
History of Present Illness History of Present Illness Date Patient Seen: 12/17/23 Time Patient Seen: 08:23 Chief complaint: congestion, difficulth breathing Narrative: 88-year-old male well known to me with severe COPD recently started on oxygen replacement therapy by Pulmonary Medicine who presented to the emergency department with increasing shortness of breath. He was seen less than 48 hours prior by Pulmonary Medicine and started on continuous oxygen therapy. He was also continued on his oral steroid inhaler as well as his combo inhaler with ipratropium albuterol Apparently he had increasing shortness of breath presented to the ER where he was found to be modestly hypoxic. He had a mild leukocytosis (although recently on steroid therapy). Had negative chest x-ray lab work unremarkable including procalcitonin. He was given some IV steroids some nebulizer treatments and admitted to the hospital Discharge Providers Provider Date of admission: 12/13/23 01:07 Discharge Date: 12/17/23 Primary care physician: Ulices Guardado MD Consults: 12/13/23 04:33 Consult to [facility] - Physical Testing Supervisor Routine Comment: Discharge provider: Ulices Guardado MD Summary Hospital Course Discharge Diagnosis: 1. Acute exacerbation of chronic obstructive pulmonary disease 2. Chronic respiratory failure 3. Acute on chronic respiratory failure 4. Pneumonia with Staph aureus and Serratia species 5. Acute kidney injury 6. Chronic congestive heart failure with preserved ejection fraction 7. Chronic lower extremity peripheral edema 8. Chronic venous stasis right lower extremity 9. Hypertension 10. Hyperlipidemia 11. Chronic pain right knee 12. Paroxysmal atrial fibrillation Hospital Course: Patient was admitted as above. He was placed on IV antibiotics appropriate for his history with the Pseudomonas pulmonary infection as well as parental steroids. Outpatient sputum sample did eventually grow staph aureus and Serratia species an antibiotic therapy as initiated in the hospital was appropriate for these organisms Unfortunately patient really did not have any improvement in his sense of breathing. The only thing that made his breathing any better was morphine she made him feel better. Patient is felt to be end-stage COPD and discussion was initiated even in the ER about his wishes for next steps in his care given what appears to be the irreversibility of his lung disease Hospice was consulted readily agreed to admit him to their service. Therefore plans were made for him to discharge home to hospice on the 17 of December At home he will continue on antibiotic therapy to treat his infection which was found he will continue on oxygen replacement therapy, continue on oral steroid therapy as well as frequent nebulizer treatments for his lung disease He will also need to continue on diuretic therapy for his lower extremity edema to keep that at a minimum Morphine will also be prescribed for his sense of air hunger in this hospice setting Exam Vital Signs (past 8 hours): - 12/17/23 00:30 12/17/23 01:00 12/17/23 01:30 Temperature Pulse Rate 67 59 L 61 Blood Pressure Pulse Oximetry 94 95 95 Oxygen Delivery Method Oxygen Flow Rate Fraction of Inspired Oxygen 12/17/23 02:00 12/17/23 02:30 12/17/23 03:00 Temperature Pulse Rate 61 62 58 L Blood Pressure Pulse Oximetry 95 95 95 Oxygen Delivery Method Oxygen Flow Rate Fraction of Inspired Oxygen 12/17/23 03:30 12/17/23 04:00 12/17/23 04:07 Temperature 98 F Pulse Rate 64 67 71 Blood Pressure Pulse Oximetry 95 96 94 Oxygen Delivery Method Oxygen Flow Rate 2 Fraction of Inspired Oxygen 12/17/23 04:07 12/17/23 07:24 Temperature Pulse Rate 71 Blood Pressure 158/72 H Pulse Oximetry 94 Oxygen Delivery Method Nasal Cannula Oxygen Flow Rate 2 Fraction of Inspired Oxygen 28 Fraction of Inspired Oxygen 28 SaO2/FiO2 Ratio 335 Oxygen Delivery Method Nasal Cannula Oxygen Flow Rate 2 Objective Labs 12/14/23 04:20 12/14/23 04:20 [facility] Medical History Venous stasis dermatitis Paroxysmal atrial fibrillation (~2011) Chronic pain of right knee Peripheral edema Sinus bradycardia Squamous acanthoma of face (~10/2019) Skin cancer Tinnitus (~1989) Hearing loss (~1989) Chronic obstructive pulmonary disease (01/16/18) 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 Mother No problems noted. Social History marital status: number of children: 2 household members: spouse lives independently: Yes caregiver/support person: No housing: house pets and animals: No education level: master's degree occupational status: other Previous occupational history: [employer] travel history: over 6 months ago leisure activities: art, fishing and other Smoking Status: Former smoker Tobacco: How many years used: 2 Smokeless tobacco user: other quit status: quit date established second hand exposure: Yes alcohol intake: current substance use type: does not use Discharge Assessment & Plan Assessment and Plan Plan of Treatment: Patient be discharged home on hospice. To treat his COPD I recommend he continue on oxygen replacement therapy, as well as oral steroid therapy, frequent scheduled nebulizers with ipratropium and albuterol as well as as needed albuterol. Does not need his steroid inhaler as long as he has taking an oral steroid and that can be discontinued. In addition he was found to have Serratia and staph growing from sputum. He was started on antibiotic therapy upon admission he should complete a course of antibiotic therapy as an outpatient as well in effort to improve his breathing by eradicating his infection. He should continue on medications for his BPH with lower urinary tract symptoms He can have his lipid lowering therapy discontinued He should continue on diuretic therapy for his lower extremity edema, and there may also be an element of congestive heart failure with preserved ejection fraction present that would benefit from continued diuretic therapy as well. That maybe having an impact on his breathing although that is seems less likely given his lack of improvement in the hospital as above etcetera Discharge Plan Discharge Plan Patient Disposition: Hospice - Home Discharge orders & Medications Prescriptions: New prednisone 20 mg tablet 40 mg PO DAILY Qty: 60 0RF morphine 20 mg/5 mL (4 mg/mL) solution 10 mg PO Q4H PRN (Reason: dyspnea) Qty: 100 0RF cefdinir 300 mg capsule 300 mg PO BID 7 Days Qty: 14 0RF Continued doxazosin 8 mg tablet 8 mg PO DAILY Qty: 90 3RF potassium chloride 8 mEq tablet extended release 8 meq PO DAILY Qty: 90 3RF Hold Instructions: Home Medication placed on hold at Doctor's office finasteride 5 mg tablet See Rx Instructions .ROUTE .COMPLEX Qty: 30 11RF Dose Instruction: take 1 tablet by mouth once daily Rx Instructions: take 1 tablet by mouth once daily albuterol sulfate 90 mcg/actuation HFA aerosol inhaler 2 puff inhalation Q4-6H PRN (Reason: shortness of breath or wheezing) Qty: 17 3RF torsemide 40 mg tablet 40 mg PO DAILY Qty: 180 2RF metoprolol succinate 25 mg tablet extended release 24 hr 25 mg PO DAILY Qty: 90 3RF albuterol sulfate 2.5 mg /3 mL (0.083 %) solution for nebulization 2.5 mg inhalation Q2H PRN (Reason: shortness of breath or wheezing) Qty: 180 3RF Changed ipratropium-albuterol 0.5 mg-3 mg(2.5 mg base)/3 mL solution for nebulization 3 ml inhalation QID Qty: 180 5RF Discontinued simvastatin 40 mg tablet 40 mg PO DAILY Stiolto Respimat 2.5-2.5 mcg/actuation mist 2 puff inhalation DAILY Qty: 4 5RF Follow up/Referrals: Ulices Guardado MD [Primary Care Provider] - Discharge Health Status Multidrug resistant organism: No MDRO Diet/Activity/Treatments Diet: Diet as Tolerated and Low-sodium Oxygen: 2 liters/minute via nasal cannula continuous Visit Report/Discharge Packet Stand Alone Forms: Patient Portal/API Discharge Data Primary Care Provider: Ulices Guardado
[2023-12-17] MEDS: MORPHINE 10 MG/0.5 ML ORAL SYRINGE PO ×3 (09:10→11:25)
[2023-12-17] MEDS: FINASTERIDE 5 MG TABLET PO (09:11)
[2023-12-17] MEDS: TORSEMIDE 10 MG TABLET 40 MG PO (09:11)
[2023-12-17] MEDS: DOXAZOSIN 2 MG TABLET 8 MG PO (09:11)
[2023-12-17] MEDS: METOPROLOL ER 25 MG TABLET PO (09:11)
[2023-12-17] MEDS: POTASSIUM CHLORIDE 10 MEQ TAB PO (09:11)
--- NOTE | 2023-12-17 09:35 | CM.DPNOTE ---
Addendum entered by NILTON Rea 12/17/23 12:30: CHILD DAY CARE PROVIDER entered room and introduced self and role. Pt and family concerned about the bed order being delayed. Family reports plan is to put him in chair until bed and be delivered but worried about transitioning to bed when bed gets there from chair. CHILD DAY CARE PROVIDER updated them that they can call the fire department for a [facility], as long as pt does not go in an ambulance pt is still on Hospice services. Pt and family agreeable with this. Family reports no other needs at this time. CHILD DAY CARE PROVIDER spoke with Rola at [facility]. Rola confirmed above information that a [facility] can be done on Hospice services. BLS here to transport pt home. SL Original Note: DCP Note CHILD DAY CARE PROVIDER reviewed EMR. CHILD DAY CARE PROVIDER updated RN/DIRECTOR OF STRATEGIC INITIATIVES that BLS will be here at 12:30 to p/u pt for home. CHILD DAY CARE PROVIDER placed transport forms/POLST in chart. CHILD DAY CARE PROVIDER faxed dc sum to [facility]. CHILD DAY CARE PROVIDER spoke with Edgar at [facility]- pt may not get bed today due to it not originally being in the order, but reports already coordinating with family on it. Plan: dc today at 1230 with [facility] to transport home. [facility] to open at 2pm. CM team will continue to follow closely. NILTON Rea
[2023-12-17] MEDS: ALBUTEROL/IPRATROPIUM 3 ML AMPUL INH (10:16)
[2023-12-17] MEDS: ACETAMINOPHEN 325 MG TABLET PO (10:47)
--- NOTE | 2023-12-17 12:45 | PC.NURSE ---
PATIENT PICKED UP BY BLS FOR TRANSPORT TO HOME WITH HIS FAMILY AND HOSPICE CARE. PATIENT'S PICKED UP PATIENT'S PRESCRIPTIONS PRIOR TO DC. DISCHARGE PACKET REVIEWED WITH PATIENT'S AND PATIENT'S HAS NO FURTHER QUESTIONS AT THIS TIME.
== END 2023-12-17 12:47 | disposition hospice, home (50) | DRG 190 ==
LOC: ED 12-13 00:39 → AC 12-13 01:07 → ICU 12-13 02:31
PROVIDERS: Family Medicine; Admitting Provider Family Medicine; Emergency Provider Emergency Medicine; Family Provider Internal Medicine; PCP Internal Medicine; Referring Provider Emergency Medicine; Visit Provider Internal Medicine
DX: J44.1 Chronic obstructive pulmonary disease with (acute) exacerbation (principal); J18.9 Pneumonia, unspecified organism; J96.21 Acute and chronic respiratory failure with hypoxia; I50.32 Chronic diastolic (congestive) heart failure; G89.29 Other chronic pain; M25.561 Pain in right knee; N40.1 Benign prostatic hyperplasia with lower urinary tract symptoms; E78.2 Mixed hyperlipidemia; R35.0 Frequency of micturition; B95.61 Methicillin susceptible Staphylococcus aureus infection as the cause of diseases classified elsewhere; B96.89 Other specified bacterial agents as the cause of diseases classified elsewhere; I87.8 Other specified disorders of veins; I48.0 Paroxysmal atrial fibrillation; I11.0 Hypertensive heart disease with heart failure; Z99.81 Dependence on supplemental oxygen; Z87.891 Personal history of nicotine dependence; R05.9 Cough, unspecified
CPT/HCPCS: 36415; 71045; 80048; 80053; 81001; 83605; 83690; 83735; 83880; 84145; 84484; 85025; 85379; 87040; 87070; 87077; 87147; 87186; 87205; 87633; 93005; 93010; 93306; 94640; 94762; 96365; 96367; 96375; 96376; 97110; 97140; 97535; 99215; 99223; 99232; 99233; 99238; 99284; 99285; J0692; J0696; J1650; J1940; J2060; J2270; J2930; J7613